=== PATIENT | female | born 1935 | race Two or more races ===

== ENCOUNTER → 2017-07-16 | Outpatient (CLI) | payer MEDICARE, BC | LOC: RADPETMAIN 07:25 | PROVIDERS: ATTEND Internal Medicine Hematology & Oncology | DX: Z53.9 Procedure and treatment not carried out, unspecified reason (principal) ==

== ENCOUNTER 2017-08-03 13:26 | Inpatient (IN) | payer MEDICARE, BC ==
[2017-08-03 14:06] LABS: Basophils % (A) 0 %; Eosinophils % (A) 1 %; HCT 32.4 % (34.0-46.0); HGB 10.5 gm/dL (11.4-16.0); Hypochromasia Moderate; Lymphocytes % (A) 23 %; MCH 35.9 pg (25.0-35.0); MCHC 32.4 g/dL (31.0-37.0); MCV 110.8 fL (80.0-100.0); Macrocytosis Marked; Mean Platelet Volume 8.7; Monocytes # (A) 0.4 k/uL (0-1.0); Monocytes % (A) 8 %; Neutrophils # (A) 2.8 k/uL (1.3-7.7); Neutrophils % (A) 65 %; Platelet Count 424 k/uL (150-450); RBC 2.93 m/uL (3.80-5.40); RDW 14.1 % (11.5-15.5); WBC 4.4 k/uL (3.8-10.6)
[2017-08-03 14:07] LABS: INR 1.2 (<1.2); Partial Thromboplastin Time 23.2 sec (22.0-30.0); Prothrombin Time 11.5 sec (9.0-12.0)
[2017-08-03 14:13] LABS: ALT 44 U/L (9-52); AST 32 U/L (14-36); Albumin 4.1 g/dL (3.5-5.0); Alkaline Phosphatase 98 U/L (38-126); Anion Gap 15 mmol/L; Blood Urea Nitrogen 13 mg/dL (7-17); Calcium 9.5 mg/dL (8.4-10.2); Carbon Dioxide 25 mmol/L (22-30); Chloride 94 mmol/L (98-107); Glucose 101 mg/dL (74-99); Magnesium 1.8 mg/dL (1.6-2.3); Potassium 4.1 mmol/L (3.5-5.1); Sodium 134 mmol/L (137-145); Total Bilirubin 0.7 mg/dL (0.2-1.3); Total Protein 6.9 g/dL (6.3-8.2)
[2017-08-03 14:15] LABS: Large Platelets Present
[2017-08-03 14:19] LABS: Creatine Kinase 41 U/L (30-135)
[2017-08-03 14:32] LABS: Creatine Kinase MB 0.4 ng/mL (0.0-2.4); Troponin I <0.012 ng/mL (0.000-0.034)
[2017-08-03] MEDS ORDERED: METOPROLOL TARTRATE 5 MG/5 ML VIAL IVP STA (14:33)
--- NOTE | 2017-08-03 14:44 | ED ---
General Adult HPI - General Chief complaint: Arrhythmia/Palpitations Stated complaint: AFIB Time Seen by Provider: 08/03/17 14:25 Source: patient Mode of arrival: ambulatory Limitations: no limitations - History of Present Illness Initial comments: This is a 2-year-old female with a history of hypertension on amlodipine, metoprolol, and hydrocodone 5 that he presents emergency department for new onset atrial fibrillation. This was found at her primary doctor's office today. Patient was there for evaluation of URI symptoms. She states that she has been coughing and wheezing over the last few days. She states otherwise she has been feeling well. No chest pain or lightheadedness. No palpitations. She was noted to be nature of fibrillation the office thus she was sent to the emergency department. She denies any recent travel or surgeries. No history DVT or PE. Does not drink excessively. Has not noticed any lower extremity swelling. Denies any other acute complaints. - Related Data Home Medications Medication Instructions Recorded Confirmed ALPRAZolam [Xanax] 0.25 mg PO BID PRN 08/03/17 08/03/17 Ascorbic Acid [Vitamin C] 500 mg PO DAILY 08/03/17 08/03/17 Aspirin 81 mg PO DAILY 08/03/17 08/03/17 Hydrochlorothiazide [Hydrodiuril] 12.5 mg PO DAILY 08/03/17 08/03/17 Hydroxyurea [Hydrea] 1,000 mg PO Q48H 08/03/17 08/03/17 Hydroxyurea [Hydrea] 500 mg PO Q48H 08/03/17 08/03/17 Metoprolol Tartrate [Lopressor] 50 mg PO BID 08/03/17 08/03/17 Multivit-Min/FA/Lycopen/Lutein 1 tab PO DAILY 08/03/17 08/03/17 [Centrum Silver Tablet] amLODIPine [Norvasc] 10 mg PO DAILY 08/03/17 08/03/17 Allergies Allergy/AdvReac Type Severity Reaction Status Date / Time No Known Allergies Allergy Verified 08/03/17 13:42 Review of Systems ROS Statement: Those systems with pertinent positive or pertinent negative responses have been documented in the HPI. ROS Other: All systems not noted in ROS Statement are negative. 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 History of Any Multi-Drug Resistant Organisms: None Reported Past Surgical History: Section Additional Past Surgical History / Comment(s): melanoma removed from left cheek Past Psychological History: No Psychological Hx Reported Smoking Status: Never smoker Past Alcohol Use History: None Reported Past Drug Use History: None Reported General Exam - General Exam Comments Initial Comments: Constitutional: Awake alert Appears comfortable Head: Normocephalic atraumatic Eyes: no conjunctival injection No scleral icterus EOMI Neck: No JVD Supple Heart: Irregularly irregular rhythm normal S1-S2 no murmurs Lungs: Clear to auscultation bilaterally No wheezing No rales Abdomen: Soft nondistended nontender Extremities: Non edematous DP pulses intact Radial pulses intact Neuro: A&Ox3 No focal neurologic deficits Psych: Appropriate mood and affect Limitations: no limitations Course Vital Signs 08/03/17 08/03/17 13:33 15:25 Temperature 98.3 F Pulse Rate 115 H 103 H Respiratory 18 18 Rate Blood Pressure 127/71 146/88 O2 Sat by Pulse 92 L 93 L Oximetry EKG Findings - EKG Comments: EKG Findings:: EKG showing atrial fibrillation with a rate of 105. There are no ST segment changes. There is a T-wave inversion in V6 and lead 1 and 2 and aVF. QTC is 452. Other intervals normal. No ectopy. Medical Decision Making - Medical Decision Making Is any 82-year-old female who presents emergency department for new onset H of fibrillation. The patient was given 5 mg of IV Lopressor for better rate control. She was noted to be slightly hypoxic in the low 90s however when I ambulated her she did not desaturate any further. Blood work was reviewed and unremarkable. I did speak with per week on the phone about anticoagulation and he recommended pelvic was 5 mg twice a day. I spoke with the family at length about possibly going home and they do not feel comfortable going home. The daughter was worried that if she started developing symptoms are worsening shortness of breath that she would not know what to do. They felt more comfortable sitting in the hospital. The patient would will require cardiology evaluation and likely an echocardiogram and also monitoring of her heart rate and adjustment of her medications if necessary. The patient we place an option further evaluation. - Lab Data Result diagrams: 08/03/17 13:48 08/03/17 13:48 Lab Results 08/03/17 08/03/17 08/03/17 Range/Units 13:48 13:48 13:48 WBC 4.4 (3.8-10.6) k/uL RBC 2.93 L (3.80-5.40) m/uL Hgb 10.5 L (11.4-16.0) gm/dL Hct 32.4 L (34.0-46.0) % MCV 110.8 H (80.0-100.0) fL MCH 35.9 H (25.0-35.0) pg MCHC 32.4 (31.0-37.0) g/dL RDW 14.1 (11.5-15.5) % Plt Count 424 (150-450) k/uL Neutrophils % 65 % Lymphocytes % 23 % Monocytes % 8 % Eosinophils % 1 % Basophils % 0 % Neutrophils # 2.8 (1.3-7.7) k/uL Lymphocytes # 1.0 (1.0-4.8) k/uL Monocytes # 0.4 (0-1.0) k/uL Eosinophils # 0.0 (0-0.7) k/uL Basophils # 0.0 (0-0.2) k/uL Manual Slide Review Performed Large Platelets Present Hypochromasia Moderate Macrocytosis Marked PT (9.0-12.0) sec INR (<1.2) APTT (22.0-30.0) sec Sodium 134 L (137-145) mmol/L Potassium 4.1 (3.5-5.1) mmol/L Chloride 94 L (98-107) mmol/L Carbon Dioxide 25 (22-30) mmol/L Anion Gap 15 mmol/L BUN 13 (7-17) mg/dL Creatinine 0.70 (0.52-1.04) mg/dL Est GFR (CKD-EPI)AfAm >90 (>60 ml/min/1.73 sqM) Est GFR (CKD-EPI)NonAf 80 (>60 ml/min/1.73 sqM) Glucose 101 H (74-99) mg/dL Calcium 9.5 (8.4-10.2) mg/dL Magnesium 1.8 (1.6-2.3) mg/dL Total Bilirubin 0.7 (0.2-1.3) mg/dL AST 32 (14-36) U/L ALT 44 (9-52) U/L Alkaline Phosphatase 98 (38-126) U/L Total Creatine Kinase 41 (30-135) U/L CK-MB (CK-2) 0.4 (0.0-2.4) ng/mL CK-MB (CK-2) Rel Index 1.0 Troponin I <0.012 (0.000-0.034) ng/mL NT-Pro-B Natriuret Pep pg/mL Total Protein 6.9 (6.3-8.2) g/dL Albumin 4.1 (3.5-5.0) g/dL 08/03/17 08/03/17 Range/Units 13:48 13:48 WBC (3.8-10.6) k/uL RBC (3.80-5.40) m/uL Hgb (11.4-16.0) gm/dL Hct (34.0-46.0) % MCV (80.0-100.0) fL MCH (25.0-35.0) pg MCHC (31.0-37.0) g/dL RDW (11.5-15.5) % Plt Count (150-450) k/uL Neutrophils % % Lymphocytes % % Monocytes % % Eosinophils % % Basophils % % Neutrophils # (1.3-7.7) k/uL Lymphocytes # (1.0-4.8) k/uL Monocytes # (0-1.0) k/uL Eosinophils # (0-0.7) k/uL Basophils # (0-0.2) k/uL Manual Slide Review Large Platelets Hypochromasia Macrocytosis PT 11.5 (9.0-12.0) sec INR 1.2 H (<1.2) APTT 23.2 (22.0-30.0) sec Sodium (137-145) mmol/L Potassium (3.5-5.1) mmol/L Chloride (98-107) mmol/L Carbon Dioxide (22-30) mmol/L Anion Gap mmol/L BUN (7-17) mg/dL Creatinine (0.52-1.04) mg/dL Est GFR (CKD-EPI)AfAm (>60 ml/min/1.73 sqM) Est GFR (CKD-EPI)NonAf (>60 ml/min/1.73 sqM) Glucose (74-99) mg/dL Calcium (8.4-10.2) mg/dL Magnesium (1.6-2.3) mg/dL Total Bilirubin (0.2-1.3) mg/dL AST (14-36) U/L ALT (9-52) U/L Alkaline Phosphatase (38-126) U/L Total Creatine Kinase (30-135) U/L CK-MB (CK-2) (0.0-2.4) ng/mL CK-MB (CK-2) Rel Index Troponin I (0.000-0.034) ng/mL NT-Pro-B Natriuret Pep 2560 pg/mL Total Protein (6.3-8.2) g/dL Albumin (3.5-5.0) g/dL Disposition Clinical Impression: Atrial fibrillation Disposition: ADMITTED IP TO THIS [facility] Condition: Stable
--- NOTE | 2017-08-03 14:49 | XR ---
EXAMINATION TYPE: XR chest 2V DATE OF EXAM: 08/03/2017 COMPARISON: None HISTORY: 82-year-old female with dysrhythmia TECHNIQUE: AP and lateral views FINDINGS: Heart mildly enlarged. Atherosclerotic arch calcifications. Mild diffuse interstitial prominence with mild pleural effusions and bibasilar densities. IMPRESSION: 1. Correlate for mild CHF. 2. Small pleural effusions with adjacent atelectasis and/or consolidation.
[2017-08-03] MEDS ORDERED: APIXABAN 5 MG TAB PO STA (15:33)
[2017-08-03] MEDS ORDERED: NALOXONE 0.4 MG/ML 1 ML VIAL IV PRN (15:57)
[2017-08-03] MEDS ORDERED: ALPRAZolam 0.25 MG TAB PO PRN (17:26)
[2017-08-03] MEDS ORDERED: HYDROXYUREA 500 MG CAP PO ONE (17:30)
--- NOTE | 2017-08-03 17:46 | P.HPIM ---
History of Present Illness 81-year-old pleasant female came in after she was sent in from this office after EKG was done there. 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 Patient was found to be in atrial fibrillation patient does have bilateral pleural effusions elevated JVD and also elevated BNP. This is a new onset atrial fibrillation for the patient patient already takes metoprolol at home patient heart rate came under control after IV metoprolol patient will be resumed on metoprolol will be started on anticoagulation patient takes aspirin at home patient denied any history of and start failure patient is comparing of some shortness of breath cushion will history of orthopnea as well as paroxysmal nocturnal dyspnea patient does have mild bilateral pedal edema. Echo cardiac exam will be obtained. Patient was comparing of cough without any sputum production. Review of Systems REVIEW OF SYSTEMS: CONSTITUTIONAL: No fever, no malaise, no fatigue. HEENT: No recent visual problems or hearing problems. Denied any sore throat. CARDIOVASCULAR: No chest pain, no palpitations, no syncope. PULMONARY: , no hemoptysis. GASTROINTESTINAL: No diarrhea, no nausea, no vomiting, no abdominal pain. Normoactive bowel sounds. NEUROLOGICAL: No headaches, no weakness, no numbness. HEMATOLOGICAL: Denies any bleeding or petechiae. GENITOURINARY: Denies any burning micturition, frequency, or urgency. MUSCULOSKELETAL/RHEUMATOLOGICAL: Denies any joint pain, swelling, or any muscle pain. ENDOCRINE: Denies any polyuria or polydipsia. The rest of the 14-point review of systems is negative. 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 History of Any Multi-Drug Resistant Organisms: None Reported Past Surgical History: Section Additional Past Surgical History / Comment(s): melanoma removed from left cheek Past Psychological History: No Psychological Hx Reported Smoking Status: Never smoker Past Alcohol Use History: None Reported Past Drug Use History: None Reported Medications and Allergies Home Medications Medication Instructions Recorded Confirmed Type ALPRAZolam [Xanax] 0.25 mg PO BID PRN 08/03/17 08/03/17 History Ascorbic Acid [Vitamin C] 500 mg PO DAILY 08/03/17 08/03/17 History Aspirin 81 mg PO DAILY 08/03/17 08/03/17 History Hydrochlorothiazide [Hydrodiuril] 12.5 mg PO DAILY 08/03/17 08/03/17 History Hydroxyurea [Hydrea] 1,000 mg PO Q48H 08/03/17 08/03/17 History Hydroxyurea [Hydrea] 500 mg PO Q48H 08/03/17 08/03/17 History Metoprolol Tartrate [Lopressor] 50 mg PO BID 08/03/17 08/03/17 History Multivit-Min/FA/Lycopen/Lutein 1 tab PO DAILY 08/03/17 08/03/17 History [Centrum Silver Tablet] amLODIPine [Norvasc] 10 mg PO DAILY 08/03/17 08/03/17 History Allergies Allergy/AdvReac Type Severity Reaction Status Date / Time No Known Allergies Allergy Verified 08/03/17 13:42 Physical Exam Vitals: Vital Signs Temp Pulse Resp BP Pulse Ox 08/03/17 16:23 91 18 125/76 92 L 08/03/17 15:25 103 H 18 146/88 93 L 08/03/17 13:33 98.3 F 115 H 18 127/71 92 L Intake and Output 08/03/17 08/03/17 08/03/17 06:59 14:59 22:59 Other: Weight 70.307 kg PHYSICAL EXAMINATION: GENERAL: The patient is alert and oriented x3, not in any acute distress. Well developed, well nourished. HEENT: Pupils are round and equally reacting to light. EOMI. No scleral icterus. No conjunctival pallor. Normocephalic, atraumatic. No pharyngeal erythema. No thyromegaly. CARDIOVASCULAR: S1 and S2 present. No murmurs, rubs, patient does have S3 as well as elevated JVD. PULMONARY: Good air entry bilateral lung ayala and crackles are appreciated on lung exam ABDOMEN: Soft, nontender, nondistended, normoactive bowel sounds. No palpable organomegaly. MUSCULOSKELETAL: No joint swelling or deformity. EXTREMITIES: No cyanosis, clubbing, mild pedal edema NEUROLOGICAL: Gross neurological examination did not reveal any focal deficits. SKIN: No rashes. Results CBC & Chem 7: 08/03/17 13:48 08/03/17 13:48 Labs: Abnormal Lab Results - Last 24 Hours (Table) 05/05/2208/03/17 08/03/17 Range/Units 13:48 13:48 13:48 RBC 2.93 L (3.80-5.40) m/uL Hgb 10.5 L (11.4-16.0) gm/dL Hct 32.4 L (34.0-46.0) % MCV 110.8 H (80.0-100.0) fL MCH 35.9 H (25.0-35.0) pg INR 1.2 H (<1.2) Sodium 134 L (137-145) mmol/L Chloride 94 L (98-107) mmol/L Glucose 101 H (74-99) mg/dL Assessment and Plan Plan: -New-onset atrial fibrillation frustrating factor is unknown patient does not have any signs or symptoms of infection patient was started on metoprolol oral and the patient was started on anticoagulation MARKY VASC2 score is high will need anticoagulation Congestive heart failure ejection fraction is unknown probably as stated from atrial fibrillation echocardiac exam will be obtained as mentioned above. -Hypertension: Except for beta tr rest of the medications will be held. 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
[2017-08-03 21:02] LABS: Creatine Kinase 39 U/L (30-135)
[2017-08-03 21:15] LABS: Creatine Kinase MB 0.6 ng/mL (0.0-2.4); Troponin I <0.012 ng/mL (0.000-0.034)
[2017-08-03] MEDS: APIXABAN 5 MG TAB PO SCH (21:47)
[2017-08-03] MEDS: METOPROLOL TARTRATE 50 MG TAB PO SCH (21:52)
[2017-08-03] MEDS: FUROSEMIDE 10 MG/ML 4 ML VIAL IV SCH (21:53)
[2017-08-04 02:21] LABS: HCT 29.1 % (34.0-46.0); HGB 9.3 gm/dL (11.4-16.0); Hypochromasia Moderate; MCH 35.9 pg (25.0-35.0); MCHC 31.8 g/dL (31.0-37.0); MCV 112.8 fL (80.0-100.0); Macrocytosis Marked; Mean Platelet Volume 8.2; Platelet Count 359 k/uL (150-450); RBC 2.58 m/uL (3.80-5.40); RDW 14.3 % (11.5-15.5); WBC 3.2 k/uL (3.8-10.6)
[2017-08-04 02:57] LABS: Creatine Kinase 44 U/L (30-135)
[2017-08-04 02:59] LABS: Anion Gap 12 mmol/L; Blood Urea Nitrogen 13 mg/dL (7-17); Carbon Dioxide 25 mmol/L (22-30); Chloride 97 mmol/L (98-107); Glucose 92 mg/dL (74-99); Potassium 3.8 mmol/L (3.5-5.1); Sodium 134 mmol/L (137-145)
[2017-08-04 03:10] LABS: Creatine Kinase MB 0.8 ng/mL (0.0-2.4); Troponin I <0.012 ng/mL (0.000-0.034)
[2017-08-04] MEDS ORDERED: FUROSEMIDE 40 MG TAB PO SCH (09:00)
--- NOTE | 2017-08-04 09:19 | P.CRDCN ---
History of Present Illness Consult date: 08/04/17 Requesting physician: Breann Gold Consult reason: atrial fibrillation Chief complaint: Atrial fibrillation History of present illness: This is a pleasant 82-year-old female with history of hypertension, thrombocythemia , squamous cell cancer for which she follows with Dr. Matias, this patient was directed to come to the hospital by her primary care doctor when she was noted to be in atrial fibrillation. According to the patient, she states that for the past one week or so she has noticed herself to be more short of breath than usual. She denies any palpitations or chest discomfort. She was at her primary care doctor's office, an EKG was performed which showed atrial fibrillation and for this reason she was advised to come to the emergency room for further evaluation. According to the patient, she has no prior documented history of atrial fibrillation. EKG on arrival here showed atrial fibrillation with a moderately rapid ventricular response, occasional PVC. Chest x-ray showed mild congestive heart failure with small bilateral pleural effusions. Blood pressure on arrival here 127/70 with a heart rate of 118, temperature 98.3, 92% on room air. Blood pressure this morning 140/70 with a heart rate of 90, 94% on 2 L of oxygen. White blood cell count on arrival 4.4, 3.2 this morning. Hemoglobin on arrival 10.5, 9.3 this morning, platelet count is 359. Sodium 134, potassium 3.8, BUN 13, creatinine 0.7. Troponins are negative 3, BNP 2560. At the time of my examination this morning she continues to be in atrial fibrillation, her rate is under good control. Patient was initiated on IV Lasix in the emergency room. She was also started on Eliquis 5 mg twice a day. She is on Norvasc 10 mg daily at home as well as Lopressor 50 twice a day, Hydrea, Hydrea diarrheal 12-1/2 daily. Her dose of metoprolol here has been increased to 100 twice a day. 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 History of Any Multi-Drug Resistant Organisms: None Reported Past Surgical History: Section Additional Past Surgical History / Comment(s): melanoma removed from left cheek Past Psychological History: No Psychological Hx Reported Smoking Status: Never smoker Past Alcohol Use History: None Reported Past Drug Use History: None Reported Medications and Allergies Home Medications Medication Instructions Recorded Confirmed Type ALPRAZolam [Xanax] 0.25 mg PO BID PRN 08/03/17 08/03/17 History Ascorbic Acid [Vitamin C] 500 mg PO DAILY 08/03/17 08/03/17 History Aspirin 81 mg PO DAILY 08/03/17 08/03/17 History Hydrochlorothiazide [Hydrodiuril] 12.5 mg PO DAILY 08/03/17 08/03/17 History Hydroxyurea [Hydrea] 1,000 mg PO Q48H 08/03/17 08/03/17 History Hydroxyurea [Hydrea] 500 mg PO Q48H 08/03/17 08/03/17 History Metoprolol Tartrate [Lopressor] 50 mg PO BID 08/03/17 08/03/17 History Multivit-Min/FA/Lycopen/Lutein 1 tab PO DAILY 08/03/17 08/03/17 History [Centrum Silver Tablet] amLODIPine [Norvasc] 10 mg PO DAILY 08/03/17 08/03/17 History Allergies Allergy/AdvReac Type Severity Reaction Status Date / Time No Known Allergies Allergy Verified 08/03/17 13:42 Physical Exam Vitals: Vital Signs Temp Pulse Resp BP Pulse Ox 08/04/17 08:00 95 18 141/75 94 L 08/04/17 07:55 98 20 95 08/04/17 07:53 97.8 F 108 H 28 H 143/76 88 L 08/04/17 07:00 20 08/04/17 06:01 95 18 114/57 93 L 08/04/17 05:00 93 L 08/04/17 04:09 82 20 93 L 08/04/17 03:00 85 18 111/57 95 08/04/17 02:21 82 18 94 L 08/04/17 01:10 76 18 95/55 95 08/03/17 23:36 97.8 F 70 18 115/58 93 L 08/03/17 21:52 97 18 139/66 96 08/03/17 20:19 99 18 143/67 91 L 08/03/17 18:07 97.6 F 97 18 148/75 92 L 08/03/17 16:23 91 18 125/76 92 L 08/03/17 15:25 103 H 18 146/88 93 L 08/03/17 13:33 98.3 F 115 H 18 127/71 92 L PHYSICAL EXAMINATION: HEENT: Head is atraumatic, normocephalic. Pupils equal, round. Neck is supple. There is elevated jugular venous pressure. HEART EXAMINATION: Heart S1 and S2 irregularly irregular CHEST EXAMINATION: Lungs are clear with diminished air entry to bilateral bases ABDOMEN: Soft, nontender. Bowel sounds are heard. No organomegaly noted. EXTREMITIES: 2+ peripheral pulses with no evidence of peripheral edema and no calf tenderness noted. NEUROLOGIC patient is awake, alert and oriented -3. . Results 08/04/17 02:00 08/04/17 02:00 Cardiac Enzymes 08/03/17 08/03/17 08/03/17 Range/Units 13:48 13:48 20:36 AST 32 (14-36) U/L CK-MB (CK-2) 0.4 0.6 (0.0-2.4) ng/mL Troponin I <0.012 <0.012 (0.000-0.034) ng/mL 08/04/17 Range/Units 02:00 AST (14-36) U/L CK-MB (CK-2) 0.8 (0.0-2.4) ng/mL Troponin I <0.012 (0.000-0.034) ng/mL Coagulation 08/03/17 Range/Units 13:48 PT 11.5 (9.0-12.0) sec APTT 23.2 (22.0-30.0) sec CBC 08/03/17 08/04/17 Range/Units 13:48 02:00 WBC 4.4 3.2 L (3.8-10.6) k/uL RBC 2.93 L 2.58 L (3.80-5.40) m/uL Hgb 10.5 L 9.3 L (11.4-16.0) gm/dL Hct 32.4 L 29.1 L (34.0-46.0) % Plt Count 424 359 (150-450) k/uL Comprehensive Metabolic Panel 08/03/17 08/04/17 Range/Units 13:48 02:00 Sodium 134 L 134 L (137-145) mmol/L Potassium 4.1 3.8 (3.5-5.1) mmol/L Chloride 94 L 97 L (98-107) mmol/L Carbon Dioxide 25 25 (22-30) mmol/L BUN 13 13 (7-17) mg/dL Creatinine 0.70 0.70 (0.52-1.04) mg/dL Glucose 101 H 92 (74-99) mg/dL Calcium 9.5 9.0 (8.4-10.2) mg/dL AST 32 (14-36) U/L ALT 44 (9-52) U/L Alkaline Phosphatase 98 (38-126) U/L Total Protein 6.9 (6.3-8.2) g/dL Albumin 4.1 (3.5-5.0) g/dL Current Medications Generic Name Dose Route Start Last Admin Trade Name Freq PRN Reason Stop Dose Admin Alprazolam 0.25 mg 08/03/17 17:26 Xanax PO BID PRN Anxiety Apixaban 5 mg 08/03/17 21:00 08/03/17 21:47 Eliquis PO Not Given BID PASCALE Furosemide 40 mg 08/03/17 21:00 08/03/17 21:53 Lasix IV 40 mg Q12HR PASCALE Administration Hydroxyurea 1,000 mg 08/04/17 09:00 Hydrea PO Q48H PASCALE Hydroxyurea 500 mg 08/05/17 09:00 Hydrea PO Q48H PASCALE Metoprolol Tartrate 100 mg 08/03/17 21:00 08/03/17 21:52 Lopressor PO 100 mg BID PASCALE Administration Naloxone HCl 0.2 mg 08/03/17 15:57 Narcan IV Q2M PRN Opioid Reversal 08/04/17 02:00 08/04/17 02:00 EKG Interpretations (text) EKG shows atrial fibrillation with a moderately rapid ventricular response. Assessment and Plan Plan: Assessment and plan #1 atrial fibrillation with moderately rapid ventricular response, appears to be of new onset. #2 hypertension #3 thrombocythemia, on Hydrea, being treated by Dr. Moss #4 squamous cell CA Plan We will obtain an echocardiogram with Doppler study as well as TSH level. Continue Eliquis and discussed with Dr. Moss, continue current dose of Lopressor, discontinue IV Lasix and start the patient on oral diuretics. Control heart rate. Further recommendations to follow. DNP note has been reviewed, I agree with a documented findings and plan of care. Patient was seen and examined.
[2017-08-04] MEDS: FUROSEMIDE 10 MG/ML 4 ML VIAL IV SCH (09:28)
[2017-08-04] MEDS: APIXABAN 5 MG TAB PO SCH ×2 (09:50→20:17)
[2017-08-04] MEDS: HYDROXYUREA 500 MG CAP PO SCH ×3 (09:52→13:37)
--- NOTE | 2017-08-04 10:39 | ECHOF ---
Referral Reason:new onset a.fib MEASUREMENTS -------- HEIGHT: 157.5 cm WEIGHT: 70.3 kg BP: 143/76 RVIDd: 2.6 cm (< 3.3) IVSd: 1.2 cm (0.6 - 1.1) LVIDd: 4.2 cm (3.9 - 5.3) LVPWd: 1.3 cm (0.6 - 1.1) IVSs: 1.7 cm LVIDs: 3.5 cm LVPWs: 1.1 cm LA Diam: 4.2 cm (2.7 - 3.8) LAESV Index (A-L): 50.74 ml/m Ao Diam: 3.5 cm (2.0 - 3.7) AV Cusp: 1.2 cm (1.5 - 2.6) LA Diam: 4.7 cm (2.7 - 3.8) MV EXCURSION: 20.824 mm (> 18.000) MV EF SLOPE: 136 mm/s (70 - 150) EPSS: 0.2 cm MV E Micah: 0.93 m/s MV DecT: 118 ms MV A Micah: 0.05 m/s MV E/A Ratio: 17.00 RAP: 15.00 mmHg RVSP: 49.12 mmHg FINDINGS -------- Atrial fibrillation. This was a technically adequate study. The left ventricular size is normal. There is borderline concentric left ventricular hypertrophy. Overall left ventricular systolic function is low-normal with, an EF between 50 - 55 %. The right ventricle is normal in size. The left atrium is moderately dilated. LA is severely dilated >40 ml/m2 The right atrial size is normal. There is mild aortic valve sclerosis. There is no evidence of aortic regurgitation. Mild mitral annular calcification present. Moderate mitral regurgitation is present. Moderate to severe tricuspid regurgitation present. There is moderate pulmonary hypertension. The right ventricular systolic pressure, as measured by Doppler, is 49.12mmHg. Trace/mild (physiologic) pulmonic regurgitation. The aortic root size is normal. There is no pericardial effusion. CONCLUSIONS -------- 1. The left ventricular size is normal. 2. There is borderline concentric left ventricular hypertrophy. 3. Overall left ventricular systolic function is low-normal with, an EF between 50 - 55 %. 4. The left atrium is moderately dilated. 5. LA is severely dilated >40 ml/m2 6. There is mild aortic valve sclerosis. 7. Mild mitral annular calcification present. 8. Moderate mitral regurgitation is present. 9. Moderate to severe tricuspid regurgitation present. 10. There is moderate pulmonary hypertension. 11. The right ventricular systolic pressure, as measured by Doppler, is 49.12mmHg. 12. Trace/mild (physiologic) pulmonic regurgitation. 13. The aortic root size is normal. 14. There is no pericardial effusion. CLINICAL NURSING COORDINATOR: Cleo Hamilton RDCS
--- NOTE | 2017-08-04 10:55 | P.PN ---
Subjective 82-year-old female came in with atrial fibrillation and congestive heart failure patient has normal ejection fraction patient appears to have severe mitral regurgitation and left atrial hypertrophy contributing to atrial fibrillation. Patient is feeling better still has some crackles in JVD patient was switched to oral Lasix by cardiology patient was started on anticoagulation. Heart rate is not well controlled yet. Constitutional: Denied any fatigue denied any fever. Cardio vascular: denied any chest pain, palpitations Gastrointestinal denied any nausea vomiting Pulmonary: Shortness of breath Neurologic denied any new focal deficits Objective - Vital Signs Vital signs: Vital Signs Temp 97.8 F 08/04/17 07:53 Pulse 95 08/04/17 08:00 Resp 18 08/04/17 08:00 BP 141/75 08/04/17 08:00 Pulse Ox 94 L 08/04/17 08:00 Intake & Output 08/03/17 08/04/17 08/04/17 18:59 06:59 18:59 Output Total 950 Balance -950 Weight 70.307 kg Output: Urine 950 - Exam PHYSICAL EXAMINATION: GENERAL: The patient is alert and oriented x3, not in any acute distress. Well developed, well nourished. HEENT: Pupils are round and equally reacting to light. EOMI. No scleral icterus. No conjunctival pallor. Normocephalic, atraumatic. No pharyngeal erythema. No thyromegaly. CARDIOVASCULAR: S1 and S2 present. Systolic murmur Mitral area, elevated JVD mild pedal edema, irregularly irregular rhythm. PULMONARY: Chest is clear to auscultation, no wheezing or crackles. ABDOMEN: Soft, nontender, nondistended, normoactive bowel sounds. No palpable organomegaly. MUSCULOSKELETAL: No joint swelling or deformity. EXTREMITIES: No cyanosis, clubbing, NEUROLOGICAL: Gross neurological examination did not reveal any focal deficits. SKIN: No rashes. - Labs CBC & Chem 7: 08/04/17 02:00 08/04/17 02:00 Labs: Abnormal Lab Results - Last 24 Hours (Table) 08/03/17 08/03/17 08/03/17 Range/Units 13:48 13:48 13:48 WBC (3.8-10.6) k/uL RBC 2.93 L (3.80-5.40) m/uL Hgb 10.5 L (11.4-16.0) gm/dL Hct 32.4 L (34.0-46.0) % MCV 110.8 H (80.0-100.0) fL MCH 35.9 H (25.0-35.0) pg INR 1.2 H (<1.2) Sodium 134 L (137-145) mmol/L Chloride 94 L (98-107) mmol/L Glucose 101 H (74-99) mg/dL 08/04/17 08/04/17 Range/Units 02:00 02:00 WBC 3.2 L (3.8-10.6) k/uL RBC 2.58 L (3.80-5.40) m/uL Hgb 9.3 L (11.4-16.0) gm/dL Hct 29.1 L (34.0-46.0) % MCV 112.8 H (80.0-100.0) fL MCH 35.9 H (25.0-35.0) pg INR (<1.2) Sodium 134 L (137-145) mmol/L Chloride 97 L (98-107) mmol/L Glucose (74-99) mg/dL Assessment and Plan Plan: -New-onset atrial fibrillation frustrating factor is unknown patient does not have any signs or symptoms of infection patient was started on metoprolol oral and the patient was started on anticoagulation MARKY VASC2 score is high will need anticoagulation Congestive heart failure ejection fraction is unknown probably as stated from atrial fibrillation echocardiac exam showed normal ejection fraction. Patient is on oral Lasix now. -Hypertension: Except for beta tr rest of the medications will be held. 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
[2017-08-04] MEDS: METOPROLOL TARTRATE 50 MG TAB PO SCH ×2 (11:53→20:17)
[2017-08-05 06:56] LABS: Anion Gap 11 mmol/L; Blood Urea Nitrogen 14 mg/dL (7-17); Calcium 9.1 mg/dL (8.4-10.2); Carbon Dioxide 28 mmol/L (22-30); Chloride 99 mmol/L (98-107); Glucose 86 mg/dL (74-99); Potassium 3.7 mmol/L (3.5-5.1); Sodium 138 mmol/L (137-145)
[2017-08-05] MEDS: METOPROLOL TARTRATE 50 MG TAB PO SCH (08:08)
[2017-08-05] MEDS: HYDROXYUREA 500 MG CAP PO SCH (08:08)
[2017-08-05] MEDS: APIXABAN 5 MG TAB PO SCH (08:08)
[2017-08-05 08:29] VITALS: RESP 18
[2017-08-05] MEDS ORDERED: HYDROXYUREA 500 MG CAP PO SCH (09:00)
[2017-08-05] MEDS ORDERED: FUROSEMIDE 40 MG TAB PO SCH (09:00)
--- NOTE | 2017-08-05 10:42 | CDI ---
Last Revision, March 2017 Documentation Clarification Form Date: 08/05/2017 10:39:00 AM From: Keysha OharaJALEESA, CCDS Admit Date: 08/04/2017 9:48:00 AM Patient Name: Jessica Pulido Visit Number: [id number] Discharge Date: ATTENTION: The Clinical Documentation Specialists (CDI) and [facility] Coding Staff appreciate your assistance in clarifying documentation. Please respond to the clarification below the line at the bottom and electronically sign. The CDI & [facility] Coding staff will review the response and follow-up if needed. Please note: Queries are made part of the Legal Health Record. If you have any questions, please contact the author of this message via ITS. Dr. 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 VS: P 115, PO 92 RA BNP: 2560 Echocardiogram Results 08/04: systolic function low normal w/EF between 50-55%, left atrium moderately dilated, Mod MR, Mod-severe TR, Mod pulmonary hypertension. Chest X Ray: Correlate for mild CHF, small pleural effusions, atelectasis or consolidation. Treatment: IV Lopressor, Eliquis, IV Lasix, now po. Cardiology consulted. In your professional opinion, can you please clarify the acuity and type of CHF if known? Systolic Heart Failure: o Acute o Chronic o Acute on Chronic o Acute o Chronic o Systolic & Diastolic Heart Failure: o Acute o Chronic o Acute on Chronic Heart Failure Unable to Determine Other, please specify Please continue to document in your progress notes and discharge summary in order to capture severity of illness and risk of mortality. Include clinical findings that support your diagnosis. Diastolic Heart Failure: Acute on Chronic MTDD
[2017-08-05 11:30] VITALS: BP 118/57; PULSE 97; TEMP 97
--- NOTE | 2017-08-05 14:21 | P.PN ---
Subjective Progress Note Date: 08/05/17 This is a pleasant 82-year-old female with history of hypertension, thrombocythemia , squamous cell cancer for which she follows with Dr. Matias, this patient was directed to come to the hospital by her primary care doctor when she was noted to be in atrial fibrillation. According to the patient, she states that for the past one week or so she has noticed herself to be more short of breath than usual. She denies any palpitations or chest discomfort. She was at her primary care doctor's office, an EKG was performed which showed atrial fibrillation and for this reason she was advised to come to the emergency room for further evaluation. According to the patient, she has no prior documented history of atrial fibrillation. EKG on arrival here showed atrial fibrillation with a moderately rapid ventricular response, occasional PVC. Chest x-ray showed mild congestive heart failure with small bilateral pleural effusions. Blood pressure on arrival here 127/70 with a heart rate of 118, temperature 98.3, 92% on room air. Blood pressure this morning 140/70 with a heart rate of 90, 94% on 2 L of oxygen. White blood cell count on arrival 4.4, 3.2 this morning. Hemoglobin on arrival 10.5, 9.3 this morning, platelet count is 359. Sodium 134, potassium 3.8, BUN 13, creatinine 0.7. Troponins are negative 3, BNP 2560. At the time of my examination this morning she continues to be in atrial fibrillation, her rate is under good control. Patient was initiated on IV Lasix in the emergency room. She was also started on Eliquis 5 mg twice a day. She is on Norvasc 10 mg daily at home as well as Lopressor 50 twice a day, Hydrea, Hydrea diarrheal 12-1/2 daily. Her dose of metoprolol here has been increased to 100 twice a day. 08/05/2017 Patient seen and examined this morning, continues to be in atrial fibrillation, her rate is under adequate control. Echocardiogram with Doppler study was performed which revealed an ejection fraction of 50-55%. From cardiology's perspective, patient to be able to be discharged home today. We will make her a follow-up appointment to see Dr. VC Quintana in the office in one week. She will continue on Eliquis 5 twice a day along with Lasix 40 mg daily and metoprolol 100 mg by mouth twice a day. Objective - Vital Signs Vital signs: Vital Signs Temp 97.0 F L 08/05/17 11:29 Pulse 97 08/05/17 11:29 Resp 18 08/05/17 11:29 BP 118/57 08/05/17 11:29 Pulse Ox 93 L 08/05/17 11:29 Intake & Output 08/04/17 08/05/17 08/05/17 18:59 06:59 18:59 Intake Total 340 10 360 Output Total 950 200 Balance -610 10 160 Weight 72.5 kg Intake: IV 10 .9 10 Oral 340 360 Output: Urine 950 200 Other: Voiding Method Toilet # Voids 1 2 - Exam PHYSICAL EXAMINATION: HEENT: Head is atraumatic, normocephalic. Pupils equal, round. Neck is supple. There is no elevated jugular venous pressure. HEART EXAMINATION: Heart S1 and S2 irregularly irregular CHEST EXAMINATION: Lungs are clear to auscultation and precussion. No chest wall tenderness is noted on palpation or with deep breathing. ABDOMEN: Soft, nontender. Bowel sounds are heard. No organomegaly noted. EXTREMITIES: 2+ peripheral pulses with no evidence of peripheral edema and no calf tenderness noted. NEUROLOGIC patient is awake, alert and oriented -3. . - Labs CBC & Chem 7: 08/04/17 02:00 08/05/17 06:14 Assessment and Plan Plan: Assessment and plan #1 atrial fibrillation with moderately rapid ventricular response, appears to be of new onset. Chronic persistent #2 hypertension #3 thrombocythemia, on Hydrea, being treated by Dr. Moss #4 squamous cell CA Plan TSH level was normal, Echo cardiac gram with Doppler study revealed a normal left ventricular systolic function. From cardiology's perspective, she may be able to be discharged home today. Follow-up appointment will be made with Dr. VC Quintana in the office post discharge. We will continue Eliquis 5 mg one tablet by mouth twice a day along with metoprolol 100 mg by mouth twice a day and Lasix 40 mg daily. DNP note has been reviewed, I agree with a documented findings and plan of care. Patient was seen and examined.
--- NOTE | 2017-08-05 14:33 | P.DS ---
Providers Date of admission: 08/04/17 09:48 Attending physician: Maye Waller Consults: 08/03/17 15:59 Consult Physician Routine Consulting Provider: Yasmine uQintana Consult Reason/Comments: New onset Afib Do you want consulting provider notified?: Already Contacted Primary care physician: [facility] Course: 82-year-old female came in with atrial fibrillation and congestive heart failure patient has normal ejection fraction patient appears to have severe mitral regurgitation and left atrial hypertrophy contributing to atrial fibrillation. Patient is feeling better still has some crackles in JVD patient was switched to oral Lasix by cardiology patient was started on anticoagulation. Heart rate is not well controlled yet. 08/05/2017 Patient is clinically doing well and patient will be discharged today in stable medical condition to home heart rate is well controlled patient is euvolemic at this time. PHYSICAL EXAMINATION: GENERAL: The patient is alert and oriented x3, not in any acute distress. Well developed, well nourished. HEENT: Pupils are round and equally reacting to light. EOMI. No scleral icterus. No conjunctival pallor. Normocephalic, atraumatic. No pharyngeal erythema. No thyromegaly. CARDIOVASCULAR: S1 and S2 present. No murmurs, rubs, or gallops. PULMONARY: Chest is clear to auscultation, no wheezing or crackles. ABDOMEN: Soft, nontender, nondistended, normoactive bowel sounds. No palpable organomegaly. MUSCULOSKELETAL: No joint swelling or deformity. EXTREMITIES: No cyanosis, clubbing, or pedal edema. NEUROLOGICAL: Gross neurological examination did not reveal any focal deficits. SKIN: No rashes. 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 Patient Condition at Discharge: Stable Plan - Discharge Summary Discharge Rx Participant: No New Discharge Prescriptions: New Apixaban [Eliquis] 5 mg PO BID #60 tab Metoprolol Tartrate [Lopressor] 100 mg PO BID #60 tab Furosemide [Lasix] 20 mg PO DAILY #30 tab Potassium Chloride ER [K-Dur 10] 10 meq PO DAILY #30 tab Discontinued amLODIPine [Norvasc] 10 mg PO DAILY Metoprolol Tartrate [Lopressor] 50 mg PO BID Hydrochlorothiazide [Hydrodiuril] 12.5 mg PO DAILY Aspirin 81 mg PO DAILY No Action ALPRAZolam [Xanax] 0.25 mg PO BID PRN PRN Reason: Anxiety Hydroxyurea [Hydrea] 1,000 mg PO Q48H Hydroxyurea [Hydrea] 500 mg PO DAILY Multivit-Min/FA/Lycopen/Lutein [Centrum Silver Tablet] 1 tab PO DAILY Ascorbic Acid [Vitamin C] 500 mg PO DAILY Discharge Medication List ALPRAZolam [Xanax] 0.25 mg PO BID PRN 08/03/17 [History] Ascorbic Acid [Vitamin C] 500 mg PO DAILY 08/03/17 [History] Hydroxyurea [Hydrea] 1,000 mg PO Q48H 08/03/17 [History] Hydroxyurea [Hydrea] 500 mg PO DAILY 08/03/17 [History] Multivit-Min/FA/Lycopen/Lutein [Centrum Silver Tablet] 1 tab PO DAILY 08/03/17 [ History] Apixaban [Eliquis] 5 mg PO BID #60 tab 08/05/17 [Rx] Furosemide [Lasix] 20 mg PO DAILY #30 tab 08/05/17 [Rx] Metoprolol Tartrate [Lopressor] 100 mg PO BID #60 tab 08/05/17 [Rx] Potassium Chloride ER [K-Dur 10] 10 meq PO DAILY #30 tab 08/05/17 [Rx] Follow up Appointment(s)/Referral(s): Kike Barillas MD [Primary Care Provider] - 08/10/17 2:30 pm Yasmine Quintana MD [STAFF PHYSICIAN] - 08/11/17 3:45 pm Patient Instructions/Handouts: A-fib (Atrial Fibrillation) (DC), Safe Use of Anticoagulants (DC) Activity/Diet/Wound Care/Special Instructions: Eliquis script filled in [facility] - free 30 day coupon applied - copay will be $45 Discharge Disposition: HOME SELF-CARE
== END 2017-08-05 14:41 | disposition home or self-care (01) | DRG 308 ==
LOC: EC 13:26 → 6SEL 15:58 → OBSVTOIN 08-04 09:48 → 6SEL 08-04 12:41
PROVIDERS: ADMIT Internal Medicine; ATTEND Internal Medicine
DX: I48.2 Chronic atrial fibrillation (principal); I50.33 Acute on chronic diastolic (congestive) heart failure; D69.3 Immune thrombocytopenic purpura; I11.0 Hypertensive heart disease with heart failure; I08.0 Rheumatic disorders of both mitral and aortic valves; I49.3 Ventricular premature depolarization; Z79.82 Long term (current) use of aspirin; Z79.899 Other long term (current) drug therapy; Z85.820 Personal history of malignant melanoma of skin
CPT/HCPCS: 36415; 71046; 80048; 80053; 82550; 82553; 83735; 83880; 84443; 84484; 85025; 85027; 85610; 85730; 93005; 93306; 96374; 96375; 96376; 99285

== ENCOUNTER 2018-05-21 21:51 | Inpatient (IN) | payer MEDICARE, BC ==
--- NOTE | 2018-05-21 22:52 | ED ---
General Adult HPI - General Chief complaint: Fall Stated complaint: Fall/disoriented Time Seen by Provider: 05/21/18 22:13 Source: patient, family Mode of arrival: ambulatory Limitations: no limitations - History of Present Illness Initial comments: Dictation was produced using [employer] dictation software. please excuse any grammatical, word or spelling errors. Chief Complaint: 83-year-old female who lives alone. She fell at home. History of Present Illness: Patient is a 83-year-old female past medical history of atrial fibrillation. She takes L Guerrero. Patient states that the past 2 nights she slid out of bed. Patient is unable to see in detail what she was doing and why she fell. She states she slid out of bed. She was on the ground and was not able to get her feet under her because of weakness. She called her daughter who lives next door daughter found her on the ground and helped her into a chair. Patient is brought to the emergency department. Patient feels well except for some generalized weakness. Daughter reports that this weakness started abruptly 2 days ago. No other complaints at this time. Denies any loss of consciousness. The ROS documented in this emergency department record has been reviewed and confirmed by me. Those systems with pertinent positive or negative responses have been documented in the HPI. All other systems are other negative and/or noncontributory. PHYSICAL EXAM: General Impression: Alert and oriented x3, not in acute distress HEENT: Normocephalic atraumatic, extra-ocular movements intact, pupils equal and reactive to light bilaterally, mucous membranes moist. Cardiovascular: Heart regular rate and rhythm, S1&S2 audible, no murmurs, rubs or gallops Chest: Lungs clear to auscultation bilaterally, no rhonchi, no wheeze, no rales Abdomen: Bowel sounds present, abdomen soft, non-tender, non-distended, no organomegaly Musculoskeletal: Pulses present and equal in all extremities, no peripheral edema Motor: Power 5/5 bilaterally, no focal deficits noted Neurological: CN II-XII grossly intact, no focal motor or sensory deficits noted Skin: Intact with no visualized rashes Psych: Normal affect and mood ED course: 83-year-old female presents after fall. She is on Eliquisl was for atrial fibrillation. Vital signs upon arrival are all except limits. Return evaluation obtained. CBC shows marked megaloblastic anemia. Sodium 126. Patient does have some acidosis. With mild anion gap. Glucose 122, rest of labs grossly unremarkable. CT of the head and C-spine, chest x-ray and pelvis x -rays unremarkable. No findings to suggest acute traumatic injury. Patient given intravenous fluids for significant hyponatremia. Given thiamine, folate and vitamin B12. Patient be admitted to the hospital for hyponatremia and malnutrition. EKG interpretation: Ventricular rate 88, H fibrillation, QRS 78, QTc 413. No OH prolongation, no QTC prolongation, no ST or T-wave changes noted. Overall, this EKG is unremarkable - Related Data Home Medications Medication Instructions Recorded Confirmed ALPRAZolam [Xanax] 0.25 mg PO BID PRN 08/03/17 05/21/18 Ascorbic Acid [Vitamin C] 500 mg PO DAILY 08/03/17 05/21/18 Hydroxyurea [Hydrea] 500 mg PO BID 08/03/17 05/21/18 Multivit-Min/FA/Lycopen/Lutein 1 tab PO DAILY 08/03/17 05/21/18 [Centrum Silver Tablet] Potassium Chloride ER [K-Dur 10] 10 meq PO BID 05/21/18 05/21/18 Sertraline HCl [Zoloft] 25 mg PO DAILY 05/21/18 05/21/18 traMADol HCL [Ultram] 50 mg PO Q4HR PRN 05/21/18 05/21/18 Previous Rx's Medication Instructions Recorded Apixaban [Eliquis] 5 mg PO BID #60 tab 08/05/17 Furosemide [Lasix] 20 mg PO DAILY #30 tab 08/05/17 Metoprolol Tartrate [Lopressor] 100 mg PO BID #60 tab 08/05/17 Allergies Allergy/AdvReac Type Severity Reaction Status Date / Time No Known Allergies Allergy Verified 05/21/18 22:37 Review of Systems ROS Statement: Those systems with pertinent positive or pertinent negative responses have been documented in the HPI. ROS Other: All systems not noted in ROS Statement are negative. Past Medical History Past Medical History: Atrial Fibrillation, Blood Disorder, Cancer, Hypertension , Osteoarthritis (OA) Additional Past Medical History / Comment(s): Recent removal of melanoma on left cheek and basal cell cancer removed from nose, ITP, arthritis mostly in her neck. History of Any Multi-Drug Resistant Organisms: None Reported Past Surgical History: Section Additional Past Surgical History / Comment(s): melanoma removed from left cheek and basal cell cancer removed from nose, D&C Past Anesthesia/Blood Transfusion Reactions: No Reported Reaction Additional Past Anesthesia/Blood Transfusion Reaction / Comment(s): Pt received blood with child without reaction. Past Psychological History: No Psychological Hx Reported Smoking Status: Never smoker Past Alcohol Use History: None Reported Past Drug Use History: None Reported - Past Family History Father Family Medical History: CVA/TIA Additional Family Medical History / Comment(s): Father of a CVA at the age of 30yrs. Mother Family Medical History: Osteoarthritis (OA) Additional Family Medical History / Comment(s): Mother had a hiatal hernia. General Exam Limitations: no limitations Course Vital Signs 05/21/18 05/22/18 22:05 00:22 Temperature 98.9 F Pulse Rate 94 87 Respiratory 18 18 Rate Blood Pressure 165/91 172/97 O2 Sat by Pulse 97 Oximetry Medical Decision Making - Lab Data Result diagrams: 05/21/18 22:33 05/21/18 22:33 Lab Results 05/21/18 05/21/18 Range/Units 22:33 22:33 WBC 4.0 (3.8-10.6) k/uL RBC 2.65 L (3.80-5.40) m/uL Hgb 11.0 L (11.4-16.0) gm/dL Hct 35.9 (34.0-46.0) % MCV 135.2 H (80.0-100.0) fL MCH 41.5 H (25.0-35.0) pg MCHC 30.7 L (31.0-37.0) g/dL RDW 15.8 H (11.5-15.5) % Plt Count 307 (150-450) k/uL Neutrophils % 81 % Lymphocytes % 11 % Monocytes % 6 % Eosinophils % 1 % Basophils % 0 % Neutrophils # 3.2 (1.3-7.7) k/uL Lymphocytes # 0.4 L (1.0-4.8) k/uL Monocytes # 0.2 (0-1.0) k/uL Eosinophils # 0.0 (0-0.7) k/uL Basophils # 0.0 (0-0.2) k/uL Manual Slide Review Performed Large Platelets Present Polychromasia Present Hypochromasia Marked Macrocytosis Marked Sodium 126 L (137-145) mmol/L Potassium 4.4 (3.5-5.1) mmol/L Chloride 92 L (98-107) mmol/L Carbon Dioxide 21 L (22-30) mmol/L Anion Gap 13 mmol/L BUN 10 (7-17) mg/dL Creatinine 0.59 (0.52-1.04) mg/dL Est GFR (CKD-EPI)AfAm >90 (>60 ml/min/1.73 sqM) Est GFR (CKD-EPI)NonAf 84 (>60 ml/min/1.73 sqM) Glucose 122 H (74-99) mg/dL Calcium 9.2 (8.4-10.2) mg/dL Magnesium 1.7 (1.6-2.3) mg/dL Creatine Kinase 68 (30-135) U/L Disposition Clinical Impression: Hyponatremia Disposition: ADMITTED IP TO THIS [facility] Condition: Fair Referrals: Kike Barillas MD [Primary Care Provider] - 1-2 days Decision Time: 00:38
[2018-05-21 23:12] LABS: Basophils % (A) 0 %; Eosinophils % (A) 1 %; HCT 35.9 % (34.0-46.0); Hypochromasia Marked; Lymphocytes # (A) 0.4 k/uL (1.0-4.8); Lymphocytes % (A) 11 %; MCH 41.5 pg (25.0-35.0); MCHC 30.7 g/dL (31.0-37.0); MCV 135.2 fL (80.0-100.0); Mean Platelet Volume 7.6; Monocytes # (A) 0.2 k/uL (0-1.0); Monocytes % (A) 6 %; Neutrophils # (A) 3.2 k/uL (1.3-7.7); Neutrophils % (A) 81 %; Platelet Count 307 k/uL (150-450); RBC 2.65 m/uL (3.80-5.40); RDW 15.8 % (11.5-15.5)
[2018-05-21 23:20] LABS: Anion Gap 13 mmol/L; Blood Urea Nitrogen 10 mg/dL (7-17); Calcium 9.2 mg/dL (8.4-10.2); Carbon Dioxide 21 mmol/L (22-30); Chloride 92 mmol/L (98-107); Creatine Kinase 68 U/L (30-135); Glucose 122 mg/dL (74-99); Magnesium 1.7 mg/dL (1.6-2.3); Potassium 4.4 mmol/L (3.5-5.1); Sodium 126 mmol/L (137-145)
[2018-05-21 23:34] LABS: Large Platelets Present; Macrocytosis Marked; Polychromasia Present
--- NOTE | 2018-05-21 23:48 | XR ---
EXAM: XR Chest, 2 Views CLINICAL HISTORY: Reason: Pain TECHNIQUE: Frontal and lateral views of the chest. COMPARISON: 08/03/17 FINDINGS: Lungs: Mild prominence interstitial markings and pulmonary vascular markings. Pleural space: Chronic blunting of the costophrenic angles suggestive of some scarring and linear atelectasis noted in the right lung base Heart: Unremarkable. No cardiomegaly. Mediastinum: Unremarkable. Bones/joints: Unremarkable. IMPRESSION: Mild prominence interstitial markings and pulmonary vascular markings
--- NOTE | 2018-05-21 23:49 | XR ---
EXAM: XR Pelvis, 1 or 2 Views CLINICAL HISTORY: Reason: Pain TECHNIQUE: Frontal view of the pelvis. COMPARISON: No relevant prior studies available. FINDINGS: Bones/joints: Unremarkable. No acute fracture. No dislocation. Soft tissues: Unremarkable. IMPRESSION: Normal pelvis x-ray.
--- NOTE | 2018-05-21 23:57 | CT ---
EXAM: CT Head Without Intravenous Contrast CLINICAL HISTORY: Pain TECHNIQUE: Axial computed tomography images of the head/brain without intravenous contrast. CTDI is 49.1 mGy and DLP is 1052 mGy-cm. This CT exam was performed using one or more of the following dose reduction techniques: automated exposure control, adjustment of the mA and/or kV according to patient size, and/or use of iterative reconstruction technique. COMPARISON: No relevant prior studies available. FINDINGS: No intracranial hemorrhage, abnormal intra- or extra-axial collections or parenchymal lesions are seen. There are involutional changes with prominence of the sulci, basal cisterns and ventricles. Scattered white matter hypoattenuations are present, likely from small vessel disease. The pradhan-white differentiation is preserved. No evidence of mass effect, midline shift, or edema. The osseous structures are unremarkable. The visualized portions of the paranasal sinuses are clear. IMPRESSION: 1. No acute intracranial process. 2. Involutional changes with small vessel disease. EXAM: CT Cervical Spine Without Intravenous Contrast CLINICAL HISTORY: Pain TECHNIQUE: Axial computed tomography images of the cervical spine without intravenous contrast. CTDI is 9.2 mGy and DLP is 239.5 mGy-cm. This CT exam was performed using one or more of the following dose reduction techniques: automated exposure control, adjustment of the mA and/or kV according to patient size, and/or use of iterative reconstruction technique. Coronal and sagittal reformatted images were created and reviewed. COMPARISON: No relevant prior studies available. FINDINGS: Vertebrae: Unremarkable. No acute fracture. Discs/spinal canal/neural foramina: No acute findings. No spinal canal stenosis. Soft tissues: Unremarkable. IMPRESSION: Normal cervical spine CT.
[2018-05-22] MEDS ORDERED: SODIUM CHLORIDE 0.9% 500 ML IV STA (00:30)
[2018-05-22] MEDS ORDERED: ONDANSETRON 4 MG/2 ML VIAL IVP PRN (00:38)
[2018-05-22] MEDS ORDERED: NALOXONE 0.4 MG/ML 1 ML VIAL IV PRN (00:38)
[2018-05-22] MEDS ORDERED: LABETALOL SYRINGE 5 MG/ML IVP STA (01:06)
[2018-05-22] MEDS: SODIUM CHLORIDE 0.9% 1,000 ML IV SCH ×2 (01:25→13:01)
[2018-05-22 02:48] LABS: Appearance,Urine Cloudy (Clear); Bacteria,Urine Rare /hpf; Bilirubin,Urine Negative (Negative); Blood,Urine Trace (Negative); Color,Urine Yellow; Glucose,Urine (UA) Negative (Negative); Ketones,Urine Negative (Negative); Leukocyte Esterase,Urine Large (Negative); Mucus,Urine Occasional /hpf; Nitrite,Urine Negative (Negative); Protein,Urine 1+ (Negative); RBC,Urine 15 /hpf (0-5); Renal Epithelial Cells,Urine 19 /hpf (0); Squamous Epithelial Cell,Urine 12 /hpf (0-4)
[2018-05-22 08:36] LABS: Anion Gap 9 mmol/L; Anisocytosis Slight; Basophils % (A) 0 %; Blood Urea Nitrogen 9 mg/dL (7-17); Calcium 8.8 mg/dL (8.4-10.2); Carbon Dioxide 19 mmol/L (22-30); Chloride 99 mmol/L (98-107); Eosinophils % (A) 1 %; Glucose 91 mg/dL (74-99); HCT 29.8 % (34.0-46.0); HGB 9.5 gm/dL (11.4-16.0); Hypochromasia Marked; Lymphocytes # (A) 0.7 k/uL (1.0-4.8); Lymphocytes % (A) 15 %; MCH 43.2 pg (25.0-35.0); MCHC 31.9 g/dL (31.0-37.0); MCV 135.6 fL (80.0-100.0); Macrocytosis Marked; Mean Platelet Volume 7.5; Monocytes # (A) 0.3 k/uL (0-1.0); Monocytes % (A) 8 %; Neutrophils # (A) 3.3 k/uL (1.3-7.7); Neutrophils % (A) 74 %; Platelet Count 233 k/uL (150-450); Potassium 4.2 mmol/L (3.5-5.1); RDW 16.1 % (11.5-15.5); Sodium 127 mmol/L (137-145); WBC 4.4 k/uL (3.8-10.6)
[2018-05-22] MEDS: FAMOTIDINE 20 MG TAB PO SCH ×2 (08:46→20:26)
[2018-05-22 09:00] LABS: Poikilocytosis (M) Present
[2018-05-22 09:01] LABS: Polychromasia Present
[2018-05-22] MEDS: THIAMINE 100 MG TAB PO SCH (13:01)
[2018-05-22] MEDS: FOLIC ACID 1 MG TAB PO SCH (13:01)
[2018-05-22] MEDS: CYANOCOBALAMIN 500 MCG TAB PO SCH (13:03)
[2018-05-22] MEDS: APIXABAN 5 MG TAB PO SCH ×2 (13:35→20:26)
[2018-05-22] MEDS: METOPROLOL TARTRATE 50 MG TAB PO SCH ×2 (13:35→20:26)
--- NOTE | 2018-05-22 23:59 | P.HPIM ---
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 Patient says that she slid out of bed during last 2 nights. She was on the ground and was unable to get up on her feet because of weakness. As per her daughter at bedside, patient is also confused for the last couple of days. She called her daughter who lives next to. Patient was found on the ground and she helped her get into a chair. Patient was brought to the hospital for evaluation. Denied any fever or chills. No cough or sputum production. Denied any loss of consciousness. No nausea vomiting or abdominal pain. No diarrhea. Denied any recent illnesses otherwise. CT head showed no acute intracranial process. Interval changes with small vessel disease CT cervical spine is normal X-ray pelvic x-ray is normal. Sodium level is 126 on admission. Chloride 91 UA showed large leukocyte esterase and elevated RBC and WBC count. Nitrate negative. Urine is cloudy. Culture in process. EKG showed atrial fibrillation with ventricular complexes and low voltage QRS. Review of Systems Constitutional: Patient denies any fever or chills . Generalized weakness. No weight loss. Abdomen: Patient denied nausea vomiting and diarrhea and abdominal pain. Cardiovascular: Patient denies any chest pain or short of breath no palpitations. Respiratory: patient denied any cough is from production. No shortness of breath Neurologic: Patient denied any numbness or tingling headache. Musculoskeletal: Patient denies any complaints of joint swelling or deformity. Skin: Negative Psychiatric: Negative Endocrine: No heat or cold intolerance. No recent weight gain. Genitourinary: No dysuria or hematuria. All other 14 point ROS negative except the above Past Medical History Past Medical History: Atrial Fibrillation, Blood Disorder, Cancer, Hypertension , Osteoarthritis (OA) Additional Past Medical History / Comment(s): 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 History of Any Multi-Drug Resistant Organisms: None Reported Past Surgical History: Section Additional Past Surgical History / Comment(s): melanoma removed from left cheek and basal cell cancer removed from nose, D&C Past Anesthesia/Blood Transfusion Reactions: No Reported Reaction Additional Past Anesthesia/Blood Transfusion Reaction / Comment(s): Pt received blood with child without reaction. Past Psychological History: No Psychological Hx Reported Additional Psychological History / Comment(s): Pt resides alone. She uses no assistive device. She drives. She golfs, bowls and plays cards. Smoking Status: Never smoker Past Alcohol Use History: None Reported Past Drug Use History: None Reported - Past Family History Father Family Medical History: CVA/TIA Additional Family Medical History / Comment(s): Father of a CVA at the age of 30yrs. Mother Family Medical History: Osteoarthritis (OA) Additional Family Medical History / Comment(s): Mother had a hiatal hernia. Medications and Allergies Home Medications Medication Instructions Recorded Confirmed Type ALPRAZolam [Xanax] 0.25 mg PO BID PRN 08/03/17 05/21/18 History Ascorbic Acid [Vitamin C] 500 mg PO DAILY 08/03/17 05/21/18 History Hydroxyurea [Hydrea] 500 mg PO DAILY 08/03/17 05/22/18 History Multivit-Min/FA/Lycopen/Lutein 1 tab PO DAILY 08/03/17 05/21/18 History [Centrum Silver Tablet] Apixaban [Eliquis] 5 mg PO BID #60 tab 08/05/17 05/21/18 Rx Furosemide [Lasix] 20 mg PO DAILY #30 tab 08/05/17 05/21/18 Rx Metoprolol Tartrate [Lopressor] 100 mg PO BID #60 tab 08/05/17 05/21/18 Rx Potassium Chloride ER [K-Dur 10] 10 meq PO BID 05/21/18 05/21/18 History Sertraline HCl [Zoloft] 25 mg PO DAILY 05/21/18 05/21/18 History Allergies Allergy/AdvReac Type Severity Reaction Status Date / Time No Known Allergies Allergy Verified 05/21/18 22:37 Physical Exam Vitals: Vital Signs Temp Pulse Pulse Resp BP BP Pulse Ox 05/22/18 12:02 97.9 F 91 16 159/77 100 05/22/18 06:03 98 F 73 16 118/64 97 05/22/18 02:09 98.3 F 99 17 162/90 99 05/22/18 01:19 90 18 140/88 99 05/22/18 00:22 87 18 172/97 05/21/18 22:05 98.9 F 94 18 165/91 97 Intake and Output 05/21/18 05/22/18 05/22/18 22:59 06:59 14:59 Intake Total 160 Balance 160 Intake: Intake, IV Titration 160 Amount Sodium Chloride 0.9% 1, 160 000 ml @ 80 mls/hr IV . [id number] [facility] Rx#:[id number] Other: Voiding Method Toilet # Voids 1 # Bowel Movements 1 Weight 61.235 kg 61.235 kg PHYSICAL EXAMINATION: Patient is lying in the bed comfortably, no acute distress, awake alert and oriented. Mild confusion and lethargic.. HEENT: Normocephalic. Neck is supple. Pupils reactive. Nostrils clear. Oral cavity is moist. Ears reveal no drainage. Neck reveals no JVD, carotid bruits, or thyromegaly. CHEST EXAMINATION: Trachea is central. Symmetrical expansion. Lung ayala clear to auscultation and percussion. CARDIAC: Normal S1, S2 with no gallops. No murmurs ABDOMEN: Soft. Bowel sounds normal. No organomegaly. No abdominal bruits. Extremities: Trace edema. No clubbing or cyanosis Neurologically awake, alert, oriented x2-3 with mild confusion. well- coordinated movements. No focal deficits noted Skin: No rash or skin lesions. Psychiatric: Coperative. Nonsuicidal Musculoskeletal: No joint swelling or deformity. Normal range of motion. Results CBC & Chem 7: 05/22/18 07:57 05/22/18 07:57 Labs: Abnormal Lab Results - Last 24 Hours (Table) 05/21/18 05/21/18 05/21/18 Range/Units 02:25 22:33 22:33 RBC 2.65 L (3.80-5.40) m/uL Hgb 11.0 L (11.4-16.0) gm/dL Hct (34.0-46.0) % MCV 135.2 H (80.0-100.0) fL MCH 41.5 H (25.0-35.0) pg MCHC 30.7 L (31.0-37.0) g/dL RDW 15.8 H (11.5-15.5) % Lymphocytes # 0.4 L (1.0-4.8) k/uL Sodium 126 L (137-145) mmol/L Chloride 92 L (98-107) mmol/L Carbon Dioxide 21 L (22-30) mmol/L Glucose 122 H (74-99) mg/dL Urine Appearance Cloudy H (Clear) Urine Protein 1+ H (Negative) Urine Blood Trace H (Negative) Ur Leukocyte Esterase Large H (Negative) Urine RBC 15 H (0-5) /hpf Urine WBC 100 H (0-5) /hpf Ur Squamous Epith Cells 12 H (0-4) /hpf Urine Bacteria Rare H (None) /hpf Urine Mucus Occasional H (None) /hpf 05/22/18 05/22/18 Range/Units 07:57 07:57 RBC 2.20 L (3.80-5.40) m/uL Hgb 9.5 L D (11.4-16.0) gm/dL Hct 29.8 L (34.0-46.0) % MCV 135.6 H (80.0-100.0) fL MCH 43.2 H (25.0-35.0) pg MCHC (31.0-37.0) g/dL RDW 16.1 H (11.5-15.5) % Lymphocytes # 0.7 L (1.0-4.8) k/uL Sodium 127 L (137-145) mmol/L Chloride (98-107) mmol/L Carbon Dioxide 19 L (22-30) mmol/L Glucose (74-99) mg/dL Urine Appearance (Clear) Urine Protein (Negative) Urine Blood (Negative) Ur Leukocyte Esterase (Negative) Urine RBC (0-5) /hpf Urine WBC (0-5) /hpf Ur Squamous Epith Cells (0-4) /hpf Urine Bacteria (None) /hpf Urine Mucus (None) /hpf Thrombosis Risk Factor Assmnt - DVT/VTE Prophylaxis DVT/VTE Prophylaxis: Pharmacologic Prophylaxis ordered - Choose All That Apply Any of the Below Risk Factors Present?: No Other Risk Factors: Yes Each Risk Factor Represents 2 Points: Malignancy Each Risk Factor Represents 3 Points: Age 75 years or older Other congenital or acquired thrombophilia - If yes, enter type in comment: Yes (ITP) Thrombosis Risk Factor Assessment Total Risk Factor Score: 5 Thrombosis Risk Factor Assessment Level: High Risk Assessment and Plan Assessment: Altered mental status possible metabolic encephalopathy improving now Hyponatremia 126 likely hypovolemic. Possible acute urinary tract infection. Urine culture is in process Low voltage QRS and the EKG Chronic atrial fibrillation on anticoagulation Blood disorder/macrocytosis. 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 Follow up sodium level. Continue with home medications including metoprolol and Eliquis. Will hold Lasix at this time due to hyponatremia. Continue with ceftriaxone. Follow up urine culture report. 2-D echocardiogram was ordered. Further recommendations based on the clinical course.. Prognosis is guarded. Discussed with her daughter at bedside in detail. Time with Patient: Greater than 30
[2018-05-23] MEDS: SODIUM CHLORIDE 0.9% 1,000 ML IV SCH ×2 (01:40→11:11)
[2018-05-23] MEDS: ASCORBIC ACID 500 MG TAB PO SCH (08:10)
[2018-05-23] MEDS: METOPROLOL TARTRATE 50 MG TAB PO SCH ×2 (08:10→21:38)
[2018-05-23] MEDS: APIXABAN 5 MG TAB PO SCH ×2 (08:10→21:38)
[2018-05-23] MEDS: CYANOCOBALAMIN 500 MCG TAB PO SCH (08:10)
[2018-05-23] MEDS: FOLIC ACID 1 MG TAB PO SCH (08:10)
[2018-05-23] MEDS: FAMOTIDINE 20 MG TAB PO SCH ×2 (08:10→21:38)
[2018-05-23] MEDS: HYDROXYUREA 500 MG CAP PO SCH (08:10)
[2018-05-23] MEDS: THIAMINE 100 MG TAB PO SCH (08:10)
[2018-05-23] MEDS: MULTIVITAMINS, THERA 1 EACH TAB PO SCH (08:10)
[2018-05-23 10:23] LABS: Anion Gap 9 mmol/L; Blood Urea Nitrogen 10 mg/dL (7-17); Calcium 8.4 mg/dL (8.4-10.2); Carbon Dioxide 21 mmol/L (22-30); Chloride 99 mmol/L (98-107); Glucose 122 mg/dL (74-99); Potassium 4.1 mmol/L (3.5-5.1); Sodium 129 mmol/L (137-145)
[2018-05-23 10:27] LABS: Anisocytosis Slight; Basophils % (A) 0 %; Eosinophils % (A) 1 %; HCT 28.8 % (34.0-46.0); HGB 8.8 gm/dL (11.4-16.0); Hypochromasia Marked; Lymphocytes # (A) 0.5 k/uL (1.0-4.8); Lymphocytes % (A) 11 %; MCH 41.8 pg (25.0-35.0); MCHC 30.7 g/dL (31.0-37.0); MCV 135.9 fL (80.0-100.0); Macrocytosis Marked; Mean Platelet Volume 7.7; Monocytes # (A) 0.4 k/uL (0-1.0); Monocytes % (A) 8 %; Neutrophils # (A) 3.6 k/uL (1.3-7.7); Neutrophils % (A) 79 %; Platelet Count 267 k/uL (150-450); RBC 2.12 m/uL (3.80-5.40); WBC 4.6 k/uL (3.8-10.6)
--- NOTE | 2018-05-23 12:05 | ECHOF ---
Referral Reason:Low voltage QRS and CHF MEASUREMENTS -------- HEIGHT: 157.5 cm WEIGHT: 61.2 kg BP: 159/91 RVIDd: 3.0 cm (< 3.3) IVSd: 1.2 cm (0.6 - 1.1) LVIDd: 4.4 cm (3.9 - 5.3) LVPWd: 1.3 cm (0.6 - 1.1) IVSs: 1.6 cm LVIDs: 3.2 cm LVPWs: 1.7 cm LA Diam: 4.8 cm (2.7 - 3.8) LAESV Index (A-L): 47.70 ml/m Ao Diam: 3.1 cm (2.0 - 3.7) AV Cusp: 1.4 cm (1.5 - 2.6) LA Diam: 4.6 cm (2.7 - 3.8) MV EXCURSION: 18.048 mm (> 18.000) MV EF SLOPE: 130 mm/s (70 - 150) EPSS: 0.3 cm MV E Micah: 1.01 m/s MV DecT: 127 ms MV A Micah: 0.02 m/s MV E/A Ratio: 54.38 RAP: 10.00 mmHg RVSP: 63.62 mmHg FINDINGS -------- Atrial fibrillation. This was a technically good study. The left ventricular size is normal. Left ventricular wall thickness is normal. Overall left vent ricular systolic function is normal with, an EF between 55 - 60 %. The right ventricle is normal in size. The left atrium is markedly dilated. LA is severely dilated >40 ml/m2 The right atrial size is normal. There is mild aortic valve sclerosis. There is mild aortic regurgitation. Mild mitral annular calcification present. Severe mitral regurgitation is present. Moderate to severe tricuspid regurgitation present. There is moderate pulmonary hypertension. The right ventricular systolic pressure, as measured by Doppler, is 63.62mmHg. Trace/mild (physiologic) pulmonic regurgitation. The aortic root size is normal. There is no pericardial effusion. CONCLUSIONS -------- 1. The left ventricular size is normal. 2. Left ventricular wall thickness is normal. 3. Overall left ventricular systolic function is normal with, an EF between 55 - 60 %. 4. The right ventricle is normal in size. 5. The left atrium is markedly dilated. 6. LA is severely dilated >40 ml/m2 7. The right atrial size is normal. 8. There is mild aortic valve sclerosis. 9. There is mild aortic regurgitation. 10. Mild mitral annular calcification present. 11. Severe mitral regurgitation is present. 12. Moderate to severe tricuspid regurgitation present. 13. There is moderate pulmonary hypertension. 14. The right ventricular systolic pressure, as measured by Doppler, is 63.62mmHg. 15. Trace/mild (physiologic) pulmonic regurgitation. 16. The aortic root size is normal. 17. There is no pericardial effusion. CASH APPLICATIONS ASSOCIATE: Cleo Hamilton RDCS
--- NOTE | 2018-05-23 21:59 | XR ---
EXAMINATION: XR chest 1V portable DATE AND TIME: 05/23/2018 7:15 PM CLINICAL INDICATION: PHH; Increase SOB TECHNIQUE: AP upright portable COMPARISON: 05/21/2018 FINDINGS: The lungs are clear. The pleural spaces are negative. The cardiac silhouette is markedly enlarged. The skeletal structures and soft tissues are negative for acute findings. IMPRESSION: NO DEFINITE ACUTE PULMONARY OR PLEURAL PROCESS.
--- NOTE | 2018-05-23 23:57 | P.PN ---
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 Patient says that she slid out of bed during last 2 nights. She was on the ground and was unable to get up on her feet because of weakness. As per her daughter at bedside, patient is also confused for the last couple of days. She called her daughter who lives next to. Patient was found on the ground and she helped her get into a chair. Patient was brought to the hospital for evaluation. Denied any fever or chills. No cough or sputum production. Denied any loss of consciousness. No nausea vomiting or abdominal pain. No diarrhea. Denied any recent illnesses otherwise. CT head showed no acute intracranial process. Interval changes with small vessel disease CT cervical spine is normal X-ray pelvic x-ray is normal. Sodium level is 126 on admission. Chloride 91 UA showed large leukocyte esterase and elevated RBC and WBC count. Nitrate negative. Urine is cloudy. Culture in process. EKG showed atrial fibrillation with ventricular complexes and low voltage QRS. 05/23/2018 Patient denied any complaints of chest pain or shortness of breath. Patient is being continued on gentle hydration with normal saline. Sodium level improved to 129 today. 2-D echocardiogram showed severe mitral regurgitation and moderate to severe tricuspid regurgitation. Moderate pulmonary hypertension. Ejection fraction is within normal limits at 55-60%. Otherwise patient denied any complaints of fever or chills. No nausea vomiting or abdominal pain. Lasix is on hold currently. Cardiology was consulted as per family request. Current medications reviewed. Objective - Vital Signs Vital signs: Vital Signs Temp 98.9 F 05/23/18 22:46 Pulse 100 05/23/18 22:46 Resp 18 05/23/18 22:46 BP 184/95 05/23/18 22:46 Pulse Ox 95 05/23/18 22:46 Intake & Output 05/23/18 05/23/18 05/24/18 06:59 18:59 06:59 Intake Total 650 240 Balance 650 240 Intake: Oral 650 240 Other: Voiding Method Toilet Toilet Toilet # Voids 2 2 2 - Exam PHYSICAL EXAMINATION: Patient is lying in the bed comfortably, no acute distress, awake alert and oriented. Mild confusion and lethargic.. HEENT: Normocephalic. Neck is supple. Pupils reactive. Nostrils clear. Oral cavity is moist. Ears reveal no drainage. Neck reveals no JVD, carotid bruits, or thyromegaly. CHEST EXAMINATION: Trachea is central. Symmetrical expansion. Lung ayala clear to auscultation and percussion. CARDIAC: Normal S1, S2 with no gallops. No murmurs ABDOMEN: Soft. Bowel sounds normal. No organomegaly. No abdominal bruits. Extremities: Trace edema. No clubbing or cyanosis Neurologically awake, alert, oriented x2-3 with mild confusion. well- coordinated movements. No focal deficits noted Skin: No rash or skin lesions. Psychiatric: Coperative. Nonsuicidal Musculoskeletal: No joint swelling or deformity. Normal range of motion. - Labs CBC & Chem 7: 05/23/18 09:25 05/23/18 09:25 Labs: Abnormal Lab Results - Last 24 Hours (Table) 05/23/18 05/23/18 Range/Units 09:25 09:25 RBC 2.12 L (3.80-5.40) m/uL Hgb 8.8 L (11.4-16.0) gm/dL Hct 28.8 L (34.0-46.0) % MCV 135.9 H (80.0-100.0) fL MCH 41.8 H (25.0-35.0) pg MCHC 30.7 L (31.0-37.0) g/dL RDW 16.0 H (11.5-15.5) % Lymphocytes # 0.5 L (1.0-4.8) k/uL Sodium 129 L (137-145) mmol/L Carbon Dioxide 21 L (22-30) mmol/L Creatinine 0.51 L (0.52-1.04) mg/dL Glucose 122 H (74-99) mg/dL Microbiology - Last 24 Hours (Table) 05/21/18 02:25 Urine Culture - Final Urine,Clean Catch Assessment and Plan Assessment: Altered mental status possible metabolic encephalopathy improving now Hyponatremia 126 likely hypovolemic. Improved to 129. Possible acute urinary tract infection. Urine culture showed greater than 100, 000 normal herson. Low voltage QRS and the EKG Severe mitral regurgitation and moderate to severe tricuspid regurgitation Moderate pulmonary hypertension with RVSP 63 mmHg Chronic atrial fibrillation on anticoagulation Blood disorder/macrocytosis. 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 Monitor closely respiratory status. Follow up sodium level. Continue with home medications including metoprolol and Eliquis. Will hold Lasix at this time due to hyponatremia. Continue with ceftriaxone for 3 doses. Urine culture showed normal herson. 2-D echo Cardizem was done. Cardiology was consulted. Further recommendations based on the clinical course.. Prognosis is guarded. Discussed with her daughter at bedside in detail. Time with Patient: Greater than 30
[2018-05-24] MEDS: SODIUM CHLORIDE 0.9% 1,000 ML IV SCH ×2 (00:49→15:04)
[2018-05-24] MEDS: ALPRAZolam 0.25 MG TAB PO PRN ×2 (00:49→21:28)
--- NOTE | 2018-05-24 06:52 | CONS ---
CONSULTATION REASON FOR CONSULT: Hyponatremia. HISTORY OF PRESENT ILLNESS: The patient is an 83-year-old female who was admitted to the hospital with a history of fall and altered mentation. The patient denies any prior history of hyponatremia. She was found to have a serum sodium of 126. Currently, patient is maintained on fluids. Her sodium has gone up to 129. Review of previous labs show serum sodium about 133-137 mEq/L. The patient denied any ongoing diarrhea, nausea, or vomiting. She may not have been eating much. Blood pressure was not significantly low. PAST MEDICAL HISTORY: Significant for atrial fibrillation, hypertension, osteoarthritis, skin surgery for melanoma of left cheek, ITP. PAST SURGICAL HISTORY: , surgery for skin cancers, D and C. SOCIAL HISTORY: Negative for smoking, drug abuse or alcohol abuse. MEDICATIONS: Medications at home prior to admission included Xanax, vitamin C, hydroxyurea, Eliquis, Lasix Lopressor, Zoloft, potassium. ALLERGIES: None. REVIEW OF SYSTEMS: As per HPI. Other systems negative. PHYSICAL EXAMINATION: Patient is comfortable, awake. She is not in any acute distress. Blood pressure was 159/91, heart rate 84 per minute. She is afebrile. Examination of the heart S1, S2. Examination lungs bilateral breath sounds are heard. Abdomen is soft, nontender. Examination of lower extremities shows no significant edema. 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 LAB: Shows hemoglobin of 8.8, sodium 129, potassium 4.1, chloride 99, BUN 10, serum creatinine 0.51. UA shows protein 1+, blood is trace, WBCs 100. ASSESSMENT: 1. Hyponatremia appears to be hypovolemic, currently improving with normal saline. I will continue with the IV fluids. Check a TSH level if not done yet. Encourage increased oral intake particularly protein. 2. Anemia. The patient is maintained on hydroxyurea. The dose of which may need to be decreased given her ongoing anemia. 3. Chronic atrial fibrillation maintained on anticoagulation. 4. Pyuria, rule out underlying urinary tract infection. PLAN: Continue IV saline. Repeat labs in a.m. Check urine osmolality and urine sodium. TSH was within range on 05/05/2018. Cortisol was at 15. Thank you for this consultation. We will continue to follow the patient with you during her hospitalization. MMODL / IJN: [id number] /
[2018-05-24] MEDS: IPRATROPIUM-ALBUTEROL 3 ML NEB INHALATION PRN ×2 (07:08→11:23)
[2018-05-24] MEDS: HYDROXYUREA 500 MG CAP PO SCH (07:27)
[2018-05-24] MEDS: APIXABAN 5 MG TAB PO SCH ×2 (07:27→21:07)
[2018-05-24] MEDS: MULTIVITAMINS, THERA 1 EACH TAB PO SCH (07:28)
[2018-05-24] MEDS: METOPROLOL TARTRATE 50 MG TAB PO SCH ×2 (07:28→21:07)
[2018-05-24] MEDS: THIAMINE 100 MG TAB PO SCH (07:28)
[2018-05-24] MEDS: CYANOCOBALAMIN 500 MCG TAB PO SCH (07:28)
[2018-05-24] MEDS: FAMOTIDINE 20 MG TAB PO SCH ×2 (07:28→21:07)
[2018-05-24] MEDS: ASCORBIC ACID 500 MG TAB PO SCH (07:28)
[2018-05-24] MEDS: FOLIC ACID 1 MG TAB PO SCH (07:28)
[2018-05-24 08:25] LABS: Anion Gap 9 mmol/L; Blood Urea Nitrogen 11 mg/dL (7-17); Calcium 8.8 mg/dL (8.4-10.2); Carbon Dioxide 22 mmol/L (22-30); Chloride 100 mmol/L (98-107); Glucose 102 mg/dL (74-99); Potassium 4.4 mmol/L (3.5-5.1); Sodium 131 mmol/L (137-145)
[2018-05-24 08:45] LABS: Basophils % (A) 0 %; Eosinophils % (A) 1 %; HCT 31.5 % (34.0-46.0); HGB 9.5 gm/dL (11.4-16.0); Hypochromasia Marked; Lymphocytes # (A) 0.8 k/uL (1.0-4.8); Lymphocytes % (A) 18 %; MCH 41.9 pg (25.0-35.0); MCHC 30.3 g/dL (31.0-37.0); MCV 138.2 fL (80.0-100.0); Macrocytosis Marked; Mean Platelet Volume 7.8; Monocytes # (A) 0.4 k/uL (0-1.0); Monocytes % (A) 9 %; Neutrophils # (A) 3.3 k/uL (1.3-7.7); Neutrophils % (A) 70 %; Platelet Count 296 k/uL (150-450); RBC 2.28 m/uL (3.80-5.40); RDW 15.9 % (11.5-15.5); WBC 4.7 k/uL (3.8-10.6)
[2018-05-24] MEDS ORDERED: FUROSEMIDE 10 MG/ML 2 ML VIAL IV ONE (09:04)
[2018-05-24] MEDS: LISINOPRIL 10 MG TAB PO SCH (09:10)
[2018-05-24 10:57] LABS: Polychromasia Present
[2018-05-24 10:58] LABS: Poikilocytosis (M) Present
--- NOTE | 2018-05-24 11:52 | P.CRDCN ---
History of Present Illness History of present illness: This is a pleasant 83-year-old female past medical history significant for chronic persistent atrial fibrillation on long-term anticoagulation, hypertension and recent melanoma with removal from the left cheek. She follows in the office with Dr. Quintana. She presented to the hospital with symptoms of generalized weakness, confusion and was found to be hyponatremic with sodium level of 126. Daily dose of Lasix was held and she has been given IV fluid hydration since admission. We have been asked to see her in consultation for recommendations regarding outpatient Lasix dosing. She is seen and examined sitting up in bed eating breakfast. Per nursing staff she started becoming increasingly dyspneic yesterday. Chest x-ray was obtained and revealed no acute pulmonary pleural process. Laboratory data reviewed, WBC 4.7 , hemoglobin 9.5 which may be secondary to hemodilution, platelets 296, sodium 131, potassium 4.4, creatinine 0.55, magnesium on admission 1.7. Currently maintained on Eliquis 5 mg twice a day, Rocephin IV piggyback, metoprolol 100 mg twice a day and sodium chloride infusion 80 mL's per hour. She's been seen in consultation by nephrology. Echocardiogram obtained on this admission reveals preserved left ventricular systolic function with ejection fraction 55- 60%, severely dilated left atrium, mild aortic regurgitation, mild aortic valve sclerosis, severe mitral regurgitation and moderate to severe tricuspid regurgitation. EKG reveals atrial fibrillation heart rate 88. At the time of my exam: CONSTITUTIONAL: Denies fever. Denies chills. EYES: Denies blurred vision. Denies vision changes. Denies eye pain. EARS, NOSE, MOUTH & THROAT: Denies headache. Denies sore throat. Denies ear pain. CARDIOVASCULAR: Denies chest pain. Denies shortness of breath. Denies orthopnea. Denies PND. Denies palpitations. RESPIRATORY: Denies cough. GASTROINTESTINAL: Denies abdominal pain. Denies diarrhea. Denies constipation. Denies nausea. Denies vomiting. MUSCULOSKELETAL: Denies myalgias. INTEGUMENTARY: Denies pruitis. Denies rash. NEUROLOGIC: Denies numbness. Denies tingling. Denies weakness. PSYCHIATRIC: Denies anxiety. Denies depression. ENDOCRINE: Denies fatigue. Denies weight change. Denies polydipsia. Denies polyurina. GENITOURINARY: Denies burning, hematuria or urgency with micturation. HEMATOLOGIC: Denies history of anemia. Denies bleeding. Blood pressure 191/98 heart rate 75 afebrile maintaining oxygen saturation on nasal cannula GENERAL: This is a 83-year-old female in no apparent distress at the time of my examination. HEENT: Head is atraumatic, normocephalic. Pupils are equal, round. Sclerae anicteric. Conjunctivae are clear. Mucous membranes of the mouth are moist. Neck is supple. There is no jugular venous distention. No carotid bruit is heard. LUNGS: Bibasilar rales, no wheezes or rhonchi. Mildly labored with conversation. No chest wall tenderness is noted on palpation or with deep breathing. HEART: Irregular rate and rhythm without murmurs, rubs or gallops. S1 and S2 heard. ABDOMEN: Soft, nontender. Bowel sounds are heard. No organomegaly noted. EXTREMITIES: No evidence of peripheral edema and no calf tenderness noted. VASCULAR: Radial and dorsalis pedis pulses palpated, no evidence of clubbing. NEUROLOGIC: Patient is awake, alert and oriented x3. ASSESSMENT Generalized weakness Hyponatremia Chronic persistent atrial fibrillation on long-term anticoagulation Acute on chronic diastolic heart failure, mild. Secondary to fluid administration. Hypertension PLAN Give one dose of IV lasix 20 mg now. Decrease IV fluids. Check NTproBNP. Obtain daily weights and document intake and output. Repeat kidney function and electrolytes in the morning. Add on lisinopril for elevated blood pressures. Recommend Physical therapy to evaluate. Further recommendations to follow, thank you kindly for this consultation. Nurse Practitioner note has been reviewed, I agree with a documented findings and plan of care. Patient was seen and examined. 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 History of Any Multi-Drug Resistant Organisms: None Reported Past Surgical History: Section Additional Past Surgical History / Comment(s): melanoma removed from left cheek and basal cell cancer removed from nose, D&C Past Anesthesia/Blood Transfusion Reactions: No Reported Reaction Additional Past Anesthesia/Blood Transfusion Reaction / Comment(s): Pt received blood with child without reaction. Past Psychological History: No Psychological Hx Reported Additional Psychological History / Comment(s): Pt resides alone. She uses no assistive device. She drives. She golfs, bowls and plays cards. Smoking Status: Never smoker Past Alcohol Use History: None Reported Past Drug Use History: None Reported - Past Family History Father Family Medical History: CVA/TIA Additional Family Medical History / Comment(s): Father of a CVA at the age of 30yrs. Mother Family Medical History: Osteoarthritis (OA) Additional Family Medical History / Comment(s): Mother had a hiatal hernia. Medications and Allergies Home Medications Medication Instructions Recorded Confirmed Type ALPRAZolam [Xanax] 0.25 mg PO BID PRN 08/03/17 05/21/18 History Ascorbic Acid [Vitamin C] 500 mg PO DAILY 08/03/17 05/21/18 History Hydroxyurea [Hydrea] 500 mg PO DAILY 08/03/17 05/22/18 History Multivit-Min/FA/Lycopen/Lutein 1 tab PO DAILY 08/03/17 05/21/18 History [Centrum Silver Tablet] Apixaban [Eliquis] 5 mg PO BID #60 tab 08/05/17 05/21/18 Rx Furosemide [Lasix] 20 mg PO DAILY #30 tab 08/05/17 05/21/18 Rx Metoprolol Tartrate [Lopressor] 100 mg PO BID #60 tab 08/05/17 05/21/18 Rx Potassium Chloride ER [K-Dur 10] 10 meq PO BID 05/21/18 05/21/18 History Sertraline HCl [Zoloft] 25 mg PO DAILY 05/21/18 05/21/18 History Allergies Allergy/AdvReac Type Severity Reaction Status Date / Time No Known Allergies Allergy Verified 05/21/18 22:37 Physical Exam Vitals: Vital Signs Temp Pulse Pulse Pulse Resp BP BP 05/24/18 07:30 97.8 F 75 18 191/98 05/24/18 07:24 80 05/24/18 07:09 84 05/24/18 06:39 88 05/24/18 06:27 05/24/18 06:24 98.1 F 88 17 05/24/18 04:00 158/99 05/23/18 22:46 98.9 F 100 18 184/95 05/23/18 14:39 98.0 F 80 18 144/79 Pulse Ox 05/24/18 07:30 97 05/24/18 07:24 05/24/18 07:09 05/24/18 06:39 05/24/18 06:27 98 05/24/18 06:24 92 L 05/24/18 04:00 05/23/18 22:46 95 05/23/18 14:39 97 Intake and Output 05/23/18 05/24/18 05/24/18 22:59 06:59 14:59 Other: Voiding Method Toilet Toilet Toilet # Voids 2 2 Results 05/24/18 07:49 05/24/18 07:49 CBC 05/23/18 05/24/18 Range/Units 09:25 07:49 WBC 4.6 4.7 (3.8-10.6) k/uL RBC 2.12 L 2.28 L (3.80-5.40) m/uL Hgb 8.8 L 9.5 L (11.4-16.0) gm/dL Hct 28.8 L 31.5 L (34.0-46.0) % Plt Count 267 296 (150-450) k/uL Comprehensive Metabolic Panel 05/23/18 05/24/18 Range/Units 09:25 07:49 Sodium 129 L 131 L (137-145) mmol/L Potassium 4.1 4.4 (3.5-5.1) mmol/L Chloride 99 100 (98-107) mmol/L Carbon Dioxide 21 L 22 (22-30) mmol/L BUN 10 11 (7-17) mg/dL Creatinine 0.51 L 0.55 (0.52-1.04) mg/dL Glucose 122 H 102 H (74-99) mg/dL Calcium 8.4 8.8 (8.4-10.2) mg/dL Current Medications Generic Name Dose Route Start Last Admin Trade Name Freq PRN Reason Stop Dose Admin Albuterol/Ipratropium 3 ml 05/24/18 00:39 05/24/18 07:08 Duoneb 0.5 Mg-3 Mg/3 Ml Soln INHALATION 3 ml RT-QID PRN Administration Shortness Of Breath Or Wheezing Alprazolam 0.25 mg 05/24/18 00:38 05/24/18 00:49 Xanax PO 0.25 mg BID PRN Administration Anxiety Apixaban 5 mg 05/22/18 13:30 05/24/18 07:27 Eliquis PO 5 mg BID PASCALE Administration Ascorbic Acid 500 mg 05/23/18 09:00 05/24/18 07:28 Vitamin C PO 500 mg DAILY PASCALE Administration Cyanocobalamin 1,000 mcg 05/22/18 12:00 05/24/18 07:28 Vitamin B-12 PO 1,000 mcg DAILY@1200 PASCALE Administration Famotidine 20 mg 05/22/18 09:00 05/24/18 07:28 Pepcid PO 20 mg BID PASCALE Administration Folic Acid 1 mg 05/22/18 12:00 05/24/18 07:28 Folic Acid PO 1 mg DAILY@1200 PASCALE Administration Hydroxyurea 500 mg 05/23/18 09:00 05/24/18 07:27 Hydrea PO 500 mg DAILY PASCALE Administration Sodium Chloride 1,000 mls @ 80 mls/hr 05/22/18 00:45 05/24/18 00:49 Saline 0.9% IV 80 mls/hr .[id number] PASCALE Administration Ceftriaxone Sodium 1 gm/ 50 mls @ 100 mls/hr 05/23/18 00:00 05/23/18 23:36 Sodium Chloride IVPB 100 mls/hr Q24H PASCALE Administration Metoprolol Tartrate 100 mg 05/22/18 13:30 05/24/18 07:28 Lopressor PO 100 mg BID PASCALE Administration Multivitamins 1 each 05/23/18 12:00 05/24/18 07:28 Theragran PO 1 each DAILY@1200 PASCALE Administration Naloxone HCl 0.2 mg 05/22/18 00:38 Narcan IV Q2M PRN Opioid Reversal Ondansetron HCl 4 mg 05/22/18 00:38 Zofran IVP Q8HR PRN Nausea And Vomiting Thiamine HCl 100 mg 05/22/18 12:00 05/24/18 07:28 Vitamin B-1 PO 100 mg DAILY@1200 PASCALE Administration Intake and Output 05/23/18 05/24/18 05/24/18 22:59 06:59 14:59 Other: Voiding Method Toilet Toilet Toilet # Voids 2 2 05/24/18 07:49 05/24/18 07:49
--- NOTE | 2018-05-25 00:55 | P.PN ---
Subjective Progress Note Date: 05/24/18 Principal diagnosis: Hyponatremia Patient is a 83-year-old female with known history of hypertension, atrial fibrillation on anticoagulation, blood disorder/macrocytosis on hydroxyurea at home and recent removal of melanoma on the left cheek and basilar cell carcinoma removed from nose, history of ITP and other medical problems came to ER with confusion and generalized weakness. Patient says that she slid out of bed during last 2 nights. She was on the ground and was unable to get up on her feet because of weakness. As per her daughter at bedside, patient is also confused for the last couple of days. She called her daughter who lives next to. Patient was found on the ground and she helped her get into a chair. Patient was brought to the hospital for evaluation. Denied any fever or chills. No cough or sputum production. Denied any loss of consciousness. No nausea vomiting or abdominal pain. No diarrhea. Denied any recent illnesses otherwise. CT head showed no acute intracranial process. Interval changes with small vessel disease CT cervical spine is normal X-ray pelvic x-ray is normal. Sodium level is 126 on admission. Chloride 91 UA showed large leukocyte esterase and elevated RBC and WBC count. Nitrate negative. Urine is cloudy. Culture in process. EKG showed atrial fibrillation with ventricular complexes and low voltage QRS. 05/23/2018 Patient denied any complaints of chest pain or shortness of breath. Patient is being continued on gentle hydration with normal saline. Sodium level improved to 129 today. 2-D echocardiogram showed severe mitral regurgitation and moderate to severe tricuspid regurgitation. Moderate pulmonary hypertension. Ejection fraction is within normal limits at 55-60%. Otherwise patient denied any complaints of fever or chills. No nausea vomiting or abdominal pain. Lasix is on hold currently. Cardiology was consulted as per family request. 05/24/2018 Patient denied any complains of chest pain. Patient did have some shortness of breath this morning. Patient was given IV Lasix and IV fluids were discontinued. Patient was seen by cardiology. Currently patient denied any shortness of breath. Able to sit in the chair. Tolerating oral diet. Sodium level improved to 131. Repeat BMP was ordered. Anticipate discharge in next 24-48 hours. Current medications reviewed. Objective - Vital Signs Vital signs: Vital Signs Temp 98.2 F 05/24/18 14:01 Pulse 66 05/24/18 14:01 Resp 18 05/24/18 14:01 BP 151/85 05/24/18 14:01 Pulse Ox 98 05/24/18 14:01 Intake & Output 05/24/18 05/24/18 05/25/18 06:59 18:59 06:59 Intake Total 240 Balance 240 Weight 64 kg Intake: Oral 240 Other: Voiding Method Toilet Toilet # Voids 2 6 - Exam PHYSICAL EXAMINATION: Patient is lying in the bed comfortably, no acute distress, awake alert and oriented. Mild confusion and lethargic.. HEENT: Normocephalic. Neck is supple. Pupils reactive. Nostrils clear. Oral cavity is moist. Ears reveal no drainage. Neck reveals no JVD, carotid bruits, or thyromegaly. CHEST EXAMINATION: Trachea is central. Symmetrical expansion. Lung ayala clear to auscultation and percussion. CARDIAC: Normal S1, S2 with no gallops. No murmurs ABDOMEN: Soft. Bowel sounds normal. No organomegaly. No abdominal bruits. Extremities: Trace edema. No clubbing or cyanosis Neurologically awake, alert, oriented x2-3 with mild confusion. well- coordinated movements. No focal deficits noted Skin: No rash or skin lesions. Psychiatric: Coperative. Nonsuicidal Musculoskeletal: No joint swelling or deformity. Normal range of motion. - Labs CBC & Chem 7: 05/24/18 07:49 05/24/18 07:49 Labs: Abnormal Lab Results - Last 24 Hours (Table) 05/24/18 05/24/18 Range/Units 07:49 07:49 RBC 2.28 L (3.80-5.40) m/uL Hgb 9.5 L (11.4-16.0) gm/dL Hct 31.5 L (34.0-46.0) % MCV 138.2 H (80.0-100.0) fL MCH 41.9 H (25.0-35.0) pg MCHC 30.3 L (31.0-37.0) g/dL RDW 15.9 H (11.5-15.5) % Lymphocytes # 0.8 L (1.0-4.8) k/uL Sodium 131 L (137-145) mmol/L Glucose 102 H (74-99) mg/dL Assessment and Plan Assessment: Altered mental status possible metabolic encephalopathy improving now Hyponatremia 126 likely hypovolemic. Improved to 129--131. Possible acute urinary tract infection. Urine culture showed greater than 100, 000 normal herson. Low voltage QRS and the EKG Mild acute on chronic CHF with diastolic dysfunction. Severe mitral regurgitation and moderate to severe tricuspid regurgitation Moderate pulmonary hypertension with RVSP 63 mmHg Chronic atrial fibrillation on anticoagulation Blood disorder/macrocytosis. 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 Patient was given 1 time Lasix IV 20 mg this morning. Lasix on hold.. Monitor closely respiratory status. Follow up sodium level. Continue with home medications including metoprolol and Eliquis. Will hold Lasix at this time due to hyponatremia. Continue with ceftriaxone for 3 doses. Urine culture showed normal herson. 2-D echo Cardizem was done. Cardiology is following.. Further recommendations based on the clinical course.. Prognosis is guarded. Discussed with her daughter at bedside in detail. Time with Patient: Greater than 30
--- NOTE | 2018-05-25 07:11 | PN ---
PROGRESS NOTE Patient is seen for followup for hyponatremia which appears to be hypovolemic and currently improved with sodium going up from 126 to 131.The patient is maintained on normal saline. This morning, however, she became short of breath and IV fluids were discontinued. The patient also received one dose of Lasix. She is eating fairly okay. No ongoing nausea, vomiting or diarrhea. PHYSICAL EXAMINATION: On examination this morning, blood pressure was 191/98, heart rate 80 per minute. Patient is afebrile. EXAMINATION OF THE HEART: S1, S2. EXAMINATION OF THE LUNGS: Decreased breath sounds at the bases. Abdomen is soft, nontender. Examination of the lower extremities shows no significant edema. METEOROLOGIST IN CHARGE exam is grossly intact. LABS: Labs show sodium 131, potassium 4.4, BUN 11, serum creatinine 0.5. Urine sodium was 5.2. Random urine osmolality was 635. ASSESSMENT: Hyponatremia initially hypovolemic status post normal saline. This morning, patient developed respiratory distress and congestive heart failure for which she received one dose of Lasix. Currently, she is comfortable. I will continue to maintain her without IV fluids. She is encouraged to increase her oral intake and we will also maintain some degree of free water restriction. TSH and cortisol were within range. PLAN: Continue off of IV fluids. Maintain some degree of free water restriction. Encourage increased oral intake. Repeat labs in a.m. MMRUBAL / EDNAN: [id number] /
[2018-05-25] MEDS: THIAMINE 100 MG TAB PO SCH (08:21)
[2018-05-25] MEDS: MULTIVITAMINS, THERA 1 EACH TAB PO SCH (08:21)
[2018-05-25] MEDS: APIXABAN 5 MG TAB PO SCH ×2 (08:21→20:23)
[2018-05-25] MEDS: METOPROLOL TARTRATE 50 MG TAB PO SCH ×2 (08:22→20:24)
[2018-05-25] MEDS: LISINOPRIL 10 MG TAB PO SCH (08:22)
[2018-05-25] MEDS: FOLIC ACID 1 MG TAB PO SCH (08:22)
[2018-05-25] MEDS: HYDROXYUREA 500 MG CAP PO SCH (08:22)
[2018-05-25] MEDS: ASCORBIC ACID 500 MG TAB PO SCH (08:22)
[2018-05-25] MEDS: CYANOCOBALAMIN 500 MCG TAB PO SCH (08:22)
[2018-05-25] MEDS: FAMOTIDINE 20 MG TAB PO SCH ×2 (08:22→20:24)
[2018-05-25] MEDS ORDERED: LISINOPRIL 10 MG TAB PO SCH (09:00)
[2018-05-25] MEDS ORDERED: LISINOPRIL 10 MG TAB PO ONE (09:00)
[2018-05-25 10:35] LABS: Anion Gap 7 mmol/L; Blood Urea Nitrogen 11 mg/dL (7-17); Calcium 8.7 mg/dL (8.4-10.2); Carbon Dioxide 25 mmol/L (22-30); Chloride 100 mmol/L (98-107); Glucose 109 mg/dL (74-99); Potassium 3.8 mmol/L (3.5-5.1); Sodium 132 mmol/L (137-145)
--- NOTE | 2018-05-25 11:09 | P.PN ---
Subjective This is a pleasant 83-year-old female past medical history significant for chronic persistent atrial fibrillation on long-term anticoagulation, hypertension and recent melanoma with removal from the left cheek. She follows in the office with Dr. Quintana. She is seen and examined laying flat in bed in no acute distress. She is no longer using oxygen. She denies shortness of breath, chest pain, dizziness or palpitations. She complains of feeling very tired and weak. Blood pressure 162/73 heart rate 84 afebrile and maintaining oxygen saturation on room air. Weight is up 3 kg from admission. No accurate intake and output documented as requested. Labs reviewed , sodium 132, potassium 3.8, creatinine 0.53. GENERAL: This is a 83-year-old female in no apparent distress at the time of my examination. HEENT: Head is atraumatic, normocephalic. Pupils are equal, round. Sclerae anicteric. Conjunctivae are clear. Mucous membranes of the mouth are moist. Neck is supple. There is no jugular venous distention. No carotid bruit is heard. LUNGS: Clear to auscultation bilaterally, no wheezes, rales or rhonchi. No chest wall tenderness is noted on palpation or with deep breathing. HEART: Irregular rate and rhythm without murmurs, rubs or gallops. S1 and S2 heard. EXTREMITIES: No evidence of peripheral edema and no calf tenderness noted. ASSESSMENT Generalized weakness Hyponatremia Chronic persistent atrial fibrillation on long-term anticoagulation Acute on chronic diastolic heart failure, mild. Secondary to fluid administration. Hypertension PLAN Resume home dose of lasix 20 mg daily. Increase lisinopril to 20 mg daily. Otherwise breathing has greatly improved. Ongoing medical management. Encourage increasing her activity and working with Physical Therapy. Nurse Practitioner note has been reviewed, I agree with a documented findings and plan of care. Patient was seen and examined. Objective - Vital Signs Vital signs: Vital Signs Temp 98.4 F 05/25/18 06:00 Pulse 84 05/25/18 06:00 Resp 20 05/25/18 06:00 BP 162/73 05/25/18 06:00 Pulse Ox 94 L 05/25/18 06:00 Intake & Output 05/24/18 05/25/18 05/25/18 18:59 06:59 18:59 Intake Total 240 1 Balance 240 1 Weight 64 kg Intake: Oral 240 1 Other: Voiding Method Toilet Toilet # Voids 6 1 - Labs CBC & Chem 7: 05/24/18 07:49 05/25/18 09:24 Labs: Abnormal Lab Results - Last 24 Hours (Table) 05/24/18 Range/Units 07:49 RBC 2.28 L (3.80-5.40) m/uL Hgb 9.5 L (11.4-16.0) gm/dL Hct 31.5 L (34.0-46.0) % MCV 138.2 H (80.0-100.0) fL MCH 41.9 H (25.0-35.0) pg MCHC 30.3 L (31.0-37.0) g/dL RDW 15.9 H (11.5-15.5) % Lymphocytes # 0.8 L (1.0-4.8) k/uL
[2018-05-25] MEDS ORDERED: Potassium Replacement Protocol 1 EACH MISC MISCELLANE PRN (11:15)
[2018-05-25] MEDS: FUROSEMIDE 20 MG TAB PO SCH (11:35)
[2018-05-25] MEDS ORDERED: POTASSIUM CHLORIDE ER 20 MEQ TAB.ER PO SCH (12:00)
[2018-05-25] MEDS: SODIUM CHLORIDE 0.9% 1,000 ML IV SCH (16:16)
[2018-05-25] MEDS ORDERED: ACETAMINOPHEN TAB 325 MG TAB PO PRN (20:30)
[2018-05-25 23:09] VITALS: RESP 20
--- NOTE | 2018-05-25 23:25 | P.PN ---
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 Patient says that she slid out of bed during last 2 nights. She was on the ground and was unable to get up on her feet because of weakness. As per her daughter at bedside, patient is also confused for the last couple of days. She called her daughter who lives next to. Patient was found on the ground and she helped her get into a chair. Patient was brought to the hospital for evaluation. Denied any fever or chills. No cough or sputum production. Denied any loss of consciousness. No nausea vomiting or abdominal pain. No diarrhea. Denied any recent illnesses otherwise. CT head showed no acute intracranial process. Interval changes with small vessel disease CT cervical spine is normal X-ray pelvic x-ray is normal. Sodium level is 126 on admission. Chloride 91 UA showed large leukocyte esterase and elevated RBC and WBC count. Nitrate negative. Urine is cloudy. Culture in process. EKG showed atrial fibrillation with ventricular complexes and low voltage QRS. 05/23/2018 Patient denied any complaints of chest pain or shortness of breath. Patient is being continued on gentle hydration with normal saline. Sodium level improved to 129 today. 2-D echocardiogram showed severe mitral regurgitation and moderate to severe tricuspid regurgitation. Moderate pulmonary hypertension. Ejection fraction is within normal limits at 55-60%. Otherwise patient denied any complaints of fever or chills. No nausea vomiting or abdominal pain. Lasix is on hold currently. Cardiology was consulted as per family request. 05/24/2018 Patient denied any complains of chest pain. Patient did have some shortness of breath this morning. Patient was given IV Lasix and IV fluids were discontinued. Patient was seen by cardiology. Currently patient denied any shortness of breath. Able to sit in the chair. Tolerating oral diet. Sodium level improved to 131. Repeat BMP was ordered. Anticipate discharge in next 24-48 hours. 05/25/2018 Patient's breathing status is better today. Otherwise blood pressure is still elevated. Lisinopril dose increased to 20 mg daily and Lasix 20 mg daily will be continued. Sodium level is 1:30 today. Cardiology and nephrology is on board. Follow repeat BMP tomorrow. Current medications reviewed. Objective - Vital Signs Vital signs: Vital Signs Temp 97.8 F 05/25/18 23:00 Pulse 72 05/25/18 23:00 Resp 20 05/25/18 23:00 BP 122/67 05/25/18 23:00 Pulse Ox 97 05/25/18 23:00 Intake & Output 05/25/18 05/25/18 05/26/18 06:59 18:59 06:59 Intake Total 1 Balance 1 Intake: Oral 1 Other: Voiding Method Toilet Toilet Toilet # Voids 1 - Exam PHYSICAL EXAMINATION: Patient is lying in the bed comfortably, no acute distress, awake alert and oriented. Mild confusion and lethargic.. HEENT: Normocephalic. Neck is supple. Pupils reactive. Nostrils clear. Oral cavity is moist. Ears reveal no drainage. Neck reveals no JVD, carotid bruits, or thyromegaly. CHEST EXAMINATION: Trachea is central. Symmetrical expansion. Lung ayala clear to auscultation and percussion. CARDIAC: Normal S1, S2 with no gallops. No murmurs ABDOMEN: Soft. Bowel sounds normal. No organomegaly. No abdominal bruits. Extremities: Trace edema. No clubbing or cyanosis Neurologically awake, alert, oriented x2-3 with mild confusion. well- coordinated movements. No focal deficits noted Skin: No rash or skin lesions. Psychiatric: Coperative. Nonsuicidal Musculoskeletal: No joint swelling or deformity. Normal range of motion. - Labs CBC & Chem 7: 05/24/18 07:49 05/25/18 09:24 Labs: Abnormal Lab Results - Last 24 Hours (Table) 05/25/18 Range/Units 09:24 Sodium 132 L (137-145) mmol/L Glucose 109 H (74-99) mg/dL Assessment and Plan Assessment: Altered mental status possible metabolic encephalopathy improving now Hyponatremia 126 likely hypovolemic. Improved to 129--131. Possible acute urinary tract infection. Urine culture showed greater than 100, 000 normal herson. Low voltage QRS and the EKG Mild acute on chronic CHF with diastolic dysfunction. Severe mitral regurgitation and moderate to severe tricuspid regurgitation Moderate pulmonary hypertension with RVSP 63 mmHg Chronic atrial fibrillation on anticoagulation Blood disorder/macrocytosis. 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 Patient was given 1 time Lasix IV 20 mg . Continue With 20 mg oral Lasix daily. Follow up sodium level. Continue with home medications including metoprolol and Eliquis. Continue with ceftriaxone for 3 doses. Urine culture showed normal herson. 2-D echo Cardizem was done. Cardiology is following.. Further recommendations based on the clinical course.. Prognosis is guarded. Discussed with her daughter at bedside in detail. Time with Patient: Greater than 30
--- NOTE | 2018-05-25 23:27 | PN ---
PROGRESS NOTE Patient is seen for followup for hyponatremia. The patient was maintained on a saline which is now at KVO. Serum sodium has improved and is at 132 today. Patient is complaining of mild shortness of breath. PHYSICAL EXAMINATION: Blood pressure this morning was 162/73, heart rate of 78 per minute. Patient is afebrile. Examination of the heart S1, S2. Examination of the lungs, decreased breath sounds at the bases. Wheezing is heard. Abdomen is soft, nontender. Examination lower extremities shows no significant edema. LAB: Show hemoglobin from yesterday 9.5 today. Sodium was 132, potassium 3.8, BUN 11, serum creatinine 0.53. ASSESSMENT: 1. Hypovolemic hyponatremia, currently improved. The patient is mildly hypervolemic. I will give her a dose of Lasix today. It looks like she has already received Lasix this morning. 2. Hypertension. Blood pressure is staying slightly on the higher side. Lisinopril has been increased. 3. Hypokalemia, status post replacement. PLAN: Agree with diuresing gently. May repeat IV Lasix tomorrow depending on volume status. MMODL / IJN: [id number] /
[2018-05-26 06:27] VITALS: BP 137/81; PULSE 81; TEMP 97.7
[2018-05-26] MEDS: ASCORBIC ACID 500 MG TAB PO SCH (08:03)
[2018-05-26] MEDS: FAMOTIDINE 20 MG TAB PO SCH (08:03)
[2018-05-26] MEDS: MULTIVITAMINS, THERA 1 EACH TAB PO SCH (08:04)
[2018-05-26] MEDS: APIXABAN 5 MG TAB PO SCH (08:04)
[2018-05-26] MEDS: METOPROLOL TARTRATE 50 MG TAB PO SCH (08:04)
[2018-05-26] MEDS: FUROSEMIDE 20 MG TAB PO SCH (08:04)
[2018-05-26] MEDS: CYANOCOBALAMIN 500 MCG TAB PO SCH (08:04)
[2018-05-26] MEDS: FOLIC ACID 1 MG TAB PO SCH (08:04)
[2018-05-26] MEDS: THIAMINE 100 MG TAB PO SCH (08:05)
[2018-05-26] MEDS: HYDROXYUREA 500 MG CAP PO SCH (08:05)
[2018-05-26] MEDS ORDERED: LISINOPRIL 20 MG TAB PO SCH (09:00)
[2018-05-26 09:24] VITALS: BMI 26.2
[2018-05-26 10:30] LABS: Anion Gap 8 mmol/L; Blood Urea Nitrogen 13 mg/dL (7-17); Calcium 8.6 mg/dL (8.4-10.2); Carbon Dioxide 25 mmol/L (22-30); Chloride 97 mmol/L (98-107); Glucose 116 mg/dL (74-99); Magnesium 1.6 mg/dL (1.6-2.3); Potassium 4.1 mmol/L (3.5-5.1); Sodium 130 mmol/L (137-145)
[2018-05-26] MEDS ORDERED: INFLUENZA VACCINE (6 MOS+) 60 MCG/0.5 ML SYRINGE IM ONE (14:11)
--- NOTE | 2018-05-26 18:58 | PN ---
PROGRESS NOTE Patient is seen for followup for hyponatremia which was initially hypovolemic. However lately, patient has been hypervolemic and has received Lasix. Her serum sodium has improved and it is staying at about 132-130 mEq/L. She is actually being discharged today. PHYSICAL EXAMINATION: Blood pressure was 137/81, heart rate 81 per minute. She is afebrile. Examination of the heart S1, S2. Examination lungs, bilateral breath sounds are heard. Abdomen is soft, nontender. Examination lower extremities shows no significant edema. LAB: Show sodium 130, potassium 4.1, BUN 13, serum creatinine 0.54. ASSESSMENT: 1. Hyponatremia, initially hypovolemic, currently hypervolemic, maintained on small dose of Lasix which I will continue. The patient can be discharged with oral Lasix. She should maintain good oral protein intake and avoid excessive free water and high salt intake. 2. Moderate pulmonary hypertension. 3. Chronic atrial fibrillation. PLAN: Continue with oral Lasix. Monitor electrolytes as outpatient. Maintain good oral protein intake. Repeat labs in about 3-4 days. MMODL / IJN: [id number] /
--- NOTE | 2018-05-26 23:52 | P.DS ---
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 Do you want consulting provider notified?: Yes Primary care physician: [facility] Course: Discharge diagnosis Altered mental status possible metabolic encephalopathy improving now Hyponatremia 126 likely hypovolemic. Improved to 129--131--132--130. Possible acute urinary tract infection. Urine culture showed greater than 100, 000 normal herson. Low voltage QRS and the EKG Mild acute on chronic CHF with diastolic dysfunction. Severe mitral regurgitation and moderate to severe tricuspid regurgitation Moderate pulmonary hypertension with RVSP 63 mmHg Chronic atrial fibrillation on anticoagulation Blood disorder/macrocytosis. 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 Patient says that she slid out of bed during last 2 nights. She was on the ground and was unable to get up on her feet because of weakness. As per her daughter at bedside, patient is also confused for the last couple of days. She called her daughter who lives next to. Patient was found on the ground and she helped her get into a chair. Patient was brought to the hospital for evaluation. Denied any fever or chills. No cough or sputum production. Denied any loss of consciousness. No nausea vomiting or abdominal pain. No diarrhea. Denied any recent illnesses otherwise. CT head showed no acute intracranial process. Interval changes with small vessel disease CT cervical spine is normal X-ray pelvic x-ray is normal. Sodium level is 126 on admission. Chloride 91 UA showed large leukocyte esterase and elevated RBC and WBC count. Nitrate negative. Urine is cloudy. Culture in process. EKG showed atrial fibrillation with ventricular complexes and low voltage QRS. 05/23/2018 Patient denied any complaints of chest pain or shortness of breath. Patient is being continued on gentle hydration with normal saline. Sodium level improved to 129 today. 2-D echocardiogram showed severe mitral regurgitation and moderate to severe tricuspid regurgitation. Moderate pulmonary hypertension. Ejection fraction is within normal limits at 55-60%. Otherwise patient denied any complaints of fever or chills. No nausea vomiting or abdominal pain. Lasix is on hold currently. Cardiology was consulted as per family request. 05/24/2018 Patient denied any complains of chest pain. Patient did have some shortness of breath this morning. Patient was given IV Lasix and IV fluids were discontinued. Patient was seen by cardiology. Currently patient denied any shortness of breath. Able to sit in the chair. Tolerating oral diet. Sodium level improved to 131. Repeat BMP was ordered. Anticipate discharge in next 24-48 hours. 05/25/2018 Patient's breathing status is better today. Otherwise blood pressure is still elevated. Lisinopril dose increased to 20 mg daily and Lasix 20 mg daily will be continued. Sodium level is 1:30 today. Cardiology and nephrology is on board. Follow repeat BMP tomorrow. 05/26/2018 Patient's breathing status is much improved today. Blood pressure is controlled. Patient will be continued on lisinopril 10 mg daily along with Lasix 20 mg daily. Sodium is 130 today. Patient is being transferred to rehab today. Patient was continued on IV hydration and were discontinued due to possible fluid overload. Patient was given 1 time Lasix IV 20 mg . Continue With 20 mg oral Lasix daily. Sodium level improved. Continue with home medications including metoprolol and Eliquis. Continued with ceftriaxone for 3 doses. Urine culture showed normal herson. 2-D echo Cardizem was done. Cardiology and nephrology has seen the patient. Lisinopril was added due to uncontrolled hypertension. Otherwise patient is stable to be discharged today. PHYSICAL EXAMINATION: Patient is lying in the bed comfortably, no acute distress, awake alert and oriented.. HEENT: Normocephalic. Neck is supple. Pupils reactive. Nostrils clear. Oral cavity is moist. Ears reveal no drainage. Neck reveals no JVD, carotid bruits, or thyromegaly. CHEST EXAMINATION: Trachea is central. Symmetrical expansion. Lung ayala clear to auscultation and percussion. CARDIAC: Normal S1, S2 with no gallops. No murmurs ABDOMEN: Soft. Bowel sounds normal. No organomegaly. No abdominal bruits. Extremities: reveal no edema. No clubbing or cyanosis Neurologically awake, alert, oriented x3 with well-coordinated movements. No focal deficits noted Skin: No rash or skin lesions. Psychiatric: Coperative. Nonsuicidal Musculoskeletal: No joint swelling or deformity. Normal range of motion. Vital Signs - 24 hr 05/26/18 05/26/18 06:00 08:00 Temperature 97.7 F Pulse Rate [ 81 Pulse Oximetery ] Respiratory 20 20 Rate Blood Pressure 137/81 [Right Arm] O2 Sat by Pulse 97 Oximetry Total time taken greater than 35 minutes including 18 minutes for counseling and coordination of care. Patient Condition at Discharge: Fair Plan - Discharge Summary New Discharge Prescriptions: New Lisinopril [Zestril] 10 mg PO DAILY #30 tab Continue Hydroxyurea [Hydrea] 500 mg PO DAILY Multivit-Min/FA/Lycopen/Lutein [Centrum Silver Tablet] 1 tab PO DAILY Ascorbic Acid [Vitamin C] 500 mg PO DAILY Apixaban [Eliquis] 5 mg PO BID #60 tab Metoprolol Tartrate [Lopressor] 100 mg PO BID #60 tab Furosemide [Lasix] 20 mg PO DAILY #30 tab Sertraline HCl [Zoloft] 25 mg PO DAILY Potassium Chloride ER [K-Dur 10] 10 meq PO BID ALPRAZolam [Xanax] 0.25 mg PO BID PRN #14 tablet PRN Reason: Anxiety Discharge Medication List Ascorbic Acid [Vitamin C] 500 mg PO DAILY 08/03/17 [History] Hydroxyurea [Hydrea] 500 mg PO DAILY 08/03/17 [History] Multivit-Min/FA/Lycopen/Lutein [Centrum Silver Tablet] 1 tab PO DAILY 08/03/17 [ History] Apixaban [Eliquis] 5 mg PO BID #60 tab 08/05/17 [Rx] Furosemide [Lasix] 20 mg PO DAILY #30 tab 08/05/17 [Rx] Metoprolol Tartrate [Lopressor] 100 mg PO BID #60 tab 08/05/17 [Rx] Potassium Chloride ER [K-Dur 10] 10 meq PO BID 05/21/18 [History] Sertraline HCl [Zoloft] 25 mg PO DAILY 05/21/18 [History] ALPRAZolam [Xanax] 0.25 mg PO BID PRN #14 tablet 05/26/18 [Rx] Lisinopril [Zestril] 10 mg PO DAILY #30 tab 05/26/18 [Rx] Follow up Appointment(s)/Referral(s): Kike Barillas MD [Primary Care Provider] - 1-2 days [facility], [NON-STAFF] - 1 Week Yasmine Quintana MD [STAFF PHYSICIAN] - 2 Weeks Patient Instructions/Handouts: Hyponatremia (DC) Care Plan Goals (MU): Flu shot administered Cardiac diet with Ensure Up with assist, fall precautions. Discharge Disposition: TRANSFER TO SNF/ECF
== END 2018-05-26 17:10 | DRG 640 ==
LOC: EC 21:51 → 3NMEDONC 05-22 00:38 → 4MS4W 05-22 13:50
PROVIDERS: ADMIT Hospitalist; ATTEND Hospitalist
DX: E86.1 Hypovolemia (principal); I50.33 Acute on chronic diastolic (congestive) heart failure; G93.41 Metabolic encephalopathy; E46 Unspecified protein-calorie malnutrition; D69.3 Immune thrombocytopenic purpura; N39.0 Urinary tract infection, site not specified; E87.1 Hypo-osmolality and hyponatremia; E87.2 Acidosis; D53.1 Other megaloblastic anemias, not elsewhere classified; I11.0 Hypertensive heart disease with heart failure; I48.2 Chronic atrial fibrillation; I27.20 Pulmonary hypertension, unspecified; I08.3 Combined rheumatic disorders of mitral, aortic and tricuspid valves; D75.89 Other specified diseases of blood and blood-forming organs; E87.6 Hypokalemia; M19.90 Unspecified osteoarthritis, unspecified site; Z71.3 Dietary counseling and surveillance; Z79.01 Long term (current) use of anticoagulants; Z79.899 Other long term (current) drug therapy; Z85.820 Personal history of malignant melanoma of skin; Z91.81 History of falling; Z82.3 Family history of stroke; Z82.61 Family history of arthritis
CPT/HCPCS: 36415; 70450; 71045; 71046; 72125; 72170; 80048; 81001; 82550; 83735; 83880; 83935; 84300; 85025; 87086; 90686; 93005; 93306; 94640; 96374; 99285

== ENCOUNTER → 2018-07-28 | Outpatient (CLI) | payer MEDICARE, BC ==
--- NOTE | 2018-07-28 15:33 | XR ---
EXAMINATION TYPE: XR chest 2V DATE OF EXAM: 07/28/2018 COMPARISON: 05/23/2018 HISTORY: Shortness of breath TECHNIQUE: Frontal and lateral views of the chest are obtained. FINDINGS: Scattered senescent parenchymal changes noted. Hyperinflation compatible with COPD. No evidence for infiltrate. No evidence for atelectasis. Moderate cardiomegaly. Mediastinal structures are stable and grossly unremarkable. No evidence for hilar prominence. Degenerative changes dorsal spine. IMPRESSION: 1. No evidence for acute pulmonary disease.
== END | disposition home or self-care (01) ==
LOC: RADXRMAIN 10:02
PROVIDERS: ATTEND Internal Medicine Hematology & Oncology
DX: R05 Cough (principal); D47.3 Essential (hemorrhagic) thrombocythemia; C43.39 Malignant melanoma of other parts of face; I10 Essential (primary) hypertension; M15.9 Polyosteoarthritis, unspecified
CPT/HCPCS: 71046

== ENCOUNTER 2018-12-08 15:52 | Emergency (ER) | payer MEDICARE, BC ==
[2018-12-08 15:59] VITALS: TEMP 98
[2018-12-08 16:53] LABS: Appearance,Urine Cloudy (Clear); Bilirubin,Urine Negative (Negative); Blood,Urine Negative (Negative); Color,Urine Yellow; Glucose,Urine (UA) Negative (Negative); Hyaline Casts,Urine 2 /lpf (0-2); Ketones,Urine Negative (Negative); Leukocyte Esterase,Urine Small (Negative); Mucus,Urine Rare /hpf; Nitrite,Urine Negative (Negative); Protein,Urine Negative (Negative); RBC,Urine <1 /hpf (0-5); Specific Gravity,Urine 1.014 (1.001-1.035); Squamous Epithelial Cell,Urine 10 /hpf (0-4); WBC,Urine 3 /hpf (0-5)
--- NOTE | 2018-12-08 17:02 | ED ---
General Adult HPI - General Source: patient, RN notes reviewed, old records reviewed Mode of arrival: wheelchair Limitations: no limitations <Dilip Ibanez - Last Filed: 12/08/18 17:56> <Sabino Sims - Last Filed: 12/08/18 18:06> - General Chief complaint: Back Pain/Injury Stated complaint: lower back/rt hip pain Time Seen by Provider: 12/08/18 16:03 - History of Present Illness Initial comments: 83-year-old female patient with past history of atrial fibrillation, pretension presents ED chief complaint of right lateral lumbar/flank pain. Patient reports this has been ongoing for approximately 2 months. Patient reports that she often feels twinges of pain which resolved. Patient states that today the pain has remained. Patient states the pain is worsened with walking. Patient denies any paresthesias. Denies any loss of bowel or bladder control, lower extremity weakness. Patient denies any dysuria. Patient denies any other complaints at this time. Systemic: Pt denies fatigue, fever/chills, rash. Pt denies weakness, night sweats, weight loss. Neuro: Pt denies headache, visual disturbances, syncope or pre-syncope. HEENT: Pt denies ocular discharge or irritation, otalgia, rhinorrhea, pharyngitis or notable lymphadenopathy. Cardiopulmonary: Pt denies chest pain, SOB, heart palpitations, dyspnea on exertion. Abdominal/GI: Pt denies abdominal pain, n/v/d. : Pt denies dysuria, burning w/ urination, frequency/urgency. Denies new onset urinary or bowel incontinence. MSK: Pt denies loss of strength or function in extremities. Neuro: Pt denies new onset weakness, paresthesias. (Dilip Ibanez) - Related Data Home Medications Medication Instructions Recorded Confirmed Ascorbic Acid [Vitamin C] 500 mg PO DAILY 08/03/17 05/21/18 Hydroxyurea [Hydrea] 500 mg PO DAILY 08/03/17 05/22/18 Multivit-Min/FA/Lycopen/Lutein 1 tab PO DAILY 08/03/17 05/21/18 [Centrum Silver Tablet] Potassium Chloride ER [K-Dur 10] 10 meq PO BID 05/21/18 05/21/18 Sertraline HCl [Zoloft] 25 mg PO DAILY 05/21/18 05/21/18 Previous Rx's Medication Instructions Recorded Apixaban [Eliquis] 5 mg PO BID #60 tab 08/05/17 Furosemide [Lasix] 20 mg PO DAILY #30 tab 08/05/17 Metoprolol Tartrate [Lopressor] 100 mg PO BID #60 tab 08/05/17 ALPRAZolam [Xanax] 0.25 mg PO BID PRN #14 tablet 05/26/18 Lisinopril [Zestril] 10 mg PO DAILY #30 tab 05/26/18 Acetaminophen Tab [Tylenol Tab] 500 mg PO Q6H PRN #30 tablet 12/08/18 Allergies Allergy/AdvReac Type Severity Reaction Status Date / Time No Known Allergies Allergy Verified 12/08/18 15:59 Review of Systems ROS Other: All systems not noted in ROS Statement are negative. <Dilip Ibanez - Last Filed: 12/08/18 17:56> ROS Other: All systems not noted in ROS Statement are negative. <Sabino Sims - Last Filed: 12/08/18 18:06> ROS Statement: Those systems with pertinent positive or pertinent negative responses have been documented in the HPI. 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 History of Any Multi-Drug Resistant Organisms: None Reported Past Surgical History: Section Additional Past Surgical History / Comment(s): melanoma removed from left cheek and basal cell cancer removed from nose, D&C Past Anesthesia/Blood Transfusion Reactions: No Reported Reaction Additional Past Anesthesia/Blood Transfusion Reaction / Comment(s): Pt received blood with child without reaction. Past Psychological History: No Psychological Hx Reported Smoking Status: Never smoker Past Alcohol Use History: None Reported Past Drug Use History: None Reported - Past Family History Father Family Medical History: CVA/TIA Additional Family Medical History / Comment(s): Father of a CVA at the age of 30yrs. Mother Family Medical History: Osteoarthritis (OA) Additional Family Medical History / Comment(s): Mother had a hiatal hernia. <Dilip Ibanez - Last Filed: 12/08/18 17:56> General Exam Limitations: no limitations <Dilip Ibanez - Last Filed: 12/08/18 17:56> - General Exam Comments Initial Comments: Constitutional: NAD, AOX3, Pt has pleasant affect. HEENT: NC/AT, trachea midline, neck supple, no lymphadenopathy. Posterior pharynx non erythematous, without exudates. External ears appear normal, without discharge. Mucous membranes moist. Eyes PERRLA, EOM intact. There is no scleral icterus. No pallor noted. Cardiopulmonary: RRR, no murmurs, rubs or gallops, no JVD noted. Lungs CTAB in anterior and posterior ayala. No peripheral edema. Abdominal exam: Abdomen soft and non-distended. Abdomen non-tender to palpation in all 4 quadrants. Bowel sounds active in LLQ. No hepatosplenomegaly. No ecchymosis Neuro: CN II-XII grossly intact. No nuchal rigidity. No raccon eyes, no barnard sign, no hemotympanum. No cervical spinal tenderness. MSK: Flank/lumbar region nontender to palpation. Distal pulses intact and e qual. Straight leg raise negative. No posterior calf tenderness bilaterally, homans sign negative bilaterally. Posterior tibialis and radial pulse +2 bilaterally. Sensation intact in upper and lower extremities. Full active ROM in upper and lower extremities, 5/5 stregnth. (Dilip Ibanez) Course <Sabino Sims - Last Filed: 12/08/18 18:06> Vital Signs 12/08/18 12/08/18 15:55 17:57 Temperature 98 F Pulse Rate 70 76 Respiratory 18 17 Rate Blood Pressure 172/92 174/87 O2 Sat by Pulse 100 98 Oximetry - Reevaluation(s) Reevaluation #1: 12/08/18 18:06 PA supervision: I personally did review this case and did discuss findings with the physician assistant bookkeeper reviewing the workup. I do agree with the assessment and plan. (Sabino Sims) Medical Decision Making <Dilip Ibanez - Last Filed: 12/08/18 17:56> - Medical Decision Making 83-year-old female patient with past history of atrial fibrillation, pretension presents ED chief complaint of right lateral lumbar/flank pain. Patient reports this has been ongoing for approximately 2 months. Patient reports that she often feels twinges of pain which resolved. Patient states that today the pain has remained. Patient states the pain is worsened with walking. Patient denies any paresthesias. Denies any loss of bowel or bladder control, lower extremity weakness. Patient denies any dysuria. Patient denies any other complaints at this time. Patient will signs stable, afebrile. Physical exam displayed no acute pathology. Air nontender palpation. No CVA tenderness. Pain is rep roducible with range of motion. UA is negative. Lumbar spine displayed multilevel spondylosis, no compression fracture. KUB displayed non acute abdomen. Patient symptoms suggestive of myalgia/muscle strain. Patient will discharge with Tylenol. Patient follow up with primary care provider, return to ER if condition worsens. Case discussed with Dr. Sims. (Dilip Ibanez) - Lab Data Lab Results 12/08/18 Range/Units 16:30 Urine Color Yellow Urine Appearance Cloudy H (Clear) Urine pH 6.0 (5.0-8.0) Ur Specific [place] 1.014 (1.001-1.035) Urine Protein Negative (Negative) Urine Glucose (UA) Negative (Negative) Urine Ketones Negative (Negative) Urine Blood Negative (Negative) Urine Nitrite Negative (Negative) Urine Bilirubin Negative (Negative) Urine Urobilinogen 3.0 (<2.0) mg/dL Ur Leukocyte Esterase Small H (Negative) Urine RBC <1 (0-5) /hpf Urine WBC 3 (0-5) /hpf Ur Squamous Epith Cells 10 H (0-4) /hpf Hyaline Casts 2 (0-2) /lpf Urine Mucus Rare H (None) /hpf Disposition Is patient prescribed a controlled substance at d/c from ED?: No <Dilip Ibanez - Last Filed: 12/08/18 17:56> <Sabino Sims - Last Filed: 12/08/18 18:06> Clinical Impression: Myalgia Disposition: HOME SELF-CARE Condition: Stable Instructions (If sedation given, give patient instructions): Musculoskeletal Pain (ED) Additional Instructions: Patient to adhere to previously discussed treatment plan and will take medication(s) as directed. Patient to follow up with PCP in 1-2 days. Patient to return to ED if symptoms do not improve. Follow-up with primary care provider tomorrow, return to ER condition worsens. Prescriptions: Acetaminophen Tab [Tylenol Tab] 500 mg PO Q6H PRN #30 tablet PRN Reason: Pain Referrals: Kike Barillas MD [Primary Care Provider] - 1-2 days
--- NOTE | 2018-12-08 17:18 | XR ---
EXAMINATION TYPE: XR KUB DATE OF EXAM: 12/08/2018 COMPARISON: NONE HISTORY: Right-sided flank pain TECHNIQUE: 2 views upright FINDINGS: There is no sign of intestinal obstruction or pneumoperitoneum. There is mild blunting of t he costophrenic angles. Heart is enlarged. There are no pathologic calcifications over the kidneys. F ecal pattern is normal. IMPRESSION: Nonacute abdomen. Moderate cardiomegaly. Small pleural effusions.
--- NOTE | 2018-12-08 17:19 | XR ---
EXAMINATION TYPE: XR lumbar spine 2 or 3V DATE OF EXAM: 12/08/2018 COMPARISON: NONE HISTORY: Right-sided back pain TECHNIQUE: 3 views FINDINGS: Vertebra have fairly normal alignment. There is narrowing of disc spaces throughout the lum bar spine with spurring of the endplates. There is more severe narrowing at L4-5 and L5-S1. There is no compression fracture. Posterior elements appear intact. Sacroiliac joints are intact. Abdominal ao rta is atheromatous. I see no pathologic calcifications over the kidneys. IMPRESSION: Multilevel spondylosis. No compression fracture.
[2018-12-08] MEDS ORDERED: ACETAMINOPHEN TAB 325 MG TAB PO STA (17:48)
[2018-12-08 17:58] VITALS: BP 174/87; PULSE 76; RESP 17
== END 2018-12-08 18:09 | disposition home or self-care (01) ==
LOC: EC 15:52
DX: M79.18 Myalgia, other site (principal); M54.5 Low back pain; M25.551 Pain in right hip; M47.816 Spondylosis without myelopathy or radiculopathy, lumbar region; Z79.899 Other long term (current) drug therapy; Z85.820 Personal history of malignant melanoma of skin
CPT/HCPCS: 72100; 74018; 81001; 99284

== ENCOUNTER 2019-04-15 10:53 | Inpatient (IN) | payer MEDICARE, BC ==
[2019-04-15] MEDS ORDERED: IPRATROPIUM-ALBUTEROL 3 ML NEB INHALATION STA (11:19)
[2019-04-15] MEDS ORDERED: SODIUM CHLORIDE 0.9% 1,000 ML IV STA (11:19)
--- NOTE | 2019-04-15 11:35 | ED ---
SOB HPI - General Chief Complaint: Shortness of Breath Stated Complaint: MEGHANN Time Seen by Provider: 04/15/19 11:05 Source: patient, family, EMS, RN notes reviewed Mode of arrival: EMS Limitations: no limitations - History of Present Illness Initial Comments: This 84-year-old female history of atrial fibrillation never smoker no history of lung disease who presents with complaints of nausea vomiting which is been going on throughout the morning but also associated with shortness of breath exertional dyspnea. She has no personal history of any type of lung disease but there is concerned due to treatment she is getting for melanoma at this time. Her was a smoker so she was exposed to secondhand smoke. She was brought in by EMS and given a nebulizer treatment which did not help very much. She denies any fevers chills sweats she does have a nonproductive cough or chest pain she does have some palpitations no other modifying factors at this time she did have a CAT scan done 3 [facility] the results are pending at this time this was of the chest. No current nausea. MD Complaint: shortness of breath - Related Data Home Medications Medication Instructions Recorded Confirmed Ascorbic Acid [Vitamin C] 500 mg PO DAILY 08/03/17 05/21/18 Hydroxyurea [Hydrea] 500 mg PO DAILY 08/03/17 05/22/18 Multivit-Min/FA/Lycopen/Lutein 1 tab PO DAILY 08/03/17 05/21/18 [Centrum Silver Tablet] Potassium Chloride ER [K-Dur 10] 10 meq PO BID 05/21/18 05/21/18 Sertraline HCl [Zoloft] 25 mg PO DAILY 05/21/18 05/21/18 Previous Rx's Medication Instructions Recorded Apixaban [Eliquis] 5 mg PO BID #60 tab 08/05/17 Furosemide [Lasix] 20 mg PO DAILY #30 tab 08/05/17 Metoprolol Tartrate [Lopressor] 100 mg PO BID #60 tab 08/05/17 ALPRAZolam [Xanax] 0.25 mg PO BID PRN #14 tablet 05/26/18 Lisinopril [Zestril] 10 mg PO DAILY #30 tab 05/26/18 Acetaminophen Tab [Tylenol Tab] 500 mg PO Q6H PRN #30 tablet 12/08/18 Allergies Allergy/AdvReac Type Severity Reaction Status Date / Time No Known Allergies Allergy Verified 04/15/19 11:10 Review of Systems ROS Statement: Those systems with pertinent positive or pertinent negative responses have been documented in the HPI. ROS Other: All systems not noted in ROS Statement are negative. 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 History of Any Multi-Drug Resistant Organisms: None Reported Past Surgical History: Section Additional Past Surgical History / Comment(s): melanoma removed from left cheek and basal cell cancer removed from nose, D&C Past Anesthesia/Blood Transfusion Reactions: No Reported Reaction Additional Past Anesthesia/Blood Transfusion Reaction / Comment(s): Pt received blood with child without reaction. Past Psychological History: No Psychological Hx Reported Smoking Status: Never smoker Past Alcohol Use History: None Reported Past Drug Use History: None Reported - Past Family History Father Family Medical History: CVA/TIA Additional Family Medical History / Comment(s): Father of a CVA at the age of 30yrs. Mother Family Medical History: Osteoarthritis (OA) Additional Family Medical History / Comment(s): Mother had a hiatal hernia. General Exam - General Exam Comments Initial Comments: This is a well-developed well-nourished awake alert oriented 3 female who does demonstrate some audible wheezing Limitations: no limitations General appearance: alert, anxious Head exam: Present: atraumatic, normocephalic, normal inspection Eye exam: Present: normal appearance, PERRL, EOMI. Absent: scleral icterus, conjunctival injection, periorbital swelling ENT exam: Present: normal exam, mucous membranes moist Neck exam: Present: normal inspection, full ROM, other (No stridor JVD or bruit s). Absent: tenderness, meningismus, lymphadenopathy Respiratory exam: Present: wheezes, decreased breath sounds, other (She does demonstrate some kyphosis). Absent: respiratory distress, rales, rhonchi, stridor Cardiovascular Exam: Present: tachycardia, irregular rhythm. Absent: systolic murmur, diastolic murmur, rubs, gallop, clicks GI/Abdominal exam: Present: soft, normal bowel sounds. Absent: distended, tenderness, guarding, rebound, rigid Extremities exam: Present: normal inspection, full ROM, normal capillary refill. Absent: tenderness, pedal edema, joint swelling, calf tenderness Back exam: Present: normal inspection Neurological exam: Present: alert, oriented X3, CN II-XII intact Psychiatric exam: Present: normal affect, normal mood Skin exam: Present: warm, dry, intact, normal color. Absent: rash Course Vital Signs 04/15/19 04/15/19 04/15/19 11:09 11:10 11:28 Temperature 98.3 F Pulse Rate 122 H 110 H Respiratory 24 Rate Blood Pressure 144/86 O2 Sat by Pulse 25 L 100 Oximetry 04/15/19 04/15/19 04/15/19 11:37 12:30 12:49 Temperature Pulse Rate 110 H 102 H 102 H Respiratory 22 20 Rate Blood Pressure 146/86 122/66 O2 Sat by Pulse 100 95 Oximetry - Reevaluation(s) Reevaluation #1: 04/15/19 12:50 Patient thinks she feels somewhat better after the second neb treatment she received today. Heart rate still was in the low 100s no chest pain Reevaluation #2: 04/15/19 12:50 She was found to have 50. She is not nauseated will receive oral Medical Decision Making - Medical Decision Making I did a long discussion with patient family regarding the findings I did review the CAT scan report from [facility] done 3 days ago showing mild cardiomegaly three-vessel coronary artery disease moderate pericardial effusion small bilateral pleural effusions no specific evidence of interstitial fibrosis or pneumonitis bronchial angle lymph node patient will be admitted for evaluation and treatment of dyspnea and left lower lobe infiltrate. I did discuss findings with Dr. Macdonald. Patient feeling somewhat better his stated she will be also getting a BNP ordered. Heart failure is in the differential - Lab Data Result diagrams: 04/15/19 11:27 04/15/19 11:27 Lab Results 04/15/19 04/15/19 04/15/19 Range/Units 11:27 11:27 11:27 WBC 5.2 (3.8-10.6) k/uL RBC 3.37 L (3.80-5.40) m/uL Hgb 12.1 (11.4-16.0) gm/dL Hct 42.0 (34.0-46.0) % MCV 124.6 H (80.0-100.0) fL MCH 36.0 H (25.0-35.0) pg MCHC 28.9 L (31.0-37.0) g/dL RDW 16.5 H (11.5-15.5) % Plt Count 253 (150-450) k/uL Hypochromasia Marked Anisocytosis Slight Macrocytosis Marked A PT 16.1 H (9.0-12.0) sec INR 1.6 H (<1.2) APTT 26.7 (22.0-30.0) sec D-Dimer 1.61 H (<0.60) mg/L FEU Sodium 133 L (137-145) mmol/L Potassium 5.6 H (3.5-5.1) mmol/L Chloride 98 (98-107) mmol/L Carbon Dioxide 25 (22-30) mmol/L Anion Gap 10 mmol/L BUN 20 H (7-17) mg/dL Creatinine 1.03 (0.52-1.04) mg/dL Est GFR (CKD-EPI)AfAm 57 (>60 ml/min/1.73 sqM) Est GFR (CKD-EPI)NonAf 49 (>60 ml/min/1.73 sqM) Glucose 50 L (74-99) mg/dL Calcium 9.4 (8.4-10.2) mg/dL Magnesium 1.8 (1.6-2.3) mg/dL Total Bilirubin 1.8 H (0.2-1.3) mg/dL AST 48 H (14-36) U/L ALT 18 (4-34) U/L Alkaline Phosphatase 311 H (38-126) U/L Creatine Kinase 36 (30-135) U/L Troponin I (0.000-0.034) ng/mL NT-Pro-B Natriuret Pep pg/mL Total Protein 7.6 (6.3-8.2) g/dL Albumin 3.8 (3.5-5.0) g/dL 04/15/19 04/15/19 Range/Units 11:27 11:27 WBC (3.8-10.6) k/uL RBC (3.80-5.40) m/uL Hgb (11.4-16.0) gm/dL Hct (34.0-46.0) % MCV (80.0-100.0) fL MCH (25.0-35.0) pg MCHC (31.0-37.0) g/dL RDW (11.5-15.5) % Plt Count (150-450) k/uL Hypochromasia Anisocytosis Macrocytosis PT (9.0-12.0) sec INR (<1.2) APTT (22.0-30.0) sec D-Dimer (<0.60) mg/L FEU Sodium (137-145) mmol/L Potassium (3.5-5.1) mmol/L Chloride (98-107) mmol/L Carbon Dioxide (22-30) mmol/L Anion Gap mmol/L BUN (7-17) mg/dL Creatinine (0.52-1.04) mg/dL Est GFR (CKD-EPI)AfAm (>60 ml/min/1.73 sqM) Est GFR (CKD-EPI)NonAf (>60 ml/min/1.73 sqM) Glucose (74-99) mg/dL Calcium (8.4-10.2) mg/dL Magnesium (1.6-2.3) mg/dL Total Bilirubin (0.2-1.3) mg/dL AST (14-36) U/L ALT (4-34) U/L Alkaline Phosphatase (38-126) U/L Creatine Kinase (30-135) U/L Troponin I 0.017 (0.000-0.034) ng/mL NT-Pro-B Natriuret Pep 8740 pg/mL Total Protein (6.3-8.2) g/dL Albumin (3.5-5.0) g/dL - EKG Data -: EKG Interpreted by Me EKG Comments: Atrial fibrillation with rapid ventricular response of 107 QRS 74 QT since QTC 308/411 rightward axis pulmonary disease pattern nonspecific T-wave configuration EKG was compared with an EKG dated showing similar configuration's. - Radiology Data Radiology results: report reviewed (I did review the imaging and report is evidence of cardiomegaly a left lower lobe infiltrate), image reviewed Disposition Clinical Impression: Acute bronchospasm, Left lower lobe pulmonary infiltrate, Chronic atrial fibrillation, Hypoglycemia Disposition: ADMITTED IP TO THIS HOSP Condition: Fair Referrals: Kike Barillas MD [Primary Care Provider] - 1-2 days
[2019-04-15 11:51] LABS: Albumin 3.8 g/dL (3.5-5.0); Calcium 9.4 mg/dL (8.4-10.2); Magnesium 1.8 mg/dL (1.6-2.3); Potassium 5.6 mmol/L (3.5-5.1); Total Bilirubin 1.8 mg/dL (0.2-1.3); Total Protein 7.6 g/dL (6.3-8.2)
[2019-04-15 11:53] LABS: Anisocytosis Slight; HGB 12.1 gm/dL (11.4-16.0); Hypochromasia Marked; MCHC 28.9 g/dL (31.0-37.0); MCV 124.6 fL (80.0-100.0); Macrocytosis Marked; Mean Platelet Volume 11.2; Platelet Count 253 k/uL (150-450); RBC 3.37 m/uL (3.80-5.40); RDW 16.5 % (11.5-15.5)
--- NOTE | 2019-04-15 12:12 | XR ---
EXAMINATION TYPE: XR chest 2V DATE OF EXAM: 04/15/2019 HISTORY: difficulty breathing. REFERENCE: Previous study dated 07/28/2018 there is multichamber cardiac enlargement. IMPRESSION: 1. MULTICHAMBER CARDIAC ENLARGEMENT. 2. LEFT BASILAR INFILTRATE. 3. SMALL LEFT EFFUSION.
[2019-04-15 12:53] LABS: INR 1.6 (<1.2); Partial Thromboplastin Time 26.7 sec (22.0-30.0); Prothrombin Time 16.1 sec (9.0-12.0)
[2019-04-15 12:56] LABS: D-Dimer 1.61 mg/L FEU (<0.60)
[2019-04-15] MEDS ORDERED: cefTRIAXone IN SWFI 1,000 MG/10 ML SYRINGE IVP STA (12:59)
[2019-04-15 13:00] LABS: Band Neutrophils % 7 %; Monocytes # (M) 0.05 k/uL (0-1.0); Neutrophils % (M) 91 %; Nucleated Red Blood Cells 1 /100 WBC (0-0); Total Cells Counted 200
[2019-04-15 13:01] LABS: Large Platelets Present; WBC 5.1 k/uL (3.8-10.6)
[2019-04-15] MEDS ORDERED: methylPREDNISolone SOD SUCCI 125 MG/2 ML VIAL IV STA (13:04)
[2019-04-15 13:05] LABS: Polychromasia Present
[2019-04-15 13:12] LABS: Glucose,Whole Blood 56 mg/dL (75-99)
[2019-04-15] MEDS ORDERED: DEXTROSE 4 GM CHEWABLE PO STA (13:15)
[2019-04-15 14:03] LABS: Glucose,Whole Blood 190 mg/dL (75-99)
[2019-04-15] MEDS: SODIUM CHLORIDE 0.9% 1,000 ML IV SCH (16:06)
[2019-04-15] MEDS: IPRATROPIUM-ALBUTEROL 3 ML NEB INHALATION SCH ×2 (16:45→20:43)
[2019-04-15 17:11] LABS: Glucose,Whole Blood 121 mg/dL (75-99)
[2019-04-15] MEDS: methylPREDNISolone SOD SUCCI 125 MG/2 ML VIAL IV SCH ×2 (17:25→23:26)
[2019-04-15] MEDS: POTASSIUM CHLORIDE ER 10 MEQ TAB.ER.PRT PO SCH (20:00)
[2019-04-15] MEDS: METOPROLOL TARTRATE 50 MG TAB PO SCH (20:00)
[2019-04-15] MEDS: ACETAMINOPHEN TAB 500 MG TAB PO PRN (20:00)
[2019-04-15] MEDS: APIXABAN 2.5 MG TABLET PO SCH (20:00)
[2019-04-15] MEDS: ALPRAZolam 0.25 MG TAB PO PRN (20:02)
[2019-04-15 20:26] LABS: Glucose,Whole Blood 190 mg/dL (75-99)
[2019-04-15] MEDS ORDERED: APIXABAN 5 MG TAB PO SCH (21:00)
[2019-04-16] MEDS: IPRATROPIUM-ALBUTEROL 3 ML NEB INHALATION SCH ×6 (00:03→19:18)
[2019-04-16] MEDS: ACETAMINOPHEN TAB 500 MG TAB PO PRN ×2 (01:44→20:03)
[2019-04-16 02:02] LABS: Glucose,Whole Blood 176 mg/dL (75-99)
[2019-04-16] MEDS: methylPREDNISolone SOD SUCCI 125 MG/2 ML VIAL IV SCH ×3 (05:42→18:09)
[2019-04-16 07:17] LABS: Glucose,Whole Blood 132 mg/dL (75-99)
[2019-04-16] MEDS: APIXABAN 2.5 MG TABLET PO SCH ×2 (08:41→20:03)
[2019-04-16] MEDS: ASCORBIC ACID 500 MG TAB PO SCH (08:42)
[2019-04-16] MEDS: POTASSIUM CHLORIDE ER 10 MEQ TAB.ER.PRT PO SCH ×2 (08:42→20:03)
[2019-04-16] MEDS: METOPROLOL TARTRATE 50 MG TAB PO SCH ×2 (08:42→20:03)
[2019-04-16] MEDS: MULTIVITAMINS, THERA 1 EACH TAB PO SCH (08:42)
[2019-04-16] MEDS: HYDROXYUREA 500 MG CAP PO SCH (08:42)
[2019-04-16] MEDS ORDERED: SERTRALINE 25 MG TAB PO SCH (09:00)
[2019-04-16] MEDS ORDERED: FUROSEMIDE 20 MG TAB PO SCH (09:00)
[2019-04-16 11:24] LABS: Glucose,Whole Blood 146 mg/dL (75-99)
[2019-04-16] MEDS: SODIUM CHLORIDE 0.9% 1,000 ML IV SCH (12:55)
--- NOTE | 2019-04-16 13:00 | ECHOF ---
Referral Reason:progressive SOB, orthopnea MEASUREMENTS -------- HEIGHT: 154.9 cm WEIGHT: 64.0 kg BP: RVIDd: 3.7 cm (< 3.3) IVSd: 1.2 cm (0.6 - 1.1) LVIDd: 3.5 cm (3.9 - 5.3) LVPWd: 1.4 cm (0.6 - 1.1) IVSs: 1.6 cm LVIDs: 2.2 cm LVPWs: 1.7 cm LAESV Index (A-L): 46.25 ml/m Ao Diam: 2.9 cm (2.0 - 3.7) AV Cusp: 1.8 cm (1.5 - 2.6) LA Diam: 3.5 cm (2.7 - 3.8) MV EXCURSION: 15.965 mm (> 18.000) MV EF SLOPE: 158 mm/s (70 - 150) EPSS: 0.8 cm RAP: 20.00 mmHg RVSP: 61.12 mmHg FINDINGS -------- Atrial fibrillation. This was a technically good study. The left ventricular size is normal. There is mild concentric left ventricular hypertrophy. Overa ll left ventricular systolic function is normal with, an EF between 55 - 60 %. Left ventricular michael limg pressure cannot be estimated due to Atrial fibrillation. The right ventricle is normal in size. LA is severely dilated >40 ml/m2 The right atrium is mildly enlarged. The aortic valve is trileaflet and appears structurally normal. The mitral valve is normal. The mitral valve leaflets are mildly thickened. Moderate mitral regur gitation is present , predominately a posteriorly directed jet. The tricuspid valve appears structurally normal. Severe tricuspid regurgitation present. There is moderate to severe pulmonary hypertension. The right ventricular systolic pressure, as measured by Doppler, is 61.12mmHg. There is no pulmonic regurgitation present. The aortic root size is normal. The inferior vena cava is dilated with no significant inspiratory collapse which is consistent estima catia right atrial pressure of >20 mmHg. There is a moderate, generalized pericardial effusion present. CONCLUSIONS -------- 1. Atrial fibrillation. 2. This was a technically good study. 3. The left ventricular size is normal. 4. There is mild concentric left ventricular hypertrophy. 5. Overall left ventricular systolic function is normal with, an EF between 55 - 60 %. 6. Left ventricular fillimg pressure cannot be estimated due to Atrial fibrillation. 7. The right ventricle is normal in size. 8. LA is severely dilated >40 ml/m2 9. The right atrium is mildly enlarged. 10. The aortic valve is trileaflet and appears structurally normal. 11. The mitral valve is normal. 12. The mitral valve leaflets are mildly thickened. 13. Moderate mitral regurgitation is present. 14. , predominately a posteriorly directed jet. 15. The tricuspid valve appears structurally normal. 16. Severe tricuspid regurgitation present. 17. There is moderate to severe pulmonary hypertension. 18. The right ventricular systolic pressure, as measured by Doppler, is 61.12mmHg. 19. There is no pulmonic regurgitation present. 20. The aortic root size is normal. 21. The inferior vena cava is dilated with no significant inspiratory collapse which is consistent es timated right atrial pressure of >20 mmHg. 22. There is a moderate, generalized pericardial effusion present. CYBER SECURITY ANALYST: Akosua Blackburn RDCS
--- NOTE | 2019-04-16 17:02 | P.CONS ---
History of Present Illness - Reason for Consult Consult date: 04/16/19 melanoma, ET, on treatment Requesting physician: Sabino Sims - Chief Complaint MEGHANN - History of Present Illness Mrs. Pulido is a very pleasant cucuasian female pt of Dr. 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 She states she was having progressive SOB, cough over the last week, she was sent to [facility] for hi resolution CT chest last week as there were concerns for immune related pneumonitis-no findings to suggest the same. She denies fever, chill, expectoration, chest pain, nausea, vomiting, appetite is fair, no abd pain, diarrhea x 1 today, no other c/o. Pt was initially patient was referred to Dr. Matias in early 2014, referred by her PCP due to unexplained thrombocytosis. Platelet count was 1,410,000. Patient fortunately had no thromboembolic events, bleeding tendencies or c omplications postoperatively. Patient had workup done on peripheral blood that was negative, patient was asymptomatic. 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 Patient was started on Hydrea with dose adjustments based on her hematologic response. 07/20 pt had Melanoma resected from L face, staging PET showed activity in L cheek with 4.1inch nodular density and 5.7inch L parotid mass, no other suspicious activity. She was started on nivolumab 08/2017, most recent Tx 04/06/19. She has remote Hx of some palliative XRT. Review of Systems 14 point ROS is negative except as stated in HPI Past Medical History Past Medical History: Atrial Fibrillation, Blood Disorder, Cancer, Hypertension, Osteoarthritis (OA) Additional Past Medical History / Comment(s): Recent removal of melanoma on left cheek and basal cell cancer removed from nose, ITP sees dr matias for both cancer and ITP, arthritis mostly in her neck. History of Any Multi-Drug Resistant Organisms: None Reported Past Surgical History: Section Additional Past Surgical History / Comment(s): melanoma removed from left cheek and basal cell cancer removed from nose, D&C Past Anesthesia/Blood Transfusion Reactions: No Reported Reaction Additional Past Anesthesia/Blood Transfusion Reaction / Comm: Pt received blood with child without reaction. Past Psychological History: No Psychological Hx Reported Additional Psychological History / Comment(s): Pt resides alone. She uses no assistive device. She drives. She golfs, bowls and plays cards. Smoking Status: Never smoker Past Alcohol Use History: None Reported Past Drug Use History: None Reported - Past Family History Father Family Medical History: CVA/TIA Additional Family Medical History / Comment(s): Father of a CVA at the age of 30yrs. Mother Family Medical History: Osteoarthritis (OA) Additional Family Medical History / Comment(s): Mother had a hiatal hernia. Medications and Allergies Home Medications Medication Instructions Recorded Confirmed Type Ascorbic Acid [Vitamin C] 500 mg PO DAILY 08/03/17 04/15/19 History Hydroxyurea [Hydrea] 500 mg PO Q48H 08/03/17 04/15/19 History Multivit-Min/FA/Lycopen/Lutein 1 tab PO DAILY 08/03/17 04/15/19 History [Centrum Silver Tablet] Apixaban [Eliquis] 5 mg PO BID #60 tab 08/05/17 04/15/19 Rx Potassium Chloride ER [K-Dur 10] 10 meq PO BID 05/21/18 04/15/19 History ALPRAZolam [Xanax] 0.25 mg PO HS PRN 04/15/19 04/15/19 History Furosemide [Lasix] 40 mg PO DAILY 04/15/19 04/15/19 History Metoprolol Tartrate [Lopressor] 100 mg PO BID 04/15/19 04/15/19 History Allergies Allergy/AdvReac Type Severity Reaction Status Date / Time No Known Allergies Allergy Verified 04/15/19 13:21 Physical Exam Vitals: Vital Signs Temp Pulse Pulse Resp BP BP Pulse Ox 04/16/19 07:48 84 04/16/19 07:39 88 04/16/19 05:15 84 04/16/19 05:05 83 04/16/19 04:19 97.3 F L 68 16 108/72 96 04/16/19 00:16 83 04/16/19 00:04 83 98 04/15/19 23:35 16 04/15/19 21:00 97.0 F L 97 16 126/87 92 L 04/15/19 20:54 97 04/15/19 20:45 94 04/15/19 16:57 86 04/15/19 16:46 84 04/15/19 15:05 97.6 F 82 16 114/82 97 04/15/19 12:49 102 H 20 122/66 95 04/15/19 12:30 102 H 22 146/86 100 04/15/19 11:37 110 H 04/15/19 11:28 110 H 04/15/19 11:10 98.3 F 122 H 24 144/86 100 04/15/19 11:09 25 L Intake and Output 04/15/19 04/16/19 04/16/19 22:59 06:59 14:59 Intake Total 360 480 Balance 360 480 Intake: Oral 360 480 Other: Voiding Method Bedside Commode Bedside Commode # Voids 1 2 # Bowel Movements 1 1 - Constitutional General appearance: cooperative, no acute distress, thin - EENT Eyes: anicteric sclerae, edentulous ENT: hearing grossly normal, normal oropharynx - Neck Neck: no lymphadenopathy - Respiratory Respiratory: bilateral: diminished - Cardiovascular Rhythm: regular Heart sounds: normal: S1, S2 Abnormal Heart Sounds: no systolic murmur, no diastolic murmur, no rub, no S3 Gallop, no S4 Gallop, no click, no other leg Peripheral Edema: bilateral: None - Gastrointestinal General gastrointestinal: no absent bowel sounds, no decreased bowel sounds, no distended, no hepatomegaly, no hyperactive bowel sounds, normal bowel sounds, no organomegaly, no rigid, no scaphoid, soft, no splenomegaly, no tenderness, no umbilical hernia, no ventral hernia - Integumentary Integumentary: pale - Neurologic Neurologic: CNII-XII intact - Musculoskeletal Musculoskeletal: generalized weakness - Psychiatric Psychiatric: A&O x's 3, appropriate affect, intact judgment & insight Results CBC & Chem 7: 04/15/19 11:27 04/15/19 11:27 Labs: Abnormal Lab Results - Last 24 Hours (Table) 04/15/19 04/15/19 04/15/19 Range/Units 11:27 11:27 11:27 RBC 3.37 L (3.80-5.40) m/uL MCV 124.6 H (80.0-100.0) fL MCH 36.0 H (25.0-35.0) pg MCHC 28.9 L (31.0-37.0) g/dL RDW 16.5 H (11.5-15.5) % Lymphocytes # (Manual) 0.10 L (1.0-4.8) k/uL Nucleated RBCs 1 H (0-0) /100 WBC Macrocytosis Marked A PT 16.1 H (9.0-12.0) sec INR 1.6 H (<1.2) D-Dimer 1.61 H (<0.60) mg/L FEU Sodium 133 L (137-145) mmol/L Potassium 5.6 H (3.5-5.1) mmol/L BUN 20 H (7-17) mg/dL Glucose 50 L (74-99) mg/dL POC Glucose (mg/dL) (75-99) mg/dL Total Bilirubin 1.8 H (0.2-1.3) mg/dL AST 48 H (14-36) U/L Alkaline Phosphatase 311 H (38-126) U/L 04/15/19 04/15/19 04/15/19 Range/Units 13:06 14:01 17:10 RBC (3.80-5.40) m/uL MCV (80.0-100.0) fL MCH (25.0-35.0) pg MCHC (31.0-37.0) g/dL RDW (11.5-15.5) % Lymphocytes # (Manual) (1.0-4.8) k/uL Nucleated RBCs (0-0) /100 WBC Macrocytosis PT (9.0-12.0) sec INR (<1.2) D-Dimer (<0.60) mg/L FEU Sodium (137-145) mmol/L Potassium (3.5-5.1) mmol/L BUN (7-17) mg/dL Glucose (74-99) mg/dL POC Glucose (mg/dL) 56 L 190 H 121 H (75-99) mg/dL Total Bilirubin (0.2-1.3) mg/dL AST (14-36) U/L Alkaline Phosphatase (38-126) U/L 04/15/19 04/16/19 04/16/19 Range/Units 20:24 02:01 07:08 RBC (3.80-5.40) m/uL MCV (80.0-100.0) fL MCH (25.0-35.0) pg MCHC (31.0-37.0) g/dL RDW (11.5-15.5) % Lymphocytes # (Manual) (1.0-4.8) k/uL Nucleated RBCs (0-0) /100 WBC Macrocytosis PT (9.0-12.0) sec INR (<1.2) D-Dimer (<0.60) mg/L FEU Sodium (137-145) mmol/L Potassium (3.5-5.1) mmol/L BUN (7-17) mg/dL Glucose (74-99) mg/dL POC Glucose (mg/dL) 190 H 176 H 132 H (75-99) mg/dL Total Bilirubin (0.2-1.3) mg/dL AST (14-36) U/L Alkaline Phosphatase (38-126) U/L Chest x-ray: report reviewed CT scan - chest: report reviewed (outside report) Assessment and Plan (1) Essential thrombocythemia Narrative/Plan: On hydrea, cont at current dose Current Visit: Yes Status: Chronic Priority: Medium Code(s): D47.3 - ESSENTIAL (HEMORRHAGIC) THROMBOCYTHEMIA SNOMED Code(s): 604779782 (2) Melanoma Narrative/Plan: Nivolumab on 04/05/19. Pt has been on since 08/2017 with no disease recurrence or metastasis. She will cont on treatment as prescribed Current Visit: Yes Status: Acute Code(s): C43.9 - MALIGNANT MELANOMA OF SKIN, UNSPECIFIED SNOMED Code(s): 662210061 Plan: Pt was sent for high resolution CT last week to rule out immunotherapy induced pneumonitis, there was no suspicions for the same. Pt is being treated for her pulm symptoms with improvement. CXR f/u to resolution. ECHO ordered for SOB on exertion Doctor attests: I performed a history and physical examination of this patient, developed impression and plan of care, discussed with dictator. I agree with dictators note, documented as a scribe.
[2019-04-16 17:20] LABS: Glucose,Whole Blood 129 mg/dL (75-99)
[2019-04-16] MEDS: ALPRAZolam 0.25 MG TAB PO PRN (20:03)
[2019-04-16 20:22] LABS: Glucose,Whole Blood 162 mg/dL (75-99)
--- NOTE | 2019-04-16 20:54 | P.HPIM ---
History of Present Illness H&P Date: 04/16/19 Chief Complaint: Tired History of presenting complaint: This is a pleasant 84-year-old patient of Dr. Barillas. Chronic stable medical conditions include severe mitral and tricuspid regurgitation, atrial fibrillation, hypertension, osteoarthritis. On Tuesday that is yesterday. Patient vomited 2. Today morning had some loose stools about 3 times. No blood. No abdominal pain. Had decreased appetite. No fever or chills. [place] tired shortness of breath. Patient is of a chronic cough some shortness of breath also. No obvious fever and chills. Tired and rundown. Not feeling well. No chest pain. Review of systems: GEN.: Tired EYES: None HEENT: None NECK: None RESPIRATORY: Some shortness of breath and slight cough some of which is chronic CARDIOVASCULAR: Edema GASTROINTESTINAL: As above GENITOURINARY: None MUSCULOSKELETAL: Joint pains LYMPHATICS: None HEMATOLOGICAL: None PSYCHIATRY: Anxiety NEUROLOGICAL: None Past medical history to include: CHF from diastolic dysfunction, severe mitral and tricuspid regurgitation, atrial fibrillation, hypertension, [place] arthritis, ITP Social history: Does not smoke or drink alcohol. Does use a cane. Lives with her daughter. Physical examination: VITAL SIGNS: 98.3, 122, 94, 144 with a 6, 100% on 4 L GENERAL: BMI 26.7 sitting up tired and weak. EYES: Pupils equal. Conjunctiva normal. HEENT: External appearance of nose and ears normal, oral cavity grossly normal. NECK: JVD not raised; masses not palpable. HEART: Heart sounds irregular; no edema. LUNGS: Respiratory rate increased, few basal crackles. ABDOMEN: Soft, nontender, liver spleen not palpable, no masses palpable. PSYCH: [Alert and oriented x3; mood and affect anxious l. NEUROLOGICAL: Cranial nerves grossly intact; no facial asymmetry, power and sensation grossly intact. LYMPHATICS: No lymph nodes palpable in the axilla and neck MUSCULAR skeletal: Evidence of OA INVESTIGATIONS, reviewed in the clinical context: White count 5.1 hemoglobin 12.1 platelets 253 potassium 5. bun 20 crit 1.03 ProBNP 8740 EKG tracing personally reviewed by me-atrial fibrillation rate of 107 -Chest x-ray film personally reviewed by me-venous prominence cardiomegaly Assessment: -Acute on chronic congestive heart failure exacerbation from diastolic dysfunction EF 50% precipitated by A. fib with rapid ventricular rate -Severe mitral and tricuspid regurgitation -Persistent atrial fibrillation -Essential hypertension -Primary osteoarthritis -Acute gastroenteritis viral likely self-limiting -Hyperkalemia, patient is on potassium supplement Plan: We'll start the patient on IV Lasix 40 mg every 8. Potassium supplement was discontinued. Repeat labs. Other medications to continue. No obvious evidence of ammonia. Discontinue antibiotics and steroids. Care was discussed with the patient. Questions were answered. Past Medical History Past Medical History: Atrial Fibrillation, Blood Disorder, Cancer, Hypertension, Osteoarthritis (OA) Additional Past Medical History / Comment(s): Recent removal of melanoma on left cheek and basal cell cancer removed from nose, ITP sees dr matias for both cancer and ITP, arthritis mostly in her neck. History of Any Multi-Drug Resistant Organisms: None Reported Past Surgical History: Section Additional Past Surgical History / Comment(s): melanoma removed from left cheek and basal cell cancer removed from nose, D&C Past Anesthesia/Blood Transfusion Reactions: No Reported Reaction Additional Past Anesthesia/Blood Transfusion Reaction / Comment(s): Pt received blood with child without reaction. Past Psychological History: No Psychological Hx Reported Additional Psychological History / Comment(s): Pt resides alone. She uses no assistive device. She drives. She golfs, bowls and plays cards. Smoking Status: Never smoker Past Alcohol Use History: None Reported Past Drug Use History: None Reported - Past Family History Father Family Medical History: CVA/TIA Additional Family Medical History / Comment(s): Father of a CVA at the age of 30yrs. Mother Family Medical History: Osteoarthritis (OA) Additional Family Medical History / Comment(s): Mother had a hiatal hernia. Medications and Allergies Home Medications Medication Instructions Recorded Confirmed Type Ascorbic Acid [Vitamin C] 500 mg PO DAILY 08/03/17 04/15/19 History Hydroxyurea [Hydrea] 500 mg PO Q48H 08/03/17 04/15/19 History Multivit-Min/FA/Lycopen/Lutein 1 tab PO DAILY 08/03/17 04/15/19 History [Centrum Silver Tablet] Apixaban [Eliquis] 5 mg PO BID #60 tab 08/05/17 04/15/19 Rx Potassium Chloride ER [K-Dur 10] 10 meq PO BID 05/21/18 04/15/19 History ALPRAZolam [Xanax] 0.25 mg PO HS PRN 04/15/19 04/15/19 History Furosemide [Lasix] 40 mg PO DAILY 04/15/19 04/15/19 History Metoprolol Tartrate [Lopressor] 100 mg PO BID 04/15/19 04/15/19 History Allergies Allergy/AdvReac Type Severity Reaction Status Date / Time No Known Allergies Allergy Verified 04/15/19 13:21 Physical Exam Vitals: Vital Signs Temp Pulse Pulse Resp BP BP Pulse Ox 04/16/19 07:48 84 04/16/19 07:39 88 04/16/19 05:15 84 04/16/19 05:05 83 04/16/19 04:19 97.3 F L 68 16 108/72 96 04/16/19 00:16 83 04/16/19 00:04 83 98 04/15/19 23:35 16 04/15/19 21:00 97.0 F L 97 16 126/87 92 L 04/15/19 20:54 97 04/15/19 20:45 94 04/15/19 16:57 86 04/15/19 16:46 84 04/15/19 15:05 97.6 F 82 16 114/82 97 04/15/19 12:49 102 H 20 122/66 95 04/15/19 12:30 102 H 22 146/86 100 04/15/19 11:37 110 H 04/15/19 11:28 110 H 04/15/19 11:10 98.3 F 122 H 24 144/86 100 04/15/19 11:09 25 L Intake and Output 04/15/19 04/16/19 04/16/19 22:59 06:59 14:59 Intake Total 360 480 Balance 360 480 Intake: Oral 360 480 Other: Voiding Method Bedside Commode Bedside Commode # Voids 1 2 # Bowel Movements 1 1 Results CBC & Chem 7: 04/15/19 11:27 04/15/19 11:27 Labs: Abnormal Lab Results - Last 24 Hours (Table) 04/15/19 04/15/19 04/15/19 Range/Units 11:27 11:27 11:27 RBC 3.37 L (3.80-5.40) m/uL MCV 124.6 H (80.0-100.0) fL MCH 36.0 H (25.0-35.0) pg MCHC 28.9 L (31.0-37.0) g/dL RDW 16.5 H (11.5-15.5) % Lymphocytes # (Manual) 0.10 L (1.0-4.8) k/uL Nucleated RBCs 1 H (0-0) /100 WBC Macrocytosis Marked A PT 16.1 H (9.0-12.0) sec INR 1.6 H (<1.2) D-Dimer 1.61 H (<0.60) mg/L FEU Sodium 133 L (137-145) mmol/L Potassium 5.6 H (3.5-5.1) mmol/L BUN 20 H (7-17) mg/dL Glucose 50 L (74-99) mg/dL POC Glucose (mg/dL) (75-99) mg/dL Total Bilirubin 1.8 H (0.2-1.3) mg/dL AST 48 H (14-36) U/L Alkaline Phosphatase 311 H (38-126) U/L 04/15/19 04/15/19 04/15/19 Range/Units 13:06 14:01 17:10 RBC (3.80-5.40) m/uL MCV (80.0-100.0) fL MCH (25.0-35.0) pg MCHC (31.0-37.0) g/dL RDW (11.5-15.5) % Lymphocytes # (Manual) (1.0-4.8) k/uL Nucleated RBCs (0-0) /100 WBC Macrocytosis PT (9.0-12.0) sec INR (<1.2) D-Dimer (<0.60) mg/L FEU Sodium (137-145) mmol/L Potassium (3.5-5.1) mmol/L BUN (7-17) mg/dL Glucose (74-99) mg/dL POC Glucose (mg/dL) 56 L 190 H 121 H (75-99) mg/dL Total Bilirubin (0.2-1.3) mg/dL AST (14-36) U/L Alkaline Phosphatase (38-126) U/L 04/15/19 04/16/19 04/16/19 Range/Units 20:24 02:01 07:08 RBC (3.80-5.40) m/uL MCV (80.0-100.0) fL MCH (25.0-35.0) pg MCHC (31.0-37.0) g/dL RDW (11.5-15.5) % Lymphocytes # (Manual) (1.0-4.8) k/uL Nucleated RBCs (0-0) /100 WBC Macrocytosis PT (9.0-12.0) sec INR (<1.2) D-Dimer (<0.60) mg/L FEU Sodium (137-145) mmol/L Potassium (3.5-5.1) mmol/L BUN (7-17) mg/dL Glucose (74-99) mg/dL POC Glucose (mg/dL) 190 H 176 H 132 H (75-99) mg/dL Total Bilirubin (0.2-1.3) mg/dL AST (14-36) U/L Alkaline Phosphatase (38-126) U/L Thrombosis Risk Factor Assmnt - Choose All That Apply Each Factor Represents 1 point: Medical pt on bed rest, Serious lung disease incl. 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
[2019-04-16] MEDS ORDERED: FUROSEMIDE 10 MG/ML 4 ML VIAL IV SCH (21:00)
[2019-04-16 21:14] LABS: Calcium 9.2 mg/dL (8.4-10.2); Potassium 5.4 mmol/L (3.5-5.1)
[2019-04-16] MEDS: FUROSEMIDE 10 MG/ML 4 ML VIAL IV SCH (21:26)
[2019-04-16] MEDS ORDERED: SODIUM POLYSTYRENE SULFONATE 15 GM/60 ML BOTTLE PO STA (21:51)
[2019-04-17 01:54] LABS: Glucose,Whole Blood 131 mg/dL (75-99)
[2019-04-17] MEDS ORDERED: IPRATROPIUM-ALBUTEROL 3 ML NEB INHALATION PRN (04:43)
[2019-04-17] MEDS: FUROSEMIDE 10 MG/ML 4 ML VIAL IV SCH ×3 (05:33→21:20)
[2019-04-17] MEDS: IPRATROPIUM-ALBUTEROL 3 ML NEB INHALATION SCH ×4 (07:08→21:30)
[2019-04-17 07:15] LABS: Glucose,Whole Blood 137 mg/dL (75-99)
[2019-04-17 08:00] LABS: Anisocytosis Slight; HCT 34.5 % (34.0-46.0); HGB 10.5 gm/dL (11.4-16.0); Hypochromasia Marked; MCH 37.3 pg (25.0-35.0); MCHC 30.5 g/dL (31.0-37.0); MCV 122.2 fL (80.0-100.0); Macrocytosis Marked; Mean Platelet Volume 10.5; Platelet Count 244 k/uL (150-450); RBC 2.83 m/uL (3.80-5.40); RDW 16.3 % (11.5-15.5); WBC 10.7 k/uL (3.8-10.6)
[2019-04-17 08:24] LABS: Calcium 9.1 mg/dL (8.4-10.2); Potassium 5.6 mmol/L (3.5-5.1)
[2019-04-17] MEDS: HYDROXYUREA 500 MG CAP PO SCH (08:44)
[2019-04-17] MEDS: METOPROLOL TARTRATE 50 MG TAB PO SCH ×2 (08:44→21:20)
[2019-04-17] MEDS: ASCORBIC ACID 500 MG TAB PO SCH (08:44)
[2019-04-17] MEDS: APIXABAN 2.5 MG TABLET PO SCH ×2 (08:44→21:20)
[2019-04-17] MEDS: MULTIVITAMINS, THERA 1 EACH TAB PO SCH (08:45)
[2019-04-17 11:46] LABS: Glucose,Whole Blood 145 mg/dL (75-99)
[2019-04-17] MEDS: VERAPAMIL 40 MG TAB PO SCH ×3 (12:30→21:20)
--- NOTE | 2019-04-17 14:30 | CT ---
EXAMINATION TYPE: CT chest wo con DATE OF EXAM: 04/17/2019 COMPARISON: None HISTORY: Pericardial effusion CT DLP: [address] of the chest was performed with lung and mediastinal window settings submitted. The la ck of contrast limits evaluation of the vascular, mediastinal and parenchymal structures including th e upper abdomen. LUNGS: Bilateral pleural effusions are identified basilar compressive atelectasis. No pulmonary nodul e or mass identified within the [id number]. MEDIASTINUM/LISA: Thoracic aorta is of normal caliber with limited evaluation given lack of contrast . Pericardial fluid surrounds the heart. There is pericardial effusion with maximal thickness of 1.8 cm. The heart is enlarged. No evidence for mediastinal mass. No lymph nodes greater than 1cm. Promi nence of the left thyroid lobe UPPER ABDOMEN: No significant abnormality is seen. OTHER: No significant other abnormality. IMPRESSION: 1. Pericardial effusion is noted. Bilateral pleural effusions and basilar compressive atelectasis an d/or infiltrates.
--- NOTE | 2019-04-17 15:28 | P.CRDCN ---
History of Present Illness History of present illness: HISTORY OF PRESENTING ILLNESS This is a pleasant 84-year-old female past medical history significant for in persistent atrial fibrillation on long-term anticoagulation, chronic argelia stolic heart failure, melanoma, hypertension and ITP. She follows in the office with Dr. Quintana. We have been asked to see her in consultation for cardiac enlargement. She presented to the hospital with symptoms of cough and shortness of breath. She has been coughing for the previous 4-6 months. The cough is dry and nonproductive. She is mildly dyspneic on exam. She denies chest pain, dizziness or palpitations. She states her shortness of breath has been progressively worsening over the previous one to 2 weeks. She denies orthopnea or PND. She underwent a computed tomography scan of the chest at [facility] in April 12 revealing cardiomegaly with three-vessel coronary artery disease, moderate size pericardial effusion measuring up to 1.4 cm thick, small bilateral pleural effusions and trace perihepatic ascites Benjie for fluid overload state, interstitial pneumonitis and a prominent 1 cm right tracheobronchial angle lymph node in the mediastinum likely reactive/postinfl ammatory. Echocardiogram obtained on this admission reveals preserved LV systolic function with ejection fraction 55-60%, moderate mitral regurgitation, severe tricuspid regurgitation and severe pulmonary hypertension with RVSP of 61 mmHg. There is a moderate generalized pericardial effusion present. DIAGNOSTICS EKG reveals atrial fibrillation with mildly rapid ventricular response heart rate of 107, right axis deviation and nonspecific T-wave abnormalities. Chest xray multichamber cardiac enlargement, left basilar temperature in small left effusion. Laboratory reviewed, WBC 10.7, hemoglobin 10.5, d-dimer 1.61, sodium 127, potassium 5.6, creatinine 0.9, cardiac enzymes negative 1, magnesium 1.8, and proBNP 8740. Current cardiac medications include Eliquis 5 mg twice a day, Lopressor 100 mg twice a day, Lasix 40 mg by mouth daily and potassium supplementation 10 MEQ twice a day. REVIEW OF SYSTEMS At the time of my exam: CONSTITUTIONAL: Denies fever or chills. CARDIOVASCULAR: Complains of shortness of breath. Denies chest pain, orthopnea, PND or palpitations. RESPIRATORY: Complains of chronic and ongoing dry cough. GASTROINTESTINAL: Denies abdominal pain, diarrhea, constipation, nausea or vomiting. MUSCULOSKELETAL: Denies myalgias. NEUROLOGIC: Denies numbness, tingling or weakness. ENDOCRINE: Denies fatigue, weight change, polydipsia or polyurina. GENITOURINARY: Denies burning, hematuria or urgency with micturation. HEMATOLOGIC: Denies history of anemia or bleeding. PHYSICAL EXAMINATION Blood pressure 156/75 heart rate 108 afebrile and maintaining oxygen saturation on nasal cannula. CONSTITUTIONAL: No apparent distress. HEENT: Head is normocephalic. Pupils are equal, round. Sclerae anicteric. Mucous membranes of the mouth are moist. No JVD. No carotid bruit. CHEST EXAMINATION: Faint bibasilar rales, left greater than right, diminished bilaterally. No wheezes or rhonchi. No chest wall tenderness is noted on palpation or with deep breathing. HEART EXAMINATION: Irregular rate and rhythm. S1, S2 heard. Systolic ejection murmur at left sternal border, no gallops or rub. ABDOMEN: Soft, nontender. Positive bowel sounds. EXTREMITIES: 2+ peripheral pulses, trace bilateral lower extremity pitting edema and no calf tenderness. NEUROLOGIC EXAMINATION: Patient is awake, alert and oriented x3. ASSESSMENT Acute on chronic diastolic heart failure Pericardial effusion Hyperkalemia Chronic persistent atrial fibrillation on long-term anticoagulation with mildly rapid ventricular response Hypertension History of melanoma PLAN Repeat CT of the chest to assess for malignancy given persistent cough and pericardial effusion. Continue IV diuresis as previously ordered. Add verapamil 40 mg TID for optimal rate control. Follow renal function and electrolytes in the morning. Document accurate intake and output along with daily weights. Thank you kindly for this consultation. Nurse Practitioner note has been reviewed, I agree with a documented findings and plan of care. Patient was seen and examined. Past Medical History Past Medical History: Atrial Fibrillation, Blood Disorder, Cancer, Hypertension, Osteoarthritis (OA) Additional Past Medical History / Comment(s): Recent removal of melanoma on left cheek and basal cell cancer removed from nose, ITP sees dr rosario for both can cer and ITP, arthritis mostly in her neck. History of Any Multi-Drug Resistant Organisms: None Reported Past Surgical History: Section Additional Past Surgical History / Comment(s): melanoma removed from left cheek and basal cell cancer removed from nose, D&C Past Anesthesia/Blood Transfusion Reactions: No Reported Reaction Additional Past Anesthesia/Blood Transfusion Reaction / Comment(s): Pt received blood with child without reaction. Past Psychological History: No Psychological Hx Reported Additional Psychological History / Comment(s): Pt resides alone. She uses no assistive device. She drives. She golfs, bowls and plays cards. Smoking Status: Never smoker Past Alcohol Use History: None Reported Past Drug Use History: None Reported - Past Family History Father Family Medical History: CVA/TIA Additional Family Medical History / Comment(s): Father of a CVA at the age of 30yrs. Mother Family Medical History: Osteoarthritis (OA) Additional Family Medical History / Comment(s): Mother had a hiatal hernia. Medications and Allergies Home Medications Medication Instructions Recorded Confirmed Type Ascorbic Acid [Vitamin C] 500 mg PO DAILY 08/03/17 04/15/19 History Hydroxyurea [Hydrea] 500 mg PO Q48H 08/03/17 04/15/19 History Multivit-Min/FA/Lycopen/Lutein 1 tab PO DAILY 08/03/17 04/15/19 History [Centrum Silver Tablet] Apixaban [Eliquis] 5 mg PO BID #60 tab 08/05/17 04/15/19 Rx Potassium Chloride ER [K-Dur 10] 10 meq PO BID 05/21/18 04/15/19 History ALPRAZolam [Xanax] 0.25 mg PO HS PRN 04/15/19 04/15/19 History Furosemide [Lasix] 40 mg PO DAILY 04/15/19 04/15/19 History Metoprolol Tartrate [Lopressor] 100 mg PO BID 04/15/19 04/15/19 History Allergies Allergy/AdvReac Type Severity Reaction Status Date / Time No Known Allergies Allergy Verified 04/15/19 13:21 Physical Exam Vitals: Vital Signs Temp Pulse Pulse Resp BP Pulse Ox 04/17/19 12:57 97.4 F L 89 16 156/75 100 04/17/19 11:16 104 H 04/17/19 11:07 108 H 04/17/19 07:20 110 H 04/17/19 07:09 112 H 04/17/19 05:01 108 H 04/17/19 05:00 97.6 F 113 H 20 159/79 99 04/17/19 04:55 104 H 04/16/19 23:33 18 04/16/19 21:00 97.4 F L 104 H 18 121/97 99 04/16/19 19:30 84 04/16/19 19:19 82 04/16/19 15:30 84 04/16/19 15:17 80 Intake and Output 04/17/19 04/17/19 04/17/19 06:59 14:59 22:59 Intake Total 721 Balance 721 Intake: Oral 721 Other: Voiding Method Bedside Commode Bedside Commode # Voids 3 2 Results 04/17/19 07:42 04/17/19 07:42 CBC 04/17/19 Range/Units 07:42 WBC 10.7 H (3.8-10.6) k/uL RBC 2.83 L (3.80-5.40) m/uL Hgb 10.5 L (11.4-16.0) gm/dL Hct 34.5 (34.0-46.0) % Plt Count 244 (150-450) k/uL Comprehensive Metabolic Panel 04/16/19 04/17/19 Range/Units 20:54 07:42 Sodium 126 L 127 L (137-145) mmol/L Potassium 5.4 H 5.6 H (3.5-5.1) mmol/L Chloride 92 L 93 L (98-107) mmol/L Carbon Dioxide 23 21 L (22-30) mmol/L BUN 28 H 31 H (7-17) mg/dL Creatinine 0.97 0.90 (0.52-1.04) mg/dL Glucose 123 H 110 H (74-99) mg/dL Calcium 9.2 9.1 (8.4-10.2) mg/dL Current Medications Generic Name Dose Route Start Last Admin Trade Name Freq PRN Reason Stop Dose Admin Acetaminophen 500 mg 04/15/19 13:09 04/16/19 20:03 Tylenol Tab PO 500 mg Q6H PRN Administration Pain Albuterol/Ipratropium 3 ml 04/17/19 08:00 04/17/19 11:06 Duoneb 0.5 Mg-3 Mg/3 Ml Soln INHALATION 3 ml RT-QID PASCALE Administration Albuterol/Ipratropium 3 ml 04/17/19 04:43 04/17/19 04:52 Duoneb 0.5 Mg-3 Mg/3 Ml Soln INHALATION 3 ml RT-Q2H PRN Administration Shortness Of Breath Or Wheezing Alprazolam 0.25 mg 04/15/19 13:09 04/16/19 20:03 Xanax PO 0.25 mg BID PRN Administration Anxiety Apixaban 2.5 mg 04/15/19 21:00 04/17/19 08:44 Eliquis PO 2.5 mg BID PASCALE Administration Ascorbic Acid 500 mg 04/16/19 09:00 04/17/19 08:44 Vitamin C PO 500 mg DAILY PASCALE Administration Budesonide 0.5 mg 04/17/19 20:00 Pulmicort INHALATION RT-BID PASCALE Furosemide 40 mg 04/16/19 21:00 04/17/19 12:30 Lasix IV 40 mg Q8H PASCALE Administration Hydroxyurea 500 mg 04/16/19 09:00 04/17/19 08:44 Hydrea PO 500 mg DAILY PASCALE Administration Metoprolol Tartrate 100 mg 04/15/19 21:00 04/17/19 08:44 Lopressor PO 100 mg BID PASCALE Administration Multivitamins 1 each 04/16/19 09:00 04/17/19 08:45 Theragran PO 1 each DAILY PASCALE Administration Verapamil HCl 40 mg 04/17/19 11:45 04/17/19 12:30 Isoptin PO 40 mg TID PASCALE Administration Intake and Output 04/17/19 04/17/19 04/17/19 06:59 14:59 22:59 Intake Total 721 Balance 721 Intake: Oral 721 Other: Voiding Method Bedside Commode Bedside Commode # Voids 3 2 04/17/19 07:42 04/17/19 07:42
--- NOTE | 2019-04-17 15:54 | P.PN ---
Subjective Progress Note Date: 04/17/19 Principal diagnosis: ET and melanoma, on treatment In f/u today pt is sitting in [place], less SOB then yesterday, no acute c/o, denied fever, nausea, pain Objective - Vital Signs Vital signs: Vital Signs Temp 97.4 F L 04/17/19 12:57 Pulse 96 04/17/19 15:44 Resp 16 04/17/19 12:57 BP 156/75 04/17/19 12:57 Pulse Ox 100 04/17/19 12:57 Intake & Output 04/16/19 04/17/19 04/17/19 18:59 06:59 18:59 Intake Total 840 721 Balance 840 721 Intake: Oral 840 721 Other: Voiding Method Bedside Commode Bedside Commode Bedside Commode # Voids 4 3 2 # Bowel Movements 3 - Constitutional General appearance: Present: average body habitus, cooperative, no acute distress - EENT Eyes: Present: anicteric sclerae, EOMI ENT: Present: hearing grossly normal - Respiratory Respiratory: bilateral: CTA, diminished (bilateral bases) - Cardiovascular Rhythm: irregularly irregular Heart sounds: normal: S1, S2 Abnormal Heart Sounds: Present: systolic murmur - Peripheral edema leg Peripheral Edema: bilateral: Trace - Gastrointestinal General gastrointestinal: Present: normal bowel sounds, soft - Neurologic Neurologic: Present: CNII-XII intact - Musculoskeletal Musculoskeletal: Present: generalized weakness, strength equal bilaterally - Psychiatric Psychiatric: Present: A&O x's 3, appropriate affect, intact judgment & insight - Labs CBC & Chem 7: 04/17/19 07:42 04/17/19 07:42 Labs: Abnormal Lab Results - Last 24 Hours (Table) 04/16/19 04/16/19 04/16/19 Range/Units 17:17 20:21 20:54 WBC (3.8-10.6) k/uL RBC (3.80-5.40) m/uL Hgb (11.4-16.0) gm/dL MCV (80.0-100.0) fL MCH (25.0-35.0) pg MCHC (31.0-37.0) g/dL RDW (11.5-15.5) % Macrocytosis Sodium 126 L (137-145) mmol/L Potassium 5.4 H (3.5-5.1) mmol/L Chloride 92 L (98-107) mmol/L Carbon Dioxide (22-30) mmol/L BUN 28 H (7-17) mg/dL Glucose 123 H (74-99) mg/dL POC Glucose (mg/dL) 129 H 162 H (75-99) mg/dL 04/17/19 04/17/19 04/17/19 Range/Units 01:51 07:14 07:42 WBC 10.7 H (3.8-10.6) k/uL RBC 2.83 L (3.80-5.40) m/uL Hgb 10.5 L (11.4-16.0) gm/dL MCV 122.2 H (80.0-100.0) fL MCH 37.3 H (25.0-35.0) pg MCHC 30.5 L (31.0-37.0) g/dL RDW 16.3 H (11.5-15.5) % Macrocytosis Marked A Sodium (137-145) mmol/L Potassium (3.5-5.1) mmol/L Chloride (98-107) mmol/L Carbon Dioxide (22-30) mmol/L BUN (7-17) mg/dL Glucose (74-99) mg/dL POC Glucose (mg/dL) 131 H 137 H (75-99) mg/dL 04/17/19 04/17/19 Range/Units 07:42 11:44 WBC (3.8-10.6) k/uL RBC (3.80-5.40) m/uL Hgb (11.4-16.0) gm/dL MCV (80.0-100.0) fL MCH (25.0-35.0) pg MCHC (31.0-37.0) g/dL RDW (11.5-15.5) % Macrocytosis Sodium 127 L (137-145) mmol/L Potassium 5.6 H (3.5-5.1) mmol/L Chloride 93 L (98-107) mmol/L Carbon Dioxide 21 L (22-30) mmol/L BUN 31 H (7-17) mg/dL Glucose 110 H (74-99) mg/dL POC Glucose (mg/dL) 145 H (75-99) mg/dL Assessment and Plan (1) Essential thrombocythemia Narrative/Plan: On hydrea, cont at current dose, platelets stable Current Visit: Yes Status: Chronic Priority: Medium Code(s): D47.3 - ESSENTIAL (HEMORRHAGIC) THROMBOCYTHEMIA SNOMED Code(s): 344787868 (2) Melanoma Narrative/Plan: Nivolumab on 04/05/19. Pt has been on since 08/2017 with no disease recurrence or metastasis. She will cont on treatment as prescribed. Resp symptoms not r/t immunotherapy, high resolution CT negative for pneumonitis. Current Visit: Yes Status: Acute Code(s): C43.9 - MALIGNANT MELANOMA OF SKIN, UNSPECIFIED SNOMED Code(s): 405257828 Plan: Pt is being treated for her pulm symptoms with some improvement. CXR f/u to resolution. ECHO ordered for SOB on exertion, Cardiology following.
--- NOTE | 2019-04-17 17:00 | P.CNPUL ---
History of Present Illness Consult date: 04/17/19 Requesting physician: Ryder Macdonald Reason for consult: dyspnea, cough Chief complaint: Shortness of breath and cough. History of present illness: This is an 84-year-old female with history of chronic atrial fibrillation, chronic diastolic congestive heart failure, hypertension, history of melanoma, presently on immunotherapy for her melanoma. Patient was admitted to the hospital with mostly 1 week history of increased shortness of breath, and over 6 month history of cough. Cough is described as dry hacking cough, nonproductive, patient also describes dyspnea with any activity. Denies any palpitations, denies any chest pains, denies any orthopnea or PND, recent CT of the chest at [facility] showed cardiomegaly, moderate sized pericardial effusion, and small bilateral pleural effusions. Minimal atelectasis, no evidence of pneumonia, patient was admitted, and this consult was initiated. Her echocardiogram on this admission showed mitral moderate regurgitation, severe tricuspid regurgitation, severe pulmonary hypertension, and moderate amount of pericardial effusion. Patient was placed on diuretics, resident. Lasix 40 mg IV push every 8 hours. Labs on admission showed hyponatremia and hyperkalemia, normal. Renal functioning, and elevated BNP level of 8740. Troponin was also slightly elevated. Review of Systems Constitutional: Denies fever chills weight loss.. HEENT: Denies any earache, no sore throat, Pulmonary: As noted in HPI. Cardiac: As noted in HPI. GI: Denies nausea vomiting abdominal pain melena or hematemesis. Genitourinary: Denies any dysuria frequency or urgency.. [place] skeletal: Denies any weakness denies any limitations in range of motion. Psychiatric: Denies any symptoms of active depression. Neurologic: No headache no blurred vision no dizziness no syncope. Skin: Denies any rashes. Hematologic: History of ITP and history of melanoma. 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 History of Any Multi-Drug Resistant Organisms: None Reported Past Surgical History: Section Additional Past Surgical History / Comment(s): melanoma removed from left cheek and basal cell cancer removed from nose, D&C Past Anesthesia/Blood Transfusion Reactions: No Reported Reaction Additional Past Anesthesia/Blood Transfusion Reaction / Comment(s): Pt received blood with child without reaction. Past Psychological History: No Psychological Hx Reported Additional Psychological History / Comment(s): Pt resides alone. She uses no assistive device. She drives. She golfs, bowls and plays cards. Smoking Status: Never smoker Past Alcohol Use History: None Reported Past Drug Use History: None Reported - Past Family History Father Family Medical History: CVA/TIA Additional Family Medical History / Comment(s): Father of a CVA at the age of 30yrs. Mother Family Medical History: Osteoarthritis (OA) Additional Family Medical History / Comment(s): Mother had a hiatal hernia. Medications and Allergies Home Medications Medication Instructions Recorded Confirmed Type Ascorbic Acid [Vitamin C] 500 mg PO DAILY 08/03/17 04/15/19 History Hydroxyurea [Hydrea] 500 mg PO Q48H 08/03/17 04/15/19 History Multivit-Min/FA/Lycopen/Lutein 1 tab PO DAILY 08/03/17 04/15/19 History [Centrum Silver Tablet] Apixaban [Eliquis] 5 mg PO BID #60 tab 08/05/17 04/15/19 Rx Potassium Chloride ER [K-Dur 10] 10 meq PO BID 05/21/18 04/15/19 History ALPRAZolam [Xanax] 0.25 mg PO HS PRN 04/15/19 04/15/19 History Furosemide [Lasix] 40 mg PO DAILY 04/15/19 04/15/19 History Metoprolol Tartrate [Lopressor] 100 mg PO BID 04/15/19 04/15/19 History Allergies Allergy/AdvReac Type Severity Reaction Status Date / Time No Known Allergies Allergy Verified 04/15/19 13:21 Physical Exam Vitals: Vital Signs Temp Pulse Pulse Resp BP Pulse Ox 04/17/19 15:52 100 04/17/19 15:44 96 04/17/19 12:57 97.4 F L 89 16 156/75 100 04/17/19 11:16 104 H 04/17/19 11:07 108 H 04/17/19 07:20 110 H 04/17/19 07:09 112 H 04/17/19 05:01 108 H 04/17/19 05:00 97.6 F 113 H 20 159/79 99 04/17/19 04:55 104 H 04/16/19 23:33 18 04/16/19 21:00 97.4 F L 104 H 18 121/97 99 04/16/19 19:30 84 04/16/19 19:19 82 Intake and Output 04/17/19 04/17/19 04/17/19 06:59 14:59 22:59 Intake Total 721 Balance 721 Intake: Oral 721 Other: Voiding Method Bedside Commode Bedside Commode Bedside Commode # Voids 3 2 GENERAL: Physical exam revealed an 84-year-old female, looks generally weak, in no distress. EYES: Pupils equal. No icterus. HEENT: No neck masses no JVD, no stridor, normal mucous membranes. NECK: No neck masses, trachea is in midline. HEART: Irregular irregular rhythm, no S3 gallop. LUNGS: Symmetrical chest expansion, good breath sound bilaterally, minimal wheezing on forced expiratory maneuver. ABDOMEN: Soft, nontender no megaly no rebound no guarding.. PSYCH: Normal mood affect and normal mental status examination.. NEUROLOGICAL: Alert and oriented 3 focal neurologic deficit LYMPHATICS: No lymphadenopathy. MUSCULAR skeletal: No limitations in range of motion. No deformities. Results - Laboratory Findings CBC and BMP: 04/17/19 07:42 04/17/19 07:42 PT/INR, D-dimer PT 16.1 sec (9.0-12.0) H 04/15/19 11:27 INR 1.6 (<1.2) H 04/15/19 11:27 D-Dimer 1.61 mg/L FEU (<0.60) H 04/15/19 11:27 Abnormal lab findings: Abnormal Labs 04/15/19 04/15/19 04/15/19 11:27 11:27 11:27 WBC RBC 3.37 L Hgb MCV 124.6 H MCH 36.0 H MCHC 28.9 L RDW 16.5 H Lymphocytes # (Manual) 0.10 L Nucleated RBCs 1 H Macrocytosis Marked A PT 16.1 H INR 1.6 H D-Dimer 1.61 H Sodium 133 L Potassium 5.6 H Chloride Carbon Dioxide BUN 20 H Glucose 50 L POC Glucose (mg/dL) Total Bilirubin 1.8 H AST 48 H Alkaline Phosphatase 311 H 04/15/19 04/15/19 04/15/19 13:06 14:01 17:10 WBC RBC Hgb MCV MCH MCHC RDW Lymphocytes # (Manual) Nucleated RBCs Macrocytosis PT INR D-Dimer Sodium Potassium Chloride Carbon Dioxide BUN Glucose POC Glucose (mg/dL) 56 L 190 H 121 H Total Bilirubin AST Alkaline Phosphatase 04/15/19 04/16/19 04/16/19 20:24 02:01 07:08 WBC RBC Hgb MCV MCH MCHC RDW Lymphocytes # (Manual) Nucleated RBCs Macrocytosis PT INR D-Dimer Sodium Potassium Chloride Carbon Dioxide BUN Glucose POC Glucose (mg/dL) 190 H 176 H 132 H Total Bilirubin AST Alkaline Phosphatase 04/16/19 04/16/19 04/16/19 11:21 17:17 20:21 WBC RBC Hgb MCV MCH MCHC RDW Lymphocytes # (Manual) Nucleated RBCs Macrocytosis PT INR D-Dimer Sodium Potassium Chloride Carbon Dioxide BUN Glucose POC Glucose (mg/dL) 146 H 129 H 162 H Total Bilirubin AST Alkaline Phosphatase 04/16/19 04/17/19 04/17/19 20:54 01:51 07:14 WBC RBC Hgb MCV MCH MCHC RDW Lymphocytes # (Manual) Nucleated RBCs Macrocytosis PT INR D-Dimer Sodium 126 L Potassium 5.4 H Chloride 92 L Carbon Dioxide BUN 28 H Glucose 123 H POC Glucose (mg/dL) 131 H 137 H Total Bilirubin AST Alkaline Phosphatase 04/17/19 04/17/19 04/17/19 07:42 07:42 11:44 WBC 10.7 H RBC 2.83 L Hgb 10.5 L MCV 122.2 H MCH 37.3 H MCHC 30.5 L RDW 16.3 H Lymphocytes # (Manual) Nucleated RBCs Macrocytosis Marked A PT INR D-Dimer Sodium 127 L Potassium 5.6 H Chloride 93 L Carbon Dioxide 21 L BUN 31 H Glucose 110 H POC Glucose (mg/dL) 145 H Total Bilirubin AST Alkaline Phosphatase - Diagnostic Findings CT scan - chest: image reviewed (Moderate generalized pericardial effusion and bilateral pleural effusions with atelectasis. No evidence of malignancy, no evidence of pneumonia.) Assessment and Plan Assessment: Impression: 1 acute on chronic diastolic congestive heart failure. 2 chronic atrial fibrillation. May be contributing to her congestive heart failure. 3 severe mitral valve regurgitation and pulmonary hypertension, could also contribute to shortness of breath and congestive heart failure. 4 moderate pericardial effusion, exact etiology is not clear, however may have to be further investigated or at least monitored with repeat ultrasound of the chest within a short period of time. Will let cardiology decide whether it is worthwhile consulting thoracic surgery for pericardiocentesis or pericardial window. 5 hyponatremia and hyperkalemia, strongly doubt adrenal insufficiency however w orthwhile checking at least serum cortisol. 6 history of melanoma, receiving immunotherapy by oncology. 7 history of ITP Recommendation: Continue present treatment plan as per cardiology and admitting physician. Reviewed the CT of the chest and the chest x-ray, there isn't enough fluid to perform a diagnostic thoracentesis. It is rather risky to perform thoracentesis on a small tiny pleural effusion noted bilaterally. Hence no plans to do it. Continue bronchodilators for her shortness of breath Continue diuretics. Consider thoracic surgery evaluation for her pericardial effusion. We'll continue to follow. Time with Patient: Greater than 30
[2019-04-17 17:05] LABS: Glucose,Whole Blood 132 mg/dL (75-99)
[2019-04-17 20:22] LABS: Glucose,Whole Blood 141 mg/dL (75-99)
[2019-04-17] MEDS: ALPRAZolam 0.25 MG TAB PO PRN (21:20)
[2019-04-17] MEDS: BUDESONIDE 0.5 MG/2 ML NEBU INHALATION SCH (21:30)
--- NOTE | 2019-04-17 23:50 | P.PN ---
Progress Note - Text Progress Note Date: 04/17/19 Chief Complaint: Tired interval history: This is a pleasant 84-year-old patient of Dr. Barillas. Chronic stable medical conditions include severe mitral and tricuspid regurgitation, atrial fibrillation, hypertension, osteoarthritis. On Tuesday that is yesterday. Patient vomited 2. Today morning had some loose stools about 3 times. No blood. No abdominal pain. Had decreased appetite. No fever or chills. [place] tired shortness of breath. Patient is of a chronic cough some shortness of breath also. No obvious fever and chills. Tired and rundown. Not feeling well. No chest pain. admitted with-acute gastroenteritis, acute CHF exacerbations, atrial fibrillatio n with a rapid ventricular rate. Today-feeling a bit better. less short of breath.eating a bit better. Review of systems: Was done for constitutional, cardiovascular, GI, pulmonary. relevant finding as above Active Medications Acetaminophen (Tylenol Tab) 500 mg PO Q6H PRN PRN Reason: Pain Last Admin: 04/16/19 20:03 Dose: 500 mg Documented by: Albuterol/Ipratropium (Duoneb 0.5 Mg-3 Mg/3 Ml Soln) 3 ml INHALATION RT-QID [facility] Last Admin: 04/17/19 21:30 Dose: 3 ml Documented by: Albuterol/Ipratropium (Duoneb 0.5 Mg-3 Mg/3 Ml Soln) 3 ml INHALATION RT-Q2H PRN PRN Reason: Shortness Of Breath Or Wheezing Last Admin: 04/17/19 04:52 Dose: 3 ml Documented by: Alprazolam (Xanax) 0.25 mg PO BID PRN PRN Reason: Anxiety Last Admin: 04/17/19 21:20 Dose: 0.25 mg Documented by: Apixaban (Eliquis) 2.5 mg PO BID [facility] Last Admin: 04/17/19 21:20 Dose: 2.5 mg Documented by: Ascorbic Acid (Vitamin C) 500 mg PO DAILY [facility] Last Admin: 04/17/19 08:44 Dose: 500 mg Documented by: Budesonide (Pulmicort) 0.5 mg INHALATION RT-BID [facility] Last Admin: 04/17/19 21:30 Dose: 0.5 mg Documented by: Furosemide (Lasix) 40 mg IV Q8H [facility] Last Admin: 04/17/19 21:20 Dose: 40 mg Documented by: Hydroxyurea (Hydrea) 500 mg PO DAILY [facility] Last Admin: 04/17/19 08:44 Dose: 500 mg Documented by: Metoprolol Tartrate (Lopressor) 100 mg PO BID [facility] Last Admin: 04/17/19 21:20 Dose: 100 mg Documented by: Multivitamins (Theragran) 1 each PO DAILY [facility] Last Admin: 04/17/19 08:45 Dose: 1 each Documented by: Verapamil HCl (Isoptin) 40 mg PO TID [facility] Last Admin: 04/17/19 21:20 Dose: 40 mg Documented by: Physical examination: VITAL SIGNS: 97.6, 113, 20, 159/79, 99% on 3 L GENERAL: laying in bed. Smoking a bit better. EYES: Pupils equal. Conjunctiva normal. HEENT: External appearance of nose and ears normal, oral cavity grossly normal. NECK: JVD not raised; masses not palpable. HEART: Heart sounds irregular; no edema. LUNGS: Respiratory rate increased, decreased breath sounds ABDOMEN: Soft, nontender, liver spleen not palpable, no masses palpable. PSYCH: [Alert and oriented x3; mood and affect anxious l. MUSCULAR skeletal: Evidence of OA INVESTIGATIONS, reviewed in the clinical context: White count 10.7 hemoglobin 10.5 potassium 5.6 creatinine 0.9 Previous testing White count 5.1 hemoglobin 12.1 platelets 253 potassium 5. bun 20 crit 1.03 ProBNP 8740 EKG tracing personally reviewed by me-atrial fibrillation rate of 107 -Chest x-ray film personally reviewed by me-venous prominence cardiomegaly Assessment: -Acute on chronic congestive heart failure exacerbation from diastolic dysfunction EF 50% precipitated by A. fib with rapid ventricular rate, slow to respond -Severe mitral and tricuspid regurgitation -Persistent atrial fibrillation -Essential hypertension -Primary osteoarthritis -Acute gastroenteritis viral likely self-limiting -Hyperkalemia, patient is on potassium supplement, slow to respond Plan: repeat Kayexalate 30 g. Keep on IV Lasix. Repeat checks x-ray in the morning. Repeat proBNP. Discussed with the patient.
[2019-04-18 01:58] LABS: Glucose,Whole Blood 125 mg/dL (75-99)
[2019-04-18] MEDS: FUROSEMIDE 10 MG/ML 4 ML VIAL IV SCH ×2 (05:13→12:58)
[2019-04-18 07:05] LABS: Glucose,Whole Blood 130 mg/dL (75-99)
--- NOTE | 2019-04-18 08:11 | XR ---
EXAMINATION TYPE: XR chest 2V DATE OF EXAM: 04/18/2019 COMPARISON: 04/15/2019 INDICATION: CHF TECHNIQUE: Frontal and lateral views of the chest are obtained. FINDINGS: The heart size is enlarged. The pulmonary vasculature is normal. Minimal effusions are present.. IMPRESSION: 1. Small bilateral pleural effusions 2. Moderate cardiomegaly
[2019-04-18] MEDS: HYDROXYUREA 500 MG CAP PO SCH (08:28)
[2019-04-18] MEDS: METOPROLOL TARTRATE 50 MG TAB PO SCH ×2 (08:28→20:32)
[2019-04-18] MEDS: VERAPAMIL 40 MG TAB PO SCH ×3 (08:28→21:25)
[2019-04-18] MEDS: ASCORBIC ACID 500 MG TAB PO SCH (08:28)
[2019-04-18] MEDS: MULTIVITAMINS, THERA 1 EACH TAB PO SCH (08:28)
[2019-04-18] MEDS: APIXABAN 2.5 MG TABLET PO SCH ×2 (08:28→20:32)
[2019-04-18 08:31] LABS: Calcium 9.4 mg/dL (8.4-10.2); Potassium 4.4 mmol/L (3.5-5.1)
[2019-04-18] MEDS: BUDESONIDE 0.5 MG/2 ML NEBU INHALATION SCH ×2 (08:51→20:07)
[2019-04-18] MEDS: IPRATROPIUM-ALBUTEROL 3 ML NEB INHALATION SCH ×4 (08:51→20:07)
[2019-04-18 11:42] LABS: Glucose,Whole Blood 174 mg/dL (75-99)
[2019-04-18] MEDS: SPIRONOLACTONE 25 MG TAB PO SCH (12:57)
--- NOTE | 2019-04-18 14:26 | P.PN ---
Subjective HISTORY OF PRESENTING ILLNESS This is a pleasant 84-year-old female past medical history significant for in persistent atrial fibrillation on long-term anticoagulation, chronic diastolic heart failure, melanoma, hypertension and ITP. She follows in the office with Dr. Quintana. She is seen and examined sitting up in the chair sleeping. She looks more disheveled today. She is quite sleepy, ongoing shortness of breath and weak. She denies chest pain dizziness or palpitations. She is diuresing well on current regimen. Blood pressure 111/68, heart rate 72 afebrile maintaining oxygen saturation on nasal cannula. Laboratory data reviewed, sodium 133, potassium 4.4, creatinine 1.1, proBNP 6380. Currently maintained on Lasix 40 mg IV [address] of the chest reveals a pericardial effusion maximum thickness 1.8 cm. PHYSICAL EXAMINATION CONSTITUTIONAL: No apparent distress. HEENT: Head is normocephalic. Pupils are equal, round. Sclerae anicteric. Mucous membranes of the mouth are moist. No JVD. No carotid bruit. CHEST EXAMINATION: Clear to auscultation bilaterally. Diminished. No rales, wheezes or rhonchi. No chest wall tenderness is noted on palpation or with deep breathing. HEART EXAMINATION: Irregular rate and rhythm. S1, S2 heard. Systolic ejection murmur at left sternal border, no gallops or rub. EXTREMITIES: 2+ peripheral pulses, trace bilateral lower extremity pitting edema and no calf tenderness. ASSESSMENT Acute on chronic diastolic heart failure Pericardial effusion Hyperkalemia Chronic persistent atrial fibrillation on long-term anticoagulation with mildly rapid ventricular response Hypertension History of melanoma PLAN She is diuresing well however clinically is not showing much improvement. We will request an opinion from cardiothoracic surgery regarding possible pericardiocentesis versus pericardial window. This is also been discussed with the hematology team and they are in agreement with this plan. Concern for metastasis. Nurse Practitioner note has been reviewed, I agree with a documented findings and plan of care. Patient was seen and examined. Objective - Vital Signs Vital signs: Vital Signs Temp 97.4 F L 04/18/19 11:57 Pulse 72 04/18/19 12:25 Resp 18 04/18/19 11:57 BP 111/68 04/18/19 11:57 Pulse Ox 98 04/18/19 11:57 Intake & Output 04/17/19 04/18/19 04/18/19 18:59 06:59 18:59 Intake Total 721 440 Output Total 1050 Balance 721 440 -1050 Weight 64.5 kg Intake: Oral 721 440 Output: Urine 1050 Other: Voiding Method Bedside Commode Bedside Commode Bedside Commode # Voids 2 4 1 - Labs CBC & Chem 7: 04/17/19 07:42 04/18/19 07:44 Labs: Abnormal Lab Results - Last 24 Hours (Table) 04/17/19 04/17/19 04/18/19 Range/Units 17:03 20:21 01:57 Sodium (137-145) mmol/L Chloride (98-107) mmol/L BUN (7-17) mg/dL Creatinine (0.52-1.04) mg/dL Glucose (74-99) mg/dL POC Glucose (mg/dL) 132 H 141 H 125 H (75-99) mg/dL 04/18/19 04/18/19 04/18/19 Range/Units 07:04 07:44 11:40 Sodium 133 L (137-145) mmol/L Chloride 93 L (98-107) mmol/L BUN 39 H (7-17) mg/dL Creatinine 1.11 H (0.52-1.04) mg/dL Glucose 115 H (74-99) mg/dL POC Glucose (mg/dL) 130 H 174 H (75-99) mg/dL
--- NOTE | 2019-04-18 15:25 | P.PN ---
Subjective Progress Note Date: 04/18/19 Principal diagnosis: Shortness of breath and cough This is an 84-year-old female with history of chronic atrial fibrillation, chronic diastolic congestive heart failure, hypertension, history of melanoma, presently on immunotherapy for her melanoma. Patient was admitted to the hospital with mostly 1 week history of increased shortness of breath, and over 6 month history of cough. Cough is described as dry hacking cough, nonproductive, patient also describes dyspnea with any activity. Denies any palpitations, denies any chest pains, denies any orthopnea or PND, recent CT of the chest at [facility] showed cardiomegaly, moderate sized pericardial effusion, and small bilateral pleural effusions. Minimal atelectasis, no evidence of pneumonia, patient was admitted, and this consult was initiated. Her echocardiogram on this admission showed mitral moderate regurgitation, severe tricuspid regurgitation, severe pulmonary hypertension, and moderate amount of pericardial effusion. Patient was placed on diuretics, resident. Lasix 40 mg IV push every 8 hours. Labs on admission showed hyponatremia and hyperkalemia, normal. Renal functioning, and elevated BNP level of 8740. Troponin was also slightly elevated. On 04/18/2019 patient seen in follow-up on the general medical floor, she sits up in the recliner, in no acute distress, she feels her breathing is slightly improved, she still has some audible wheezes especially in the upper airways, but no acute distress, FiO2 is currently at 3 L her pulse ox of 98%. No complaints of chest pain, patient is afebrile, hemodynamically she is stable, still has occasional cough, no phlegm production, he is on IV diuretics, she is a negative fluid balance over the last 24 hours at 1050 ML. Follow-up chest x-r ay showed small bilateral pleural effusions, and moderate cardiomegaly. She is being followed by cardiology, and we deferred to cardiology to make a decision about CT surgery consultation in regards to moderate-sized pericardial effusion. As far as the pleural effusions, they are too small for thoacentesis, and patient is being managed with IV diuretics. Objective - Vital Signs Vital signs: Vital Signs Temp 97.4 F L 04/18/19 11:57 Pulse 72 04/18/19 12:25 Resp 18 04/18/19 11:57 BP 111/68 04/18/19 11:57 Pulse Ox 98 04/18/19 11:57 Intake & Output 04/17/19 04/18/19 04/18/19 18:59 06:59 18:59 Intake Total 721 440 Output Total 1050 Balance 721 440 -1050 Weight 64.5 kg Intake: Oral 721 440 Output: Urine 1050 Other: Voiding Method Bedside Commode Bedside Commode Bedside Commode # Voids 2 4 1 - Exam GENERAL EXAM: Alert, 84 showed white female, on 2 L of oxygen with a pulse ox of 98%, mildly dyspneic, with some audible wheezing comfortable in no apparent distress. HEAD: Normocephalic/atraumatic. EYES: Normal reaction of pupils, equal size. Conjunctiva pink, sclera white. NOSE: Clear with pink turbinates. THROAT: No erythema or exudates. NECK: No masses, no JVD, no thyroid enlargement, no adenopathy. CHEST: No chest wall deformity. Symmetrical expansion. LUNGS: Diminished air entry with expiratory wheezes CVS: Regular rate and rhythm, normal S1 and S2, no gallops, no murmurs, no rubs ABDOMEN: Soft, nontender. No hepatosplenomegaly, normal bowel sounds, no guarding or rigidity. EXTREMITIES: No clubbing,mild pretib edema, no cyanosis, 2+ pulses and upper and lower extremities. MUSCULOSKELETAL: Muscle strength and tone normal. SPINE: No scoliosis or deformity SKIN: No rashes CENTRAL NERVOUS SYSTEM: Alert and oriented -3. No focal deficits, tone is normal in all 4 extremities. PSYCHIATRIC: Alert and oriented -3. Appropriate affect. Intact judgment and insight. - Labs CBC & Chem 7: 04/17/19 07:42 04/18/19 07:44 Labs: Abnormal Lab Results - Last 24 Hours (Table) 04/17/19 04/17/19 04/18/19 Range/Units 17:03 20:21 01:57 Sodium (137-145) mmol/L Chloride (98-107) mmol/L BUN (7-17) mg/dL Creatinine (0.52-1.04) mg/dL Glucose (74-99) mg/dL POC Glucose (mg/dL) 132 H 141 H 125 H (75-99) mg/dL 04/18/19 04/18/19 04/18/19 Range/Units 07:04 07:44 11:40 Sodium 133 L (137-145) mmol/L Chloride 93 L (98-107) mmol/L BUN 39 H (7-17) mg/dL Creatinine 1.11 H (0.52-1.04) mg/dL Glucose 115 H (74-99) mg/dL POC Glucose (mg/dL) 130 H 174 H (75-99) mg/dL Assessment and Plan Plan: Assessment: 1 acute on chronic diastolic congestive heart failure. 2 chronic atrial fibrillation. May be contributing to her congestive heart failure. 3 severe mitral valve regurgitation and pulmonary hypertension, could also contribute to shortness of breath and congestive heart failure. 4 moderate pericardial effusion, exact etiology is not clear, however may have to be further investigated or at least monitored with repeat ultrasound of the chest within a short period of time. Will let cardiology decide whether it is worthwhile consulting thoracic surgery for pericardiocentesis or pericardial window. 5 hyponatremia and hyperkalemia, strongly doubt adrenal insufficiency however worthwhile checking at least serum cortisol. 6 history of melanoma, receiving immunotherapy by oncology. 7 history of ITP Plan: Continue current medical treatment, no plans for thoracentesis, continue with IV diuretics, repeat chest x-ray was reviewed, showing small bilateral pleural effusions. Continue Pulmicort, nebulized bronchodilators, will await CT surgery input in regards to the pericardial effusion. Medical oncology is following, cardiology is following. I performed a history & physical examination of the patient and discussed their management with my nurse practitioner, Jenna Conklin. I reviewed the nurse practitioner's note and agree with the documented findings and plan of care. L radha sounds are positive for diffuse wheezes throughout the lung ayala. The findings and the impression was discussed with the patient. I attest to the documentation by the nurse practitioner. Time with Patient: Less than 30
--- NOTE | 2019-04-18 15:32 | P.GSCN ---
History of Present Illness Consult date: 04/18/19 Reason for Consult: Pericardial effusion Requesting physician: Saira Calix History of present illness: This is an 84-year-old patient who follows in the outpatient basis with Dr. Kike Barillas. She has a previous medical history of diastolic congestive heart failure, severe mitral and tricuspid regurgitation, chronic atrial fibrillation on Eliquis for anticoagulation, hypertension, ITP, melanoma, and arthritis. Lately she has had nausea and vomiting with loose stools and decreased appetite. In addition she has a chronic cough and increased shortness of breath. She presented to [facility] emergency room for evaluation and treatment. Chest x-ray was completed demonstrating small left effusion, left basilar infiltrate, and enlarged cardiac silhouette. White blood cell count was 5.1 with 7% bands, hemoglobin is 12.1, BUN was 20, potassium is 5.6, BNP was 8740. She was admitted to medical surgical unit with a diagnosis of acute bronchospasm, left lower lobe pulmonary infiltrate, and chronic atrial fibrillation. Consultations were placed for Dr. Matias, Dr. Mccloud, and Dr. Quintana. Transthoracic echocardiogram was completed demonstrating normal left ventricular systolic pressure with an EF 55-60%, dilated left atrium, moderate mitral regurgitation, severe tricuspid regurgitation, severe pulmonary hypertension, and moderate generalized pericardial effusion. Computed tomography scan to the chest was also completed demonstrating bilateral pleural effusions as well as generalized moderate size pericardial effusion. Dr. Velazquez from cardiothoracic surgery was consulted for surgical recommendations. Review of Systems Review of systems was completed and was negative except as noted - Constitutional Reports fatigue - Cardiovascular Reports shortness of breath - Gastrointestinal Reports nausea, Reports vomiting Past Medical History Past Medical History: Atrial Fibrillation, Blood Disorder, Cancer, Heart Failure, Hypertension, Osteoarthritis (OA) Additional Past Medical History / Comment(s): Recent removal of melanoma on left cheek and basal cell cancer removed from nose, ITP sees dr matias for both cancer and ITP, arthritis mostly in her neck. History of Any Multi-Drug Resistant Organisms: None Reported Past Surgical History: Section Additional Past Surgical History / Comment(s): melanoma removed from left cheek and basal cell cancer removed from nose, D&C Past Anesthesia/Blood Transfusion Reactions: No Reported Reaction Additional Past Anesthesia/Blood Transfusion Reaction / Comm: Pt received blood with child without reaction. Past Psychological History: No Psychological Hx Reported Additional Psychological History / Comment(s): Pt resides alone. She uses no assistive device. She drives. She golfs, bowls and plays cards. Smoking Status: Never smoker Past Alcohol Use History: None Reported Past Drug Use History: None Reported - Past Family History Father Family Medical History: CVA/TIA Additional Family Medical History / Comment(s): Father of a CVA at the age of 30yrs. Mother Family Medical History: Osteoarthritis (OA) Additional Family Medical History / Comment(s): Mother had a hiatal hernia. Medications and Allergies Home Medications Medication Instructions Recorded Confirmed Type Ascorbic Acid [Vitamin C] 500 mg PO DAILY 08/03/17 04/15/19 History Hydroxyurea [Hydrea] 500 mg PO Q48H 08/03/17 04/15/19 History Multivit-Min/FA/Lycopen/Lutein 1 tab PO DAILY 08/03/17 04/15/19 History [Centrum Silver Tablet] Apixaban [Eliquis] 5 mg PO BID #60 tab 08/05/17 04/15/19 Rx Potassium Chloride ER [K-Dur 10] 10 meq PO BID 05/21/18 04/15/19 History ALPRAZolam [Xanax] 0.25 mg PO HS PRN 04/15/19 04/15/19 History Furosemide [Lasix] 40 mg PO DAILY 04/15/19 04/15/19 History Metoprolol Tartrate [Lopressor] 100 mg PO BID 04/15/19 04/15/19 History Allergies Allergy/AdvReac Type Severity Reaction Status Date / Time No Known Allergies Allergy Verified 04/15/19 13:21 Surgical - Exam Vital Signs Pulse Ox 25 L 04/15/19 11:09 - General well developed, well nourished, no distress, no pain - Eyes normal ocular movement - ENT decreased hearing - Neck no masses, no bruits, trachea midline - Respiratory Lungs sounds diminished bilaterally. Respirations even, nonlabored. Currently on 3 L nasal cannula oxygen saturation 98%. No chest wall deformities. No clubbing or cyanosis present. - Cardiovascular S1, S2 present, systolic murmur present. Irregular rate and rhythm. Palpable peripheral pulses bilaterally. Trace lower extremity edema present. No calf pain or tenderness noted. - Abdomen Abdomen: soft, non tender, bowel sounds - Genitourinary Deferred - Rectum Deferred - Integumentary no rash, no growths - Neurologic normal coordination, normal sensation - Musculoskeletal normal posture - Psychiatric oriented to time, oriented to person, oriented to place, speech is normal Results - Labs 04/17/19 07:42 04/18/19 07:44 Abnormal Lab Results - Last 24 Hours (Table) 04/17/19 04/17/19 04/18/19 Range/Units 17:03 20:21 01:57 Sodium (137-145) mmol/L Chloride (98-107) mmol/L BUN (7-17) mg/dL Creatinine (0.52-1.04) mg/dL Glucose (74-99) mg/dL POC Glucose (mg/dL) 132 H 141 H 125 H (75-99) mg/dL 04/18/19 04/18/19 04/18/19 Range/Units 07:04 07:44 11:40 Sodium 133 L (137-145) mmol/L Chloride 93 L (98-107) mmol/L BUN 39 H (7-17) mg/dL Creatinine 1.11 H (0.52-1.04) mg/dL Glucose 115 H (74-99) mg/dL POC Glucose (mg/dL) 130 H 174 H (75-99) mg/dL Diabetes panel 04/18/19 Range/Units 07:44 Sodium 133 L (137-145) mmol/L Potassium 4.4 (3.5-5.1) mmol/L Chloride 93 L (98-107) mmol/L Carbon Dioxide 30 (22-30) mmol/L BUN 39 H (7-17) mg/dL Creatinine 1.11 H (0.52-1.04) mg/dL Glucose 115 H (74-99) mg/dL Calcium 9.4 (8.4-10.2) mg/dL Calcium panel 04/18/19 Range/Units 07:44 Calcium 9.4 (8.4-10.2) mg/dL Pituitary panel 04/18/19 Range/Units 07:44 Sodium 133 L (137-145) mmol/L Potassium 4.4 (3.5-5.1) mmol/L Chloride 93 L (98-107) mmol/L Carbon Dioxide 30 (22-30) mmol/L BUN 39 H (7-17) mg/dL Creatinine 1.11 H (0.52-1.04) mg/dL Glucose 115 H (74-99) mg/dL Calcium 9.4 (8.4-10.2) mg/dL Adrenal panel 04/18/19 Range/Units 07:44 Sodium 133 L (137-145) mmol/L Potassium 4.4 (3.5-5.1) mmol/L Chloride 93 L (98-107) mmol/L Carbon Dioxide 30 (22-30) mmol/L BUN 39 H (7-17) mg/dL Creatinine 1.11 H (0.52-1.04) mg/dL Glucose 115 H (74-99) mg/dL Calcium 9.4 (8.4-10.2) mg/dL - Imaging Chest x-ray: report reviewed, image reviewed CT scan - chest: report reviewed, image reviewed EKG: image reviewed Additional studies: Echocardiogram films reviewed with Dr. Velazquez Assessment and Plan Assessment: 1. Moderate generalized pericardial effusion 2. Bilateral pleural effusions 3. Moderate mitral regurgitation, severe tricuspid regurgitation, moderate to severe pulmonary hypertension on echocardiogram 4. Chronic atrial fibrillation on Eliquis for anticoagulation 5. History of melanoma, currently on immunotherapy treatment 6. History of ITP Plan: The patient was seen and examined at the bedside. Chart/diagnostics were review ed. Echocardiogram and computed tomography scan results were reviewed with Dr. Velazquez. The patient is currently hemodynamically stable. We recommend discontinuing of Eliquis, known complication of Eliquis is spontaneous bleed. Continue to diurese patient, heart failure management. Medical management per primary service. No surgical drainage at this time. If patient does need to be drained in the future, will need to be off Eliquis for 2-3 days. Thank you for this consult. Please call us with any further questions. Time with Patient: Greater than 30
[2019-04-18 17:17] LABS: Glucose,Whole Blood 142 mg/dL (75-99)
[2019-04-18 20:21] LABS: Glucose,Whole Blood 161 mg/dL (75-99)
[2019-04-18] MEDS ORDERED: FUROSEMIDE 10 MG/ML 4 ML VIAL IV SCH (21:00)
--- NOTE | 2019-04-18 23:51 | P.PN ---
Progress Note - Text Progress Note Date: 04/18/19 Chief Complaint: Tired interval history: This is a pleasant 84-year-old patient of Dr. Barillas. Chronic stable medical conditions include severe mitral and tricuspid regurgitation, atrial fibrillation, hypertension, osteoarthritis. On Tuesday that is yesterday. Patient vomited 2. Today morning had some loose stools about 3 times. No blood. No abdominal pain. Had decreased appetite. No fever or chills. [place] tired shortness of breath. Patient is of a chronic cough some shortness of breath also. No obvious fever and chills. Tired and rundown. Not feeling well. No chest pain. admitted with-acute gastroenteritis, acute CHF exacerbations, atrial fibrillatio n with a rapid ventricular rate. Today-feeling a bit better. less short of breath.eating a bit better. Tired Review of systems: Was done for constitutional, cardiovascular, GI, pulmonary. relevant finding as above Active Medications Acetaminophen (Tylenol Tab) 500 mg PO Q6H PRN PRN Reason: Pain Last Admin: 04/16/19 20:03 Dose: 500 mg Documented by: Albuterol/Ipratropium (Duoneb 0.5 Mg-3 Mg/3 Ml Soln) 3 ml INHALATION RT-QID [facility] Last Admin: 04/18/19 20:07 Dose: 3 ml Documented by: Albuterol/Ipratropium (Duoneb 0.5 Mg-3 Mg/3 Ml Soln) 3 ml INHALATION RT-Q2H PRN PRN Reason: Shortness Of Breath Or Wheezing Last Admin: 04/17/19 04:52 Dose: 3 ml Documented by: Alprazolam (Xanax) 0.25 mg PO BID PRN PRN Reason: Anxiety Last Admin: 04/17/19 21:20 Dose: 0.25 mg Documented by: Apixaban (Eliquis) 2.5 mg PO BID [facility] Last Admin: 04/18/19 20:32 Dose: 2.5 mg Documented by: Ascorbic Acid (Vitamin C) 500 mg PO DAILY [facility] Last Admin: 04/18/19 08:28 Dose: 500 mg Documented by: Budesonide (Pulmicort) 0.5 mg INHALATION RT-BID [facility] Last Admin: 04/18/19 20:07 Dose: 0.5 mg Documented by: Furosemide (Lasix) 40 mg IV Q12HR [facility] Last Admin: 04/18/19 20:32 Dose: 40 mg Documented by: Hydroxyurea (Hydrea) 500 mg PO DAILY [facility] Last Admin: 04/18/19 08:28 Dose: 500 mg Documented by: Metoprolol Tartrate (Lopressor) 100 mg PO BID [facility] Last Admin: 04/18/19 20:32 Dose: 100 mg Documented by: Multivitamins (Theragran) 1 each PO DAILY [facility] Last Admin: 04/18/19 08:28 Dose: 1 each Documented by: Spironolactone (Aldactone) 25 mg PO DAILY [facility] Last Admin: 04/18/19 12:57 Dose: 25 mg Documented by: Verapamil HCl (Isoptin) 40 mg PO TID [facility] Last Admin: 04/18/19 21:25 Dose: 40 mg Documented by: Physical examination: VITAL SIGNS: 97.4, 75, 18, 1 and , 98% on 3 L GENERAL: Sitting up in the bed, appears a bit better EYES: Pupils equal. Conjunctiva normal. HEENT: External appearance of nose and ears normal, oral cavity grossly normal. NECK: JVD not raised; masses not palpable. HEART: Heart sounds irregular; no edema. LUNGS: Respiratory rate increased, decreased breath sounds ABDOMEN: Soft, nontender, liver spleen not palpable, no masses palpable. PSYCH: [Alert and oriented x3; mood and affect anxious l. MUSCULAR skeletal: Evidence of OA INVESTIGATIONS, reviewed in the clinical context: Potassium 4.4 bun 39 crit 1.11 proBNP 6380 Previous testing White count 5.1 hemoglobin 12.1 platelets 253 potassium 5. bun 20 crit 1.03 ProBNP 8740 EKG tracing personally reviewed by me-atrial fibrillation rate of 107 -Chest x-ray film personally reviewed by me-venous prominence cardiomegaly Assessment: -Acute on chronic congestive heart failure exacerbation from diastolic dysfunction EF 50% precipitated by A. fib with rapid ventricular rate, improving slowly -Severe mitral and tricuspid regurgitation -Persistent atrial fibrillation -Essential hypertension -Primary osteoarthritis -Acute gastroenteritis viral likely self-limiting -Hyperkalemia, patient is on potassium supplement, slow to respond Plan: Continue with IV Lasix. Other medication treatment plans continue. Patient will need further diuresis. Care discussed with the patient and family the bedside.
[2019-04-19] MEDS: FUROSEMIDE 100 MG in SODIUM CHLORIDE 0.9% 90 ML IV SCH ×3 (00:25→19:34)
[2019-04-19 02:13] LABS: Glucose,Whole Blood 127 mg/dL (75-99)
[2019-04-19] MEDS: IPRATROPIUM-ALBUTEROL 3 ML NEB INHALATION SCH ×4 (07:04→19:17)
[2019-04-19] MEDS: BUDESONIDE 0.5 MG/2 ML NEBU INHALATION SCH ×2 (07:04→19:15)
[2019-04-19] MEDS: VERAPAMIL 40 MG TAB PO SCH ×3 (07:14→21:58)
[2019-04-19] MEDS: SPIRONOLACTONE 25 MG TAB PO SCH (07:14)
[2019-04-19] MEDS: MULTIVITAMINS, THERA 1 EACH TAB PO SCH (07:14)
[2019-04-19] MEDS: METOPROLOL TARTRATE 50 MG TAB PO SCH ×2 (07:14→19:34)
[2019-04-19] MEDS: ASCORBIC ACID 500 MG TAB PO SCH (07:14)
[2019-04-19] MEDS: HYDROXYUREA 500 MG CAP PO SCH (07:15)
[2019-04-19] MEDS: APIXABAN 2.5 MG TABLET PO SCH (07:15)
[2019-04-19 07:16] LABS: Glucose,Whole Blood 119 mg/dL (75-99)
[2019-04-19 11:28] LABS: Glucose,Whole Blood 114 mg/dL (75-99)
--- NOTE | 2019-04-19 11:46 | P.PN ---
Subjective HISTORY OF PRESENTING ILLNESS This is a pleasant 84-year-old female past medical history significant for in persistent atrial fibrillation on long-term anticoagulation, chronic diastolic heart failure, melanoma, hypertension and ITP. She follows in the office with Dr. Quintana. She is seen and examined sitting up in the chair with her daughter at the bedside. She continues to feel fatigued. She denies worsening shortness of breath, but also no real improvement. She did ambulate the halls early this morning without difficulty. She saw Dr. Velazquez yesterday and they are recommending conservative medical approach, no plans for drainage of her pericardial effusion at this time. Dr. Macdonald initiated lasix gtt last night after we had decreased the dosing yesterday afternoon. Blood pressure 127/69 heart rate 76 afebrile and maintaining oxygen saturation on nasal cannula. She is maintaining a negative fluid balance. PHYSICAL EXAMINATION CONSTITUTIONAL: No apparent distress. HEENT: Head is normocephalic. Pupils are equal, round. Sclerae anicteric. Mucous membranes of the mouth are moist. No JVD. No carotid bruit. CHEST EXAMINATION: Clear to auscultation bilaterally. Diminished. No rales, wheezes or rhonchi. No chest wall tenderness is noted on palpation or with deep breathing. HEART EXAMINATION: Irregular rate and rhythm. S1, S2 heard. Systolic ejection murmur at left sternal border, no gallops or rub. EXTREMITIES: 2+ peripheral pulses, trace bilateral lower extremity pitting edema and no calf tenderness. ASSESSMENT Acute on chronic diastolic heart failure Chronic cough Pericardial effusion Hyperkalemia, improved Chronic persistent atrial fibrillation on long-term anticoagulation with mildly rapid ventricular response Hypertension History of melanoma PLAN Ongoing diuresis, recommend IV lasix. Being managed by Dr. Macdonald. Initiate flonase, tessalon pearles and protonix to attempt to treat the cough. Possibly related to GERD or post-nasal drip. Nurse Practitioner note has been reviewed, I agree with a documented findings and plan of care. Patient was seen and examined. Objective - Vital Signs Vital signs: Vital Signs Temp 98.1 F 04/19/19 05:00 Pulse 76 04/19/19 11:33 Resp 22 04/19/19 08:20 BP 130/82 04/19/19 05:00 Pulse Ox 97 04/19/19 05:00 Intake & Output 04/18/19 04/19/1904/19/20 18:59 06:59 18:59 Intake Total 300 Output Total 1300 Balance -1300 300 Weight 55 kg Intake: Oral 300 Output: Urine 1300 Other: Voiding Method Bedside Commode Bedside Commode Bedside Commode # Voids 1 7 1 - Labs CBC & Chem 7: 04/17/19 07:42 04/19/19 13:13 Labs: Abnormal Lab Results - Last 24 Hours (Table) 04/18/19 04/18/19 04/18/19 Range/Units 11:40 17:15 20:19 POC Glucose (mg/dL) 174 H 142 H 161 H (75-99) mg/dL 04/19/19 04/19/19 04/19/19 Range/Units 02:11 07:14 11:11 POC Glucose (mg/dL) 127 H 119 H 114 H (75-99) mg/dL
[2019-04-19] MEDS ORDERED: FLUTICASONE 50MCG/SPRAY NASAL 16GM EA NOSTRIL PRN (12:28)
[2019-04-19] MEDS ORDERED: BENZONATATE 100 MG CAP PO PRN (12:28)
[2019-04-19] MEDS: PANTOPRAZOLE 40 MG TABLET PO SCH (13:13)
[2019-04-19 13:49] LABS: Calcium 9.4 mg/dL (8.4-10.2); Potassium 3.6 mmol/L (3.5-5.1)
[2019-04-19 16:56] LABS: Glucose,Whole Blood 161 mg/dL (75-99)
--- NOTE | 2019-04-19 20:13 | P.PN ---
Subjective Progress Note Date: 04/19/19 Principal diagnosis: ET and melanoma, on treatment Patient is doing fairly well today, she still is short of breath with exertion, she is not coughing anything up, no fevers, nausea, chest pain. Objective - Vital Signs Vital signs: Vital Signs Temp 97.5 F L 04/19/19 11:08 Pulse 68 04/19/19 19:27 Resp 20 04/19/19 15:05 BP 127/69 04/19/19 11:08 Pulse Ox 94 L 04/19/19 19:17 Intake & Output 04/19/19 04/19/19 04/20/19 06:59 18:59 06:59 Intake Total 300 100 85.667 Output Total 1000 Balance 300 -900 85.667 Weight 55 kg Intake: Intake, IV Titration 100 85.667 Amount Furosemide 100 mg In 100 85.667 Sodium Chloride 0.9% 90 ml @ 10 MG/HR 10 mls/hr IV .Q10H [facility] Rx#: [id number] Oral 300 Output: Urine 1000 Other: Voiding Method Bedside Commode Bedside Commode # Voids 7 1 # Bowel Movements 1 - Constitutional General appearance: Present: average body habitus, cooperative, no acute distress - EENT Eyes: Present: anicteric sclerae, EOMI ENT: Present: hearing grossly normal, normal oropharynx - Respiratory Respiratory: bilateral: diminished - Cardiovascular Heart sounds: normal: S1, S2 Abnormal Heart Sounds: Present: systolic murmur - Peripheral edema leg Peripheral Edema: bilateral: Trace - Gastrointestinal General gastrointestinal: Present: normal bowel sounds, soft - Integumentary Integumentary: Present: normal - Neurologic Neurologic: Present: CNII-XII intact - Musculoskeletal Musculoskeletal: Present: generalized weakness, strength equal bilaterally - Psychiatric Psychiatric: Present: A&O x's 3, appropriate affect, intact judgment & insight - Labs CBC & Chem 7: 04/17/19 07:42 04/19/19 13:13 Labs: Abnormal Lab Results - Last 24 Hours (Table) 04/18/19 04/19/19 04/19/19 Range/Units 20:19 02:11 07:14 Chloride (98-107) mmol/L Carbon Dioxide (22-30) mmol/L BUN (7-17) mg/dL Glucose (74-99) mg/dL POC Glucose (mg/dL) 161 H 127 H 119 H (75-99) mg/dL 04/19/19 04/19/19 04/19/19 Range/Units 11:11 13:13 16:55 Chloride 89 L (98-107) mmol/L Carbon Dioxide 37 H (22-30) mmol/L BUN 40 H (7-17) mg/dL Glucose 113 H (74-99) mg/dL POC Glucose (mg/dL) 114 H 161 H (75-99) mg/dL Assessment and Plan (1) Essential thrombocythemia Narrative/Plan: On hydrea, cont at current dose, platelets stable Current Visit: Yes Status: Chronic Priority: Medium Code(s): D47.3 - ESSENTIAL (HEMORRHAGIC) THROMBOCYTHEMIA SNOMED Code(s): 856533044 (2) Melanoma Narrative/Plan: Nivolumab on 04/05/19. Pt has been on since 08/2017 with no disease recurrence or metastasis. Resp symptoms not r/t immunotherapy, high resolution CT negative for pneumonitis. Pt being worked up and treated for symptoms Patient and daughter asked me about delay in immunotherapy as patient is going to participate in rehabilitation. It is felt that immunotherapy continues to stimulate the immune system, even if some doses are not on time/missed. No treatment until patient has completed rehabilitation and been discharged home. Current Visit: Yes Status: Acute Code(s): C43.9 - MALIGNANT MELANOMA OF SKIN, UNSPECIFIED SNOMED Code(s): 308197007
[2019-04-19 20:36] LABS: Glucose,Whole Blood 131 mg/dL (75-99)
--- NOTE | 2019-04-19 22:00 | P.PN ---
Progress Note - Text Progress Note Date: 04/19/19 Chief Complaint: Tired interval history: This is a pleasant 84-year-old patient of Dr. Barillas. Chronic stable medical conditions include severe mitral and tricuspid regurgitation, atrial fibrillation, hypertension, osteoarthritis. On Tuesday that is yesterday. Patient vomited 2. Today morning had some loose stools about 3 times. No blood. No abdominal pain. Had decreased appetite. No fever or chills. [place] tired shortness of breath. Patient is of a chronic cough some shortness of breath also. No obvious fever and chills. Tired and rundown. Not feeling well. No chest pain. admitted with-acute gastroenteritis, acute CHF exacerbations, atrial fibrillatio n with a rapid ventricular rate. Started on Lasix drip on April 18. Today-. Did use better. Appetite improving. Patient ate about 50% breakfast. Tired Review of systems: Was done for constitutional, cardiovascular, GI, pulmonary. relevant finding as above Active Medications Acetaminophen (Tylenol Tab) 500 mg PO Q6H PRN PRN Reason: Pain Last Admin: 04/16/19 20:03 Dose: 500 mg Documented by: Albuterol/Ipratropium (Duoneb 0.5 Mg-3 Mg/3 Ml Soln) 3 ml INHALATION RT-QID [facility] Last Admin: 04/19/19 19:17 Dose: 3 ml Documented by: Albuterol/Ipratropium (Duoneb 0.5 Mg-3 Mg/3 Ml Soln) 3 ml INHALATION RT-Q2H PRN PRN Reason: Shortness Of Breath Or Wheezing Last Admin: 04/17/19 04:52 Dose: 3 ml Documented by: Alprazolam (Xanax) 0.25 mg PO BID PRN PRN Reason: Anxiety Last Admin: 04/17/19 21:20 Dose: 0.25 mg Documented by: Ascorbic Acid (Vitamin C) 500 mg PO DAILY [facility] Last Admin: 04/19/19 07:14 Dose: 500 mg Documented by: Benzonatate (Tessalon Per[place]) 200 mg PO TID PRN PRN Reason: Cough Budesonide (Pulmicort) 0.5 mg INHALATION RT-BID [facility] Last Admin: 04/19/19 19:15 Dose: 0.5 mg Documented by: Fluticasone Propionate (Flonase Nasal [place]) 2 spray EA NOSTRIL DAILY PRN PRN Reason: Allergy Symptoms Hydroxyurea (Hydrea) 500 mg PO DAILY [facility] Last Admin: 04/19/19 07:15 Dose: 500 mg Documented by: Furosemide 100 mg/ Sodium (Chloride) 100 mls @ 10 mls/hr IV .Q10H [facility] Last Admin: 04/19/19 19:34 Dose: 10 mg/hr, 10 mls/hr Documented by: Metoprolol Tartrate (Lopressor) 100 mg PO BID [facility] Last Admin: 04/19/19 19:34 Dose: 100 mg Documented by: Multivitamins (Theragran) 1 each PO DAILY [facility] Last Admin: 04/19/19 07:14 Dose: 1 each Documented by: Pantoprazole Sodium (Protonix) 40 mg PO AC-BRKFST [facility] Last Admin: 04/19/19 13:13 Dose: 40 mg Documented by: Spironolactone (Aldactone) 25 mg PO DAILY [facility] Last Admin: 04/19/19 07:14 Dose: 25 mg Documented by: Triamcinolone Acetonide (Kenalog) 1 applic TOPICAL BID [facility] Verapamil HCl (Isoptin) 40 mg PO TID [facility] Last Admin: 04/19/19 16:49 Dose: 40 mg Documented by: Physical examination: VITAL SIGNS: 97.5, 66, 20, 127/69, 99% on 3 L GENERAL: Propped up in a chair, looking better EYES: Pupils equal. Conjunctiva normal. HEENT: External appearance of nose and ears normal, oral cavity grossly normal. NECK: JVD not raised; masses not palpable. HEART: Heart sounds irregular; no edema. LUNGS: Respiratory rate increased, decreased breath sounds ABDOMEN: Soft, nontender, liver spleen not palpable, no masses palpable. PSYCH: [Alert and oriented x3; mood and affect anxious l. MUSCULAR skeletal: Evidence of OA INVESTIGATIONS, reviewed in the clinical context: Potassium 3.6 bun 40 creatinine 0.93 Previous testing White count 5.1 hemoglobin 12.1 platelets 253 potassium 5. bun 20 crit 1.03 ProBNP 8740 EKG tracing personally reviewed by me-atrial fibrillation rate of 107 -Chest x-ray film personally reviewed by me-venous prominence cardiomegaly Assessment: -Acute on chronic congestive heart failure exacerbation from diastolic dysfunction EF 50% precipitated by A. fib with rapid ventricular rate, clinically improving -Severe mitral and tricuspid regurgitation -Persistent atrial fibrillation -Essential hypertension -Primary osteoarthritis -Acute gastroenteritis viral likely self-limiting -Hyperkalemia, patient is on potassium supplement, slow to respond Plan: Patient will Lasix drip. Clinically doing better. Continue Lasix drip overnight. Repeat checks x-ray and BNP in the morning. Care was discussed with the daughter the bedside. Prognosis guarded. Multiple comorbidities.
[2019-04-19] MEDS: TRIAMCINOLONE 0.1% CREAM 80 GM TUBE TOPICAL SCH (22:02)
[2019-04-19] MEDS: acetaZOLAMIDE 250 MG TAB PO SCH (22:11)
[2019-04-20] MEDS: FUROSEMIDE 100 MG in SODIUM CHLORIDE 0.9% 90 ML IV SCH (05:25)
[2019-04-20] MEDS: BUDESONIDE 0.5 MG/2 ML NEBU INHALATION SCH ×2 (07:03→19:29)
[2019-04-20] MEDS: IPRATROPIUM-ALBUTEROL 3 ML NEB INHALATION SCH ×4 (07:03→19:29)
[2019-04-20 07:24] LABS: Glucose,Whole Blood 93 mg/dL (75-99)
[2019-04-20 08:04] LABS: Basophils # (A) 0.2 k/uL (0-0.2); Basophils % (A) 3 %; Eosinophils # (A) 0.1 k/uL (0-0.7); Eosinophils % (A) 1 %; HCT 42.2 % (34.0-46.0); HGB 13.4 gm/dL (11.4-16.0); Hypochromasia Marked; Lymphocytes # (A) 0.5 k/uL (1.0-4.8); Lymphocytes % (A) 10 %; MCH 38.3 pg (25.0-35.0); MCHC 31.6 g/dL (31.0-37.0); MCV 121.1 fL (80.0-100.0); Macrocytosis Marked; Mean Platelet Volume 10.4; Monocytes # (A) 0.6 k/uL (0-1.0); Monocytes % (A) 10 %; Neutrophils # (A) 4.1 k/uL (1.3-7.7); Neutrophils % (A) 74 %; Platelet Count 334 k/uL (150-450); RBC 3.49 m/uL (3.80-5.40); RDW 15.9 % (11.5-15.5); WBC 5.5 k/uL (3.8-10.6)
[2019-04-20 08:38] LABS: Polychromasia Present
[2019-04-20 08:39] LABS: Stomatocytes Present
--- NOTE | 2019-04-20 08:45 | XR ---
EXAMINATION TYPE: XR chest 2V DATE OF EXAM: 04/20/2019 COMPARISON: 04/18/2019 HISTORY: Follow-up for CHF. Shortness of breath. TECHNIQUE: Frontal and lateral views of the chest are obtained. FINDINGS: There are trace bilateral pleural effusions and redemonstration of marked cardiomegaly. Di ffuse osseous demineralization is seen. Scattered areas of platelike atelectasis. IMPRESSION: Trace bilateral pleural effusions and redemonstration of marked cardiomegaly.
[2019-04-20] MEDS: acetaZOLAMIDE 250 MG TAB PO SCH ×2 (08:51→20:35)
[2019-04-20] MEDS: PANTOPRAZOLE 40 MG TABLET PO SCH (08:53)
[2019-04-20] MEDS: TRIAMCINOLONE 0.1% CREAM 80 GM TUBE TOPICAL SCH ×2 (08:53→20:36)
[2019-04-20] MEDS: METOPROLOL TARTRATE 50 MG TAB PO SCH ×2 (08:53→20:35)
[2019-04-20] MEDS: ASCORBIC ACID 500 MG TAB PO SCH (08:53)
[2019-04-20] MEDS: MULTIVITAMINS, THERA 1 EACH TAB PO SCH (08:53)
[2019-04-20] MEDS: SPIRONOLACTONE 25 MG TAB PO SCH (08:54)
[2019-04-20] MEDS: VERAPAMIL 40 MG TAB PO SCH ×3 (08:54→23:03)
[2019-04-20] MEDS: HYDROXYUREA 500 MG CAP PO SCH (08:57)
[2019-04-20 10:27] VITALS: BMI 19.5
[2019-04-20 10:32] LABS: Potassium 2.9 mmol/L (3.5-5.1)
[2019-04-20] MEDS ORDERED: POTASSIUM CHLORIDE ER 20 MEQ TAB.ER PO STA (11:13)
[2019-04-20 11:21] LABS: Glucose,Whole Blood 112 mg/dL (75-99)
--- NOTE | 2019-04-20 11:44 | PN ---
PROGRESS NOTE This patient is admitted with symptoms of cough and shortness of breath. The patient's condition is not significantly changed, but she lays comfortably in the bed. Denies any orthopnea or PND. She continues to have some nonproductive cough, exact etiology undetermined. Patient's blood pressure is 110/70 mmHg. Respiratory rate is 20. First and second heart sounds are heard. Lungs are clinically clear to auscultation and percussion. Patient's chest x-ray shows cardiomegaly without any significant left ventricular failure. The patient does not have any leg edema. At present, patient appears to be euvolemic. We will discontinue the Lasix drip and start her on Lasix 40 mg IV b.i.d. If patient remains stable, it can be changed to the p.o. Lasix from tomorrow. The patient is going to go to the [facility] for the rehab. SERAFIN / EDNAN: [id number] /
[2019-04-20] MEDS: BENZONATATE 100 MG CAP PO SCH ×2 (12:15→23:02)
[2019-04-20] MEDS ORDERED: POTASSIUM CHLORIDE ER 20 MEQ TAB.ER PO ONE (13:00)
[2019-04-20 17:39] LABS: Glucose,Whole Blood 91 mg/dL (75-99)
[2019-04-20 20:33] LABS: Glucose,Whole Blood 109 mg/dL (75-99)
[2019-04-20] MEDS: FUROSEMIDE 10 MG/ML 4 ML VIAL IV SCH (20:36)
--- NOTE | 2019-04-20 23:18 | P.PN ---
Progress Note - Text Progress Note Date: 04/20/19 Chief Complaint: Tired interval history: This is a pleasant 84-year-old patient of Dr. Barillas. Chronic stable medical conditions include severe mitral and tricuspid regurgitation, atrial fibrillation, hypertension, osteoarthritis. On Tuesday that is yesterday. Patient vomited 2. Today morning had some loose stools about 3 times. No blood. No abdominal pain. Had decreased appetite. No fever or chills. [place] tired shortness of breath. Patient is of a chronic cough some shortness of breath also. No obvious fever and chills. Tired and rundown. Not feeling well. No chest pain. admitted with-acute gastroenteritis, acute CHF exacerbations, atrial fibrillatio n with a rapid ventricular rate. Started on Lasix drip on April 18. Today-. Lasix drip stopped this morning. Appetite much improved. Feels a bit tired. Less wheezing. Review of systems: Was done for constitutional, cardiovascular, GI, pulmonary. relevant finding as above Active Medications Acetaminophen (Tylenol Tab) 500 mg PO Q6H PRN PRN Reason: Pain Last Admin: 04/16/19 20:03 Dose: 500 mg Documented by: Acetazolamide (Diamox) 250 mg PO BID [facility] Last Admin: 04/20/19 20:35 Dose: 250 mg Documented by: Albuterol/Ipratropium (Duoneb 0.5 Mg-3 Mg/3 Ml Soln) 3 ml INHALATION RT-QID [facility] Last Admin: 04/20/19 19:29 Dose: 3 ml Documented by: Albuterol/Ipratropium (Duoneb 0.5 Mg-3 Mg/3 Ml Soln) 3 ml INHALATION RT-Q2H PRN PRN Reason: Shortness Of Breath Or Wheezing Last Admin: 04/17/19 04:52 Dose: 3 ml Documented by: Alprazolam (Xanax) 0.25 mg PO BID PRN PRN Reason: Anxiety Last Admin: 04/17/19 21:20 Dose: 0.25 mg Documented by: Ascorbic Acid (Vitamin C) 500 mg PO DAILY [facility] Last Admin: 04/20/19 08:53 Dose: 500 mg Documented by: Benzonatate (Tessalon Perles) 200 mg PO TID [facility] Last Admin: 04/20/19 23:02 Dose: 200 mg Documented by: Budesonide (Pulmicort) 0.5 mg INHALATION RT-BID [facility] Last Admin: 04/20/19 19:29 Dose: 0.5 mg Documented by: Fluticasone Propionate (Flonase Nasal [place]) 2 spray EA NOSTRIL DAILY PRN PRN Reason: Allergy Symptoms Furosemide (Lasix) 40 mg IV Q12HR [facility] Last Admin: 04/20/19 20:36 Dose: 40 mg Documented by: Hydroxyurea (Hydrea) 500 mg PO DAILY [facility] Last Admin: 04/20/19 08:57 Dose: 500 mg Documented by: Metoprolol Tartrate (Lopressor) 100 mg PO BID [facility] Last Admin: 04/20/19 20:35 Dose: 100 mg Documented by: Multivitamins (Theragran) 1 each PO DAILY [facility] Last Admin: 04/20/19 08:53 Dose: 1 each Documented by: Pantoprazole Sodium (Protonix) 40 mg PO AC-BRKFST [facility] Last Admin: 04/20/19 08:53 Dose: 40 mg Documented by: Spironolactone (Aldactone) 25 mg PO DAILY [facility] Last Admin: 04/20/19 08:54 Dose: 25 mg Documented by: Triamcinolone Acetonide (Kenalog) 1 applic TOPICAL BID [facility] Last Admin: 04/20/19 20:36 Dose: 1 applic Documented by: Verapamil HCl (Isoptin) 40 mg PO TID [facility] Last Admin: 04/20/19 23:03 Dose: 40 mg Documented by: Physical examination: VITAL SIGNS: 97.7, 59, 16, 108/69, 97% on 1 L GENERAL: Laying in bed, awake EYES: Pupils equal. Conjunctiva normal. HEENT: External appearance of nose and ears normal, oral cavity grossly normal. NECK: JVD not raised; masses not palpable. HEART: Heart sounds irregular; no edema. LUNGS: Respiratory rate normal, decreased breath sounds ABDOMEN: Soft, nontender, liver spleen not palpable, no masses palpable. PSYCH: [Alert and oriented x3; mood and affect anxious l. MUSCULAR skeletal: Evidence of OA INVESTIGATIONS, reviewed in the clinical context: White count 5.5 hemoglobin 13.4 progression 2.9 bun 31 crit 1.0 to Previous testing White count 5.1 hemoglobin 12.1 platelets 253 potassium 5. bun 20 crit 1.03 ProBNP 8740 EKG tracing personally reviewed by me-atrial fibrillation rate of 107 -Chest x-ray film personally reviewed by me-venous prominence cardiomegaly Assessment: -Acute on chronic congestive heart failure exacerbation from diastolic dysfunction EF 50% precipitated by A. fib with rapid ventricular rate, much improved -Severe mitral and tricuspid regurgitation -Persistent atrial fibrillation -Essential hypertension -Primary osteoarthritis -Acute gastroenteritis viral likely self-limiting -Hyperkalemia, patient is on potassium supplement, slow to respond Plan: -Lasix drip. This morning. Put on Lasix 40 mg IV twice a day. Oral intake much improved. Looking better.
[2019-04-21 01:52] LABS: Glucose,Whole Blood 109 mg/dL (75-99)
[2019-04-21 07:06] LABS: Glucose,Whole Blood 92 mg/dL (75-99)
[2019-04-21 08:31] LABS: Basophils % (A) 1 %; Eosinophils # (A) 0.1 k/uL (0-0.7); Eosinophils % (A) 1 %; HCT 43.6 % (34.0-46.0); HGB 13.3 gm/dL (11.4-16.0); Hypochromasia Marked; Lymphocytes % (A) 19 %; MCH 37.3 pg (25.0-35.0); MCHC 30.6 g/dL (31.0-37.0); MCV 121.6 fL (80.0-100.0); Macrocytosis Marked; Monocytes # (A) 0.5 k/uL (0-1.0); Monocytes % (A) 9 %; Neutrophils # (A) 3.4 k/uL (1.3-7.7); Neutrophils % (A) 68 %; Platelet Count 413 k/uL (150-450); RBC 3.58 m/uL (3.80-5.40); WBC 5.1 k/uL (3.8-10.6)
[2019-04-21] MEDS: FUROSEMIDE 10 MG/ML 4 ML VIAL IV SCH (08:54)
[2019-04-21] MEDS: METOPROLOL TARTRATE 50 MG TAB PO SCH ×2 (08:54→22:16)
[2019-04-21] MEDS: MULTIVITAMINS, THERA 1 EACH TAB PO SCH (08:54)
[2019-04-21] MEDS: SPIRONOLACTONE 25 MG TAB PO SCH (08:54)
[2019-04-21] MEDS: VERAPAMIL 40 MG TAB PO SCH ×2 (08:54→16:10)
[2019-04-21] MEDS: ASCORBIC ACID 500 MG TAB PO SCH (08:54)
[2019-04-21] MEDS: PANTOPRAZOLE 40 MG TABLET PO SCH (08:54)
[2019-04-21] MEDS: HYDROXYUREA 500 MG CAP PO SCH (08:54)
[2019-04-21] MEDS: acetaZOLAMIDE 250 MG TAB PO SCH ×2 (08:54→22:16)
[2019-04-21] MEDS: BENZONATATE 100 MG CAP PO SCH ×3 (08:55→22:17)
[2019-04-21] MEDS: TRIAMCINOLONE 0.1% CREAM 80 GM TUBE TOPICAL SCH ×3 (08:56→22:17)
[2019-04-21] MEDS: IPRATROPIUM-ALBUTEROL 3 ML NEB INHALATION SCH ×4 (09:17→20:28)
[2019-04-21] MEDS: BUDESONIDE 0.5 MG/2 ML NEBU INHALATION SCH ×2 (09:17→20:28)
[2019-04-21 09:18] LABS: Large Platelets Present; Poikilocytosis (M) Present
[2019-04-21 11:35] LABS: Glucose,Whole Blood 130 mg/dL (75-99)
[2019-04-21] MEDS: ACETAMINOPHEN TAB 500 MG TAB PO PRN (11:51)
--- NOTE | 2019-04-21 16:04 | P.PN ---
Subjective Progress Note Date: 04/21/19 HISTORY OF PRESENTING ILLNESS This is a pleasant 84-year-old female past medical history significant for in persistent atrial fibrillation on long-term anticoagulation, chronic diastolic heart failure, melanoma, hypertension and ITP. She follows in the office with Dr. Quintana. She is seen and examined sitting up in the chair with her daughter at the bedside. She continues to feel fatigued. She denies worsening shortness of breath, but also no real improvement. She did ambulate the halls early this morning without difficulty. She saw Dr. Velazquez yesterday and they are recommending conservative medical approach, no plans for drainage of her pericardial effusion at this time. Dr. Macdonald initiated lasix gtt last night after we had decreased the dosing yesterday afternoon. Blood pressure 12 7/69 heart rate 76 afebrile and maintaining oxygen saturation on nasal cannula. She is maintaining a negative fluid balance. 04/21: Yesterday, patient was transitioned off Lasix drip to IV Lasix 40 mg twice daily. Patient has been stable with a blood pressure of 95/60, heart rate running from 57-76, pulse ox 99% on 2 L. Patient currently denies any chest pain, no shortness of breath. No lower extremity edema. IV Lasix will be transitioned to oral Lasix. Patient is scheduled to go to [facility] on Tuesday. PHYSICAL EXAMINATION CONSTITUTIONAL: No apparent distress. HEENT: Head is normocephalic. Pupils are equal, round. Sclerae anicteric. Mucous membranes of the mouth are moist. No JVD. No carotid bruit. CHEST EXAMINATION: Clear to auscultation bilaterally. Diminished. No rales, wheezes or rhonchi. No chest wall tenderness is noted on palpation or with deep breathing. HEART EXAMINATION: Irregular rate and rhythm. S1, S2 heard. Systolic ejection murmur at left sternal border, no gallops or rub. EXTREMITIES: 2+ peripheral pulses, no bilateral lower extremity edema and no calf tenderness. ASSESSMENT Acute on chronic diastolic heart failure Chronic cough Pericardial effusion Hyperkalemia, improved Chronic persistent atrial fibrillation on long-term anticoagulation with mildly rapid ventricular response Hypertension History of melanoma PLAN Transitioned IV Lasix to oral Lasix 40 mg twice daily Initiate flonase, tessalon pearles and protonix to attempt to treat the cough. Possibly related to GERD or post-nasal drip. Cough is improved. Further recommendations to follow based upon clinical course. Nurse Practitioner note has been reviewed, I agree with a documented findings and plan of care. Patient was seen and examined. Objective - Vital Signs Vital signs: Vital Signs Temp 98.1 F 04/21/19 12:28 Pulse 76 04/21/19 12:55 Resp 17 04/21/19 12:28 BP 95/60 04/21/19 12:28 Pulse Ox 99 04/21/19 12:28 Intake & Output 04/20/19 04/21/19 04/21/19 18:59 06:59 18:59 Weight 47 kg 46.5 kg Other: Voiding Method Bedside Commode Bedside Commode Bedside Commode - Labs CBC & Chem 7: 04/21/19 07:41 04/20/19 07:12 Labs: Abnormal Lab Results - Last 24 Hours (Table) 04/20/19 04/21/19 04/21/19 Range/Units 20:31 01:51 07:41 RBC 3.58 L (3.80-5.40) m/uL MCV 121.6 H (80.0-100.0) fL MCH 37.3 H (25.0-35.0) pg MCHC 30.6 L (31.0-37.0) g/dL RDW 16.0 H (11.5-15.5) % Macrocytosis Marked A POC Glucose (mg/dL) 109 H 109 H (75-99) mg/dL 04/21/19 Range/Units 11:34 RBC (3.80-5.40) m/uL MCV (80.0-100.0) fL MCH (25.0-35.0) pg MCHC (31.0-37.0) g/dL RDW (11.5-15.5) % Macrocytosis POC Glucose (mg/dL) 130 H (75-99) mg/dL
[2019-04-21] MEDS: FUROSEMIDE 40 MG TAB PO SCH (16:11)
[2019-04-21 17:23] LABS: Glucose,Whole Blood 136 mg/dL (75-99)
[2019-04-21 19:43] LABS: Glucose,Whole Blood 132 mg/dL (75-99)
--- NOTE | 2019-04-21 23:01 | P.PN ---
Progress Note - Text Progress Note Date: 04/21/19 Chief Complaint: Tired interval history: This is a pleasant 84-year-old patient of Dr. Barillas. Chronic stable medical conditions include severe mitral and tricuspid regurgitation, atrial fibrillation, hypertension, osteoarthritis. On Tuesday that is yesterday. Patient vomited 2. Today morning had some loose stools about 3 times. No blood. No abdominal pain. Had decreased appetite. No fever or chills. [place] tired shortness of breath. Patient is of a chronic cough some shortness of breath also. No obvious fever and chills. Tired and rundown. Not feeling well. No chest pain. admitted with-acute gastroenteritis, acute CHF exacerbations, atrial fibrillatio n with a rapid ventricular rate. Started on Lasix drip on April 18. Doing better. Today-. Total in bed. No new issues. Tired. Sitting up in a chair. Review of systems: Was done for constitutional, cardiovascular, GI, pulmonary. relevant finding as above Active Medications Acetaminophen (Tylenol Tab) 500 mg PO Q6H PRN PRN Reason: Pain Last Admin: 04/21/19 11:51 Dose: 500 mg Documented by: Acetazolamide (Diamox) 250 mg PO BID [facility] Last Admin: 04/21/19 22:16 Dose: 250 mg Documented by: Albuterol/Ipratropium (Duoneb 0.5 Mg-3 Mg/3 Ml Soln) 3 ml INHALATION RT-QID [facility] Last Admin: 04/21/19 20:28 Dose: 3 ml Documented by: Albuterol/Ipratropium (Duoneb 0.5 Mg-3 Mg/3 Ml Soln) 3 ml INHALATION RT-Q2H PRN PRN Reason: Shortness Of Breath Or Wheezing Last Admin: 04/17/19 04:52 Dose: 3 ml Documented by: Alprazolam (Xanax) 0.25 mg PO BID PRN PRN Reason: Anxiety Last Admin: 04/17/19 21:20 Dose: 0.25 mg Documented by: Ascorbic Acid (Vitamin C) 500 mg PO DAILY [facility] Last Admin: 04/21/19 08:54 Dose: 500 mg Documented by: Benzonatate (Tessalon Perles) 200 mg PO TID [facility] Last Admin: 04/21/19 22:17 Dose: 200 mg Documented by: Budesonide (Pulmicort) 0.5 mg INHALATION RT-BID [facility] Last Admin: 04/21/19 20:28 Dose: 0.5 mg Documented by: Fluticasone Propionate (Flonase Nasal [place]) 2 spray EA NOSTRIL DAILY PRN PRN Reason: Allergy Symptoms Furosemide (Lasix) 40 mg PO BID@0900,1600 [facility] Last Admin: 04/21/19 16:11 Dose: 40 mg Documented by: Hydroxyurea (Hydrea) 500 mg PO DAILY [facility] Last Admin: 04/21/19 08:54 Dose: 500 mg Documented by: Metoprolol Tartrate (Lopressor) 100 mg PO BID [facility] Last Admin: 04/21/19 22:16 Dose: 100 mg Documented by: Multivitamins (Theragran) 1 each PO DAILY [facility] Last Admin: 04/21/19 08:54 Dose: 1 each Documented by: Pantoprazole Sodium (Protonix) 40 mg PO AC-BRKFST [facility] Last Admin: 04/21/19 08:54 Dose: 40 mg Documented by: Spironolactone (Aldactone) 25 mg PO DAILY [facility] Last Admin: 04/21/19 08:54 Dose: 25 mg Documented by: Triamcinolone Acetonide (Kenalog) 1 applic TOPICAL BID [facility] Last Admin: 04/21/19 22:17 Dose: 1 applic Documented by: Verapamil HCl (Isoptin) 40 mg PO TID [facility] Last Admin: 04/21/19 16:10 Dose: 40 mg Documented by: Physical examination: VITAL SIGNS: 98.1, 57, 17, 95/60, 99% on 2 L GENERAL: Sitting up in a chair, comfortable EYES: Pupils equal. Conjunctiva normal. HEENT: External appearance of nose and ears normal, oral cavity grossly normal. NECK: JVD not raised; masses not palpable. HEART: Heart sounds irregular; no edema. LUNGS: Respiratory rate normal, decreased breath sounds ABDOMEN: Soft, nontender, liver spleen not palpable, no masses palpable. PSYCH: [Alert and oriented x3; mood and affect anxious l. MUSCULAR skeletal: Evidence of OA INVESTIGATIONS, reviewed in the clinical context: White count 5.5 hemoglobin 13.4 progression 2.9 bun 31 crit 1.0 to Previous testing White count 5.1 hemoglobin 12.1 platelets 253 potassium 5. bun 20 crit 1.03 ProBNP 8740 EKG tracing personally reviewed by me-atrial fibrillation rate of 107 -Chest x-ray film personally reviewed by me-venous prominence cardiomegaly Assessment: -Acute on chronic congestive heart failure exacerbation from diastolic dysfunction EF 50% precipitated by A. fib with rapid ventricular rate, much improved -Severe mitral and tricuspid regurgitation -Persistent atrial fibrillation -Essential hypertension -Primary osteoarthritis -Acute gastroenteritis viral likely self-limiting -Hyperkalemia, patient is on potassium supplement, slow to respond Plan: -Changed to to oral Lasix. Other medications to continue. Pending to go to [facility].
[2019-04-22] MEDS: VERAPAMIL 40 MG TAB PO SCH ×4 (00:15→23:44)
[2019-04-22 02:27] LABS: Glucose,Whole Blood 111 mg/dL (75-99)
[2019-04-22 07:12] LABS: Glucose,Whole Blood 93 mg/dL (75-99)
[2019-04-22 07:46] LABS: HGB 12.6 gm/dL (11.4-16.0); Hypochromasia Marked; MCH 37.7 pg (25.0-35.0); MCHC 30.8 g/dL (31.0-37.0); MCV 122.4 fL (80.0-100.0); Macrocytosis Marked; Mean Platelet Volume 9.8; Platelet Count 383 k/uL (150-450); RBC 3.35 m/uL (3.80-5.40); WBC 3.7 k/uL (3.8-10.6)
[2019-04-22] MEDS: IPRATROPIUM-ALBUTEROL 3 ML NEB INHALATION SCH ×4 (08:21→20:05)
[2019-04-22] MEDS: BUDESONIDE 0.5 MG/2 ML NEBU INHALATION SCH ×2 (08:21→20:05)
[2019-04-22] MEDS: BENZONATATE 100 MG CAP PO SCH ×3 (08:50→22:01)
[2019-04-22] MEDS: FUROSEMIDE 40 MG TAB PO SCH ×2 (08:51→16:29)
[2019-04-22] MEDS: acetaZOLAMIDE 250 MG TAB PO SCH ×2 (08:51→20:24)
[2019-04-22] MEDS: SPIRONOLACTONE 25 MG TAB PO SCH (08:51)
[2019-04-22] MEDS: METOPROLOL TARTRATE 50 MG TAB PO SCH ×2 (08:51→20:24)
[2019-04-22] MEDS: MULTIVITAMINS, THERA 1 EACH TAB PO SCH (08:51)
[2019-04-22] MEDS: PANTOPRAZOLE 40 MG TABLET PO SCH (08:51)
[2019-04-22] MEDS: HYDROXYUREA 500 MG CAP PO SCH (08:51)
[2019-04-22] MEDS: ASCORBIC ACID 500 MG TAB PO SCH (08:51)
[2019-04-22] MEDS: TRIAMCINOLONE 0.1% CREAM 80 GM TUBE TOPICAL SCH ×2 (08:52→20:24)
[2019-04-22 08:53] LABS: Band Neutrophils % 2 %; Eosinophils # (M) 0.11 k/uL (0-0.7); Lymphocytes # (M) 0.44 k/uL (1.0-4.8); Monocytes # (M) 0.59 k/uL (0-1.0); Neutrophils % (M) 67 %; Nucleated Red Blood Cells 0 /100 WBC (0-0); Total Cells Counted 100
[2019-04-22 08:54] LABS: Poikilocytosis (M) Present
[2019-04-22 11:25] LABS: Glucose,Whole Blood 113 mg/dL (75-99)
--- NOTE | 2019-04-22 14:16 | P.PN ---
Subjective Progress Note Date: 04/22/19 Principal diagnosis: Heart failure This is a very pleasant 84-year-old female patient with a past medical history significant for congestive heart failure as well as long-standing persistent atrial fibrillation was admitted to the hospital with heart failure exacerbation secondary to diastole dysfunction. The patient was seen today, April 222019. She is feeling slightly better [place] shortness of breath. No symptoms of chest pain or chest discomfort. Currently she is on Lasix by mouth. Objective - Vital Signs Vital signs: Vital Signs Temp 98.5 F 04/22/19 11:36 Pulse 68 04/22/19 13:04 Resp 18 04/22/19 11:36 BP 94/59 04/22/19 11:36 Pulse Ox 99 04/22/19 11:36 Intake & Output 04/21/19 04/22/19 04/22/19 18:59 06:59 18:59 Weight 52.5 kg Other: Voiding Method Bedside Commode Bedside Commode Bedside Commode - Constitutional General appearance: Present: no acute distress - Respiratory Respiratory: bilateral: diminished - Labs CBC & Chem 7: 04/22/19 07:03 04/20/19 07:12 Labs: Abnormal Lab Results - Last 24 Hours (Table) 04/21/19 04/21/19 04/22/19 Range/Units 17:22 19:42 02:26 WBC (3.8-10.6) k/uL RBC (3.80-5.40) m/uL MCV (80.0-100.0) fL MCH (25.0-35.0) pg MCHC (31.0-37.0) g/dL RDW (11.5-15.5) % Lymphocytes # (Manual) (1.0-4.8) k/uL Macrocytosis POC Glucose (mg/dL) 136 H 132 H 111 H (75-99) mg/dL 04/22/19 04/22/19 Range/Units 07:03 11:24 WBC 3.7 L (3.8-10.6) k/uL RBC 3.35 L (3.80-5.40) m/uL MCV 122.4 H (80.0-100.0) fL MCH 37.7 H (25.0-35.0) pg MCHC 30.8 L (31.0-37.0) g/dL RDW 16.0 H (11.5-15.5) % Lymphocytes # (Manual) 0.44 L (1.0-4.8) k/uL Macrocytosis Marked A POC Glucose (mg/dL) 113 H (75-99) mg/dL Assessment and Plan Assessment: Assessment #1 congestive heart failure exacerbation secondary to diastolic dysfunction #2 long-standing persistent atrial fibrillation with a rate of the controlled heart rate #3 multiple comorbid conditions Plan #1 continue Lasix by mouth #2 no need for further cardiac workup and will follow-up with the patient on when necessary case
[2019-04-22 17:12] LABS: Glucose,Whole Blood 105 mg/dL (75-99)
[2019-04-22 20:27] LABS: Glucose,Whole Blood 120 mg/dL (75-99)
--- NOTE | 2019-04-22 21:13 | P.PN ---
Progress Note - Text Progress Note Date: 04/22/19 Chief Complaint: Tired interval history: This is a pleasant 84-year-old patient of Dr. Barillas. Chronic stable medical conditions include severe mitral and tricuspid regurgitation, atrial fibrillation, hypertension, osteoarthritis. On Tuesday that is yesterday. Patient vomited 2. Today morning had some loose stools about 3 times. No blood. No abdominal pain. Had decreased appetite. No fever or chills. [place] tired shortness of breath. Patient is of a chronic cough some shortness of breath also. No obvious fever and chills. Tired and rundown. Not feeling well. No chest pain. admitted with-acute gastroenteritis, acute CHF exacerbations, atrial fibrillatio n with a rapid ventricular rate. Started on Lasix drip on April 18. Doing better. Today-. Sitting up in a chair. Eating about 50%. No new issues. Awaiting to go to [facility]. Daughter the bedside. Review of systems: Was done for constitutional, cardiovascular, GI, pulmonary. relevant finding as above Active Medications Acetaminophen (Tylenol Tab) 500 mg PO Q6H PRN PRN Reason: Pain Last Admin: 04/21/19 11:51 Dose: 500 mg Documented by: Acetazolamide (Diamox) 250 mg PO BID [facility] Last Admin: 04/22/19 20:24 Dose: 250 mg Documented by: Albuterol/Ipratropium (Duoneb 0.5 Mg-3 Mg/3 Ml Soln) 3 ml INHALATION RT-QID [facility] Last Admin: 04/22/19 20:05 Dose: 3 ml Documented by: Albuterol/Ipratropium (Duoneb 0.5 Mg-3 Mg/3 Ml Soln) 3 ml INHALATION RT-Q2H PRN PRN Reason: Shortness Of Breath Or Wheezing Last Admin: 04/17/19 04:52 Dose: 3 ml Documented by: Alprazolam (Xanax) 0.25 mg PO BID PRN PRN Reason: Anxiety Last Admin: 04/17/19 21:20 Dose: 0.25 mg Documented by: Ascorbic Acid (Vitamin C) 500 mg PO DAILY [facility] Last Admin: 04/22/19 08:51 Dose: 500 mg Documented by: Benzonatate (Tessalon Perles) 200 mg PO TID [facility] Last Admin: 04/22/19 16:29 Dose: 200 mg Documented by: Budesonide (Pulmicort) 0.5 mg INHALATION RT-BID [facility] Last Admin: 04/22/19 20:05 Dose: 0.5 mg Documented by: Fluticasone Propionate (Flonase Nasal [place]) 2 spray EA NOSTRIL DAILY PRN PRN Reason: Allergy Symptoms Furosemide (Lasix) 40 mg PO BID@0900,1600 [facility] Last Admin: 04/22/19 16:29 Dose: 40 mg Documented by: Hydroxyurea (Hydrea) 500 mg PO DAILY [facility] Last Admin: 04/22/19 08:51 Dose: 500 mg Documented by: Metoprolol Tartrate (Lopressor) 100 mg PO BID [facility] Last Admin: 04/22/19 20:24 Dose: 100 mg Documented by: Multivitamins (Theragran) 1 each PO DAILY [facility] Last Admin: 04/22/19 08:51 Dose: 1 each Documented by: Pantoprazole Sodium (Protonix) 40 mg PO AC-BRKFST [facility] Last Admin: 04/22/19 08:51 Dose: 40 mg Documented by: Spironolactone (Aldactone) 25 mg PO DAILY [facility] Last Admin: 04/22/19 08:51 Dose: 25 mg Documented by: Triamcinolone Acetonide (Kenalog) 1 applic TOPICAL BID [facility] Last Admin: 04/22/19 20:24 Dose: 1 applic Documented by: Verapamil HCl (Isoptin) 40 mg PO TID [facility] Last Admin: 04/22/19 16:29 Dose: 40 mg Documented by: Physical examination: VITAL SIGNS: 98.5, 67, 18, 84/59, 99% on 2 L GENERAL: Sitting up in a chair, comfortable EYES: Pupils equal. Conjunctiva normal. HEENT: External appearance of nose and ears normal, oral cavity grossly normal. NECK: JVD not raised; masses not palpable. HEART: Heart sounds irregular; no edema. LUNGS: Respiratory rate normal, decreased breath sounds ABDOMEN: Soft, nontender, liver spleen not palpable, no masses palpable. PSYCH: [Alert and oriented x3; mood and affect anxious l. MUSCULAR skeletal: Evidence of OA INVESTIGATIONS, reviewed in the clinical context: White count 3.7 hemoglobin 12.6 platelets 383 Previous testing White count 5.1 hemoglobin 12.1 platelets 253 potassium 5. bun 20 crit 1.03 ProBNP 8740 EKG tracing personally reviewed by me-atrial fibrillation rate of 107 -Chest x-ray film personally reviewed by me-venous prominence cardiomegaly Assessment: -Acute on chronic congestive heart failure exacerbation from diastolic dysfunction EF 50% precipitated by A. fib with rapid ventricular rate, much improved -Severe mitral and tricuspid regurgitation -Persistent atrial fibrillation -Essential hypertension -Primary osteoarthritis -Acute gastroenteritis viral likely self-limiting -Hyperkalemia, patient is on potassium supplement, slow to respond Plan: Stable. Continue current meds. Hoping to go to [facility] tomorrow.
[2019-04-22 21:54] LABS: Calcium 8.9 mg/dL (8.4-10.2); Potassium 3.5 mmol/L (3.5-5.1)
[2019-04-23 02:57] LABS: Glucose,Whole Blood 107 mg/dL (75-99)
[2019-04-23 04:47] VITALS: BP 109/72; RESP 18; TEMP 97.9
[2019-04-23 06:51] LABS: Glucose,Whole Blood 96 mg/dL (75-99)
[2019-04-23] MEDS: MULTIVITAMINS, THERA 1 EACH TAB PO SCH (07:25)
[2019-04-23] MEDS: ASCORBIC ACID 500 MG TAB PO SCH (07:25)
[2019-04-23] MEDS: HYDROXYUREA 500 MG CAP PO SCH (07:26)
[2019-04-23] MEDS: PANTOPRAZOLE 40 MG TABLET PO SCH (07:26)
[2019-04-23] MEDS: METOPROLOL TARTRATE 50 MG TAB PO SCH (07:26)
[2019-04-23] MEDS: BENZONATATE 100 MG CAP PO SCH (07:26)
[2019-04-23] MEDS: acetaZOLAMIDE 250 MG TAB PO SCH (07:26)
[2019-04-23] MEDS: VERAPAMIL 40 MG TAB PO SCH (07:27)
[2019-04-23] MEDS: SPIRONOLACTONE 25 MG TAB PO SCH (07:27)
[2019-04-23] MEDS: FUROSEMIDE 40 MG TAB PO SCH (07:27)
[2019-04-23] MEDS: TRIAMCINOLONE 0.1% CREAM 80 GM TUBE TOPICAL SCH (07:28)
[2019-04-23] MEDS: BUDESONIDE 0.5 MG/2 ML NEBU INHALATION SCH (07:30)
[2019-04-23] MEDS: IPRATROPIUM-ALBUTEROL 3 ML NEB INHALATION SCH ×2 (07:30→11:04)
[2019-04-23 11:05] LABS: Glucose,Whole Blood 129 mg/dL (75-99)
[2019-04-23 11:15] VITALS: PULSE 80
--- NOTE | 2019-04-23 12:33 | P.DS ---
Providers Date of admission: 04/15/19 13:04 Expected date of discharge: 04/23/19 Attending physician: Ryder Macdonlad Consults: 04/15/19 13:04 Consult Physician Routine Consulting Provider: Efrain Matias Consult Reason/Comments: History of melanoma Do you want consulting provider notified?: Yes 04/16/19 17:16 Consult Physician Routine Consulting Provider: Yasmine Quintana Consult Reason/Comments: known, pt, cardiac enlargement Do you want consulting provider notified?: Yes, Notify in am 04/17/19 12:18 Consult Physician Routine Consulting Provider: Jose Mccloud Consult Reason/Comments: shortness of breath, chronic cough Do you want consulting provider notified?: Yes 04/18/19 12:50 Consult Physician Routine Consulting Provider: Kike Velazquez Consult Reason/Comments: pericardial effusion Do you want consulting provider notified?: Already Contacted Primary care physician: [facility] Course: Chief Complaint: Tired Hospital course: This is a pleasant 84-year-old patient of Dr. Barillas. Chronic stable medical conditions include severe mitral and tricuspid regurgitation, atrial fibrillation, hypertension, osteoarthritis. Essential thrombocythemia and melanoma of the face. On Tuesday that is yesterday. Patient vomited 2. Today morning had some loose stools about 3 times. No blood. No abdominal pain. Had decreased appetite. No fever or chills. [place] tired shortness of breath. Patient is of a chronic cough some shortness of breath also. No obvious fever and chills. Tired and rundown. Not feeling well. No chest pain. She's also being treated for melanoma of the face by Dr. Khan. admitted with-acute gastroenteritis, acute CHF exacerbations, atrial fibrillation with a rapid ventricular rate. Started on Lasix drip on April 18. Doing better. Breathing much improved. Eating better. On oral Lasix. Prognosis guarded. Patient found to have pericardial effusion on the 2-D echo. Not for any further intervention per cardio thoracic surgery. Today-. Eating fairly okay. Eating about 50%. Breathing stable. Tired. No new issues. Consultation: Dr. Silverio from [facility] Dr. Mccloud from pulmonary Dr. Velazquez from cardiothoracic surgery. Physical examination: VITAL SIGNS: 98.5, 67, 18, 84/59, 99% on 2 L GENERAL: Sitting up in a chair, comfortable EYES: Pupils equal. Conjunctiva normal. HEENT: External appearance of nose and ears normal, oral cavity grossly normal. NECK: JVD not raised; masses not palpable. HEART: Heart sounds irregular; no edema. LUNGS: Respiratory rate normal, decreased breath sounds ABDOMEN: Soft, nontender, liver spleen not palpable, no masses palpable. PSYCH: [Alert and oriented x3; mood and affect anxious l. MUSCULAR skeletal: Evidence of OA INVESTIGATIONS, reviewed in the clinical context: White count 3.7 hemoglobin 12.6 platelets 383 Previous testing White count 5.1 hemoglobin 12.1 platelets 253 potassium 5. bun 20 crit 1.03 ProBNP 8740 EKG tracing personally reviewed by me-atrial fibrillation rate of 107 -Chest x-ray film personally reviewed by me-venous prominence cardiomegaly Assessment: -Acute on chronic congestive heart failure exacerbation from diastolic dysfunction EF 50% precipitated by A. fib with rapid ventricular rate, much improved -Severe mitral and tricuspid regurgitation -Persistent atrial fibrillation -Pericardial effusion, cause unknown, not for any further intervention -Essential thrombocythemia on hydroxyurea -Melanoma of the face being followed by Dr. Khan, with immunotherapy -Essential hypertension -Primary osteoarthritis -Acute gastroenteritis viral likely self-limiting -Hyperkalemia, patient is on potassium supplement, slow to respond [facility] Patient Condition at Discharge: Stable Plan - Discharge Summary Discharge Rx Participant: No New Discharge Prescriptions: New Ipratropium-Albuterol Nebulize [Duoneb 0.5 mg-3 mg/3 ml Soln] 3 ml INHALATION RT-QID ampul.neb Verapamil [Isoptin] 40 mg PO TID tab Triamcinolone 0.1% Cream [Kenalog 0.1% Cream] 1 applic TOPICAL BID applic Furosemide [Lasix] 40 mg PO BID@0900,1600 tab Famotidine [Pepcid] 20 mg PO BID #1 tablet Continue Hydroxyurea [Hydrea] 500 mg PO Q48H Multivit-Min/FA/Lycopen/Lutein [Centrum Silver Tablet] 1 tab PO DAILY Ascorbic Acid [Vitamin C] 500 mg PO DAILY Potassium Chloride ER [K-Dur 10] 10 meq PO BID Metoprolol Tartrate [Lopressor] 100 mg PO BID ALPRAZolam [Xanax] 0.25 mg PO HS PRN #3 tab PRN Reason: Anxiety Discontinued Furosemide [Lasix] 40 mg PO DAILY No Action Apixaban [Eliquis] 5 mg PO BID #60 tab Discharge Medication List Ascorbic Acid [Vitamin C] 500 mg PO DAILY 08/03/17 [History] Hydroxyurea [Hydrea] 500 mg PO Q48H 08/03/17 [History] Multivit-Min/FA/Lycopen/Lutein [Centrum Silver Tablet] 1 tab PO DAILY 08/03/17 [History] Apixaban [Eliquis] 5 mg PO BID #60 tab 08/05/17 [Rx] Potassium Chloride ER [K-Dur 10] 10 meq PO BID 05/21/18 [History] Metoprolol Tartrate [Lopressor] 100 mg PO BID 04/15/19 [History] ALPRAZolam [Xanax] 0.25 mg PO HS PRN #3 tab 04/23/19 [Rx] Famotidine [Pepcid] 20 mg PO BID #1 tablet 04/23/19 [Rx] Furosemide [Lasix] 40 mg PO BID@0900,1600 tab 04/23/19 [Rx] Ipratropium-Albuterol Nebulize [Duoneb 0.5 mg-3 mg/3 ml Soln] 3 ml INHALATION RT-QID ampul.neb 04/23/19 [Rx] Triamcinolone 0.1% Cream [Kenalog 0.1% Cream] 1 applic TOPICAL BID applic 04/23/19 [Rx] Verapamil [Isoptin] 40 mg PO TID tab 04/23/19 [Rx] Follow up Appointment(s)/Referral(s): Kike Barillas MD [Primary Care Provider] - 3 Days Efrain Matias MD [STAFF PHYSICIAN] - 05/04/19 9:45 am
--- NOTE | 2019-04-23 17:07 | P.PN ---
Subjective Progress Note Date: 04/23/19 Principal diagnosis: ET and melanoma, on treatment Patient is stable today, no fevers, nausea, chest pain, eating fair, going to rehab. Objective - Vital Signs Vital signs: Vital Signs Temp 97.9 F 04/23/19 04:46 Pulse 80 04/23/19 11:15 Resp 18 04/23/19 04:46 BP 109/72 04/23/19 04:46 Pulse Ox 98 04/23/19 07:34 Intake & Output 04/22/19 04/23/19 04/23/19 18:59 06:59 18:59 Weight 52.8 kg Other: Voiding Method Bedside Commode Bedside Commode Bedside Commode - Constitutional General appearance: Present: average body habitus, cooperative, no acute distress - EENT Eyes: Present: anicteric sclerae, EOMI ENT: Present: hearing grossly normal - Respiratory Respiratory: bilateral: diminished - Cardiovascular Heart sounds: normal: S1, S2 Abnormal Heart Sounds: Present: systolic murmur - Peripheral edema leg Peripheral Edema: bilateral: Trace - Gastrointestinal General gastrointestinal: Present: normal bowel sounds, soft - Neurologic Neurologic: Present: CNII-XII intact - Musculoskeletal Musculoskeletal: Present: generalized weakness - Psychiatric Psychiatric: Present: A&O x's 3, appropriate affect, intact judgment & insight - Labs CBC & Chem 7: 04/22/19 07:03 04/22/19 21:25 Labs: Abnormal Lab Results - Last 24 Hours (Table) 04/22/19 04/22/19 04/22/19 Range/Units 17:10 20:25 21:25 Sodium 130 L (137-145) mmol/L Chloride 92 L (98-107) mmol/L BUN 33 H (7-17) mg/dL Creatinine 1.28 H (0.52-1.04) mg/dL Glucose 130 H (74-99) mg/dL POC Glucose (mg/dL) 105 H 120 H (75-99) mg/dL 04/23/19 04/23/19 Range/Units 02:56 11:03 Sodium (137-145) mmol/L Chloride (98-107) mmol/L BUN (7-17) mg/dL Creatinine (0.52-1.04) mg/dL Glucose (74-99) mg/dL POC Glucose (mg/dL) 107 H 129 H (75-99) mg/dL Assessment and Plan (1) Essential thrombocythemia Narrative/Plan: On hydrea, cont at current dose, platelets stable Status: Chronic Priority: Medium Code(s): D47.3 - ESSENTIAL (HEMORRHAGIC) THROMBOCYTHEMIA SNOMED Code(s): 749143528 (2) Melanoma Narrative/Plan: Nivolumab on 04/05/19. Pt has been on since 08/2017 with no disease recurrence or metastasis. Resp symptoms not r/t immunotherapy, high resolution CT negative for pneumonitis. Pt being worked up and treated for symptoms Patient and daughter asked me about delay in immunotherapy as patient is going to participate in rehabilitation. It is felt that immunotherapy continues to stimulate the immune system, even if some doses are not on time/missed. No treatment until patient has completed rehabilitation and been discharged home is still the plan. Status: Acute Code(s): C43.9 - MALIGNANT MELANOMA OF SKIN, UNSPECIFIED SNOMED Code(s): 387666092
== END 2019-04-23 14:15 | DRG 292 ==
LOC: EC 10:53 → 5NMEDONC 13:04
PROVIDERS: ADMIT Hospitalist; ATTEND Hospitalist
DX: I11.0 Hypertensive heart disease with heart failure (principal); I48.11 Longstanding persistent atrial fibrillation; I31.3 Pericardial effusion (noninflammatory); E87.1 Hypo-osmolality and hyponatremia; I50.33 Acute on chronic diastolic (congestive) heart failure; I27.20 Pulmonary hypertension, unspecified; C43.39 Malignant melanoma of other parts of face; I08.1 Rheumatic disorders of both mitral and tricuspid valves; F41.9 Anxiety disorder, unspecified; A08.4 Viral intestinal infection, unspecified; E87.5 Hyperkalemia; D47.3 Essential (hemorrhagic) thrombocythemia; I25.10 Atherosclerotic heart disease of native coronary artery without angina pectoris; M47.812 Spondylosis without myelopathy or radiculopathy, cervical region; E16.2 Hypoglycemia, unspecified; J98.01 Acute bronchospasm; Z71.3 Dietary counseling and surveillance; Z79.899 Other long term (current) drug therapy; Z79.01 Long term (current) use of anticoagulants; Z85.828 Personal history of other malignant neoplasm of skin; Z98.890 Other specified postprocedural states; Z92.3 Personal history of irradiation; Z86.2 Personal history of diseases of the blood and blood-forming organs and certain disorders involving the immune mechanism; Z83.79 Family history of other diseases of the digestive system; Z82.3 Family history of stroke; Z82.61 Family history of arthritis
CPT/HCPCS: 36415; 71046; 71250; 80048; 80053; 82533; 82550; 83735; 83880; 84484; 85025; 85027; 85379; 85610; 85730; 93005; 93306; 94640; 94760; 96374; 96375; 99285

== ENCOUNTER 2019-05-12 17:48 | Inpatient (IN) | payer MEDICARE, BC ==
[2019-05-12] MEDS ORDERED: SODIUM CHLORIDE 0.9% 500 ML 500 ML IV STA (18:13)
[2019-05-12] MEDS ORDERED: ONDANSETRON 4 MG/2 ML VIAL IVP STA (18:13)
--- NOTE | 2019-05-12 19:24 | XR ---
EXAMINATION TYPE: XR chest 2V DATE OF EXAM: 05/12/2019 COMPARISON: 04/20/2019 HISTORY: Follow-up heart failure TECHNIQUE: 2 views FINDINGS: Heart is enlarged. There is pulmonary vascular congestion. There is some blunting of the co stophrenic angles. Thoracic aorta is atheromatous. IMPRESSION: Mild congestive heart failure. Pulmonary congestion increased compared to old exam.
--- NOTE | 2019-05-12 19:39 | ED ---
General Adult HPI - General Chief complaint: Weakness Stated complaint: weakness Time Seen by Provider: 05/12/19 18:00 Source: patient, EMS Mode of arrival: EMS Limitations: no limitations - History of Present Illness Initial comments: Patient is a 4 year female with past medical history of atrial fibrillation, congestive heart failure who presents to the emergency department from [facility]. Patient presents for generalized weakness, nausea and vomiting for the past several days. Patient has had poor oral intake due to nausea. She normall y ambulates on her own however she has been wheelchair she has been so weak. She admits increased shortness of breath. She does have a history of congestive heart failure. States that she has been mildly short of breath. Denies any increase in lower extremity edema. She has been wearing oxygen at rehab. There are no alleviating, Percepting or modifying factors - Related Data Home Medications Medication Instructions Recorded Confirmed Ascorbic Acid [Vitamin C] 500 mg PO HS 08/03/17 05/12/19 Hydroxyurea [Hydrea] 500 mg PO Q48H 08/03/17 05/12/19 Multivit-Min/FA/Lycopen/Lutein 1 tab PO HS 08/03/17 05/12/19 [Centrum Silver Tablet] Potassium Chloride ER [K-Dur 10] 10 meq PO BID 05/21/18 05/12/19 Metoprolol Tartrate [Lopressor] 100 mg PO BID 04/15/19 05/12/19 Acetaminophen Tab [Tylenol] 650 mg PO Q6H PRN 05/12/19 05/12/19 Bisacodyl [Dulcolax] 10 mg RECTAL DAILY PRN 05/12/19 05/12/19 Furosemide [Lasix] 40 mg PO BID 05/12/19 05/12/19 [place] Susp 30 ml PO Q4H PRN 05/12/19 05/12/19 Lansoprazole 15 mg PO DAILY 05/12/19 05/12/19 Menthol [Biofreeze] 1 applic TOPICAL BID 05/12/19 05/12/19 Polyethylene Glycol 3350 [Miralax] 17 gm PO HS@199905/12/19 05/12/19 Promethazine HCl 12.5 mg PO Q6H PRN 05/12/19 05/12/19 Sennosides [Senna] 8.6 mg PO HS@199905/12/19 05/12/19 Verapamil [Isoptin] 40 mg PO TID@0700,1300,1900 05/12/19 05/12/19 Previous Rx's Medication Instructions Recorded Apixaban [Eliquis] 5 mg PO BID #60 tab 08/05/17 Ipratropium-Albuterol Nebulize 3 ml INHALATION RT-QID ampul.neb 04/23/19 [Duoneb 0.5 mg-3 mg/3 ml Soln] ALPRAZolam [Xanax] 0.25 mg PO HS PRN #3 tab 05/17/19 Allergies Allergy/AdvReac Type Severity Reaction Status Date / Time No Known Allergies Allergy Verified 05/12/19 22:47 Review of Systems ROS Statement: Those systems with pertinent positive or pertinent negative responses have been documented in the HPI. ROS Other: All systems not noted in ROS Statement are negative. 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 History of Any Multi-Drug Resistant Organisms: None Reported Past Surgical History: Section Additional Past Surgical History / Comment(s): melanoma removed from left cheek and basal cell cancer removed from nose, D&C Past Anesthesia/Blood Transfusion Reactions: No Reported Reaction Additional Past Anesthesia/Blood Transfusion Reaction / Comment(s): Pt received blood with child without reaction. Past Psychological History: No Psychological Hx Reported Smoking Status: Never smoker Past Alcohol Use History: None Reported Past Drug Use History: None Reported - Past Family History Father Family Medical History: CVA/TIA Additional Family Medical History / Comment(s): Father of a CVA at the age of 30yrs. Mother Family Medical History: Osteoarthritis (OA) Additional Family Medical History / Comment(s): Mother had a hiatal hernia. General Exam Limitations: no limitations General appearance: alert, in no apparent distress Head exam: Present: atraumatic, normocephalic, normal inspection Eye exam: Present: normal appearance, PERRL, EOMI. Absent: scleral icterus, conjunctival injection, periorbital swelling ENT exam: Present: normal exam, mucous membranes moist Neck exam: Present: normal inspection. Absent: tenderness, meningismus, lymphadenopathy Respiratory exam: Present: normal lung sounds bilaterally. Absent: respiratory distress, wheezes, rales, rhonchi, stridor Cardiovascular Exam: Present: regular rate, normal rhythm, normal heart sounds. Absent: systolic murmur, diastolic murmur, rubs, gallop, clicks GI/Abdominal exam: Present: soft, normal bowel sounds. Absent: distended, tenderness, guarding, rebound, rigid Extremities exam: Present: normal inspection, full ROM, normal capillary refill. Absent: tenderness, pedal edema, joint swelling, calf tenderness Back exam: Present: normal inspection Neurological exam: Present: alert, oriented X3, CN II-XII intact Psychiatric exam: Present: normal affect, normal mood Skin exam: Present: warm, dry, intact, normal color. Absent: rash Course Vital Signs 05/12/19 05/12/19 05/12/19 18:00 19:30 21:00 Temperature 97.8 F Pulse Rate 67 70 67 Respiratory 18 16 18 Rate Blood Pressure 106/61 118/65 132/72 O2 Sat by Pulse 97 97 96 Oximetry 05/12/19 05/12/19 22:00 23:03 Temperature Pulse Rate 60 68 Respiratory 18 16 Rate Blood Pressure 118/69 121/69 O2 Sat by Pulse 97 96 Oximetry EKG Findings - EKG Comments: EKG Findings:: EKG demonstrates a junctional rhythm with a rate of 59. QRS 80. QTC of 439. No acute ST segment elevations or depressions concerning for ischemic changes. Medical Decision Making - Medical Decision Making Upon arrival the patient was placed into room 6. A thorough history and physical exam is performed. Lab status were conducted and the patient provided a urine sample. CMP is remarkable for sodium of 127. BNP is 5150. UA is negative. Chest x-ray does demonstrate signs of mild congestive heart failure. CT the patient's abdomen and pelvis was performed because of her reported abdominal p ain which demonstrates no acute findings. I discussed results with the patient and family. Because of her weakness that he would benefit from overnight observation. We'll continue to hydrate the patient slow rate of 50 mL per hour. I will consult PT. Patient remained in stable condition awaiting a bed on the floor - Lab Data Result diagrams: 05/13/19 09:01 05/17/19 09:14 Lab Results 05/12/19 05/12/19 05/12/19 Range/Units 19:44 19:44 19:44 WBC (3.8-10.6) k/uL RBC (3.80-5.40) m/uL Hgb (11.4-16.0) gm/dL Hct (34.0-46.0) % MCV (80.0-100.0) fL MCH (25.0-35.0) pg MCHC (31.0-37.0) g/dL RDW (11.5-15.5) % Plt Count (150-450) k/uL Neutrophils % (Manual) % Band Neutrophils % % Lymphocytes % (Manual) % Monocytes % (Manual) % Eosinophils % (Manual) % Neutrophils # (Manual) (1.3-7.7) k/uL Lymphocytes # (Manual) (1.0-4.8) k/uL Monocytes # (Manual) (0-1.0) k/uL Eosinophils # (Manual) (0-0.7) k/uL Nucleated RBCs (0-0) /100 WBC Manual Slide Review Large Platelets Polychromasia Hypochromasia Anisocytosis (manual) Macrocytosis PT 17.6 H (9.0-12.0) sec INR 1.8 H (<1.2) APTT 35.2 H (22.0-30.0) sec Sodium 127 L (137-145) mmol/L Potassium 4.7 (3.5-5.1) mmol/L Chloride 94 L (98-107) mmol/L Carbon Dioxide 24 (22-30) mmol/L Anion Gap 9 mmol/L BUN 26 H (7-17) mg/dL Creatinine 0.82 (0.52-1.04) mg/dL Est GFR (CKD-EPI)AfAm 75 (>60 ml/min/1.73 sqM) Est GFR (CKD-EPI)NonAf 65 (>60 ml/min/1.73 sqM) Glucose 75 (74-99) mg/dL Plasma Lactic Acid Jd 1.5 (0.7-2.0) mmol/L Calcium 8.7 (8.4-10.2) mg/dL Total Bilirubin 1.5 H (0.2-1.3) mg/dL AST 32 (14-36) U/L ALT 14 (4-34) U/L Alkaline Phosphatase 183 H (38-126) U/L Creatine Kinase <20 L (30-135) U/L Troponin I (0.000-0.034) ng/mL NT-Pro-B Natriuret Pep pg/mL Total Protein 6.1 L (6.3-8.2) g/dL Albumin 2.8 L (3.5-5.0) g/dL Urine Color Urine Appearance (Clear) Urine pH (5.0-8.0) Ur Specific [place] (1.001-1.035) Urine Protein (Negative) Urine Glucose (UA) (Negative) Urine Ketones (Negative) Urine Blood (Negative) Urine Nitrite (Negative) Urine Bilirubin (Negative) Urine Urobilinogen (<2.0) mg/dL Ur Leukocyte Esterase (Negative) 05/12/19 05/12/19 05/12/19 Range/Units 19:44 19:44 20:16 WBC (3.8-10.6) k/uL RBC (3.80-5.40) m/uL Hgb (11.4-16.0) gm/dL Hct (34.0-46.0) % MCV (80.0-100.0) fL MCH (25.0-35.0) pg MCHC (31.0-37.0) g/dL RDW (11.5-15.5) % Plt Count (150-450) k/uL Neutrophils % (Manual) % Band Neutrophils % % Lymphocytes % (Manual) % Monocytes % (Manual) % Eosinophils % (Manual) % Neutrophils # (Manual) (1.3-7.7) k/uL Lymphocytes # (Manual) (1.0-4.8) k/uL Monocytes # (Manual) (0-1.0) k/uL Eosinophils # (Manual) (0-0.7) k/uL Nucleated RBCs (0-0) /100 WBC Manual Slide Review Large Platelets Polychromasia Hypochromasia Anisocytosis (manual) Macrocytosis PT (9.0-12.0) sec INR (<1.2) APTT (22.0-30.0) sec Sodium (137-145) mmol/L Potassium (3.5-5.1) mmol/L Chloride (98-107) mmol/L Carbon Dioxide (22-30) mmol/L Anion Gap mmol/L BUN (7-17) mg/dL Creatinine (0.52-1.04) mg/dL Est GFR (CKD-EPI)AfAm (>60 ml/min/1.73 sqM) Est GFR (CKD-EPI)NonAf (>60 ml/min/1.73 sqM) Glucose (74-99) mg/dL Plasma Lactic Acid Jd (0.7-2.0) mmol/L Calcium (8.4-10.2) mg/dL Total Bilirubin (0.2-1.3) mg/dL AST (14-36) U/L ALT (4-34) U/L Alkaline Phosphatase (38-126) U/L Creatine Kinase (30-135) U/L Troponin I <0.012 (0.000-0.034) ng/mL NT-Pro-B Natriuret Pep 5150 pg/mL Total Protein (6.3-8.2) g/dL Albumin (3.5-5.0) g/dL Urine Color Yellow Urine Appearance Clear (Clear) Urine pH 5.5 (5.0-8.0) Ur Specific [place] 1.012 (1.001-1.035) Urine Protein Negative (Negative) Urine Glucose (UA) Negative (Negative) Urine Ketones Negative (Negative) Urine Blood Negative (Negative) Urine Nitrite Negative (Negative) Urine Bilirubin Negative (Negative) Urine Urobilinogen <2.0 (<2.0) mg/dL Ur Leukocyte Esterase Negative (Negative) 05/12/19 Range/Units 22:18 WBC 4.2 (3.8-10.6) k/uL RBC 2.62 L (3.80-5.40) m/uL Hgb 9.9 L D (11.4-16.0) gm/dL Hct 31.1 L (34.0-46.0) % MCV 119.0 H (80.0-100.0) fL MCH 37.7 H (25.0-35.0) pg MCHC 31.7 (31.0-37.0) g/dL RDW 15.8 H (11.5-15.5) % Plt Count 397 (150-450) k/uL Neutrophils % (Manual) 61 % Band Neutrophils % 7 % Lymphocytes % (Manual) 15 % Monocytes % (Manual) 12 % Eosinophils % (Manual) 5 % Neutrophils # (Manual) 2.80 (1.3-7.7) k/uL Lymphocytes # (Manual) 0.63 L (1.0-4.8) k/uL Monocytes # (Manual) 0.50 (0-1.0) k/uL Eosinophils # (Manual) 0.21 (0-0.7) k/uL Nucleated RBCs 0 (0-0) /100 WBC Manual Slide Review Performed Large Platelets Present Polychromasia Present Hypochromasia Marked Anisocytosis (manual) Present Macrocytosis Marked A PT (9.0-12.0) sec INR (<1.2) APTT (22.0-30.0) sec Sodium (137-145) mmol/L Potassium (3.5-5.1) mmol/L Chloride (98-107) mmol/L Carbon Dioxide (22-30) mmol/L Anion Gap mmol/L BUN (7-17) mg/dL Creatinine (0.52-1.04) mg/dL Est GFR (CKD-EPI)AfAm (>60 ml/min/1.73 sqM) Est GFR (CKD-EPI)NonAf (>60 ml/min/1.73 sqM) Glucose (74-99) mg/dL Plasma Lactic Acid Jd (0.7-2.0) mmol/L Calcium (8.4-10.2) mg/dL Total Bilirubin (0.2-1.3) mg/dL AST (14-36) U/L ALT (4-34) U/L Alkaline Phosphatase (38-126) U/L Creatine Kinase (30-135) U/L Troponin I (0.000-0.034) ng/mL NT-Pro-B Natriuret Pep pg/mL Total Protein (6.3-8.2) g/dL Albumin (3.5-5.0) g/dL Urine Color Urine Appearance (Clear) Urine pH (5.0-8.0) Ur Specific [place] (1.001-1.035) Urine Protein (Negative) Urine Glucose (UA) (Negative) Urine Ketones (Negative) Urine Blood (Negative) Urine Nitrite (Negative) Urine Bilirubin (Negative) Urine Urobilinogen (<2.0) mg/dL Ur Leukocyte Esterase (Negative) Disposition Clinical Impression: Chronic atrial fibrillation, Hyponatremia, Generalized weakness, CHF (congestive heart failure) Disposition: ADMITTED IP TO THIS HOSP Condition: Stable Is patient prescribed a controlled substance at d/c from ED?: No Decision to Admit Reason: Admit from EC Decision Date: 05/12/19 Decision Time: 22:29
[2019-05-12 20:05] LABS: INR 1.8 (<1.2); Partial Thromboplastin Time 35.2 sec (22.0-30.0); Prothrombin Time 17.6 sec (9.0-12.0)
[2019-05-12 21:00] LABS: Appearance,Urine Clear (Clear); Bilirubin,Urine Negative (Negative); Blood,Urine Negative (Negative); Color,Urine Yellow; Glucose,Urine (UA) Negative (Negative); Ketones,Urine Negative (Negative); Leukocyte Esterase,Urine Negative (Negative); Nitrite,Urine Negative (Negative); PH, Urine 5.5 (5.0-8.0); Protein,Urine Negative (Negative); Specific Gravity,Urine 1.012 (1.001-1.035); Urobilinogen,Urine <2.0 mg/dL (<2.0)
[2019-05-12 21:02] LABS: ALT 14 U/L (4-34); AST 32 U/L (14-36); African American GFR (CKD) 75 (>60 ml/min/1.73 sqM); Albumin 2.8 g/dL (3.5-5.0); Alkaline Phosphatase 183 U/L (38-126); Anion Gap 9 mmol/L; Blood Urea Nitrogen 26 mg/dL (7-17); Calcium 8.7 mg/dL (8.4-10.2); Carbon Dioxide 24 mmol/L (22-30); Chloride 94 mmol/L (98-107); Creatine Kinase <20 U/L (30-135); Glucose 75 mg/dL (74-99); Non-African American GFR(CKD) 65 (>60 ml/min/1.73 sqM); Potassium 4.7 mmol/L (3.5-5.1); Sodium 127 mmol/L (137-145); Total Bilirubin 1.5 mg/dL (0.2-1.3); Total Protein 6.1 g/dL (6.3-8.2)
--- NOTE | 2019-05-12 21:53 | CT ---
EXAMINATION TYPE: CT abdomen pelvis w con DATE OF EXAM: 05/12/2019 COMPARISON: None HISTORY: Abdominal pain, vomiting and diarrhea. CT DLP: 716 mGycm Automated exposure control for dose reduction was used. CONTRAST: Performed with IV Contrast, patient injected with 80ml mL of Isovue 300. Multiple axial sections were obtained from the diaphragm to the floor the pelvis with intravenous con trast Isovue 80 mL. FINDINGS: There is bilateral pleural effusions. Heart is enlarged. There is pericardial effusion. There is bila teral basilar atelectasis. Liver shows no focal defect. Spleen is intact. There is no pancreatic mass. Gallbladder is distended and measures 3.6 cm in diameter. The bile ducts are not dilated. There is no adrenal mass. Kidneys show satisfactory contrast opacification. There is no hydronephrosi s. Ureters are not dilated. Bladder distends smoothly. Urinary bladder is distended and measures 13.5 cm. Uterus is anteverted. There is no free fluid in the pelvis. There is no mesenteric edema. There is no ascites or free air. There is no sign of a bowel obstruction. Appendix is not seen. There is no sign of thickened appendix. There is multilevel spondylotic changes in the lumbar spine. I see no tomi ny destructive process. The bony pelvis appears intact. IMPRESSION: Multilevel spondylotic changes. Dilated urinary bladder could relate to bladder outlet obstruction. T here is mild to moderate sigmoid diverticulosis without diverticulitis. Pleural effusions with cardiomegaly and pericardial effusion. This could relate to chronic congestive heart failure.
[2019-05-12] MEDS ORDERED: ONDANSETRON 4 MG/2 ML VIAL IVP PRN (22:29)
[2019-05-12] MEDS ORDERED: NALOXONE 0.4 MG/ML 1 ML VIAL IV PRN (22:29)
[2019-05-12] MEDS ORDERED: SODIUM CHLORIDE 0.9% 1,000 ML IV SCH (22:30)
[2019-05-12 23:36] LABS: HCT 31.1 % (34.0-46.0); Hypochromasia Marked; MCH 37.7 pg (25.0-35.0); MCHC 31.7 g/dL (31.0-37.0); Macrocytosis Marked; Platelet Count 397 k/uL (150-450); RBC 2.62 m/uL (3.80-5.40); RDW 15.8 % (11.5-15.5); WBC 4.2 k/uL (3.8-10.6)
[2019-05-12 23:43] LABS: HGB 9.9 gm/dL (11.4-16.0)
[2019-05-13 02:13] LABS: Anisocytosis (M) Present; Band Neutrophils % 7 %; Eosinophils # (M) 0.21 k/uL (0-0.7); Large Platelets Present; Lymphocytes # (M) 0.63 k/uL (1.0-4.8); Neutrophils % (M) 61 %; Nucleated Red Blood Cells 0 /100 WBC (0-0); Polychromasia Present; Total Cells Counted 100
[2019-05-13 09:47] LABS: Basophils # (A) 0.1 k/uL (0-0.2); Basophils % (A) 2 %; Eosinophils % (A) 1 %; HCT 34.7 % (34.0-46.0); HGB 10.7 gm/dL (11.4-16.0); Hypochromasia Moderate; Lymphocytes # (A) 0.5 k/uL (1.0-4.8); Lymphocytes % (A) 12 %; MCH 36.5 pg (25.0-35.0); MCHC 30.9 g/dL (31.0-37.0); Macrocytosis Marked; Mean Platelet Volume 9.5; Monocytes # (A) 0.4 k/uL (0-1.0); Monocytes % (A) 9 %; Neutrophils # (A) 3.2 k/uL (1.3-7.7); Neutrophils % (A) 73 %; Platelet Count 416 k/uL (150-450); RBC 2.95 m/uL (3.80-5.40); RDW 15.9 % (11.5-15.5); WBC 4.4 k/uL (3.8-10.6)
[2019-05-13 09:51] LABS: African American GFR (CKD) >90 (>60 ml/min/1.73 sqM); Anion Gap 11 mmol/L; Blood Urea Nitrogen 18 mg/dL (7-17); Calcium 8.7 mg/dL (8.4-10.2); Carbon Dioxide 22 mmol/L (22-30); Chloride 95 mmol/L (98-107); Glucose 99 mg/dL (74-99); Non-African American GFR(CKD) 81 (>60 ml/min/1.73 sqM); Potassium 4.4 mmol/L (3.5-5.1); Sodium 128 mmol/L (137-145)
[2019-05-13 10:40] LABS: Large Platelets Present
[2019-05-13 10:41] LABS: Polychromasia Present
[2019-05-13] MEDS: HYDROXYUREA 500 MG CAP PO SCH (13:30)
[2019-05-13] MEDS: APIXABAN 5 MG TAB PO SCH ×2 (13:30→20:23)
[2019-05-13] MEDS: IPRATROPIUM-ALBUTEROL 3 ML NEB INHALATION SCH ×2 (16:41→20:33)
[2019-05-13] MEDS: ACETAMINOPHEN TAB 325 MG TAB PO PRN (20:21)
[2019-05-13] MEDS: POLYETHYLENE GLYCOL 3350 17 GM POWD.PACK PO SCH (20:22)
[2019-05-13] MEDS: VERAPAMIL 40 MG TAB PO SCH (20:22)
[2019-05-13] MEDS: METOPROLOL TARTRATE 50 MG TAB PO SCH (20:22)
[2019-05-13] MEDS: ALPRAZolam 0.25 MG TAB PO PRN (20:22)
[2019-05-13] MEDS: ASCORBIC ACID 500 MG TAB PO SCH (20:23)
[2019-05-13] MEDS: FUROSEMIDE 40 MG TAB PO SCH (20:23)
[2019-05-13] MEDS: POTASSIUM CHLORIDE ER 10 MEQ TAB.ER.PRT PO SCH (20:23)
[2019-05-13] MEDS: SENNOSIDES 8.6 MG TAB PO SCH (20:23)
[2019-05-13 20:24] LABS: Glucose,Whole Blood 118 mg/dL (75-99)
--- NOTE | 2019-05-14 00:39 | P.HPIM ---
History of Present Illness H&P Date: 05/13/19 Chief Complaint: generalized weakness 84 year female with past medical history of atrial fibrillation, congestive heart failure who presents to the emergency department from [facility]. Patient presents for generalized weakness, nausea and vomiting for the past several days. Patient has had poor oral intake due to nausea. She normally ambulates on her own however she has been wheelchair she has been so weak. She admits increased shortness of breath. She does have a history of congestive heart year. States that she has been mildly short of breath. Denies any increase in lower extremity edema. She has been wearing oxygen at rehab. CMP is remarkable for sodium of 127. BNP is 5150. UA is negative. Chest x-ray does demonstrate signs of mild congestive heart failure. CT the patient's abdomen and pelvis was performed because of her reported abdominal pain which demonstrates no acute findings. patient is admitted to hospital for hydration and PT evaluation Review of Systems Constitutional: Denies chills, Denies fever Eyes: denies blurred vision, denies loss of vision Cardiovascular: Denies chest pain, Denies shortness of breath Respiratory: Denies cough with sputum Gastrointestinal: Reports abdominal pain, Reports nausea Genitourinary: Denies dysuria, Denies hematuria Musculoskeletal: Reports gait dysfunction, Reports low back pain Integumentary: Denies color changes, Denies rash Neurological: Denies confusion, Denies double vision Endocrine: Denies cold intolerance, Denies heat intolerance Past Medical History Past Medical History: Atrial Fibrillation, Blood Disorder, Cancer, Heart Failure, Hypertension, Osteoarthritis (OA) Additional Past Medical History / Comment(s): 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 History of Any Multi-Drug Resistant Organisms: None Reported Past Surgical History: Section Additional Past Surgical History / Comment(s): melanoma removed from left cheek and basal cell cancer removed from nose, D&C Past Anesthesia/Blood Transfusion Reactions: No Reported Reaction Additional Past Anesthesia/Blood Transfusion Reaction / Comment(s): Pt received blood with child without reaction. Past Psychological History: No Psychological Hx Reported Additional Psychological History / Comment(s): Pt resides alone. She uses no assistive device. She drives. She golfs, bowls and plays cards. Smoking Status: Never smoker Past Alcohol Use History: None Reported Past Drug Use History: None Reported - Past Family History Father Family Medical History: CVA/TIA Additional Family Medical History / Comment(s): Father of a CVA at the age of 30yrs. Mother Family Medical History: Osteoarthritis (OA) Additional Family Medical History / Comment(s): Mother had a hiatal hernia. Medications and Allergies Home Medications Medication Instructions Recorded Confirmed Type Ascorbic Acid [Vitamin C] 500 mg PO HS 08/03/17 05/12/19 History Hydroxyurea [Hydrea] 500 mg PO Q48H 08/03/17 05/12/19 History Multivit-Min/FA/Lycopen/Lutein 1 tab PO HS 08/03/17 05/12/19 History [Centrum Silver Tablet] Apixaban [Eliquis] 5 mg PO BID #60 tab 08/05/17 05/12/19 Rx Potassium Chloride ER [K-Dur 10] 10 meq PO BID 05/21/18 05/12/19 History Metoprolol Tartrate [Lopressor] 100 mg PO BID 04/15/19 05/12/19 History ALPRAZolam [Xanax] 0.25 mg PO HS PRN #3 tab 04/23/19 05/12/19 Rx Ipratropium-Albuterol Nebulize 3 ml INHALATION RT-QID ampul.neb 04/23/19 05/12/19 Rx [Duoneb 0.5 mg-3 mg/3 ml Soln] Acetaminophen Tab [Tylenol] 650 mg PO Q6H PRN 05/12/19 05/12/19 History Bisacodyl [Dulcolax] 10 mg RECTAL DAILY PRN 05/12/19 05/12/19 History Furosemide [Lasix] 40 mg PO BID 05/12/19 05/12/19 History Shara-Lanta Susp 30 ml PO Q4H PRN 05/12/19 05/12/19 History Lansoprazole 15 mg PO DAILY 05/12/19 05/12/19 History Menthol [Biofreeze] 1 applic TOPICAL BID 05/12/19 05/12/19 History Polyethylene Glycol 3350 [Miralax] 17 gm PO HS@2000 05/12/19 05/12/19 History Promethazine HCl 12.5 mg PO Q6H PRN 05/12/19 05/12/19 History Sennosides [Senna] 8.6 mg PO HS@199905/12/19 05/12/19 History Verapamil [Isoptin] 40 mg PO TID@0700,1300,1900 05/12/19 05/12/19 History Allergies Allergy/AdvReac Type Severity Reaction Status Date / Time No Known Allergies Allergy Verified 05/12/19 22:47 Physical Exam Vitals: Vital Signs Temp Pulse Pulse Resp BP BP Pulse Ox 05/13/19 05:00 98.0 F 108 H 20 123/84 97 05/12/19 23:03 68 16 121/69 96 05/12/19 22:00 60 18 118/69 97 05/12/19 21:00 67 18 132/72 96 05/12/19 19:30 70 16 118/65 97 05/12/19 18:00 97.8 F 67 18 106/61 97 Intake and Output 05/12/19 05/13/19 05/13/19 22:59 06:59 14:59 Intake Total 100 300 Balance 100 300 Intake: Oral 100 300 Other: Voiding Method Bedside Commode # Voids 2 1 Weight 57.107 kg 57.107 kg - Constitutional General appearance: no acute distress, obese - EENT Eyes: EOMI, PERRLA - Neck Neck: normal ROM - Respiratory Respiratory: bilateral: CTA, negative: rales, wheezing - Cardiovascular Rhythm: irregularly irregular Heart sounds: normal: S1, S2 - Gastrointestinal General gastrointestinal: normal bowel sounds, soft, no tenderness - Integumentary Integumentary: no jaundiced, no rash - Neurologic Alert and oriented without any focal deficit - Musculoskeletal Musculoskeletal: generalized weakness - Psychiatric Psychiatric: appropriate affect Results CBC & Chem 7: 05/13/19 09:01 05/13/19 09:01 Labs: Abnormal Lab Results - Last 24 Hours (Table) 05/12/19 05/12/19 05/12/19 Range/Units 19:44 19:44 22:18 RBC 2.62 L (3.80-5.40) m/uL Hgb 9.9 L D (11.4-16.0) gm/dL Hct 31.1 L (34.0-46.0) % MCV 119.0 H (80.0-100.0) fL MCH 37.7 H (25.0-35.0) pg MCHC (31.0-37.0) g/dL RDW 15.8 H (11.5-15.5) % Lymphocytes # (1.0-4.8) k/uL Lymphocytes # (Manual) 0.63 L (1.0-4.8) k/uL Macrocytosis Marked A PT 17.6 H (9.0-12.0) sec INR 1.8 H (<1.2) APTT 35.2 H (22.0-30.0) sec Sodium 127 L (137-145) mmol/L Chloride 94 L (98-107) mmol/L BUN 26 H (7-17) mg/dL Total Bilirubin 1.5 H (0.2-1.3) mg/dL Alkaline Phosphatase 183 H (38-126) U/L Creatine Kinase <20 L (30-135) U/L Total Protein 6.1 L (6.3-8.2) g/dL Albumin 2.8 L (3.5-5.0) g/dL 05/13/19 05/13/19 Range/Units 09:01 09:01 RBC 2.95 L (3.80-5.40) m/uL Hgb 10.7 L (11.4-16.0) gm/dL Hct (34.0-46.0) % MCV 118.0 H (80.0-100.0) fL MCH 36.5 H (25.0-35.0) pg MCHC 30.9 L (31.0-37.0) g/dL RDW 15.9 H (11.5-15.5) % Lymphocytes # 0.5 L (1.0-4.8) k/uL Lymphocytes # (Manual) (1.0-4.8) k/uL Macrocytosis Marked A PT (9.0-12.0) sec INR (<1.2) APTT (22.0-30.0) sec Sodium 128 L (137-145) mmol/L Chloride 95 L (98-107) mmol/L BUN 18 H (7-17) mg/dL Total Bilirubin (0.2-1.3) mg/dL Alkaline Phosphatase (38-126) U/L Creatine Kinase (30-135) U/L Total Protein (6.3-8.2) g/dL Albumin (3.5-5.0) g/dL Thrombosis Risk Factor Assmnt - Choose All That Apply Any of the Below Risk Factors Present?: No Other Risk Factors: Yes Each Risk Factor Represents 3 Points: Age 75 years or older Other congenital or acquired thrombophilia - If yes, enter type in comment: No Thrombosis Risk Factor Assessment Total Risk Factor Score: 3 Thrombosis Risk Factor Assessment Level: Moderate Risk Assessment and Plan Assessment: 1. Marked Hyponatremia; slow cautious hydration with NS at a rate of 75 cc/hr; will dc in next few hrs to avoid fluid overload; monitor electrolytes and renal function closely 2. Elevated BNP/ poss Exac CHF; we will continue with slow IVF hydration; monitor strict I&Os and daily weights; fluid and salt restricted diet; continue with lasix 40mg bid after adequate hydration; get 2D ECHO 3. Elevated Bilirubin; monitor LFTs and abdominal US if remains elevated 4. Hypertension; continue home dose of verapamil and metoprolol 5. Chronic Atrial Fibrillation; rate controlled with BBl and anticoagulation with eliquis 6. generalized Weakness/ Debility; PT consult DVT Ppx; systemic anticoagulation with Eliquis CODE STATUS; FULL CODE
[2019-05-14] MEDS: IPRATROPIUM-ALBUTEROL 3 ML NEB INHALATION SCH ×4 (07:57→22:13)
[2019-05-14] MEDS: METOPROLOL TARTRATE 50 MG TAB PO SCH ×2 (08:19→22:48)
[2019-05-14] MEDS: VERAPAMIL 40 MG TAB PO SCH ×3 (08:20→22:48)
[2019-05-14] MEDS: FUROSEMIDE 40 MG TAB PO SCH ×2 (08:20→22:47)
[2019-05-14] MEDS: APIXABAN 5 MG TAB PO SCH ×2 (08:20→22:48)
[2019-05-14] MEDS: POTASSIUM CHLORIDE ER 10 MEQ TAB.ER.PRT PO SCH ×2 (08:20→22:48)
[2019-05-14] MEDS: PANTOPRAZOLE 40 MG TABLET PO SCH (08:20)
[2019-05-14 09:00] LABS: African American GFR (CKD) >90 (>60 ml/min/1.73 sqM); Anion Gap 9 mmol/L; Blood Urea Nitrogen 15 mg/dL (7-17); Calcium 8.7 mg/dL (8.4-10.2); Carbon Dioxide 25 mmol/L (22-30); Chloride 97 mmol/L (98-107); Glucose 100 mg/dL (74-99); Non-African American GFR(CKD) 83 (>60 ml/min/1.73 sqM); Potassium 3.5 mmol/L (3.5-5.1); Sodium 131 mmol/L (137-145)
--- NOTE | 2019-05-14 17:03 | P.PN ---
Subjective Progress Note Date: 05/14/19 Principal diagnosis: 84 year female with past medical history of atrial fibrillation, congestive heart failure who presents to the emergency department from [facility]. Patient presents for generalized weakness, nausea and vomiting for the past several days. Patient has had poor oral intake due to nausea. She normally ambulates on her own however she has been wheelchair she has been so weak. She admits increased shortness of breath. She does have a history of congestive heart failure. States that she has been mildly short of breath. Denies any increase in lower extremity edema. She has been wearing oxygen at rehab. CMP is remarkable for sodium of 127. BNP is 5150. UA is negative. Chest x-ray does demonstrate signs of mild congestive heart failure. CT the patient's abdomen and pelvis was performed because of her reported abdominal pain which demonstrates no acute findings. patient is admitted to hospital for hydration and PT evaluation 05/14/2019 Patient is seen in follow-up today for shortness of breath and states that she has continued shortness of breath with exertion and is currently requiring oxygen via nasal cannula. Patient states that she does not normally wear oxygen at home. Patient normally lives at [facility] and will return there upon discharge. Currently patient denies any chest pain or palpitations. Patient is afebrile. Patient denies any nausea or vomiting and is tolerating diet. Encouraged the patient to increase oral intake as tolerated. Patient will continue on oral Lasix at this time and will repeat a.m. labs. PT OT to evaluate the patient for continued weakness and gait dysfunction. Will continue to monitor closely. Objective - Vital Signs Vital signs: Vital Signs Temp 97.8 F 05/14/19 13:50 Pulse 92 05/14/19 15:41 Resp 16 05/14/19 13:50 BP 118/79 05/14/19 13:50 Pulse Ox 90 L 05/14/19 13:50 Intake & Output 05/13/19 05/14/19 05/14/19 18:59 06:59 18:59 Intake Total 900 240 Output Total 0 Balance 900 0 240 Intake: Oral 900 240 Output: Stool 0 Other: Voiding Method Bedside Commode Bedside Commode # Voids 1 1 - Exam Gen: This is a 84-year-old female sitting up in the chair awake, alert and oriented 2-3, well-nourished, well-developed. HEENT: Head is atraumatic, normocephalic. Pupils equal, round. Sclerae is anic teric. NECK: Supple. No JVD. No lymphadenopathy. No thyromegaly. LUNGS: The Minich breath sounds at the bases with some rhonchi and expiratory wheezing noted. No intercostal retractions. HEART: S1, S2 are muffled. ABDOMEN: Soft. Bowel sounds are present. No masses. No tenderness. EXTREMITIES: No pedal edema. No calf tenderness. NEUROLOGICAL: Patient is awake, alert and oriented 2-3. Generalized weakness noted. Cranial nerves 2 through 12 are grossly intact. - Labs CBC & Chem 7: 05/13/19 09:01 05/14/19 08:18 Labs: Abnormal Lab Results - Last 24 Hours (Table) 05/13/19 05/14/19 Range/Units 20:18 08:18 Sodium 131 L (137-145) mmol/L Chloride 97 L (98-107) mmol/L Glucose 100 H (74-99) mg/dL POC Glucose (mg/dL) 118 H (75-99) mg/dL Assessment and Plan Assessment: 1. Marked Hyponatremia 2. Elevated BNP/ poss Exac CHF 3. Elevated Bilirubin 4. Hypertension 5. Chronic Atrial Fibrillation 6. generalized Weakness/ Debility 7. DVT Ppx; systemic anticoagulation with Eliquis 8. CODE STATUS; FULL CODE Recommendations and discussion: Recommend to continue current medications, management, and symptomatic treatment. PT/OT following. Sodium has slightly improved and is currently 131. Will repeat a.m. labs. Case management and social work following for discharge planning needs and return to [facility] once stabilized. Patient to continue on bronchodilators patient will continue on oral Lasix at this time. Patient to continue on O2 therapy and will continue to monitor closely. Due to multiple complex medical issues prognosis is guarded. Further recommendations to follow. Possible discharge in 24-48 hours.
[2019-05-14] MEDS: ASCORBIC ACID 500 MG TAB PO SCH (22:48)
[2019-05-14] MEDS: SENNOSIDES 8.6 MG TAB PO SCH (22:48)
[2019-05-14] MEDS: POLYETHYLENE GLYCOL 3350 17 GM POWD.PACK PO SCH (22:49)
[2019-05-14] MEDS: ALPRAZolam 0.25 MG TAB PO PRN (23:01)
[2019-05-14] MEDS: ACETAMINOPHEN TAB 325 MG TAB PO PRN (23:01)
[2019-05-15] MEDS: IPRATROPIUM-ALBUTEROL 3 ML NEB INHALATION SCH ×4 (07:13→19:18)
[2019-05-15] MEDS: POTASSIUM CHLORIDE ER 10 MEQ TAB.ER.PRT PO SCH ×2 (08:19→21:55)
[2019-05-15] MEDS: VERAPAMIL 40 MG TAB PO SCH ×3 (08:19→18:19)
[2019-05-15] MEDS: METOPROLOL TARTRATE 50 MG TAB PO SCH ×2 (08:19→21:54)
[2019-05-15] MEDS: APIXABAN 5 MG TAB PO SCH ×2 (08:19→21:54)
[2019-05-15] MEDS: FUROSEMIDE 40 MG TAB PO SCH ×2 (08:19→21:54)
[2019-05-15] MEDS: PANTOPRAZOLE 40 MG TABLET PO SCH (08:20)
[2019-05-15 10:58] LABS: African American GFR (CKD) >90 (>60 ml/min/1.73 sqM); Anion Gap 11 mmol/L; Blood Urea Nitrogen 13 mg/dL (7-17); Calcium 8.2 mg/dL (8.4-10.2); Carbon Dioxide 23 mmol/L (22-30); Chloride 92 mmol/L (98-107); Glucose 89 mg/dL (74-99); Non-African American GFR(CKD) 83 (>60 ml/min/1.73 sqM); Potassium 4.6 mmol/L (3.5-5.1); Sodium 126 mmol/L (137-145); Total Bilirubin 1.5 mg/dL (0.2-1.3)
[2019-05-15] MEDS: HYDROXYUREA 500 MG CAP PO SCH (12:25)
[2019-05-15] MEDS ORDERED: SODIUM CHLORIDE 0.9% 1,000 ML IV SCH (14:15)
--- NOTE | 2019-05-15 15:30 | P.PN ---
Subjective Progress Note Date: 05/15/19 Principal diagnosis: 84 year female with past medical history of atrial fibrillation, congestive heart failure who presents to the emergency department from [facility]. Patient presents for generalized weakness, nausea and vomiting for the past several days. Patient has had poor oral intake due to nausea. She normally ambulates on her own however she has been wheelchair she has been so weak. She admits increased shortness of breath. She does have a history of congestive heart failure. States that she has been mildly short of breath. Denies any increase in lower extremity edema. She has been wearing oxygen at rehab. CMP is remarkable for sodium of 127. BNP is 5150. UA is negative. Chest x-ray does demonstrate signs of mild congestive heart failure. CT the patient's abdomen and pelvis was performed because of her reported abdominal pain which demonstrates no acute findings. patient is admitted to hospital for hydration and PT evaluation 05/14/2019 Patient is seen in follow-up today for shortness of breath and states that she has continued shortness of breath with exertion and is currently requiring oxygen via nasal cannula. Patient states that she does not normally wear oxygen at home. Patient normally lives at [facility] and will return there upon discharge. Currently patient denies any chest pain or palpitations. Patient is afebrile. Patient denies any nausea or vomiting and is tolerating diet. Encouraged the patient to increase oral intake as tolerated. Patient will continue on oral Lasix at this time and will repeat a.m. labs. PT OT to evaluate the patient for continued weakness and gait dysfunction. Will continue to monitor closely. 05/15/2019 Patient is seen and evaluated in follow-up today quite weak and lethargic and not getting out of the bed. Discussed with the patient at length about increasing her activity as tolerated and at least sitting in the chair a few times a day. Patient continues to eat very poorly and sodium today has worsened and is currently 126. Patient is on oral Lasix and will continue at this time. Will add gentle IV hydration of normal saline at 40 mL per hour and will repeat a a.m. chest x-ray. Patient appears dehydrated and as mentioned previously is not eating very well. Patient currently remains on oxygen 2 L via nasal cannula as she is short of breath with any form of exertion. Will continue to monitor closely. Review of systems: Cardiovascular: No reports of chest pain or palpitations Respiratory: Reports shortness of breath GI: No reports of nausea, vomiting, or diarrhea : No reports of dysuria or retention Constitutional: Reports fatigue and generalized weakness Active Medications Acetaminophen (Tylenol Tab) 650 mg PO Q6H PRN PRN Reason: Pain Last Admin: 05/14/19 23:01 Dose: 650 mg Documented by: Albuterol/Ipratropium (Duoneb 0.5 Mg-3 Mg/3 Ml Soln) 3 ml INHALATION RT-QID ON LICENSE OF [facility] Last Admin: 05/15/19 15:20 Dose: 3 ml Documented by: Alprazolam (Xanax) 0.25 mg PO HS PRN PRN Reason: Anxiety Last Admin: 05/14/19 23:01 Dose: 0.25 mg Documented by: Apixaban (Eliquis) 5 mg PO BID ON LICENSE OF [facility] Last Admin: 05/15/19 08:19 Dose: 5 mg Documented by: Ascorbic Acid (Vitamin C) 500 mg PO HS ON LICENSE OF [facility] Last Admin: 05/14/19 22:48 Dose: 500 mg Documented by: Furosemide (Lasix) 40 mg PO BID ON LICENSE OF [facility] Last Admin: 05/15/19 08:19 Dose: 40 mg Documented by: Hydroxyurea (Hydrea) 500 mg PO Q48H ON LICENSE OF [facility] Last Admin: 05/15/19 12:25 Dose: 500 mg Documented by: Sodium Chloride (Saline 0.9%) 1,000 mls @ 40 mls/hr IV .Q24H ON LICENSE OF [facility] Metoprolol Tartrate (Lopressor) 100 mg PO BID ON LICENSE OF [facility] Last Admin: 05/15/19 08:19 Dose: 100 mg Documented by: Pantoprazole Sodium (Protonix) 40 mg PO DAILY ON LICENSE OF [facility] Last Admin: 05/15/19 08:20 Dose: 40 mg Documented by: Polyethylene Glycol (Miralax) 17 gm PO HS@1999 ON LICENSE OF [facility] Last Admin: 05/14/19 22:49 Dose: Not Given Documented by: Potassium Chloride (K-Dur 10) 10 meq PO BID ON LICENSE OF [facility] Last Admin: 05/15/19 08:19 Dose: 10 meq Documented by: Senna (Senokot) 8.6 mg PO HS@1999 ON LICENSE OF [facility] Last Admin: 05/14/19 22:48 Dose: 8.6 mg Documented by: Verapamil HCl (Isoptin) 40 mg PO TID@0700,1300,1900 ON LICENSE OF [facility] Last Admin: 05/15/19 12:25 Dose: 40 mg Documented by: Objective - Vital Signs Vital signs: Vital Signs Temp 98.9 F 05/15/19 14:00 Pulse 52 L 05/15/19 14:00 Resp 14 05/15/19 14:00 BP 100/56 05/15/19 14:00 Pulse Ox 100 05/15/19 14:00 Intake & Output 05/14/19 05/15/19 05/15/19 18:59 06:59 18:59 Intake Total 360 700 540 Output Total 0 Balance 360 700 540 Intake: Oral 360 700 540 Output: Stool 0 Other: Voiding Method Bedside Commode Bedside Commode Bedside Commode # Voids 6 6 2 # Bowel Movements 1 1 - Exam Gen: This is a 84-year-old female sitting up in the chair awake, alert and oriented 2-3, well-nourished, well-developed. Temp is 98.9F, pulse is 52, respirations are 14, blood pressure is 100/56, oxygen saturation is 100% on 3 L via nasal cannula. HEENT: Head is atraumatic, normocephalic. Pupils equal, round. Sclerae is anicteric, mucous membranes are dry NECK: Supple. No JVD. No lymphadenopathy. No thyromegaly. LUNGS: Diminished breath sounds at the bases with some rhonchi and expiratory wheezing noted. No intercostal retractions. HEART: S1, S2 are muffled. ABDOMEN: Soft. Bowel sounds are present. No masses. No tenderness. EXTREMITIES: No pedal edema. No calf tenderness. NEUROLOGICAL: Patient is awake, alert and oriented 2-3. Generalized weakness noted. Cranial nerves 2 through 12 are grossly intact. - Labs CBC & Chem 7: 05/13/19 09:01 05/15/19 10:10 Labs: Abnormal Lab Results - Last 24 Hours (Table) 05/15/19 Range/Units 10:10 Sodium 126 L (137-145) mmol/L Chloride 92 L (98-107) mmol/L Calcium 8.2 L (8.4-10.2) mg/dL Total Bilirubin 1.5 H (0.2-1.3) mg/dL Assessment and Plan Assessment: 1. Marked Hyponatremia 2. Elevated BNP/ poss Exac CHF 3. Elevated Bilirubin 4. Hypertension 5. Chronic Atrial Fibrillation 6. generalized Weakness/ Debility 7. DVT Ppx; systemic anticoagulation with Eliquis 8. CODE STATUS; FULL CODE Recommendations and discussion: Recommend to continue current medications, management, and symptomatic treat ment. PT/OT following. Sodium has worsened and is currently 126. Will add gentle IV hydration at 40 mL per hour and continue to monitor vital signs and labs closely. Will repeat a.m. labs. Case management and social work following for discharge planning needs and return to [facility] once stabilized. Patient to continue on bronchodilators patient will continue on oral Lasix at this time. Patient to continue on O2 therapy and will continue to monitor closely. Encouraged the patient and nursing staff to increase activity as tolerated and sitting up in the chair a few times a day along with working with physical therapy. Due to multiple complex medical issues prognosis is guarded. Further recommendations to follow. Possible discharge in 24-48 hours.
[2019-05-15] MEDS: SENNOSIDES 8.6 MG TAB PO SCH (19:30)
[2019-05-15] MEDS: POLYETHYLENE GLYCOL 3350 17 GM POWD.PACK PO SCH (19:30)
[2019-05-15] MEDS: ASCORBIC ACID 500 MG TAB PO SCH (21:54)
--- NOTE | 2019-05-16 07:21 | XR ---
EXAMINATION TYPE: XR chest 2V DATE OF EXAM: 05/16/2019 COMPARISON: 05/12/2019 HISTORY: Shortness of breath and congestive heart failure TECHNIQUE: Frontal and lateral views of the chest are obtained. FINDINGS: There is no enlarged cardiac mediastinal silhouette and trace bilateral pleural effusions, left greater than right. There is moderate interstitial edema worsened from the prior. Lingular airs pace disease is now seen. Diffuse osseous demineralization. IMPRESSION: 1. Worsening fluid overload of congestive heart failure. 2. New lingular opacity that may represent confluent pulmonary edema, atelectasis or pneumonia.
[2019-05-16 07:27] LABS: Glucose,Whole Blood 90 mg/dL (75-99)
[2019-05-16] MEDS: POTASSIUM CHLORIDE ER 10 MEQ TAB.ER.PRT PO SCH ×2 (07:49→20:44)
[2019-05-16] MEDS: FUROSEMIDE 40 MG TAB PO SCH (07:49)
[2019-05-16] MEDS: APIXABAN 5 MG TAB PO SCH ×2 (07:49→20:44)
[2019-05-16] MEDS: METOPROLOL TARTRATE 50 MG TAB PO SCH ×2 (07:49→20:44)
[2019-05-16] MEDS: VERAPAMIL 40 MG TAB PO SCH ×3 (07:49→18:58)
[2019-05-16] MEDS: PANTOPRAZOLE 40 MG TABLET PO SCH (07:49)
[2019-05-16] MEDS: IPRATROPIUM-ALBUTEROL 3 ML NEB INHALATION SCH ×4 (08:09→19:44)
[2019-05-16 09:53] LABS: African American GFR (CKD) >90 (>60 ml/min/1.73 sqM); Anion Gap 9 mmol/L; Blood Urea Nitrogen 16 mg/dL (7-17); Calcium 8.6 mg/dL (8.4-10.2); Carbon Dioxide 27 mmol/L (22-30); Chloride 93 mmol/L (98-107); Glucose 121 mg/dL (74-99); Non-African American GFR(CKD) 81 (>60 ml/min/1.73 sqM); Sodium 129 mmol/L (137-145)
[2019-05-16 11:38] LABS: Glucose,Whole Blood 119 mg/dL (75-99)
--- NOTE | 2019-05-16 15:55 | P.PN ---
Subjective Progress Note Date: 05/16/19 Principal diagnosis: 84 year female with past medical history of atrial fibrillation, congestive heart failure who [facility] Patient presents for generalized weakness, nausea and vomiting for the past several days. Patient has had poor oral intake due to nausea. She normally ambulates on her own however she has been wheelchair she has been so weak. She admits increased shortness of breath. She does have a history of congestive heart failure. States that she has been mildly short of breath. Denies any increase in lower extremity edema. She has been wearing oxygen at rehab. CMP is remarkable for sodium of 127. BNP is 5150. UA is negative. Chest x-ray does demonstrate signs of mild congestive heart failure. CT the patient's abdomen and pelvis was performed because of her reported abdominal pain which demonstrates no acute findings. patient is admitted to hospital for hydration and PT evaluation 05/14/2019 Patient is seen in follow-up today for shortness of breath and states that she has continued shortness of breath with exertion and is currently requiring oxygen via nasal cannula. Patient states that she does not normally wear oxygen at home. Patient normally lives at [facility] and will return there upon discharge. Currently patient denies any chest pain or palpitations. Patient is afebrile. Patient denies any nausea or vomiting and is tolerating diet. Encouraged the patient to increase oral intake as tolerated. Patient will continue on oral Lasix at this time and will repeat a.m. labs. PT OT to evaluate the patient for continued weakness and gait dysfunction. Will continue to monitor closely. 05/15/2019 Patient is seen and evaluated in follow-up today quite weak and lethargic and not getting out of the bed. Discussed with the patient at length about increasing her activity as tolerated and at least sitting in the chair a few times a day. Patient continues to eat very poorly and sodium today has worsened and is currently 126. Patient is on oral Lasix and will continue at this time. Will add gentle IV hydration of normal saline at 40 mL per hour and will repeat a a.m. chest x-ray. Patient appears dehydrated and as mentioned previously is not eating very well. Patient currently remains on oxygen 2 L via nasal cannula as she is short of breath with any form of exertion. Will continue to monitor closely. 05/16/2019 Patient is seen and evaluated in follow-up today and continues to be lethargic. Patient needs multiple attempts of encouragement to sit up in the chair throughout the day. Patient's chest x-ray this morning shows fluid overload of congestive heart failure and patient being transitioned IV Lasix at this time. Patient's repeat sodium slightly improved and is 129. Will repeat a.m. labs. Patient reports no chest pain, worsening shortness of breath, or palpitations. Patient is afebrile. No reports of nausea or vomiting and is tolerating diet. Patient continues to eat very little throughout the day. Objective - Vital Signs Vital signs: Vital Signs Temp 97.5 F L 05/16/19 14:46 Pulse 69 05/16/19 15:40 Resp 14 05/16/19 14:46 BP 121/77 05/16/19 14:46 Pulse Ox 93 L 05/16/19 14:46 Intake & Output 05/15/19 05/16/19 05/16/19 18:59 06:59 18:59 Intake Total 540 900 540 Output Total 200 Balance 540 900 340 Intake: Oral 540 900 540 Output: Urine 200 Stool 0 Other: Voiding Method Bedside Commode Bedside Commode Bedside Commode # Voids 2 4 2 - Exam Gen: This is a 84-year-old female sitting up in the chair awake, alert and oriented 2-3, well-nourished, well-developed. Temp is 97.5, pulse is 65, respirations are 14, blood pressure is 121/77, oxygen saturation is 93 % on 2 L via nasal cannula. HEENT: Head is atraumatic, normocephalic. Pupils equal, round. Sclerae is anicteric, mucous membranes are dry NECK: Supple. No JVD. No lymphadenopathy. No thyromegaly. LUNGS: Diminished breath sounds at the bases with some rhonchi noted. No intercostal retractions. HEART: S1, S2 are muffled. ABDOMEN: Soft. Bowel sounds are present. No masses. No tenderness. EXTREMITIES: No pedal edema. No calf tenderness. NEUROLOGICAL: Patient is awake, alert and oriented 2-3. Generalized weakness noted. Cranial nerves 2 through 12 are grossly intact. - Labs CBC & Chem 7: 05/13/19 09:01 05/16/19 08:32 Labs: Abnormal Lab Results - Last 24 Hours (Table) 05/16/19 05/16/19 Range/Units 08:32 11:36 Sodium 129 L (137-145) mmol/L Chloride 93 L (98-107) mmol/L Glucose 121 H (74-99) mg/dL POC Glucose (mg/dL) 119 H (75-99) mg/dL Assessment and Plan Assessment: 1. Marked Hyponatremia 2. Elevated BNP/ poss Exac CHF 3. Elevated Bilirubin 4. Hypertension 5. Chronic Atrial Fibrillation 6. generalized Weakness/ Debility 7. DVT Ppx; systemic anticoagulation with Eliquis 8. CODE STATUS; FULL CODE Recommendations and discussion: Recommend to continue current medications, management, and symptomatic t reatment. PT/OT following. Sodium is currently 129. IV fluids have been discontinued and will continue to monitor vital signs and labs closely. Will repeat a.m. labs. Case management and social work following for discharge planning needs and return to [facility] once stabilized. Patient to continue on bronchodilators. patient will transition to IV Lasix at this time as chest x- ray continues to show fluid overload with CHF. Patient to continue on O2 therapy and will continue to monitor closely. Encouraged the patient and nursing staff to increase activity as tolerated and sitting up in the chair a few times a day along with working with physical therapy. Due to multiple complex medical issues prognosis is guarded. Further recommendations to follow. Possible discharge in 24 hours.
[2019-05-16 16:33] LABS: Glucose,Whole Blood 118 mg/dL (75-99)
[2019-05-16] MEDS: SENNOSIDES 8.6 MG TAB PO SCH (18:58)
[2019-05-16] MEDS: POLYETHYLENE GLYCOL 3350 17 GM POWD.PACK PO SCH (19:01)
[2019-05-16] MEDS: ASCORBIC ACID 500 MG TAB PO SCH (20:44)
[2019-05-16] MEDS: FUROSEMIDE 10 MG/ML 4 ML VIAL IV SCH (20:45)
[2019-05-16] MEDS: ALPRAZolam 0.25 MG TAB PO PRN (21:16)
[2019-05-16 21:22] LABS: Glucose,Whole Blood 129 mg/dL (75-99)
[2019-05-17 07:04] LABS: Glucose,Whole Blood 89 mg/dL (75-99)
[2019-05-17] MEDS: FUROSEMIDE 10 MG/ML 4 ML VIAL IV SCH (07:51)
[2019-05-17] MEDS: IPRATROPIUM-ALBUTEROL 3 ML NEB INHALATION SCH ×2 (08:13→11:57)
[2019-05-17] MEDS: VERAPAMIL 40 MG TAB PO SCH ×2 (09:47→13:24)
[2019-05-17] MEDS: APIXABAN 5 MG TAB PO SCH (09:48)
[2019-05-17] MEDS: METOPROLOL TARTRATE 50 MG TAB PO SCH (09:48)
[2019-05-17] MEDS: PANTOPRAZOLE 40 MG TABLET PO SCH (09:48)
[2019-05-17] MEDS: POTASSIUM CHLORIDE ER 10 MEQ TAB.ER.PRT PO SCH (09:48)
[2019-05-17 09:50] LABS: African American GFR (CKD) >90 (>60 ml/min/1.73 sqM); Anion Gap 11 mmol/L; Blood Urea Nitrogen 15 mg/dL (7-17); Calcium 8.7 mg/dL (8.4-10.2); Carbon Dioxide 29 mmol/L (22-30); Chloride 90 mmol/L (98-107); Glucose 103 mg/dL (74-99); Non-African American GFR(CKD) 80 (>60 ml/min/1.73 sqM); Potassium 3.9 mmol/L (3.5-5.1); Sodium 130 mmol/L (137-145)
--- NOTE | 2019-05-17 10:47 | P.DS ---
Providers Date of admission: 05/12/19 22:32 Expected date of discharge: 05/17/19 Attending physician: Samuel Robbins Primary care physician: Yobany Botello [place] [facility] Course: Final diagnosis Marked hyponatremia Elevated BNP, possible exacerbation CHF Hypertension Elevated bilirubin Chronic atrial fibrillation Generalized weakness, debility DVT prophylaxis Full code Discharge disposition Patient is being discharged in a stable condition with guarded prognosis to [facility] where she is a resident there. Patient will follow-up with Dr. Botello in the outpatient setting. Total time taken is 35 minutes. History of present illness 84 year female with past medical history of atrial fibrillation, congestive heart failure who presents to the emergency department from [facility]. Patient presents for generalized weakness, nausea and vomiting for the past several days. Patient has had poor oral intake due to nausea. She normally ambulates on her own however she has been wheelchair she has been so weak. She admits increased shortness of breath. She does have a history of congestive heart failure. States that she has been mildly short of breath. Denies any increase in lower extremity edema. She has been wearing oxygen at rehab. CMP is remarkable for sodium of 127. BNP is 5150. UA is negative. Chest x-ray does demonstrate signs of mild congestive heart failure. CT the patient's abdomen and pelvis was performed because of her reported abdominal pain which demonstrates no acute findings. patient is admitted to hospital for hydration and PT evaluation. 05/17/2019 During hospitalization patient has been treated with oral Lasix as well as IV Lasix showing improvements and continued working with physical therapy for strength and mobility. Patient needs multiple attempts of encouragement to set up in the chair daily as she likes to lay in the bed most of the day. Currently patient's denies any chest pain, shortness of breath, or palpitations. Patient has been afebrile. Patient denies any nausea or vomiting at present and has been tolerating diet. Patient continues to be very little and need encouragement with meals. Sodium was slightly low and is currently 130 today. Recommended repeat labs in 2-3 days to monitor electrolytes. Encouraged oral intake. Guarded prognosis. On exam vital signs are stable. Temp is 97.7F, pulse is 77, respirations are 17, blood pressure is 124/67, oxygen saturation is 95% on 2 L via nasal cannula. Cardio S1, S2 are present. Respiratory system shows diminished breath sounds at the bases with no wheezing or rhonchi noted. Abdomen is soft and nontender. Nervous system shows mild diffuse weakness. Please refer to medication reconciliation sheet for a list of medications. Patient Condition at Discharge: Stable Plan - Discharge Summary Discharge Rx Participant: No New Discharge Prescriptions: Continue Hydroxyurea [Hydrea] 500 mg PO Q48H Multivit-Min/FA/Lycopen/Lutein [Centrum Silver Tablet] 1 tab PO HS Ascorbic Acid [Vitamin C] 500 mg PO HS Apixaban [Eliquis] 5 mg PO BID #60 tab Potassium Chloride ER [K-Dur 10] 10 meq PO BID Metoprolol Tartrate [Lopressor] 100 mg PO BID Ipratropium-Albuterol Nebulize [Duoneb 0.5 mg-3 mg/3 ml Soln] 3 ml INHALATION RT-QID ampul.neb Acetaminophen Tab [Tylenol] 650 mg PO Q6H PRN PRN Reason: Pain Promethazine HCl 12.5 mg PO Q6H PRN PRN Reason: Nausea Shara-Lanta Susp 30 ml PO Q4H PRN PRN Reason: Nausea Bisacodyl [Dulcolax] 10 mg RECTAL DAILY PRN PRN Reason: Constipation Verapamil [Isoptin] 40 mg PO TID@0700,1300,1900 Menthol [Biofreeze] 1 applic TOPICAL BID Furosemide [Lasix] 40 mg PO BID Sennosides [Senna] 8.6 mg PO HS@2000 Lansoprazole 15 mg PO DAILY Polyethylene Glycol 3350 [Miralax] 17 gm PO HS@2000 ALPRAZolam [Xanax] 0.25 mg PO HS PRN #3 tab PRN Reason: Anxiety Discharge Medication List Ascorbic Acid [Vitamin C] 500 mg PO HS 08/03/17 [History] Hydroxyurea [Hydrea] 500 mg PO Q48H 08/03/17 [History] Multivit-Min/FA/Lycopen/Lutein [Centrum Silver Tablet] 1 tab PO HS 08/03/17 [History] Apixaban [Eliquis] 5 mg PO BID #60 tab 08/05/17 [Rx] Potassium Chloride ER [K-Dur 10] 10 meq PO BID 05/21/18 [History] Metoprolol Tartrate [Lopressor] 100 mg PO BID 04/15/19 [History] Ipratropium-Albuterol Nebulize [Duoneb 0.5 mg-3 mg/3 ml Soln] 3 ml INHALATION RT-QID ampul.neb 04/23/19 [Rx] Acetaminophen Tab [Tylenol] 650 mg PO Q6H PRN 05/12/19 [History] Bisacodyl [Dulcolax] 10 mg RECTAL DAILY PRN 05/12/19 [History] Furosemide [Lasix] 40 mg PO BID 05/12/19 [History] Shara-Lanta Susp 30 ml PO Q4H PRN 05/12/19 [History] Lansoprazole 15 mg PO DAILY 05/12/19 [History] Menthol [Biofreeze] 1 applic TOPICAL BID 05/12/19 [History] Polyethylene Glycol 3350 [Miralax] 17 gm PO HS@199905/12/19 [History] Promethazine HCl 12.5 mg PO Q6H PRN 05/12/19 [History] Sennosides [Senna] 8.6 mg PO HS@199905/12/19 [History] Verapamil [Isoptin] 40 mg PO TID@0700,1300,1900 05/12/19 [History] ALPRAZolam [Xanax] 0.25 mg PO HS PRN #3 tab 05/17/19 [Rx] Follow up Appointment(s)/Referral(s): Yobany Botello MD [Primary Care Provider] - 1-2 days Ambulatory/Diagnostic Orders: Basic Metabolic Panel [LAB.AMB] Time Frame: 3 Days, Location: None Selected Activity/Diet/Wound Care/Special Instructions: Patient is going to [facility] [employer] Activity as tolerated Continue current diet Repeat labs in 2-3 days Encourage physical therapy and getting up in the chair is 2-3 times a day Discharge Disposition: TRANSFER TO SNF/ECF
--- NOTE | 2019-05-17 11:09 | CDI ---
Documentation Clarification Form Date: 05/17/2019 10:53:59 AM From: Luisa Del Rio RN CCDS Admit Date: 05/12/2019 10:32:00 PM Patient Name: Jessica Pulido Visit Number: [id number] Discharge Date: ATTENTION: The Clinical Documentation Specialists (CDI) and [facility] Coding Staff appreciate your assistance in clarifying documentation. Please respond to the clarification below the line at the bottom and electronically sign. The CDI & [facility] Coding staff will review the response and follow-up if needed. Please note: Queries are made part of the Legal Health Record. If you have any questions, please contact the author of this message via ITS. Dr. Samuel Robbins Elevated BNP/ poss Exac CHF is documented in the H & P 05/13 and in subsequent progress notes. History/Risk Factors: 84-year-old female presents to the ED via EMS from ECF with generalized weakness, nausea and vomiting. Medical History Congestive Heart Failure, Atrial Fibrillation and HTN Clinical Indicators: VS/Pulse OX: 05/12/19 18:00 106/61 67 97.8 97% ra 05/12/19 BNP: 5150 Echocardiogram Results:04/16/19 There is mild concentric left ventricular hypertrophy. Overall left ventricular systolic function is normal with, an EF between 55-60% Chest X Ray: 05/12/19 Mild congestive heart failure. Treatment: 05/13 Lasix po Bid; 05/16; Lopressor Po BID Lasix IV Q 12 HR; In your professional opinion, can you please clarify the acuity and type of CHF if known? * Acute on Chronic Diastolic Heart Failure * Heart Failure Ruled out * Unable to Determine * Other, please specify (Last Revision: July 2017) * Acute on Chronic Diastolic Heart Failure MTDD
[2019-05-17] MEDS: HYDROXYUREA 500 MG CAP PO SCH (14:32)
[2019-05-17] MEDS: ACETAMINOPHEN TAB 325 MG TAB PO PRN (15:34)
[2019-05-17 16:05] VITALS: BP 120/62; PULSE 72; RESP 18; TEMP 98
== END 2019-05-17 16:15 | DRG 640 ==
LOC: EC 17:48 → 6NMEDSUR 22:32
PROVIDERS: ADMIT Hospitalist; ATTEND Hospitalist
DX: E87.1 Hypo-osmolality and hyponatremia (principal); I50.33 Acute on chronic diastolic (congestive) heart failure; I48.20 Chronic atrial fibrillation, unspecified; D69.3 Immune thrombocytopenic purpura; I11.0 Hypertensive heart disease with heart failure; E86.0 Dehydration; M19.90 Unspecified osteoarthritis, unspecified site; R10.9 Unspecified abdominal pain; R26.9 Unspecified abnormalities of gait and mobility; R11.2 Nausea with vomiting, unspecified; E66.9 Obesity, unspecified; Z68.23 Body mass index [BMI] 23.0-23.9, adult; Z79.01 Long term (current) use of anticoagulants; Z79.899 Other long term (current) drug therapy; Z85.820 Personal history of malignant melanoma of skin; Z85.828 Personal history of other malignant neoplasm of skin; Z82.3 Family history of stroke; Z82.61 Family history of arthritis
CPT/HCPCS: 36415; 71046; 74177; 80048; 80053; 81003; 82247; 82550; 83605; 83880; 84484; 85025; 85610; 85730; 93005; 94640; 94760; 99285

== ENCOUNTER 2019-12-29 02:07 | Inpatient (IN) | payer MEDICARE, BC ==
--- NOTE | 2019-12-29 02:51 | ED ---
General Adult HPI - General Chief complaint: Syncope Stated complaint: syncope Time Seen by Provider: 12/29/19 02:19 Source: patient, RN/MD, EMS Mode of arrival: EMS Limitations: no limitations - History of Present Illness Initial comments: This patient is an 84-year-old woman who presents here is a transfer from [facility]. The patient had gone there tonight with complaint of generalized weakness and inability to walk. Patient had described which she is calling "spells" which she feels so weak that she is not able to support herself and walk. Usually occur when she attempts to get up and ambulate. They have been going on intermittently for quite some time she says over a month. Only she had called the ambulance to go to the other hospital, ambulance personnel found her to have a rate in the 30s and hypotension. She was given half milligram of atropine and her heart rate went into the 50s and blood pressure did improve somewhat. At the outside facility, the workup showed patient to have mild anemia with a hemoglobin of 10.5., Also slightly elevated BUN and creatinine at 34 and 1.6, which are reported to be a bit over her baseline. Patient's BNP was 7360, and chest x-ray reportedly showed some cardiomegaly and cephalization. ECG at the other facility reportedly showed atrial flutter with a bradycardic rate in the 50s. Patient be transferred here for further evaluation of her symptomatic bradycardia. When I interview the patient, she is without complaints. Patient denies chest pain, dyspnea, diaphoresis, nausea or vomiting. -: week(s) Severity scale (1-10): 0 Consistency: intermittent Improves with: rest Worsens with: movement Associated Symptoms: weakness Treatments Prior to Arrival: none - Related Data Home Medications Medication Instructions Recorded Confirmed Ascorbic Acid [Vitamin C] 500 mg PO HS 08/03/17 05/12/19 Hydroxyurea [Hydrea] 500 mg PO Q48H 08/03/17 05/12/19 Multivit-Min/FA/Lycopen/Lutein 1 tab PO HS 08/03/17 05/12/19 [Centrum Silver Tablet] Potassium Chloride ER [K-Dur 10] 10 meq PO BID 05/21/18 05/12/19 Metoprolol Tartrate [Lopressor] 100 mg PO BID 04/15/19 05/12/19 Acetaminophen Tab [Tylenol] 650 mg PO Q6H PRN 05/12/19 05/12/19 Furosemide [Lasix] 40 mg PO BID 05/12/19 05/12/19 Shara-Lanta Susp 30 ml PO Q4H PRN 05/12/19 05/12/19 Lansoprazole 15 mg PO DAILY 05/12/19 05/12/19 Menthol [Biofreeze] 1 applic TOPICAL BID 05/12/19 05/12/19 Polyethylene Glycol 3350 [Miralax] 17 gm PO HS@199905/12/19 05/12/19 Promethazine HCl 12.5 mg PO Q6H PRN 05/12/19 05/12/19 Sennosides [Senna] 8.6 mg PO HS@199905/12/19 05/12/19 Verapamil [Isoptin] 40 mg PO TID@0700,1300,1900 05/12/19 05/12/19 bisacodyL [Dulcolax] 10 mg RECTAL DAILY PRN 05/12/19 05/12/19 Previous Rx's Medication Instructions Recorded Apixaban [Eliquis] 5 mg PO BID #60 tab 08/05/17 Ipratropium-Albuterol Nebulize 3 ml INHALATION RT-QID ampul.neb 04/23/19 [Duoneb 0.5 mg-3 mg/3 ml Soln] ALPRAZolam [Xanax] 0.25 mg PO HS PRN #3 tab 05/17/19 Allergies Allergy/AdvReac Type Severity Reaction Status Date / Time No Known Allergies Allergy Verified 12/29/19 02:22 Review of Systems ROS Statement: Those systems with pertinent positive or pertinent negative responses have been documented in the HPI. ROS Other: All systems not noted in ROS Statement are negative. Constitutional: Reports: weakness. Denies: fever, chills Eyes: Denies: vision change Respiratory: Denies: cough, dyspnea Cardiovascular: Reports: syncope (Near syncope). 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 Kidney Injury History of Any Multi-Drug Resistant Organisms: None Reported Past Surgical History: Section Additional Past Surgical History / Comment(s): melanoma removed from left cheek and basal cell cancer removed from nose, D&C Past Anesthesia/Blood Transfusion Reactions: No Reported Reaction Additional Past Anesthesia/Blood Transfusion Reaction / Comment(s): Pt received blood with child without reaction. Past Psychological History: No Psychological Hx Reported Smoking Status: Never smoker Past Alcohol Use History: None Reported Past Drug Use History: None Reported - Past Family History Father Family Medical History: CVA/TIA Additional Family Medical History / Comment(s): Father of a CVA at the age of 30yrs. Mother Family Medical History: Osteoarthritis (OA) Additional Family Medical History / Comment(s): Mother had a hiatal hernia. General Exam Limitations: no limitations General appearance: alert, in no apparent distress Head exam: Present: atraumatic, normocephalic Eye exam: Present: normal appearance, PERRL. Absent: scleral icterus, conjunctival injection, nystagmus Neck exam: Present: normal inspection, full ROM Respiratory exam: Present: normal lung sounds bilaterally. Absent: respiratory distress, wheezes, rales, rhonchi, stridor Cardiovascular Exam: Present: bradycardia, irregular rhythm, systolic murmur. Absent: diastolic murmur, rubs, gallop GI/Abdominal exam: Present: soft. Absent: distended, tenderness, guarding, rebound, rigid, mass Extremities exam: Present: normal inspection, normal capillary refill. Absent: pedal edema, calf tenderness Back exam: Present: normal inspection. Absent: CVA tenderness (R), CVA tenderness (L) Neurological exam: Present: alert, CN II-XII intact. Absent: motor sensory deficit Skin exam: Present: warm, dry, intact, normal color. Absent: rash Course Vital Signs 12/29/19 12/29/19 02:09 03:00 Temperature 98.1 F Pulse Rate 52 L 52 L Respiratory 18 20 Rate Blood Pressure 124/64 115/70 O2 Sat by Pulse 95 100 Oximetry EKG Findings - EKG Results: EKG: interpreted by ERMD, normal axis, normal ST/T - Dysrhythmias: Supraventricular dysrhythmia: atrial flutter (With 4-1 conduction, rate 52 bpm) - Blocks, [place], Hypertrophy, ST Abn: Repolarization changes or abnormalities: Q-T interval prolongation Disposition Clinical Impression: Atrial flutter by electrocardiogram Disposition: ADMITTED IP TO THIS HOSP Condition: Fair Referrals: Sheree Dickinson MD [Primary Care Provider] - 1-2 days
[2019-12-29] MEDS ORDERED: NITROGLYCERIN SL TABS 0.4 MG TAB SUBLINGUAL PRN (03:07)
--- NOTE | 2019-12-29 04:25 | P.HPIM ---
History of Present Illness H&P Date: 12/29/19 The patient is a 84-year-old female with a PMH of persistent A. fib, chronic diastolic CHF, history of melanoma, and hypertension who had presented to the ED as a transfer from [facility] where she presented earlier today for bradycardia. Patient reports that she has been having "episodes" over the past several months, where she would feel extremely weak and would have to sit down. The episodes have no clear inciting factors, and she denied associated symptoms including chest pain, shortness of breath, or palpitations. She also denied loss of consciousness or falls. She notes that at around 6 PM yesterday, she was in her bed and got up to go to the bathroom and on her way back to the bed, she suddenly felt weak and decided to sit on the ground. She called her son-in-law who activated EMS. As per the documentation, upon arrival of the EMS the patient was bradycardic to the 30s with hypotension and was given atropine 0.5 mg. She underwent an extensive evaluation at [facility] which was all reviewed. A chest x-ray revealed cardiomegaly with some pulmonary vascular congestion. EKG had revealed a flutter with pericardia at a rate of 50 bpm. Laboratory evaluation revealed a BNP of 7360, troponin eyes less than 0.012, INR 1.5, phosphate 5.1, W BC count 5.74, hemogram and 10.5, platelet 495, sodium 134, potassium 4.7, chloride 97, CO2 24, BUN 34, creatinine 1.6, glucose 128, AST 42, ALT 13, a phosphorus 143, total bilirubin 1.2, and magnesium 2.1. EKG performed in our emergency room revealed a flutter with 4-1 conduction and a prolonged QTC. At time of interview, the patient reported feeling back to her baseline. She did endorse chronic orthopnea for which she has to use 3 pillows. She also notes chronic lower extremity swelling which she controls by elevating her legs whenever she is seated in a chair. She denied any active complaints including chest pain, shortness of breath, palpitations, nausea, vomiting, diaphoresis. She also denied cough, fever, chills, abdominal pain, or diarrhea. Review of Systems Pertinent positives and negatives as discussed in HPI, a complete review of systems was performed and all other systems are negative. 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 Kidney Injury History of Any Multi-Drug Resistant Organisms: None Reported Past Surgical History: Section Additional Past Surgical History / Comment(s): melanoma removed from left cheek and basal cell cancer removed from nose, D&C Past Anesthesia/Blood Transfusion Reactions: No Reported Reaction Additional Past Anesthesia/Blood Transfusion Reaction / Comment(s): Pt received blood with child without reaction. Past Psychological History: No Psychological Hx Reported Smoking Status: Never smoker Past Alcohol Use History: None Reported Past Drug Use History: None Reported - Past Family History Father Family Medical History: CVA/TIA Additional Family Medical History / Comment(s): Father of a CVA at the age of 30yrs. Mother Family Medical History: Osteoarthritis (OA) Additional Family Medical History / Comment(s): Mother had a hiatal hernia. Medications and Allergies Home Medications Medication Instructions Recorded Confirmed Type Ascorbic Acid [Vitamin C] 500 mg PO HS 08/03/17 05/12/19 History Hydroxyurea [Hydrea] 500 mg PO Q48H 08/03/17 05/12/19 History Multivit-Min/FA/Lycopen/Lutein 1 tab PO HS 08/03/17 05/12/19 History [Centrum Silver Tablet] Apixaban [Eliquis] 5 mg PO BID #60 tab 08/05/17 05/12/19 Rx Potassium Chloride ER [K-Dur 10] 10 meq PO BID 05/21/18 05/12/19 History Metoprolol Tartrate [Lopressor] 100 mg PO BID 04/15/19 05/12/19 History Ipratropium-Albuterol Nebulize 3 ml INHALATION RT-QID ampul.neb 04/23/19 05/12/19 Rx [Duoneb 0.5 mg-3 mg/3 ml Soln] Acetaminophen Tab [Tylenol] 650 mg PO Q6H PRN 05/12/19 05/12/19 History Furosemide [Lasix] 40 mg PO BID 05/12/19 05/12/19 History Shara-Lanta Susp 30 ml PO Q4H PRN 05/12/19 05/12/19 History Lansoprazole 15 mg PO DAILY 05/12/19 05/12/19 History Menthol [Biofreeze] 1 applic TOPICAL BID 05/12/19 05/12/19 History Polyethylene Glycol 3350 [Miralax] 17 gm PO HS@199905/12/19 05/12/19 History Promethazine HCl 12.5 mg PO Q6H PRN 05/12/19 05/12/19 History Sennosides [Senna] 8.6 mg PO HS@199905/12/19 05/12/19 History Verapamil [Isoptin] 40 mg PO TID@0700,1300,1900 05/12/19 05/12/19 History bisacodyL [Dulcolax] 10 mg RECTAL DAILY PRN 05/12/19 05/12/19 History ALPRAZolam [Xanax] 0.25 mg PO HS PRN #3 tab 05/17/19 Rx Allergies Allergy/AdvReac Type Severity Reaction Status Date / Time No Known Allergies Allergy Verified 12/29/19 02:22 Physical Exam Vitals: Vital Signs Temp Pulse Resp BP Pulse Ox 12/29/19 03:30 62 18 119/61 98 12/29/19 03:00 52 L 20 115/70 100 12/29/19 02:09 98.1 F 52 L 18 124/64 95 Intake and Output 12/28/19 12/28/19 12/29/19 14:59 22:59 06:59 Other: Weight 57.606 kg General: non toxic, no distress, appears at stated age, normal weight Derm: no unusual rashes/lesions no unusual ecchymoses, warm, dry Head: atraumatic, normocephalic, symmetric Eyes: EOMI, no lid lag, anicteric sclera, pupils equal round reactive to light ENT: Nose and ears atraumatic, no thrush, no pharyngeal erythema Neck: No thyromegaly, no cervical lymphadenopathy, trachea midline, supple Mouth: no lip lesion, mucus membranes moist Cardiovascular: S1S2 reg, systolic murmur appreciated, positive posterior tibial pulse bilateral, no edema, capillary refill less than 2 seconds Lungs: Bibasilar rales to mid lung appreciated, no rhonchi or wheezing, no accessory muscle use Abdominal: soft, nontender to palpation, no guarding, no appreciable organomegaly, normal bowel sounds Ext: no gross muscle atrophy, muscle strength 5 out of 5 in all 4 extremities grossly, no contractures, Neuro: CN II-XI grossly intact, light touch intact all 4 extremities, finger to nose within normal limits, Psych: Alert, oriented, appropriate affect Assessment and Plan Plan: Symptomatic bradycardia with A flutter with 4:1 conduction -The patient denied any recent recent changes to her medications -She is currently on metoprolol and verapamil. Will hold for now -Obtain repeat echocardiogram since patient now appears to have significant cardiomegaly on imaging likely systolic dysfunction -Cardiology consult -Cardiac monitoring -Continue with home Eliquis dose -Fall precautions Chronic diastolic CHF, with concerns of systolic involvement -Obtain echocardiogram -As per above Kidney injury, acute versus chronic -Monitor BMP for now DVT prophylaxis -Eliquis The patient is admitted with an anticipated greater than 2 midnight stay for evaluation of bradycardia CODE STATUS: Full Code Discussed with: Patient Anticipated discharge date: 2-[address]: Home A total of 40 minutes was spent on the care of this complex patient more than 50% of the time was spent in counseling and care coordination.
[2019-12-29 08:00] LABS: Calcium 9.4 mg/dL (8.4-10.2); Potassium 4.2 mmol/L (3.5-5.1)
[2019-12-29] MEDS: APIXABAN 5 MG TAB PO SCH ×2 (08:06→20:08)
[2019-12-29 08:07] LABS: Anisocytosis Slight; HCT 35.3 % (34.0-46.0); HGB 10.7 gm/dL (11.4-16.0); Hypochromasia Marked; MCH 32.3 pg (25.0-35.0); MCHC 30.3 g/dL (31.0-37.0); MCV 106.5 fL (80.0-100.0); Macrocytosis Marked; Mean Platelet Volume 9.7; Platelet Count 570 k/uL (150-450); RBC 3.32 m/uL (3.80-5.40); RDW 17.9 % (11.5-15.5)
[2019-12-29] MEDS: METOPROLOL TARTRATE 50 MG TAB PO SCH ×2 (12:14→20:08)
--- NOTE | 2019-12-29 12:59 | ECHOF ---
Referral Reason:aflutter MEASUREMENTS -------- HEIGHT: 157.5 cm WEIGHT: 57.6 kg BP: 118/69 RVIDd: 2.9 cm (< 3.3) IVSd: 0.9 cm (0.6 - 1.1) LVIDd: 3.7 cm (3.9 - 5.3) LVPWd: 1.3 cm (0.6 - 1.1) IVSs: 1.5 cm LVIDs: 2.9 cm LVPWs: 1.2 cm LA Diam: 4.8 cm (2.7 - 3.8) LAESV Index (A-L): 47.13 ml/m Ao Diam: 2.9 cm (2.0 - 3.7) AV Cusp: 1.5 cm (1.5 - 2.6) LA Diam: 4.7 cm (2.7 - 3.8) MV EXCURSION: 20.130 mm (> 18.000) MV EF SLOPE: 181 mm/s (70 - 150) EPSS: 0.2 cm RAP: 15.00 mmHg RVSP: 85.25 mmHg FINDINGS -------- Atrial fibrillation. This was a technically adequate study. The left ventricular size is normal. Left ventricular wall thickness is normal. Overall left vent ricular systolic function is low-normal with, an EF between 50 - 55 %. Left ventricular fillimg pre ssure cannot be estimated due to Atrial fibrillation. The right ventricle is normal in size. The left atrium is markedly dilated. LA is severely dilated >40 ml/m2 The right atrial size is normal. There is mild aortic valve sclerosis. There is no evidence of aortic regurgitation. Mild mitral annular calcification present. Mild mitral regurgitation is present. Moderate to severe tricuspid regurgitation present. There is severe pulmonary hypertension. Trace/mild (physiologic) pulmonic regurgitation. The aortic root size is normal. There is a small, generalized pericardial effusion present. CONCLUSIONS -------- 1. The left ventricular size is normal. 2. Left ventricular wall thickness is normal. 3. Overall left ventricular systolic function is low-normal with, an EF between 50 - 55 %. 4. Left ventricular fillimg pressure cannot be estimated due to Atrial fibrillation. 5. The right ventricle is normal in size. 6. The left atrium is markedly dilated. 7. LA is severely dilated >40 ml/m2 8. The right atrial size is normal. 9. There is mild aortic valve sclerosis. 10. Mild mitral annular calcification present. 11. Mild mitral regurgitation is present. 12. Moderate to severe tricuspid regurgitation present. 13. There is severe pulmonary hypertension. 14. Trace/mild (physiologic) pulmonic regurgitation. 15. There is a small, generalized pericardial effusion present. TESTING MACHINE OPERATOR: Cleo Hamilton RDCS
--- NOTE | 2019-12-29 14:04 | P.CRDCN ---
History of Present Illness Consult date: 12/29/19 Requesting physician: Jacob Sneed Reason for Consult (text): Symptomatic bradycardia History of present illness: History of present illness: This is an 84-year-old female patient follows with Dr. Laguerre at the [place] office with past medical history of persistent atrial fibrillation, chronic diastolic heart failure, hypertension, melanoma on the left cheek, ITP, patient states that she was recently discharged from medical [place] and went to stay with her daughter starting last Tuesday. She is having episodes where she feels weak and would have to sit down. These were happening prior to her discharge to her daughter's home. She denies having any chest pain or shortness of breath with these episodes. She denies any loss of consciousness or falls. Patient does complain of orthopnea and utilizes 3 pillows for the past 2-3 months. She also has some dependent lower extremity edema which resolves with elevation. Patient was brought to the hospital by EMS initially to [facility] was found to be in atrial flutter with initial normal troponin. Patient was then transferred to [facility] for further evaluation. WBC 4, hemoglobin 10.7, platelet count 570. Sodium 136, potassium 4.2, BUN 35 and creatinine 1.78 with baseline of 0.6. On repeat EKG at 3 AM reveals atrial flutter 4-1 conduction and prolonged QT. At the time of this evaluation, patient denies having any weak sensation, no palpitations, no chest pain. Her heart rate is now in the low 100s, patient was resumed on Lopressor 50 mg twice daily. Review Of Systems: Constitutional: No fever, no chills. Reports episodes of weakness. EENT: No headache. No dizziness. Lungs: No shortness of breath, cough, no sputum production. No wheezing. Cardiovascular: No chest pain, reports lower extremity edema. No palpitations. No paroxysmal nocturnal dyspnea. Reports orthopnea. No lightheadedness or dizziness. No syncopal episodes. Abdominal: No abdominal pain. No nausea, vomiting. No diarrhea. No constipation. No bloody or tarry stools.. No loss of appetite. Genitourinary: No dysuria.. No urinary retention. Musculoskeletal: No myalgias. No muscle weakness, no gait dysfunction, no frequent falls. No back pain. No neck pain. Integumentary: No wounds, no lesions. No rash or pruritus. Neurologic: No aphasia. No facial droop. No change in mentation. No head injury. No headache. No paralysis. No paresthesia. Psychiatric: No depression. No anxiety. Endocrine: No abnormal blood sugars. Physical examination: Gen: This is an 84-year-old female. Patient's resting bed and appears comfortable and in no acute distress. VS: Afebrile, blood pressure 153/81, heart rate 106, pulse ox 96% on 2 L nasal cannula HEENT: Head is atraumatic, normocephalic. Pupils equal, round. Sclerae is anicteric. NECK: Supple. No JVD. No lymphadenopathy. No thyromegaly. LUNGS: Clear to auscultation. No wheezes or rhonchi. No intercostal retractions. HEART: Regular rate and rhythm. Systolic murmur. ABDOMEN: Soft. Bowel sounds are present. No masses. No tenderness. EXTREMITIES: No pedal edema. No calf tenderness. Dorsalis pedis +2 bilaterally. NEUROLOGICAL: Patient is awake, alert and oriented x3. Cranial nerves 2 through 12 are grossly intact. Assessment: Episodes of severe weakness without syncope Bradycardia with atrial flutter Persistent chronic atrial fibrillation Chronic diastolic heart failure Melanoma Hypertension Acute kidney injury Plan: Agree with holding verapamil and Lopressor resumed at lower dose Continue eliquis 5 mg twice daily Obtain 2-D echocardiogram and Doppler study to assess cardiac structure and function Further recommendations to follow based upon clinical course Thank you kindly for this consultation. Nurse practitioner note has been reviewed, I agree with documented findings and plan of care. Patient was seen and examined. 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 Kidney Injury History of Any Multi-Drug Resistant Organisms: None Reported Past Surgical History: Section Additional Past Surgical History / Comment(s): melanoma removed from left cheek and basal cell cancer removed from nose, D&C Past Anesthesia/Blood Transfusion Reactions: No Reported Reaction Additional Past Anesthesia/Blood Transfusion Reaction / Comment(s): Pt received blood with child without reaction. Past Psychological History: No Psychological Hx Reported Smoking Status: Never smoker Past Alcohol Use History: None Reported Past Drug Use History: None Reported - Past Family History Father Family Medical History: CVA/TIA Additional Family Medical History / Comment(s): Father of a CVA at the age of 30yrs. Mother Family Medical History: Osteoarthritis (OA) Additional Family Medical History / Comment(s): Mother had a hiatal hernia. Medications and Allergies Home Medications Medication Instructions Recorded Confirmed Type Hydroxyurea [Hydrea] 500 mg PO BID 08/03/17 12/29/19 History Metoprolol Tartrate [Lopressor] 100 mg PO BID 04/15/19 12/29/19 History Acetaminophen Tab [Tylenol] 325 mg PO HS PRN 05/12/19 12/29/19 History ALPRAZolam [Xanax] 0.25 mg PO HS PRN #3 tab 05/17/19 12/29/19 Rx Apixaban [Eliquis] 2.5 mg PO BID 12/29/19 12/29/19 History Diltiazem HCl [Cardizem LA] 180 mg PO DAILY 12/29/19 12/29/19 History Potassium Chloride ER [K-Dur 20] 20 meq PO DAILY 12/29/19 12/29/19 History Torsemide [Demadex] 40 mg PO BID 12/29/19 12/29/19 History Allergies Allergy/AdvReac Type Severity Reaction Status Date / Time No Known Allergies Allergy Verified 12/29/19 13:45 Physical Exam Vitals: Vital Signs Temp Pulse Pulse Resp BP BP Pulse Ox 12/29/19 08:00 106 H 16 153/81 96 12/29/19 04:41 97.5 F L 58 L 18 118/69 95 12/29/19 03:52 97.5 F L 58 L 18 118/69 95 12/29/19 03:30 62 18 119/61 98 12/29/19 03:00 52 L 20 115/70 100 12/29/19 02:09 98.1 F 52 L 18 124/64 95 Intake and Output 12/28/19 12/29/19 12/29/19 22:59 06:59 14:59 Intake Total 120 200 Output Total 125 Balance -5 200 Intake: Oral 120 200 Output: Urine 125 Other: # Voids 1 # Bowel Movements 1 Weight 58.8 kg Results 12/29/19 07:09 12/29/19 07:09 Cardiac Enzymes 12/29/19 12/29/19 Range/Units 04:10 07:09 Troponin I <0.012 <0.012 (0.000-0.034) ng/mL CBC 12/29/19 Range/Units 07:09 WBC 4.0 (3.8-10.6) k/uL RBC 3.32 L (3.80-5.40) m/uL Hgb 10.7 L (11.4-16.0) gm/dL Hct 35.3 (34.0-46.0) % Plt Count 570 H (150-450) k/uL Comprehensive Metabolic Panel 12/29/19 Range/Units 07:09 Sodium 136 L (137-145) mmol/L Potassium 4.2 (3.5-5.1) mmol/L Chloride 98 (98-107) mmol/L Carbon Dioxide 29 (22-30) mmol/L BUN 35 H (7-17) mg/dL Creatinine 1.78 H (0.52-1.04) mg/dL Glucose 82 (74-99) mg/dL Calcium 9.4 (8.4-10.2) mg/dL Current Medications Generic Name Dose Route Start Last Admin Trade Name Josselyn PRN Reason Stop Dose Admin Apixaban 5 mg 12/29/19 09:00 12/29/19 08:06 Apixaban 5 Mg Tab PO 5 mg BID PASCALE Administration Nitroglycerin 0.4 mg 12/29/19 03:07 Nitroglycerin Sl Tabs 0.4 Mg Tab SUBLINGUAL Q5M PRN Chest Pain Sodium Chloride 10 ml 12/29/19 09:00 12/29/19 08:06 Sodium Chloride 0.9% Flush 10 Ml Syringe IV 10 ml BID PASCALE Administration Intake and Output 12/28/19 12/29/19 12/29/19 22:59 06:59 14:59 Intake Total 120 200 Output Total 125 Balance -5 200 Intake: Oral 120 200 Output: Urine 125 Other: # Voids 1 # Bowel Movements 1 Weight 58.8 kg 12/29/19 07:09 12/29/19 07:09
[2019-12-30 01:56] LABS: Appearance,Urine Cloudy (Clear); Bacteria,Urine Moderate /hpf; Bilirubin,Urine Negative (Negative); Blood,Urine Small (Negative); Color,Urine Yellow; Glucose,Urine (UA) Negative (Negative); Hyaline Casts,Urine 1 /lpf (0-2); Ketones,Urine Negative (Negative); Leukocyte Esterase,Urine Large (Negative); Nitrite,Urine Negative (Negative); PH, Urine 5.5 (5.0-8.0); Protein,Urine Trace (Negative); RBC,Urine 1 /hpf (0-5); Specific Gravity,Urine 1.011 (1.001-1.035); Squamous Epithelial Cell,Urine <1 /hpf (0-4); Urobilinogen,Urine <2.0 mg/dL (<2.0); WBC,Urine >182 /hpf (0-5)
[2019-12-30] MEDS ORDERED: ALPRAZolam 0.25 MG TAB PO PRN (07:50)
[2019-12-30] MEDS ORDERED: ACETAMINOPHEN TAB 325 MG TAB PO PRN (07:50)
[2019-12-30] MEDS: METOPROLOL TARTRATE 50 MG TAB PO SCH ×3 (08:11→20:22)
[2019-12-30] MEDS: APIXABAN 5 MG TAB PO SCH (08:11)
[2019-12-30] MEDS ORDERED: POTASSIUM CHLORIDE ER 20 MEQ TAB.ER PO SCH (09:00)
[2019-12-30] MEDS ORDERED: TORSEMIDE 20 MG TAB PO SCH (09:00)
[2019-12-30 09:22] LABS: Anisocytosis Slight; HCT 34.5 % (34.0-46.0); HGB 10.2 gm/dL (11.4-16.0); Hypochromasia Marked; MCH 31.3 pg (25.0-35.0); MCHC 29.6 g/dL (31.0-37.0); MCV 105.8 fL (80.0-100.0); Macrocytosis Marked; Platelet Count 548 k/uL (150-450); RBC 3.26 m/uL (3.80-5.40); RDW 17.6 % (11.5-15.5); WBC 3.5 k/uL (3.8-10.6)
[2019-12-30 09:38] LABS: Calcium 9.6 mg/dL (8.4-10.2); Potassium 4.2 mmol/L (3.5-5.1)
[2019-12-30 11:32] LABS: Basophils # (M) 0.11 k/uL (0-0.2); Eosinophils # (M) 0.11 k/uL (0-0.7); Lymphocytes # (M) 0.39 k/uL (1.0-4.8); Monocytes # (M) 0.39 k/uL (0-1.0); Neutrophils # (M) 2.52 k/uL (1.3-7.7); Neutrophils % (M) 72 %; Nucleated Red Blood Cells 0 /100 WBC (0-0); Total Cells Counted 100
[2019-12-30 11:36] LABS: Large Platelets Present
--- NOTE | 2019-12-30 12:25 | P.PN ---
Subjective Progress Note Date: 12/30/19 Principal diagnosis: Permanent atrial fibrillation This is a pleasant 84-year-old female patient with a past medical history significant for permanent atrial fibrillation as well as chronic diastolic congestive heart failure as well as valvular heart disease was admitted to the hospital with generalized weakness and fatigue and she was found to be bradycardic. At that point the patient was receiving metoprolol as well as Cardizem. We held Cardizem and continues metoprolol. She was seen today December [id number]. The heart rate has improved. Her resting heart rate 100 beats per minutes. The patient is feeling better. She denies any chest pain or chest discomfort or shortness of breath. The echo revealed normal left ventricular systolic function with severe LA dimerization and evidence of moderate to severe tricuspid regurgitation and severe pulmonary hypertension. Objective - Vital Signs Vital signs: Vital Signs Temp 97.6 F 12/30/19 03:59 Pulse 110 H 12/30/19 12:00 Resp 16 12/30/19 12:00 BP 129/85 12/30/19 12:00 Pulse Ox 91 L 12/30/19 12:00 Intake & Output 12/29/19 12/30/19 12/30/19 18:59 06:59 18:59 Intake Total 640 240 Output Total 400 900 Balance 240 -900 240 Weight 58.1 kg Intake: Oral 640 240 Output: Urine 400 900 Other: Voiding Method Toilet Toilet # Voids 1 # Bowel Movements 1 - Constitutional General appearance: Present: no acute distress - Respiratory Respiratory: bilateral: diminished - Cardiovascular Rhythm: irregularly irregular Heart sounds: normal: S1, S2 Abnormal Heart Sounds: Present: systolic murmur - Labs CBC & Chem 7: 12/30/19 08:46 12/30/19 08:46 Labs: Abnormal Lab Results - Last 24 Hours (Table) 12/30/19 12/30/19 12/30/19 Range/Units 00:21 08:46 08:46 WBC 3.5 L (3.8-10.6) k/uL RBC 3.26 L (3.80-5.40) m/uL Hgb 10.2 L (11.4-16.0) gm/dL MCV 105.8 H (80.0-100.0) fL MCHC 29.6 L (31.0-37.0) g/dL RDW 17.6 H (11.5-15.5) % Plt Count 548 H (150-450) k/uL Lymphocytes # (Manual) 0.39 L (1.0-4.8) k/uL Macrocytosis Marked A Sodium 136 L (137-145) mmol/L BUN 25 H (7-17) mg/dL Creatinine 1.26 H (0.52-1.04) mg/dL Glucose 103 H (74-99) mg/dL HDL Cholesterol 29 L (40-60) mg/dL Urine Appearance Cloudy H (Clear) Urine Protein Trace H (Negative) Urine Blood Small H (Negative) Ur Leukocyte Esterase Large H (Negative) Urine WBC >182 H (0-5) /hpf Urine WBC Clumps Few H (None) /hpf Urine Bacteria Moderate H (None) /hpf Assessment and Plan Assessment: Assessment #1 permanent atrial fibrillation with a slow ventricular response which has improved #2 generalized weakness and fatigue likely related to bradycardia #3 multiple comorbid conditions Plan #1 continue the current dose of metoprolol #2 continue holding calcium channel tr with Cardizem #3 from the cardiac standpoint of view, the patient possibly can be discharged home
--- NOTE | 2019-12-30 13:39 | P.PN ---
Subjective Progress Note Date: 12/30/19 Principal diagnosis: Bradycardia Patient is awake and alert today. She is complaining that she wants to go home. She does not have any specific concerns or complaints. Heart rate on the monitor around 120-20 while at rest. Objective - Vital Signs Vital signs: Vital Signs Temp 97.6 F 12/30/19 03:59 Pulse 110 H 12/30/19 12:00 Resp 16 12/30/19 12:00 BP 129/85 12/30/19 12:00 Pulse Ox 91 L 12/30/19 12:00 Intake & Output 12/29/19 12/30/19 12/30/19 18:59 06:59 18:59 Intake Total 640 240 Output Total 400 900 Balance 240 -900 240 Weight 58.1 kg Intake: Oral 640 240 Output: Urine 400 900 Other: Voiding Method Toilet Toilet # Voids 1 # Bowel Movements 1 - Exam General: The patient is awake and alert, in no distress Eye: there is normal conjunctiva bilaterally. Neck: The neck is supple, there is no JVD. Cardiovascular: Irregularly irregular rhythm. Normal S1-S2, no S3-S4, no murmurs. Respiratory: Lungs clear to auscultation bilaterally Gastrointestinal: Abdomen is soft, nontender Musculoskeletal: There is no pedal edema. Neurological:. Speech is normal. Skin: Skin is warm and dry - Labs CBC & Chem 7: 12/30/19 08:46 12/30/19 08:46 Labs: Abnormal Lab Results - Last 24 Hours (Table) 12/30/19 12/30/19 12/30/19 Range/Units 00:21 08:46 08:46 WBC 3.5 L (3.8-10.6) k/uL RBC 3.26 L (3.80-5.40) m/uL Hgb 10.2 L (11.4-16.0) gm/dL MCV 105.8 H (80.0-100.0) fL MCHC 29.6 L (31.0-37.0) g/dL RDW 17.6 H (11.5-15.5) % Plt Count 548 H (150-450) k/uL Lymphocytes # (Manual) 0.39 L (1.0-4.8) k/uL Macrocytosis Marked A Sodium 136 L (137-145) mmol/L BUN 25 H (7-17) mg/dL Creatinine 1.26 H (0.52-1.04) mg/dL Glucose 103 H (74-99) mg/dL HDL Cholesterol 29 L (40-60) mg/dL Urine Appearance Cloudy H (Clear) Urine Protein Trace H (Negative) Urine Blood Small H (Negative) Ur Leukocyte Esterase Large H (Negative) Urine WBC >182 H (0-5) /hpf Urine WBC Clumps Few H (None) /hpf Urine Bacteria Moderate H (None) /hpf Assessment and Plan Assessment: This is a 84-year-old female with complex past medical history noted below that presented to the hospital as a transfer from [place] for further evaluation of bradycardia. Patient was evaluated in the ER and currently admitted to the hosp ital for further management of her medical problems noted below. 1. Symptomatic bradycardia, secondary to beta tr and calcium channel tr use. They were both discontinued on presentation. Now in A. fib with RVR. Metoprolol dose resumed 50 mg twice daily by heart rates constantly in the 120s contrast. I will increase her metoprolol dose to 50 mg 3 times a day and continue color television console monitor. Echocardiogram revealed preserved ejection fraction of 55% and no significant valvular abnormalities 2. Chronic atrial fibrillation on anticoagulation with Eliquis 3. Acute kidney injury, most likely secondary to diuretic use. This was discontinued since admission. Creatinine improving. Resume Lasix 40 mg once daily and continue to monitor lab work. 4. Chronic diastolic heart failure with severe pulmonary hypertension Today, I reviewed her medication list and lab work results. Continue telemetry monitoring. Repeat lab work in the morning. Despite discharged home tomorrow.
[2019-12-30] MEDS: FUROSEMIDE 40 MG TAB PO SCH (16:37)
[2019-12-30] MEDS: APIXABAN 2.5 MG TABLET PO SCH (20:22)
[2019-12-30 23:48] VITALS: RESP 18
[2019-12-31] MEDS: FUROSEMIDE 40 MG TAB PO SCH (08:22)
[2019-12-31] MEDS: APIXABAN 2.5 MG TABLET PO SCH (08:22)
[2019-12-31] MEDS: METOPROLOL TARTRATE 50 MG TAB PO SCH (08:22)
[2019-12-31 08:28] VITALS: BP 131/77; TEMP 98
[2019-12-31 09:41] VITALS: PULSE 81
[2019-12-31 10:02] LABS: Calcium 9.2 mg/dL (8.4-10.2); Potassium 3.8 mmol/L (3.5-5.1)
--- NOTE | 2019-12-31 10:23 | P.DS ---
Providers Date of admission: 12/29/19 03:07 Expected date of discharge: 12/31/19 Attending physician: Raymon Mariscal MD Consults: 12/29/19 03:07 Consult Physician Routine Consulting Provider: Gonsalo Rangel Consult Reason/Comments: Symptomatic bradycardia. Do you want consulting provider notified?: Yes Primary care physician: Sheree Dickinson MD Hospital Course: This is a 84-year-old female with complex past medical history noted below that presented to the hospital as a transfer from [place] for further evaluation of bradycardia. Patient was evaluated in the ER and admitted to the hospital for further management of her medical problems noted below. 1. Symptomatic bradycardia, secondary to beta tr and calcium channel tr use. They were both discontinued on presentation. Now in A. fib with RVR. Metoprolol dose resumed 50 mg twice daily but heart rates constantly in the 120s contrast. I will increase her metoprolol dose to 50 mg 3 times a day and continue monitoring tech. Echocardiogram revealed preserved ejection fraction of 55% and no significant valvular abnormalities 2. Chronic atrial fibrillation on anticoagulation with Eliquis 3. Acute kidney injury, most likely secondary to diuretic use. Creatinine improving. Resume Lasix 40 mg once daily. 4. Chronic diastolic heart failure with severe pulmonary hypertension Patient's overall condition improved significantly throughout her hospital stay. Heart rate was well controlled with metoprolol 50 mg 3 times a day. Patient will be discharged home on metoprolol 75 mg twice a day. Creatinine is back to normal. Resume diuresis with Lasix 40 mg daily. Follow up with Dr. Avila in the cardiology office as directed. Patient will be discharged home in a stable condition. For further details about this hospitalization please refer to the electronic chart. Time spent on discharge > 30 minutes including counseling and coordination of Patient Condition at Discharge: Stable Plan - Discharge Summary Discharge Rx Participant: No New Discharge Prescriptions: New Furosemide [Lasix] 40 mg PO DAILY #30 tab Metoprolol Tartrate [Lopressor] 75 mg PO BID #60 tablet Continue Hydroxyurea [Hydrea] 500 mg PO BID Acetaminophen Tab [Tylenol] 325 mg PO HS PRN PRN Reason: Pain ALPRAZolam [Xanax] 0.25 mg PO HS PRN #3 tab PRN Reason: Anxiety Potassium Chloride ER [K-Dur 20] 20 meq PO DAILY Apixaban [Eliquis] 2.5 mg PO BID Discontinued Metoprolol Tartrate [Lopressor] 100 mg PO BID Diltiazem HCl [Cardizem LA] 180 mg PO DAILY Torsemide [Demadex] 40 mg PO BID Discharge Medication List Hydroxyurea [Hydrea] 500 mg PO BID 08/03/17 [History] Acetaminophen Tab [Tylenol] 325 mg PO HS PRN 05/12/19 [History] ALPRAZolam [Xanax] 0.25 mg PO HS PRN #3 tab 05/17/19 [Rx] Apixaban [Eliquis] 2.5 mg PO BID 12/29/19 [History] Potassium Chloride ER [K-Dur 20] 20 meq PO DAILY 12/29/19 [History] Furosemide [Lasix] 40 mg PO DAILY #30 tab 12/31/19 [Rx] Metoprolol Tartrate [Lopressor] 75 mg PO BID #60 tablet 12/31/19 [Rx] Follow up Appointment(s)/Referral(s): Mando Avila MD [STAFF PHYSICIAN] - 01/11/20 1:45 pm Sheree Dickinson MD [Primary Care Provider] - 1 Week (Please schedule appointment with primary physician. You should see them within one week of being discharged from the hospital.) [facility], [NON-STAFF] - 1 Week Patient Instructions/Handouts: Bradycardia (DC) Discharge Disposition: HOME WITH HOME HEALTH SERVICES
[2019-12-31 10:30] LABS: Anisocytosis Slight; HCT 34.1 % (34.0-46.0); HGB 10.3 gm/dL (11.4-16.0); Hypochromasia Marked; MCH 32.1 pg (25.0-35.0); MCHC 30.1 g/dL (31.0-37.0); MCV 106.4 fL (80.0-100.0); Macrocytosis Marked; Mean Platelet Volume 9.5; Platelet Count 513 k/uL (150-450); RBC 3.21 m/uL (3.80-5.40); RDW 17.6 % (11.5-15.5); WBC 3.3 k/uL (3.8-10.6)
[2019-12-31 11:29] LABS: Band Neutrophils % 1 %; Lymphocytes # (M) 0.56 k/uL (1.0-4.8); Monocytes # (M) 0.59 k/uL (0-1.0); Neutrophils % (M) 64 %; Nucleated Red Blood Cells 0 /100 WBC (0-0); Total Cells Counted 100
[2019-12-31 11:30] LABS: Large Platelets Present
--- NOTE | 2019-12-31 13:46 | CDI ---
Documentation Clarification Form Date: 12/31/2019 01:11:42 PM From: Brittany Claros RN, CCDS Admit Date: 12/29/2019 03:07:00 AM Patient Name: Jessica Pulido Visit Number: [id number] Discharge Date: ATTENTION: The Clinical Documentation Specialists (CDI) and [facility] Coding Staff appreciate your assistance in clarifying documentation. Please respond to the clarification below the line at the bottom and electronically sign. The CDI & [facility] Coding staff will review the response and follow-up if needed. Please note: Queries are made part of the Legal Health Record. If you have any questions, please contact the author of this message via ITS. Dr. Mando Avila Atrial Flutter 4:1 conduction and prolonged QT is documented in the Cardiology consult on 12/28. Please further specify the type of atrial flutter History/Risk factors: Atrial Fibrillation, Atrial Flutter Heart Failure Hypertension Clinical Indicators: 84-year-old female presents as a transfer from [facility] with complaints of generalized weakness and inability to walk. EMS found heart rate into the 50's. Patient denied any weak sensation, no palpitations, no chest pain per cardiology evaluation on 12/28. 12/28 EKG: atrial flutter with a bradycardic rate in the 50 with 4:1 AV conduction 12/28 Vital signs @ 02:09: 124/64 52 18 98.1 95 % RA Treatment: Lopressor 50 mg BID Eliquis 5 mg BID 12/28 Echocardigram: Atrial Fibrillation. Overall left ventricular systolic function is low-normal with, an EF between 50-55% Severe pulmonary hypertension In your professional opinion, in order to capture the severity of condition; can you please clarify the type of Atrial Flutter if known? Typical/Type I X Atypical/Type II Other, please specify Unable to determine (Last Revision: July 2017) MTDD
== END 2019-12-31 14:36 | disposition home health service (06) | DRG 309 ==
LOC: EC 02:07 → 3SCARD 03:07
PROVIDERS: ADMIT Internal Medicine; ATTEND Internal Medicine
DX: I48.21 Permanent atrial fibrillation (principal); I50.32 Chronic diastolic (congestive) heart failure; N17.9 Acute kidney failure, unspecified; D64.9 Anemia, unspecified; I07.1 Rheumatic tricuspid insufficiency; I11.0 Hypertensive heart disease with heart failure; I27.20 Pulmonary hypertension, unspecified; I48.92 Unspecified atrial flutter; T50.2X5A Adverse effect of carbonic-anhydrase inhibitors, benzothiadiazides and other diuretics, initial encounter; Z79.01 Long term (current) use of anticoagulants; Z79.899 Other long term (current) drug therapy; Z82.3 Family history of stroke; Z85.820 Personal history of malignant melanoma of skin; M19.90 Unspecified osteoarthritis, unspecified site
CPT/HCPCS: 80048; 80061; 81001; 83735; 84484; 85025; 85027; 93005; 93306; 99285